=== PATIENT | female | born 1965 | race Caucasian/White ===

== ENCOUNTER 2020-09-25 15:03 | Inpatient (IN) | payer MEDICARE, OTHER ==
[2020-09-28] MEDS ORDERED: Glucagon,Human Recombinant 1 MG Vial IM PRN (14:39)
[2020-09-28] MEDS ORDERED: cloNIDine 0.1 MG Tab PO PRN ×2 (14:39)
[2020-09-28] MEDS ORDERED: DEXTROSE PO PRN (14:39)
[2020-09-28] MEDS ORDERED: [UNRECOGNIZED DRUG - OTHER] PO PRN (14:39)
[2020-09-28] MEDS ORDERED: Acetaminophen 500 MG Tab PO PRN (14:39)
[2020-09-28] MEDS ORDERED: Albuterol HFA 18 Gm Inhaler INH PRN (15:03)
[2020-09-28] MEDS ORDERED: ALPRAZolam 0.5 MG Tab PO PRN (15:04)
[2020-09-28] MEDS ORDERED: Hypromellose 0.3% Ophth Soln 15 ML Bottle EYEBOTH PRN (15:11)
[2020-09-28] MEDS ORDERED: SUMAtriptan 50 MG Tab PO PRN (15:15)
[2020-09-28] MEDS: Pantoprazole 40 MG Tab.CR PO SCH (16:01)
[2020-09-28] MEDS: Sodium Chloride 0.9% 10 ML Syringe IV PRN (16:01)
[2020-09-28] MEDS: Baclofen 10 MG Tab PO SCH ×2 (16:01→19:46)
[2020-09-28] MEDS: Sodium Chloride 0.9% 10 ML Syringe FLUSH SCH (16:01)
[2020-09-28] MEDS: cefTRIAXone 2 GM Vial IV SCH (16:01)
[2020-09-28] MEDS: Heparin Sodium 100 Units/ML 3 ML Syringe IVPUSH SCH (16:02)
[2020-09-28] MEDS: Calcium Carbonate/Vitamin D3 1250 MG-200 Unit Tab PO SCH (17:39)
[2020-09-28] MEDS: Codeine/guaiFENesin 10-100 MG/5 ML Syrup 5 ML Cup PO PRN (17:39)
[2020-09-28] MEDS: Ondansetron 4 MG Tab.DIS PO PRN (18:43)
[2020-09-28] MEDS: ClonazePAM 0.5 MG Tab PO SCH ×2 (19:44→19:45)
[2020-09-28] MEDS: Nortriptyline 10 MG Cap PO SCH (19:44)
[2020-09-28] MEDS: Melatonin 3 MG Tab PO SCH (19:45)
[2020-09-28] MEDS: Gabapentin 300 MG Cap PO SCH (19:45)
[2020-09-28] MEDS: Nortriptyline 25 MG Cap PO SCH (19:46)
[2020-09-28] MEDS: Montelukast 10 MG Tab PO SCH (19:46)
[2020-09-28] MEDS: busPIRone 15 MG Tab PO SCH (19:46)
[2020-09-28] MEDS: ESTROGENS CONJUGATED SCH (20:07)
--- NOTE | 2020-09-28 21:19 | HP ---
CHIEF COMPLAINT: Weakness. HISTORY OF PRESENT ILLNESS: The patient is a 55 -year-old female who had been hospitalized at [facility] from 09/10/2020 until 09/28/2020 with empyema of left lung, status post left VATS with community-acquired pneumonia with Streptococcus intermedius growth. She ended up having complications of respiratory distress, needing intubation afterwards with respiratory failure. She ended up having delirium related to ICU stay, which did get improved. The patient does have noted chronic dysphagia due to problems with gastric bypass that was done years ago. The patient had been anemic during this encounter and had received transfusions at least 2 times that she recalls. Her Hgb prior to discharge was around 7.8. The patient had been on oxygen until just a few days ago. She did receive blood transfusions to also help her get stronger. The patient normally lives at home with her in [place] and is in need of PT/OT as well as speech therapy to help with swallowing. The patient does normally see Dr. Brian Longoria from [facility], as her primary care provider. The patient has been given IV Venofer for her iron deficiency anemia. She did have a pansystolic murmur, but 2D echo showed mild mitral regurgitation and needs outpatient followup. The patient was seen by a pulmonology consult on 09/27/2020 and it was felt that she needed an outpatient followup with CT surgery and chest x-ray in 2 weeks as well as repeat CT of chest in 6 weeks. She will need IV antibiotics until 10/24/2020 and a PICC line had been placed. The patient's last bronchoscopy was on 09/24/2020 needed for airway clearance. To note, the patient had initial onset of 08/18 of left chest mass, which was felt to be possibly cancerous process, and that is why she had been seen by Oncology, but CT scan of her chest done on 09/10 showed a significant progression with consolidation. Dr. Muhammad was her CT surgeon. MEDICATIONS: That she came to us were Tylenol Extra Strength 1000 mg q.4 hours p.r.n. pain, albuterol inhaler 2 puffs q.4 hours p.r.n., Xanax 1 mg daily p.r.n. anxiety, Artificial Tears 1 mL both eyes daily p.r.n., baclofen 10 mg q.i.d. scheduled, Wellbutrin SR 200 mg 1 pill daily, Wellbutrin 100 mg daily at noon, BuSpar 15 mg 1 pill b.i.d., calcium carbonate with vitamin D 1250/200 one pill twice a day, Rocephin 2 g IV q.24 hours to be given until 10/24/2020, clonazepam 1 mg b.i.d., clonazepam 0.5 mg at 0600 and 2000, clonidine 0.2 mg p.r.n. anxiety and clonidine 0.4 mg at bedtime p.r.n. insomnia, vitamin B12, 500 mcg p.o. daily, ferrous sulfate 325 one pill daily, gabapentin 300 mg 3 times a day, glucagon 1 mg IM p.r.n. hypoglycemia, guaifenesin with codeine 5 mL q.4 hours p.r.n. cough, heparin 300 units IV p.r.n. heparin flushes and 300 units q.24 hours, levothyroxine 50 mcg p.o. q.a.m., melatonin 6 mg at bedtime, Singulair 10 mg 1 pill at bedtime, multivitamin 1 pill daily, glucose 1 to 3 tablets p.o. daily p.r.n. low blood sugars, silver nitrate applicator, 1 applicator topically daily p.r.n. bleeding, estrogen, Premarin 1 g q.3 days schedule, nortriptyline 75 mg 1 pill at bedtime, nortriptyline 10 mg p.o. at bedtime, Protonix 40 mg b.i.d., Senna Plus 1 pill twice a day, sodium chloride flushes 10 mL IV to keep vein open q.24 hours, Imitrex 25 mg q.2 hours p.r.n. headache. ALLERGIES: Adhesives, alcohol, gum mastic adhesive, ibuprofen, methyl salicylate, metronidazole, morphine, Naprosyn, penicillin, Storax (adhesive). PAST MEDICAL HISTORY: The patient has allergies, anemia, anxiety, arthritis, asthma, depression, diaphragmatic hernia, gastroesophageal reflux disease, hypoglycemia, irritable bowel syndrome, kidney stone, oropharyngeal dysphagia, osteoporosis, restless legs syndrome, mild mitral regurgitation, eating disorder unspecified, chronic depression, acne, pelvic floor dysfunction, postmenopausal atrophic vaginitis, somatization disorder. PAST SURGICAL HISTORY: The patient had gastric bypass 10/21/[address] Jacob. She has had TMJ reconstruction, 01/2010, [facility]; cosmetic surgery, 05/31/2010; abdominoplasty; medial thigh lift; left knee lift, butt lift. She has had knee arthroscopy in 2011 on the left, diagnostic laparoscopy status post gastric bypass on 07/10/2012. She has had upper endoscopy in 2011 and intestinal resection 10/19/2013 after exploratory lap takedown of gastrocutaneous fistula and lysis of adhesions, 10/18/2014. Upper endoscopy, 04/28/2015. Upper endoscopy, 06/08/2015. Laparoscopic repair of hiatal hernia, laparoscopic lysis of adhesions, removal of foreign body, EGD. 12/28/2015, upper endoscopy. 08/15/2016, left trapeziectomy with TightRope suspension . 01/19/2017, right trapeziectomy. 09/26/2017, colonoscopy. 09/26/2017, EGD. 01/29/2019, IR gastro tube placement. 03/04/2019, manometry anorectal. 04/09/2019, trial stage I insertion of InterStim sacral neurostimulator. 04/16/2019, InterStim stage II. 05/30/2019, IR gastric tube placement. 06/04/2019, cystoscopy, nephroscopy, laser lithotripsy, retrograde pyelogram, stent placement. 09/13/2020, left VATS, thoracotomy, drainage, and pleural effusion, drainage of lung abscess, decortication left lobe, flexible bronchoscopy. She has had an abdominal total hysterectomy, appendectomy, cholecystectomy, , fusion of SI joint, hernia repair, umbilical hernia, spine surgery with 2 spinal surgeries, tonsillectomy, and tubal ligation. FAMILY MEDICAL HISTORY: Shows mother had anxiety, rheumatoid arthritis, cirrhosis of the liver. Father has hypertension, kidney stones, knee replacement, nonmelanomatous skin cancer. Sister is alive. Brother is alive. Maternal grandmother is from depression, suicide, rheumatoid arthritis. Maternal grandfather had leukemia. Paternal grandmother had breast cancer. Paternal grandfather had prostate mets. Daughters had asthma. Son has had asthma, arthritis, depression. Maternal aunt had lupus, Sjogren's, and rheumatoid arthritis. SOCIAL HISTORY: The patient has never smoked. She does not consume alcohol. She is . Her is a teacher asst. 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 She has 2 children. REVIEW OF SYSTEMS: Her weight has gone down 20 pounds since this ordeal. She has not had a fever. She does have left chest wall pain. She does cough. Her bowels have been regular. She does have difficult time eating much food and need for feeding tubes. No swelling of her legs. No bruising. Mood does tend to be somewhat anxious. She is thinking more clearly now, but had been confused recently in the hospital. OBJECTIVE: Vital Signs: Show that her weight is 59.42 kg, height is 1.55 m, temperature is 37.0, pulse 108, blood pressure 118/55, respiratory rate 16, sats 94% on room air. Skin: The patient does have a healing thoracostomy site on her left lateral rib cage area with 2 small stab wounds from chest tubes. Her skin is fair. HEENT: Her pharynx is normal. Neck: Supple. No anterior cervical lymphadenopathy. Heart: Regular rate and rhythm with 1/6 systolic ejection murmur. Lungs: Have diminished breath sounds on the left. Right is more clearer. Abdomen: Bowel sounds present. Soft, nontender. Lower Extremities: No edema. No redness. Psychiatric: Mood-boo, the patient appears to be slightly anxious. Psych: She appears oriented x3. IMPRESSION: 1. Deconditioning with weakness. 2. Empyema status post left video-assisted thoracic surgery drainage. 3. Community-acquired pneumonia, streptococcus intermedius 4. Chronic anxiety disorder. 5. Chronic depression. 6. Anemia, multifactorial. 7. Hypothyroidism. 8. Dysphargia chronic. 9. History of gastric bypass surgery. PLAN: The patient will be admitted to swing bed. She will receive physical therapy, occupational therapy and will also get speech therapy ordered. The patient will have lab work done tomorrow. Per directions from her discharge summary, she will follow up with CV Surgery as directed as well as having most likely a followup chest x-ray towards the end of this week to get a baseline here as well as CT scan as directed as needed in 6 weeks' time and I also want a chest x-ray in 2 weeks' time. She will need PICC line cares.IV antibiotics until 10/24/20 with roceophin. To note, time to do admission was over 30 minutes: The patient is code level 1 status. The patient had been on Lovenox for DVT prophylaxis; however, with concerns for anemia may use compression hosiery on her legs. She tested negative for COVID prior to leaving [facility] in [place]. GM09/28/2020 17:40:29 MODL: 09/28/2020 21:12:42 /[id number] MTDD
[2020-09-29] MEDS: ClonazePAM 0.5 MG Tab PO SCH ×4 (06:14→20:13)
[2020-09-29] MEDS: Pantoprazole 40 MG Tab.CR PO SCH ×2 (06:14→17:20)
[2020-09-29] MEDS: Levothyroxine 50 MCG Tab PO SCH (06:14)
[2020-09-29 07:38] LABS: CHLORIDE,CL 102 mmol/L (98-107); SODIUM,NA 142 mmol/L (136-145)
[2020-09-29 07:57] LABS: ANION GAP 10.4 mmol/L (10-20)
--- NOTE | 2020-09-29 08:17 | PCM.SN.2 ---
- Free Text/Narrative Note: labs reviewed, potassium is low at 2.4, so will add potassium. Her Hgb 7.8 and plt were over 700, which may reflect acute phase reactant. She was having nausea. Albumen noted to be low at 1.7
[2020-09-29] MEDS: Baclofen 10 MG Tab PO SCH ×4 (08:57→20:13)
[2020-09-29] MEDS: Multivitamins with Iron/Calcium/Folic Acid/Minerals Tab PO SCH (08:57)
[2020-09-29] MEDS: Potassium Chloride 10 MEQ Tab.ER PO SCH ×2 (08:57→18:23)
[2020-09-29] MEDS: Cyanocobalamin (Vitamin B12) 250 MCG Tab PO SCH (08:57)
[2020-09-29] MEDS: buPROPion 100 MG Tab.SR PO SCH ×2 (08:57→11:52)
[2020-09-29] MEDS: busPIRone 15 MG Tab PO SCH ×2 (08:57→20:14)
[2020-09-29] MEDS: Gabapentin 300 MG Cap PO SCH ×3 (08:58→20:14)
[2020-09-29] MEDS: Ferrous Sulfate 325 MG Tab PO SCH (08:58)
[2020-09-29] MEDS: Ondansetron 4 MG Tab.DIS PO PRN (08:58)
[2020-09-29] MEDS: Calcium Carbonate/Vitamin D3 1250 MG-200 Unit Tab PO SCH ×2 (08:58→18:22)
[2020-09-29] MEDS: Sodium Chloride 0.9% 10 ML Syringe IV PRN (09:01)
[2020-09-29] MEDS ORDERED: Loperamide 2 MG Cap PO STA (11:53)
[2020-09-29] MEDS ORDERED: Loperamide 2 MG Cap PO PRN (12:02)
[2020-09-29] MEDS: Heparin Sodium 5,000 Units/ML Vial SUBCUT SCH ×2 (12:27→20:14)
--- OUTSIDE RECORDS SUMMARY | 2020-09-29 12:36 | XMSREPORT ---
:1965 Author Organization [facility] Address [address] [place] [address] [address] [place] [address] Care Team Providers Name Role Phone Eldon White MD Unavailable MD Von Primary Care Provider MD Von Attributed Provider Reason for Referral FCC Prior Auth (Routine) Status Reason Specialty Diagnoses / Referred By Referred To Procedures Contact Contact NOT REQUIRED Diagnoses Abscess of lower lobe of left lung without pneumonia (HCC) Melissa Huerta Procedures CT CHEST WITH CONTRAST MD Alan [address] [place] [address] Comprehensive Primary [facility] Plus (Routine) Status Reason Specialty Diagnoses / Referred By Referred To Procedures Contact Contact New Request CARDIOLOGY Diagnoses Abscess of lower lobe of left lung with pneumonia (HCC) Melissa Huerta Fgo Cardthr Sgalfredo Phillips MD [address] [place] [address] [place] [address] [place] [address] Phone: Fax: Scheduling Instructions This is an electronic referral. FCC Prior Auth (Routine) Status Reason Specialty Diagnoses / Referred By Referred To Procedures Contact Contact NOT REQUIRED Diagnoses Abscess of lower lobe of left lung with pneumonia (HCC) Jose De Jesus Rios MD Procedures HOME INFUSION ADULT ANTIBIOTIC [address] [place] [address] Reason for Visit Auth/Cert Status Reason Specialty Diagnoses / Procedures Referred By Woody torres Referred To Contact Encounter Details Date Type Department Care Team Description 09/10/2020 - [facility] Provider, [facility] Pr ocedure Lung abscess (HCC) 09/28/2020 Encounter CENTER 6CD F Son Bach MD [address] [place] [address] [phone] [facility] Vinayak Muller MD [address] [place] [address] [phone] [place] [address] Carl Bonilla MD [address] [place] [address] [phone] Jose Bustillos MD [address] [place] [address] [phone] Alonzo Snyder, [address] [place] [address] [phone] Alan William MD [address] [place] [address] [phone] Jensen Gonzalez MD [address] [place] [address] [phone] Melissa Huerta MD [address] [place] [address] [phone] Maria Loya MD [address] [place] [address] [phone] Allergies Active Allergy Reactions Severity Noted Date Comments Adhesives Itching 08/02/2012 Gnp Naproxen Sodium Other (Specify in 05/27/2012 GI due to bypass Comments) surgery Metronidazole Rash 05/27/2012 Ibuprofen Other (Specify in 05/27/2012 GI due to bypass Comments) surgery Mastisol Rash 06/27/2012 Morphine Other (Specify in 11/13/2014 IV form Ca uses pt to Comments) feel hyper and shake Penicillin Rash 05/27/2012 documented as of this encounter (statuses as of 09/28/2020) Medications Medication Sig Dispensed Refills Start Date End Date Status cyanocobalamin Take 500 mcg by mouth 0 Active (VITAMIN B-12) 500 1 time per day. mcg tablet dextrose 4-0.006 G Take 1-3 tablets by 0 11/26/2012 Active CHEW chewable tablet mouth 1 time a day as needed for low blood sugar. calcium Take 1 tablet by 0 Act maura carbonate-vitamin D mouth 2 times a day (CALTRATE 600 + VIT with meals. D) 600mg-200 unit tablet artificial tears 1.4 Place 1 drop into 0 Active % SOLN both eyes 1 time a day as needed for dry eyes. Lancets (MICROLET) Test blood sugar 2 100 each 05/25/2017 Active MISCIndications: times a day (1-2 Hypoglycemia hours after supper and as needed for hypoglycemic symptoms). blood glucose test Test blood sugar 2 50 each 05/25/2017 Active strip (COURTNEY CONTOUR times a day (1-2 NEXT) hours after supper STRPIndications: and as needed for Hypoglycemia hypoglycemic symptoms). glucagon, rDNA, Inject 1 mg 1 Kit 3 02/08/2018 A ctive (GLUCAGON EMERGENCY) intramuscularly as 1 mg injection needed for other kitIndications: (Specify) (low blood Hypoglycemia sugar) (For low blood sugar) silver Apply topically 1 100 each 1 11/21/2018 A ctive nitrate-potassium time per day as nitrate (GRAFCO needed around feeding SILVER NIT tube site. APPLICATOR) 75-25 % sticksIndications: Breakthrough bleeding buPROPion TAKE 1 TABLET BY 90 tablet 3 11/19/2019 Ac tive (WELLBUTRIN SR) 100 MOUTH EVER Y DAY AT mg SR (12 hr) NOON tabletIndications: Recurrent major depressive disorder, remission status unspecified (HCC) Additional Information Patient taking differently: 100 mg Oral Daily (Noon), TAKE 1 TABLET BY MOUTH EVER Y DAY AT NOON, Reported on 09/10/2020 8:08 PM buPROPion (WELLBUTRIN SR) 200 mg TAKE 1 TABLET BY 90 tablet 3 11/19/2019 Active SR (12 hr) tabletIndications: MOUTH EVER Y MORNING Recurrent major depressive disorder, remission status unspecified (HCC) Additional Information Patient taking differently: 200 mg Oral DAILY, TAKE 1 TABLET BY MOUTH EVER Y MORNING, Reported on 09/10/2020 8:08 PM acetaminophen (TYLENOL) 500 Take 1,000 mg by mouth 0 Active mg tablet every 4 to 6 hours as needed for moderate pain baclofen (LIORESAL) 10 mg Take 1 tablet (10 mg) 120 tablet 12 0 12/10/2019 Active tabletIndications: Chronic by mouth 4 times a day pain syndrome, Chronic low back pain without sciatica, unspecified back pain laterality albuterol HFA Inhale 2 puffs orally 1 Inhaler 3 12/31/2019 Active (PROVENTIL,PROAIR,VENTOLIN) every 4 to 6 hours as 108 (90 Base) MCG/ACT needed for shortness of inhalerIndications: breath Shake well Bronchitis, Uncomplicated before using. asthma Multiple Vitamins-Calcium Take by mouth 0 Active (ONE-A-DAY WOMENS PO) levothyroxine 50 mcg TAKE 1 TABLET BY MOUTH 90 tablet 3 2019 Active tabletIndications: DAILY Hypothyroidism (acquired) Additional Information Patient taking differently: 50 mcg Oral DAILY, Reported on 09/10/2020 8:03 PM pantoprazole (PROTONIX) 40 mg TAKE 1 TABLET BY 60 tablet 12 04/2020 Active enteric coated MOUTH TWICE A DAY tabletIndications: BEFORE MEALS Gastroesophageal reflux disease without esophagitis Additional Information Patient taking differently: 40 mg Oral Two times a day before meals, TAKE 1 TABLET BY MOUTH TWICE A DAY BEFORE MEALS, Reported on 09/10/2020 8:03 PM montelukast (SINGULAIR) 10 Take 1 tablet (10 90 tablet 0 07/14 Active mg tabletIndications: mg) by mouth every Chronic pain syndrome night at bedtime estrogens, conjugated Insert 1 g 42.5 g 4 07/15/2020 Active (PREMARIN) 0.625 mg/gm vaginally every 2 0 vaginal creamIndications: night at bedtime Postmenopausal atrophic for 14 days, THEN vaginitis, Dyspareunia, 1 g Every 3 days. female nortriptyline (PAMELOR) 25 3 capsules at 270 capsule 2 020 Active mg capsuleIndications: bedtime Major depressive disorder, recurrent, moderate (HCC) Additional Information Patient taking differently: 75 mg Oral Bedtime, 3 capsules at bedtime, Reported on 09/10/2020 8:08 PM nortriptyline (PAMELOR) 10 mg TAKE 1 CAPSULE BY 90 capsule 2 0 07/21/2020 Active capsuleIndications: Major MOUTH AT BEDTIME depressive disorder, recurrent, (TAKE WITH 3 25 MG moderate (HCC) TABLETS) Additional Information Patient taking differently: 10 mg Oral Bedtime, TAKE 1 CAPSULE BY MOUTH AT BEDTIME (TAKE WITH 3 25 MG TABLETS), Reported on 09/10/2020 8:03 PM ALPRAzolam (XANAX) 1 mg TAKE 1 TABLET BY 15 tablet 2 0 Active tabletIndications: Anxiety MOUTH EVERY DAY NEEDED FOR PANIC SYMPTOMS Additional Information Patient taking differently: 1 mg Oral One time a day prn, TAKE 1 TABLET BY MOUTH EVERY DAY NEEDED FOR PANIC SYMPTOMS, Reported on 09/10/2020 8:03 PM sumatriptan succinate Take 1 tablet (25 5 tablet 0 08/30/2020 09/04/2021 Active (IMITREX) 25 mg mg) by mouth every tabletIndications: 2 hours as needed Nonintractable headache, for migraine May unspecified chronicity repeat x1 dose pattern, unspecified after 2 hours if headache type needed; MAX 2 doses/24 hours cloNIDine (CATAPRES) 0.1 TAKE 4 TABLETS BY 180 tablet 1 2019 Active mg tabletIndications: MOUTH AT BEDTIME Insomnia, unspecified NEEDED FOR type, Anxiety SLEEP; MAY TAKE ANADDITIONAL 2 TABLETS EACH DAY NEEDED FOR ANXIETY. OR ANXIETY. Additional Information Patient taking differently: 0.4 mg Oral Bedtime prn, TAKE 4 TABLETS BY MOUTH AT BEDTIME NEEDED FOR SLEEP; MAY TAKE AN ADDITIONAL 2 TABLETS EACH DAY NEEDED FOR ANXIETY. OR ANXIETY., Reported on 09/10/2020 8:03 PM clonazePAM (KLONOPIN) 1 TAKE 1/2 TABLET BY 90 tablet 1 020 Active mg tabletIndications: MOUTH AT 6AM, 1 Generalized anxiety TABLET AT 12:00, 1 disorder TABLET AT 6PM,AND 1/2 TABLET AT BEDTIME. sodium chloride 0.9% Administer 10 mL intravenous ly As often as necessary for other (Specify) (Flush infusion line before each antibiotic infusion and after each infusion completed) Flush infusion line before each antibiotic infusion and after each infusion completed. 0 09/21/2020 Active prefilled 10 mL syringe Flush line with heparin 300 units/ 3 mL after the last saline flush 0.9% SOLNIndications: Abscess of lower lobe of left lung with pneumonia (HCC) hEParin 100 units/mL Administer 3 mL 0 09/21/2020 Active injection (300 Units) solutionIndications: intravenously As Abscess of lower lobe often as necessary of left lung with for other pneumonia (HCC) (Specify) (heparin 300 units/3 mL IV FLUSH after completion of each antibiotic infusion (after saline flush)) heparin 300 units/3 mL IV FLUSH after completion of each antibiotic infusion (after saline flush) cefTRIAXone (ROCEPHIN) Administer 2,000 0 09/21/202010/12 Active 2,000 mg in sodium mg intravenously 3/ chloride 0.9% 50 Every 24 hours 20 mLIndications: Abscess of lower lobe of left lung with pneumonia (HCC) busPIRone (BUSPAR) 15 Take 1 tablet (15 180 tablet 4 0 09/13 Active mg tabletIndications: mg) by mouth 2 2/2 0 Anxiety disorder, times a day 21 unspecified type gabapentin (NEURONTIN) Take 1 capsule 90 capsule 2 09/28/202012/13 Active 300 mg (300 mg) by mouth 03/31 capsuleIndications: 3 times a day 21 Anxiety disorder, unspecified type codeine-guaiFENesin Take 5 mL by mouth 240 mL 0 09/28/2020 Active 10mg-100mg/5mL oral Every 4 hours as syrupIndications: needed for cough Abscess of lower lobe of left lung with pneumonia (HCC) melatonin 3 mg Take 2 tablets (6 30 tablet 0 09/28/2020 Active tabletIndications: mg) by mouth every Anxiety disorder, night at bedtime unspecified type ferrous sulfate (65 MG Take 1 tablet (325 30 tablet 0 09/28/20 20 Active FE PER 325 MG TABLET) mg) by mouth 1 325 mg time per day tabletIndications: Iron deficiency anemia, unspecified iron deficiency anemia type senna-docusate sodium Take 1 tablet by 60 tablet 0 09/28/2020 Active (SENOKOT-S;PERICOLACE) mouth 2 times a 8.6-50 MG day tabletIndications: Iron deficiency anemia, unspecified iron deficiency anemia type busPIRone (BUSPAR) 15 TAKE 3 TABLETS BY 180 tablet 5 0 09/12 Discontinued mg tabletIndications: MOUTH TWICE A DAY 05/31 (Stop Taking at Major depressive 20 Dis charge) disorder, recurrent, moderate (HCC), Generalized anxiety disorder gabapentin (NEURONTIN) TAKE 2 CAPSULES BY 180 capsule 3 2019 Discontinued 300 mg MOUTH THREE TIMES 01/01 capsuleIndications: DAILY 20 Neuropathic pain ziprasidone (GEODON) 40 TAKE 1 CAPSULE BY 90 capsule 1 020 09/12 Discontinued mg capsuleIndications: MOUTH EVERY NIGHT 05/31 (Stop Taking at Major depressive AT BEDTIME 20 Di scharge) disorder, recurrent episode, moderate (HCC) levoFLOXacin (LEVAQUIN) Take 1 tablet (500 10 tablet 0 020 09/12 Discontinued 500 mg mg) by mouth 1 05/31 (Stop Taking at tabletIndications: time per day 20 Discharge) Pneumonia of left upper lobe due to infectious organism, Cough, Lung mass HYDROcodone-chlorphenir Take 5 mL by mouth 250 mL 0 020 09/12 Discontinued amine (TUSSIONEX) 10-8 Every 12 hours as 05/31 (Stop Taking at mg/5 mL oral suspension needed for cough 20 Discharge) ERIndications: Cough, Pneumonia of left upper lobe due to infectious organism, Lung mass documented as of this encounter (statuses as of 09/28/2020) Active Problems Problem Noted Date Anxiety disorder 09/13/2020 Asthma 09/13/2020 Hypothyroidism 09/13/2020 Peripheral neuropathy 09/13/2020 Pneumonia 09/13/2020 History of general anesthesia 09/13/2020 Lung abscess 09/11/2020 Pelvic floor dysfunction in female 05/31/2020 Kidney stones 07/02/2019 Uses feeding tube 06/03/2019 Acute kidney injury 06/03/2019 Obesity with body mass index of 30.0-39.9 03/31/2019 Oropharyngeal dysphagia 04/01/2018 Last Assessment & Plan: Cricopharyngeal spasm more likely incidental finding on esophogram, though may be contributing to symptoms or pills sticking. No evidence of ring, web, narrowing on recent EGD, esophogram. Consider cont ribution of LPR to symptoms. Continue twice daily protonix; goal t o taper to lowest effective dose as able Encourage meds with puree, consider c rushing larger pills/mix with puree; check with pharmacist about options for crushing Avoid trigger foods No specific treatments available for laryngopharyngeal spasm- already on antianxiety, muscle relaxant, neuromodulating medications that are often trialed if acid reduction is ineffective. Unclear role for manometry, if as abo ve, not always good treatment for UES spasm as noted on esophogram Bilateral hand numbness 03/01/2018 History of Derrick fundoplication 01/18/2018 Last Assessment & Plan: Recent recurrence of acid regurgitation, rare heartburn. On daily PPI therapy BID Concern for failure of fundoplication Esophagram to further assess Iron deficiency anemia 12/24/2017 Last Assessment & Plan: Secondary to poor dietary absorption in post-gastric bypass state. Managed per PCP Recent IV infusion x2- repeat labs or dered per primary care Normal EGD/ Colonoscopy 09/26/2017 wi thout evidence of bleeding/oozing contributing to ongoing losses Multiple episodes of hypoglycemia 12/04/2017 Eating disorder, unspecified 03/12/2017 Excoriation (skin-picking) disorder 01/10/2017 Primary osteoarthritis of first carpometacarpal joint of right hand 01/08/2017 Primary osteoarthritis of first carpometacarpal joint of left hand 07/03/2016 Major depressive disorder, recurrent episode, moderate 10/20/2014 Gastroesophageal reflux disease without esophagitis Last Assessment & Plan: As noted on recent esophogram, no esophagitis on EGD completed 09/2017. Breakthrough symptoms despite twice daily PPI. Continue protonix twice daily Trial ranitidine once daily at HS. If not additional benefit noted after 8 weeks, stop this medication. Discussed risks of residential PPI/H2RA use including kidney disease, infections, vitamin/mineral deficiencies, and fractures. Discussed ways to minimize risk of long-term therapy including well-balanc ed diet, calcium/vitamin D supplementati on, adequate fluid hydration, minimizing antibiotic use as able, and staying up to date on immunizations. Newer data not supportive of link between PPI medication s and dementia. Unclear link between H2R As and dementia. Disorder of sacrum 09/07/2014 Chronic pain 09/07/2014 Somatization disorder 12/25/2013 Personal history of gastric bypass 02/04/2013 Hypoglycemia 01/24/2013 Abdominal pain, chronic, generalized 12/31/2012 Restless leg syndrome 10/22/2012 Eating disorder 10/01/2012 Diffuse cystic mastopathy 09/01/2011 Irritable bowel syndrome 03/14/2011 Last Assessment & Plan: Recent workup for causes of chronic diarrhea including infectious, fat malabsorption, IBD, and microscopic colitis all negative. Trial of Questran started in September - patient with significant improvement to once daily formed. Continue TID dosing of Questran at th is time. Recommend annual lipid panel- can inc rease triglyceride levels Other malaise and fatigue 03/03/2011 Insomnia 12/04/2010 Postmenopausal atrophic vaginitis 09/07/2010 Lumbago 09/05/2010 Functional diarrhea 08/12/2010 Overview: Partly due to dietary factors, post gastric bypass dumping and oxycodone withdrawal. Other acne 01/28/2009 Symptomatic menopausal or female climacteric states Anxiety state documented as of this encounter (statuses as of 09/28/2020) Resolved Problems Problem Noted Date Resolved Date Left ureteral calculus 06/03/2019 01/07/2020 Left flank pain 06/03/2019 06/28/2020 Pain management contract broken 01/23/2017 02/01/20 17 Pain medication agreement signed 11/18/2016 017 Overview: Pain medication agreement signed 05/19/2016 016 Overview: A pain management agreement is on file for this patient. Before prescribing any opioids for this patient, please contact the rehabilitation team lead staff at [address] [facility] [address] [facility] [address] . 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 08/27/20 12 Weight loss, abnormal 07/10/2012 05/12/2013 Vomiting 07/10/2012 10/15/2014 Pain in joint, lower leg 01/12/2012 05/12/2013 Preoperative examination 09/19/2011 05/12/2013 Backache 03/31/2011 10/15/2014 Other chronic pain 03/14/2011 05/26/2016 Contusion of chest wall 01/18/2011 05/12/2013 Abdominal pain, left lower quadrant 10/10/2010 12/02/2014 Other seborrheic keratosis 09/07/2010 10/15/2014 Cervicalgia 09/05/2010 10/15/2014 Abdominal pain, epigastric 07/14/2010 10/15/2014 Diarrhea 07/12/2010 07/27/2012 Health examination of defined subpopulation 07/01/2010 05/12/2013 Major depressive disorder, recurrent Shortness of breath 05/12/2013 Sacroiliitis, not elsewhere classified 1 12/16/2013 documented as of this encounter (statuses as of 09/28/2020) Immunizations Name Administration Dates Next Due Influenza Trivalent w/preserv 08/16/2011, 08/17/2010, 08/09, 09/16/2008 FLU VACCINE MULTIDOSE 08/13/2015, 08/07/2014 0.5mL(6MO+Fluzone/Flulaval,Afluria) FLU VACCINE SINGLE DOSE 07/14/2020, 08/23/2018, 09/06/2016 0.5mL(6MO+Fluzone/Flulaval/Fluarix,3YR +Afluria) FLU VACCINE SINGLE DOSE 09/13/2017 0.5mL(6MO+Fluzone/Flulaval/Fluarix/3YR +Afluria) H1N1 Vaccine W/preservative 3yr+ 10/13/2009 Influenza Vaccine 08/21/2012, 08/17/2011 Influenza Vaccine,unspecified 08/19/2019, 08/23/2018, 2016, 09/06/2016 Pneumococcal Conj PCV13 12/10/2019 Pneumococcal Polysaccharide PPSV23 01/26/2017 TD,not adsorbed 01/20/1997 TDAP 09/20/2007 Zoster Recombinant (Shingrix) 12/18/2019, 12/10/2019, 2018 documented as of this encounter Social History Tobacco Use Types Packs/Day Years Used Date Never Smoker Smokeless Tobacco: Never Used Alcohol Use Drinks/Week oz/Week Comments No 0.0 Physical Activity Answer Date Recorded On average, how many days per week do you engage in moderate to 3 days 01/21/2020 strenuous exercise (like walking fast, running, jogging, dancing, swimming, biking, or other activities that cause a light or heavy sweat)? On average, how many minutes do you engage in exercise at th is 60 min 01/21/2020 level? Sexually Active Control Partners Comments Yes Male Sex Assigned at Date Recorded Female 10/28/2019 9:40 AM [employer]PER[employer] documented as of this encounter Last Filed Vital Signs Vital Sign Reading Time Taken Comments Blood Pressure 109/34 09/28/2020 11:04 AM [employer] OPERATOR Pulse 105 09/28/2020 11:04 AM [employer] OPERATOR Temperature 36.7 C (98.1 F) 09/28/2020 11:04 AM [employer] OPERATOR Respiratory Rate 16 09/28/2020 11:04 AM [employer]ACHINE OPERATOR Oxygen Saturation 95% 09/28/2020 11:04 AM [employer]ACHINE OPERATOR Inhaled Oxygen Concentration - - Weight 63.4 kg (139 lb 12.8 oz) 09/28/2020 6:14 AM [employer]ACHINE OPERATOR Height 154.9 cm (5' 1") 09/13/2020 1:00 PM [employer]INE OPERATOR Body Mass Index 26.41 09/13/2020 1:00 PM [employer] OPERATOR documented in this encounter Functional Status Functional Status Response Date of Assessment Is the person deaf or does he/she have serious difficulty No 06/03/2019 hearing? Is this person blind or does he/she have difficulty No 06/03/2019 seeing even when wearing glasses? Do you have difficulty with walking, balance, climbing Yes 09/22/2020 stairs, or had a fall in the last 3 months? Does the patient have difficulty dressing or bathing? No 06/03/2019 Because of a physical, mental, or emotional condition; Yes 06/03/2019 does this person have difficulty doing errands alone such as visiting a doctor's office or shopping? Cognitive Status Response Date of Assessment Because of a physical, mental, or emotional condition; No 06/03/2019 does this person have serious difficulty concentrating, remembering, or making decisions? documented as of this encounter Discharge Summaries Not on filedocumented in this encounter Discharge Instructions InstructionsNishi Campo RN - 09/28/2020 Discharge Instructions: Caring for Your Peripherally Inserted Central Catheter (PICC) You are going home with a peripherally inserted central catheter (PICC). This small, soft tube has been placed in a vein in your arm. It is often used when treatment requires medicines or nutrition forweeks or months. At home, you need to take care of your PICC to keep it working.Because a PICC line has a high infection risk, you must take extra care washing your hands and preventing the spread ofgerms. This sheet will help you remember what to do to care for your PICC at home. Understanding your role A nurse or other healthcare provider will teach you and your caregivers how to care for the PICC.Before leaving the hospital, make sure you understand what to do at home, how long you may need the PICC, and when to have a follow-up visit. You will likely be told to flush the PICC with saline or heparin solution. You may also be told to change the catheters injection caps and change the dressing (bandage). Or, a nurse may do this for you during a follow-up visit. Only do these things if youre told to, following the instructionsyou were given. Protecting the PICC If the PICC gets damaged, it wont work right and could raise your chance of infection. Call your healthcare team right away if any damage occurs. To protect the PICC at home: Prevent infection. Use good hand hygiene by following the guidelines on this sheet. Dont touchthe catheter or dressing unless you need to. And always clean your hands before and after you come in contact with any part of the PICC. Your caregivers, family members, and any visitors should use good hand hygiene, too. Keep the PICC dry. The catheter and dressing must stay dry. Dont take baths, go swimming, use a hot tub, or do other things that could get the PICC wet. Take a sponge bath to avoid getting your catheter wet, unless your healthcare provider tells you otherwise. Ask your provider about the best way to keep your catheter dry when bathing or showering. If the dressing does get wet, change it only if you have been shown how. Otherwise, call your healthcare team right away for help. Avoid damage. Dont use any sharp or pointy objects around the catheter. This includes scissors, pins, knives, razors, or anything else that could cut it or put a hole in it (puncture it). Also, dont let anything pull or rub on the catheter, such as clothing. Watch for signs of problems. Pay attention to how much of the catheter sticks out from your skin.If this changes at all, let your healthcare provider know. Also watch for cracks, leaks, or other damage. If the dressing becomes dirty, loose, or wet, change it (if you have been instructed to). Or call your healthcare team right away. Avoid lowering your chest below your waist. This includes bending at the waist to do things like tying your shoes. When your chest is below your waist, especially for a long time, the catheters internal tip could slip out of place in the vein. Tell your healthcare team if you vomit or have severe coughing. This can also make the catheter slip out of place. Protecting your arm The arm with the PICC is at risk for developing blood clots (thrombosis). This is a serious problem.To help prevent it: As much as possible, use the arm with the PICC in it for normal daily activities. Lack of movement can lead to blood clots. So its important to move your arm as you normally would. Your healthcare team may suggest light arm exercises. Avoid activities or exercises that require major use of your arm, such as sports, unless your healthcare provider says its OK. Avoid any activities that cause mild pain in your arm. Talk to your healthcare team if you have concerns about pain or range of motion. Dont lift anything heavier than 10 pounds with the affected arm. Drink plenty of water. Staying hydrated helps keep clots from forming. Prevent infection with good hand hygiene A PICC can let germs into your body. This can lead to serious and sometimes deadly infections. To prevent infection, its very important that you, your caregivers, and others around you use good handhygiene. This means washing your hands well with soap and water, and cleaning them with an alcohol-based hand gel as directed. Never touch the PICC or dressing without first using one of these methods. To wash your hands with soap and water: Wet your hands with warm water. (Avoid hot water, which can cause skin irritation when you wash your hands often.) Apply enough soap to cover the whole surface of your hands, including your fingers. Rub your hands together vigorously for at least 15 seconds. Make sure to rub the front and back of each hand up to the wrist, your fingers and fingernails, between the fingers, and each thumb. Rinse your hands with warm water. Dry your hands completely with a new, unused paper towel. Dont use a cloth towel or other reusable towel. These can harbor germs. Use the paper towel to turn off the faucet, then throw it away. If youre in a bathroom, also use a paper towel to open the door instead of touching the handle. When you dont have access to soap and water: Use an alcohol-based hand gel to clean your hands.The gel should have at least 60% alcohol. Follow the instructions on the package. Your healthcare team can answer any questions you have about when to use hand gel, or when its better to wash with soap and water. When to seek medical care Call your provider right away if you have any of the following: Pain or burning in your shoulder, chest, back, arm, or leg Fever of 100.4F (38.0C) or higher Chills Signs of infection at the catheter site (pain, redness, drainage, burning, or stinging) Coughing, wheezing, or shortness of breath A racing or irregular heartbeat Muscle stiffness or trouble moving Tightness in your arm, above the catheter site Gurgling noises coming from the catheter The catheter falls out, breaks, cracks, leaks, or has other damage Date Last Reviewed: 05/12/201619999608-0683 [employer]. [address] [place] [address]. All rights reserved. This information is not intended as a substitute for professional medical care. Always follow your healthcare professional's instructions. Central Line Infections Good handwashing helps prevent central line infections. You need a central line as part of your treatment. Its also called a central venous access device(CVAD) or central venous catheter (CVC). A small, soft tube called a catheter is put in a vein that leads to your heart. The central line is used instead of a standard IV (intravenous) line. It does not need to be replaced as often as a standard IV. This means less pain and fewer needlesticks during treatment. But central lines come with a risk of infection. This sheet tells you more about central line infections and what hospitals are doing to prevent them. And it explains how an infection is treated, if one occurs. Types of central lines With a central line, a catheter is inserted into your body through a vein that leads to the large vein near the heart (vena cava). Types of central lines and their risk of infection are listed below. Which type is best for you depends on your needs and your overall health. Your healthcare provider cantell you which type of line you need, and why. Peripherally inserted central catheter (PICC).This is placed in a large vein in the upper arm, or near the bend of the elbow. Subclavian line. Thisis placed in a vein that runs behind the collarbone. Internal jugular line.This is placed into a large vein in the neck. Infection risk is higher than with a PICC or subclavian line, but lower than with a femoral line. Femoral line.This may be placed in a large vein in the groin. This site is generally not usedbecause of an increased risk for infection. Tunneled catheter. This is run through the soft tissue under the skin before it enters a vein. A small cuff helps hold the catheter in place. Both the tunnel and the cuff help prevent infection. This type of catheter may be placed in any of the above locations. Port. This small device is placed completely under the skin on the arm or chest. Its connectedto a catheter that is threaded into the vena cava. Types of infections A central line provides a direct path into your bloodstream. This gives germs possible access into your body. All types of central lines are associated with some risk of infection. Often, the germs that cause a central line infection come from your own skin. There are 2 possible types of infection: Local infection. This can occur where the central line enters your body. Symptoms include redness, pain, or swelling at or near the catheter site, pain or tenderness along the path of the catheter, and drainage from the skin around the catheter. Systemic infection (also called bacteremia). This can occur if germs get into the bloodstream. This is very serious and can be fatal. Symptoms include sudden fever, shaking chills, a racing heartbeat, confusion, change in behavior, and a skin rash. Risk factors for infection Anyone who has a central line can get an infection. Your risk is higher if you: Are in the intensive care unit (ICU). Have a weakened immune system or serious illness. Are receiving bone marrow or chemotherapy. Have the line for an extended time. Have a central line in your neck or groin. How central line infections are treated Treatment depends on the type of central line, how severe the infection is, and your overall health.Your healthcare provider will prescribe antibiotics to fight the infection. The line may also need to be removed. In some cases, the line is flushed with high doses of antibiotics. This may kill the germs causing the infection, so the line doesnt have to be removed. What hospitals do to prevent infection Hospitals have a plan to reduce central line infections. This plan includes: Good hand hygiene. Hospital staff clean their hands before and after touching the line. They washtheir hands with soap and water. Or they use an alcohol-based hand signs cleaner containing at least 60% alcohol. Using sterile practices during placement. The healthcare worker who places the line wears germ-free (sterile) clothing including a long-sleeved gown and gloves. Before the line is placed, your skin is cleaned with an antiseptic solution. During placement, you are fully covered with a large sterile sheet (a sterile drape). Only the spot where the line is placed is exposed. After placement, the sitewhere the line enters the body is covered with a sterile bandage (dressing). Choosing a lower-risk vein. Whenever possible, the line is placed in the vein that's right for your treatment and has the lowest infection risk. Some hospitals use lines coated with an antiseptic toreduce the chance of infection. Checking for infection. The line is checked frequently for infection. It is removed as soon as you no longer need it. What you can do to prevent infection Before you get a central line, ask questions. Find out why you need the line and where it will be placed. Learn what steps the hospital is taking to reduce your infection risk. Once the line has been placed, you, your caretakers, and any visitors can help prevent infection by doing the following: Use good hand hygiene. Wash your hands often with soap and water, and use alcohol-based hand gel as directed. To clean your hands effectively, follow the guidelines on this sheet. Visitors should wash hands well when they arrive and when they leave. Make sure healthcare staff clean their hands. They should use soap and water or an alcohol-based hand signs cleaner before and after checking the line. Dont be afraid to remind them. Keep the line dry. Follow your providers guidelines for showering. If the dressing does get wet, tell your healthcare provider right away. Dont touch the line. Even when your hands are clean, try not to touch the catheter or dressing. Learn the sterile dressing technique. This is important if you will be caring for the line at home. Your provider can show you what to do. Risk for blood clot If a blood clot forms it can block blood flow through the vein where the catheter is placed. Signs of a blood clot include pain or swelling in the neck, face, chest, or arm. If you have any of these symptoms, call your healthcare provider right away. You may need an ultrasound exam to locate the bloodclot and receive treatment with a blood thinner. How to wash your hands To protect the central line from germs, its very important to wash your hands often and clean them well. You and anyone who comes in contact with you should follow these steps: Wet your hands with warm water. (Avoid hot water. It can cause skin irritation when you wash yourhands often.) Apply enough soap to cover the entire surface of your hands, including your fingers. Rub your hands together briskly for at least 15 seconds. Make sure to rub the front and back of each hand up to the wrist, your fingers and fingernails, between the fingers, and each thumb. Rinse your hands with warm water. Dry your hands completely with a new, unused paper towel. Dont use a cloth towel or other reusable towel. These can harbor germs. Use the paper towel to turn off the faucet, then throw it away. If youre in a bathroom, also use a paper towel to open the door instead of touching the handle. Using alcohol-based hand gels When you dont have access to soap and water, alcohol-based hand gels are a good choice for cleaning your hands. The gel should have at least 60% alcohol. Note that some germs can't be killed by alcohol. Your healthcare team can answer any questions you have about when to use hand gel, or when its better to wash with soap and water. Follow these steps: Spread about 1 tablespoon of gel in the palm of one hand. (Check the package for specific guidelines.) Rub your hands together briskly. Clean the backs of your hands, the palms, between your fingers, and up your wrists. Rub until the gel is gone and your hands are completely dry. When to seek medical care Call your healthcare provider right away if you have a central line and develop any of the following: Pain or burning in your shoulder, chest, back, arm, or leg Fever of 100.4F (38.0C) or higher Chills Signs of infection at the catheter site (pain, redness, drainage, burning, or stinging) Coughing, wheezing, or shortness of breath A racing or irregular heartbeat Muscle stiffness or trouble moving Gurgling noises coming from the catheter The catheter falls out, breaks, cracks, leaks, or has other damage Date Last Reviewed: 05/12/201619998684-6362 [employer]. [address] [place] [address]. All rights reserved. This information is not intended as a substitute for professional medical care. Always follow your healthcare professional's instructions. Problems with your PICC: Sunday - Sunday 8am - 6:00pm Call - Ask for PICC Nurse on beeper #[id number] Evenings, Weekends, Holidays My [facility] Nurse - [phone] or Rescue Nurse Call Ask for the Rescue Nurse documented in this encounter Medications at Time of Discharge Medication Sig Dispensed Refills Start Date End Date busPIRone (BUSPAR) 15 Take 1 tablet (15 mg) 180 tablet 4 10/03/2021 mg tabletIndications: by mouth 2 times a Anxiety disorder, day unspecified type gabapentin (NEURONTIN) Take 1 capsule (300 90 capsule 2 09/1212/27/2020 300 mg mg) by mouth 3 times capsuleIndications: a day Anxiety disorder, unspecified type codeine-guaiFENesin Take 5 mL by mouth 240 mL 0 09/28/20 20 10mg-100mg/5mL oral Every 4 hours as syrupIndications: needed for cough Abscess of lower lobe of left lung with pneumonia (HCC) melatonin 3 mg Take 2 tablets (6 mg) 30 tablet 0 09/28/2020 tabletIndications: by mouth every night Anxiety disorder, at bedtime unspecified type cloNIDine (CATAPRES) TAKE 4 TABLETS BY 180 tablet 1 09/03/20 20 0.1 mg MOUTH AT BEDTIME tabletIndications: NEEDED FOR SLEEP; MAY Insomnia, unspecified TAKE ANADDITIONAL 2 type, Anxiety TABLETS EACH DAY NEEDED FOR ANXIETY. OR ANXIETY. clonazePAM (KLONOPIN) 1 TAKE 1/2 TABLET BY 90 tablet 1 08/13 mg tabletIndications: MOUTH AT 6AM, 1 Generalized anxiety TABLET AT 12:00, 1 disorder TABLET AT 6PM,AND 1/2 TABLET AT BEDTIME. sumatriptan succinate Take 1 tablet (25 mg) 5 tablet 0 09/04/2021 (IMITREX) 25 mg by mouth every 2 tabletIndications: hours as needed for Nonintractable migraine May repeat headache, unspecified x1 dose after 2 hours chronicity pattern, if needed; MAX 2 unspecified headache doses/24 hours type ALPRAzolam (XANAX) 1 mg TAKE 1 TABLET BY 15 tablet 2 2019 tabletIndications: MOUTH EVERY DAY Anxiety NEEDED FOR PANIC SYMPTOMS nortriptyline (PAMELOR) 3 capsules at bedtime 270 capsule 2 07/21/2020 25 mg capsuleIndications: Major depressive disorder, recurrent, moderate (HCC) nortriptyline (PAMELOR) TAKE 1 CAPSULE BY 90 capsule 2 07/21 10 mg MOUTH AT BEDTIME capsuleIndications: (TAKE WITH 3 25 MG Major depressive TABLETS) disorder, recurrent, moderate (HCC) estrogens, conjugated Insert 1 g vaginally 42.5 g 4 01/202010/27/2020 (PREMARIN) 0.625 mg/gm every night at vaginal bedtime for 14 days, creamIndications: THEN 1 g Every 3 Postmenopausal atrophic days. vaginitis, Dyspareunia, female montelukast (SINGULAIR) Take 1 tablet (10 mg) 90 tablet 0 0 07/14/2020 10 mg by mouth every night tabletIndications: at bedtime Chronic pain syndrome pantoprazole (PROTONIX) TAKE 1 TABLET BY 60 tablet 12 2019 40 mg enteric coated MOUTH TWICE A DAY tabletIndications: BEFORE MEALS Gastroesophageal reflux disease without esophagitis levothyroxine 50 mcg TAKE 1 TABLET BY 90 tablet 3 0 tabletIndications: MOUTH DAILY Hypothyroidism (acquired) Multiple Take by mouth 0 Vitamins-Calcium (ONE-A-DAY WOMENS PO) albuterol HFA Inhale 2 puffs orally 1 Inhaler 3 12/31/2019 (PROVENTIL,PROAIR,REGAN every 4 to 6 hours as ROSA) 108 (90 Base) needed for shortness MCG/ACT of breath Shake well inhalerIndications: before using. Bronchitis, Uncomplicated asthma acetaminophen (TYLENOL) Take 1,000 mg by 0 500 mg tablet mouth every 4 to 6 hours as needed for moderate pain baclofen (LIORESAL) 10 Take 1 tablet (10 mg) 120 tablet 12 mg tabletIndications: by mouth 4 times a Chronic pain syndrome, day Chronic low back pain without sciatica, unspecified back pain laterality buPROPion (WELLBUTRIN TAKE 1 TABLET BY 90 tablet 3 11/19/19 20 SR) 100 mg SR (12 hr) MOUTH EVER Y DAY AT tabletIndications: NOON Recurrent major depressive disorder, remission status unspecified (HCC) buPROPion (WELLBUTRIN TAKE 1 TABLET BY 90 tablet 3 11/19/19 20 SR) 200 mg SR (12 hr) MOUTH EVER Y MORNING tabletIndications: Recurrent major depressive disorder, remission status unspecified (HCC) silver Apply topically 1 100 each 1 11/21/2018 nitrate-potassium time per day as nitrate (GRAFCO SILVER needed around feeding NIT APPLICATOR) 75-25 % tube site. sticksIndications: Breakthrough bleeding glucagon, rDNA, Inject 1 mg 1 Kit 3 02/08/2018 (GLUCAGON EMERGENCY) 1 intramuscularly as mg injection needed for other kitIndications: (Specify) (low blood Hypoglycemia sugar) (For low blood sugar) Lancets (MICROLET) Test blood sugar 2 100 each 5 7 MISCIndications: times a day (1-2 Hypoglycemia hours after supper and as needed for hypoglycemic symptoms). blood glucose test Test blood sugar 2 50 each 11 7 strip (COURTNEY CONTOUR times a day (1-2 NEXT) STRPIndications: hours after supper Hypoglycemia and as needed for hypoglycemic symptoms). artificial tears 1.4 % Place 1 drop into 0 SOLN both eyes 1 time a day as needed for dry eyes. calcium Take 1 tablet by 0 carbonate-vitamin D mouth 2 times a day (CALTRATE 600 + VIT D) with meals. 600mg-200 unit tablet dextrose 4-0.006 G CHEW Take 1-3 tablets by 0 chewable tablet mouth 1 time a day as needed for low blood sugar. cyanocobalamin (VITAMIN Take 500 mcg by mouth 0 B-12) 500 mcg tablet 1 time per day. ferrous sulfate (65 MG Take 1 tablet (325 30 tablet 0 09/28 FE PER 325 MG TABLET) mg) by mouth 1 time 325 mg per day tabletIndications: Iron deficiency anemia, unspecified iron deficiency anemia type senna-docusate sodium Take 1 tablet by 60 tablet 0 09/28/20 20 (SENOKOT-S;PERICOLACE) mouth 2 times a day 8.6-50 MG tabletIndications: Iron deficiency anemia, unspecified iron deficiency anemia type sodium chloride 0.9% Administer 10 mL intravenous ly As often as necessary for other (Specify) (Flush infusion line before each antibiotic infusion and after each infusion completed) Flush infusion line before each antibiotic infusion and after each infusion completed. 0 09/21/2020 prefilled 10 mL syringe Flush line with heparin 300 units/ 3 mL after the last saline flush 0.9% SOLNIndications: Abscess of lower lobe of left lung with pneumonia (HCC) hEParin 100 units/mL Administer 3 mL (300 0 09/21 injection Units) intravenously solutionIndications: As often as necessary Abscess of lower lobe for other (Specify) of left lung with (heparin 300 units/3 pneumonia (HCC) mL IV FLUSH after completion of each antibiotic infusion (after saline flush)) heparin 300 units/3 mL IV FLUSH after completion of each antibiotic infusion (after saline flush) cefTRIAXone (ROCEPHIN) Administer 2,000 mg 0 09/1210/24/2020 2,000 mg in sodium intravenously Every chloride 0.9% 50 24 hours mLIndications: Abscess of lower lobe of left lung with pneumonia (HCC) documented as of this encounter Progress Notes Daquan Lee MD - 09/28/2020 7:22 AM CSTCT Surgery Feeling better RA tolerating well CXR Improved- better L lung Expansion Her L lung abscess Is Improving. No plan for surgical therapy. Would Get CXR In a couple Weeks If She goes Home. Will Sign off. abib, Melissa Phillips MD - 09/27/2020 1:05 PM CST Hospital Progress Note Patient Name: Niles Shearer 09/10/2020 09/27/2020 CSN: [id number] Date of service:09/27/2020 Interval History: Seen by pulmonology and no need for bronchoscopy. Repeat chest x-ray shows slight improvement of aeration at the left upper lobe. Not needing oxygen today. We will get echocardiogram with heart murmur. We follow immunodeficiency studies Assessment and Plan: Community acquired pneumonia complicated with left empyema status post left VATS thoracotomy with drainage: CT surgery following. Repeat x-ray shows dense left-sided consolidation with improving aeration. Currently off chest tubes. With copious thick secretion and mucous plugging she required therapeutic bronchoscopy at ICU.Has mediastinal shift on x-ray at left side with possible underlying collapse and plan for bronchoscopy on Sunday before discharge. Infectious disease on board and will need 6 weeks of IV antibiotics till 10/24. PICC line placed. Pleural fluid culture growing st rep intermedius Repeat CT chest at 09/20 showed interval improvement of consolidation and residual complex left pleural effusion. Leukocytosis improved. Continue gabapentin. We need outpatient follow-up with CT surgery with chest x-ray in 2 weeks as well as repeat CT chest in 6 weeks. Acute hypoxic respiratory failure: Patient required intubation following thoracotomy which was complicated with thick secretion mucous plugging requiring bronchoscopy and eventually extubated and currentlystable on room air. Dysphagia: Speech therapy on board and continue recommended that. Continue tube feeds for supplementation. Debility: Therapy on board and recommends placement. Delirium:Improved.Secondary to prolonged hospitalization, ICU psychosis currently remains stable. We will limit narcotics. Continue melatonin. TSH normal. Can use when necessary Haldol. No neurologic deficit. Recurrent episodes of hypoglycemia: Patient has chronic G-tube since 2018 following her gastric bypass surgery. Continue nighttime G-tube feeding. Hypothyroidism continue levothyroxine Anxiety/depression: Continue Wellbutrin, nortriptyline, Klonopin DVT prophylaxis: Lovenox Iron deficiency anemia: Hemoglobin remained stable. We'll give IV Venofer Chronic thrombus cytosis: Secondary to underlying empyema Muscle spasm: Continue baclofen Pansystolic murmur: We'll get 2-D echocardiogram. Review of Systems: Constitutional: No fever. No chills. HE: No headache. No red eye or discharge. Neck: No neck swelling. ENT: No ear discharge. No rhinorrhea. No trouble swallowing. Respiratory: No cough. No SOB. Cardiovascular: No chest pain, No palpitation. GI: No abdominal pain. No nausea or vomiting. : No dysuria. No testicular pain. Musc: No arthralgia, No back pain. Skin: No skin rash or pallor. Neuro: No headache. No dizziness. Pshyciatry: No confusion. No mood swings. Endo: No polyuria. No cold intolerance. Physical Exam: Current Vital Signs: Temp: 98.1 F (36.7 C) BP: 114/54 Pulse: 99 O2 Device: NC - cool humidity O2 Flow Rate (L/min): 1 l/min Resp: 16 Pain Ratin (out of 10) Weight: 62.8 kg (138 lb 8 oz) SpO2: 98 % Vitals Min/Max Last 24 Hours: Vital Signs Min/Max (last 24 hours) Flowsheet Row Name Min Max Temp 97.6 F (36.4 C) 99.5 F (37.5 C) BP: Systolic 109 115 BP: Diastolic 48 66 Pulse 87 101 Resp 16 28 SpO2 94 % 98 % O2 Flow Rate (L/min) 1 l/min 1 l/min MAP (mm Hg) 68 mm Hg 68 mm Hg Intake and Output Last 24 Hours: 09/26 0700 - 09/27 0659 In: 278 Out: 0 General: A healthy female lying in bed without any distress. HE: Head atraumatic, normocephalic. PERRLA. EOMI. No scleral icterus or conjunctival paleness present. Neck: No lymphadenopathy present ENT: No nasal discharge, sinus tenderness, ear discharge, palatal erythema present. No cyanosis present. Hearing intact. Chest: No chest wall deformity present. Symmetric chest wall movement present. Clear to auscultate bilaterally with vesicular breath sound other than left lung. No rales or rhonchi present. Heart: Non displaced PMI.No thrill or heave present. Normal rate and regular rhythm S1,S2 present and no murmur, gallop or rub present. Abdomen: Soft, non tender, non distended. No organomegaly appreciated and bowel sounds normoactive in all four quadrants.No inguinal hernia present. Neuro: Alert, awake and oriented to time, place and person.Motor function 5/5 in all four extremities. Bilaterally plantar downgoing . Reflexes 1+. No clonus present. All sensory modalities intact. No cerebellar dysfunction present. Gait intact. Extremity: No gross deformity present. No joint swelling present. Bilateral brachialis and dorsalis pedis pulses intact. No evidence of bipedal edema. Skin: No skin rash present. Medications: Current Facility-Administered Medications Medication Dose Route Frequency iron sucrose (VENOFER) 400 mg in sodium chloride 0.9% 250 mL 400 mg IV 1 time acetaminophen (TYLENOL) tablet 650 mg 650 mg Oral Every 4 hours prn oxyCODONE (OXY-IR) tablet 5 mg 5 mg Oral Every 6 hours prn melatonin tablet 6 mg 6 mg Oral at bedtime haloperidol lactate (HALDOL) injection solution 1 mg 1 mg IV Every 6 hours prn sodium chloride 0.9% prefilled 10 mL syringe (Materials Management Item) 10 mL 10 mL IV 2 timesa day and prn And hEParin 100 units/ mL injection for heplock FLUSH 3 mL IV 2 times a day and prn montelukast (SINGULAIR) tablet 10 mg 10 mg Oral at bedtime guaiFENesin (ROBITUSSIN) oral solution (100 mg/5 mL) 10 mL 10 mL Oral Every 4 hours prn nortriptyline (PAMELOR) capsule 75 mg 75 mg Oral at bedtime nortriptyline (PAMELOR) capsule 10 mg 10 mg Oral at bedtime codeine-guaiFENesin oral solution (10 mg-100 mg/ 5 mL) 5 mL 5 mL Oral Every 4 hours prn levothyroxine tablet 50 mcg 50 mcg Oral daily baclofen (LIORESAL) tablet 10 mg 10 mg Oral 4 times a day clonazePAM (klonoPIN) tablet 0.5 mg 0.5 mg Oral 3 times a day busPIRone (BUSPAR) tablet 15 mg 15 mg Oral 2 times a day buPROPion (WELLBUTRIN SR) SR tablet (12 hr) 100 mg 100 mg Oral Daily at noon buPROPion (WELLBUTRIN SR) SR tablet (12 hr) 200 mg 200 mg Oral daily gabapentin (NEURONTIN) capsule 300 mg 300 mg Oral 3 times a day diphenhydrAMINE (BENADRYL) capsule 25 mg 25 mg Oral Every 6 hours prn sodium chloride 7% (hypertonic saline) inhalation solution 4 mL 4 mL Nebulization Every 4 hoursprn sodium chloride 0.9% prefilled 10 mL syringe (Materials Management Item) 10 mL 10 mL IV Daily And sodium chloride 0.9% prefilled 10 mL syringe (Materials Management Item) 10 mL 10 mL IV PRN perparameter And hEParin 100 units/ mL injection for heplock FLUSH 3 mL IV Daily And hEParin 100 units/ mL injection for heplock FLUSH 3 mL IV PRN per parameter sodium chloride 0.9% prefilled 10 mL syringe (Materials Management Item) 10 mL 10 mL IV Daily And sodium chloride 0.9% prefilled 10 mL syringe (Materials Management Item) 10 mL 10 mL IV PRN perparameter And hEParin 100 units/ mL injection for heplock FLUSH 3 mL IV Daily And hEParin 100 units/ mL injection for heplock FLUSH 3 mL IV PRN per parameter sodium chloride 0.9% prefilled 10 mL syringe (Materials Management Item) 10 mL 10 mL IV Daily And sodium chloride 0.9% prefilled 10 mL syringe (Materials Management Item) 10 mL 10 mL IV PRN perparameter And hEParin 100 units/ mL injection for heplock FLUSH 3 mL IV Daily And hEParin 100 units/ mL injection for heplock FLUSH 3 mL IV PRN per parameter dextrose 50% IV solution 25-50 mL 25-50 mL IV PRN per parameter cefTRIAXone (ROCEPHIN) 2000 mg/20 mL IV syringe in sterile water 2,000 mg IV Every 24 hours ondansetron (ZOFRAN) injection solution 4 mg 4 mg IV Every 4 hours prn enoxaparin (LOVENOX) subcutaneous injection solution 40 mg 40 mg Subcutaneous Daily albuterol (PROVENTIL) (2.5 mg/3mL) 0.083% inhalation soln 2.5 mg 2.5 mg Nebulization Every 2 hours prn albuterol-ipratropium (DUO-NEB) 2.5-0.5 mg/3 mL inhalation solution 3 mL 3 mL Nebulization Every 6 hours prn Labs: Labs and imaging reviewed Labs (Last day) 09/27/20 0642 - 09/27/20 0642 CBC 09/27/20 0642 CBC Hemoglobin 11.5-15.8 (g/dL) 7.5 09/27/20 1142 - 09/26/20 1700 GLUCOSE POINT OF CARE 09/27/20 1142 09/27/20 0512 09/27/20 0115 09/26/20 2149 09/26/20 1700 GLUCOSE POINT OF CARE Glucose POC 70-99 (mg/dL) 76 91 [phone] 82 Melissa Huerta MD This note was prepared, at least in part, with the help of a voice recognition software. Attempts were made to mitigate any errors in room service associate. If any remain, they are purely incidental. Tami Dan MD - 09/27/2020 10:[address] Surgery Daily Progress Note Niles Shearer : 1965 Admit Date: 09/10/2020 S: - No acute events overnight. Doing well. - Goes between room air and 1L NC O: Temp: 98.1 F (36.7 C) BP: 114/54 Pulse: 99 O2 Device: NC - cool humidity O2 Flow Rate (L/min): 1 l/min Resp: 16 Pain Ratin (out of 10) Weight: 62.8 kg (138 lb 8 oz) SpO2: 98 % General: No acute distress and resting comfortably Respiratory: Non-labored respirations, on nasal canula. Cardiac: RRR, Chest tube site dressing c/d/i Extremities:Noperipheral edema Labs: Lab Results Component Value Date WBC 10.7 09/25/2020 HEMOGLOBIN 7.5 (L) 09/27/2020 PLTCOUNT 727 (H) 09/25/2020 NA 144 09/24/2020 POTASSIUM 3.3 (L) 09/24/2020 CREATSERUM 0.60 09/24/2020 Imaging: CXR shows continued improvement. Official read still pending Assessment: Niles Shearer is a 55yr female s/pLeft VATS thoracotomy, drainage of pleural effusion, drainage of lung abscess, decortication of left lobe and flexible bronchoscopyon 09/13/2020.Postoperatively she was transferred to the ICU intubated and sedated. With copious thick secretionsand mucus plugging she underwent therapeutic bronchoscopy 09/14, 09/15 and 09/16. Chest tubes were removed 09/17. Clinically improved and extubatedon 09/18/2020.Slow continued improvement. Plan: -Continue care per primary team - Encourage ambulation - Continue IS and Pulmonary toilet - Recommend CXR every 2-3 days to assess effusions - Will continue tofollow, Ok to discharge when off supplemental oxygen. - Would need 1-2 week follow up with cxr prior to visit. - DVT ppx: SCDs/Lovenox Tami Malik MD General Surgery Resident, Pager # [phone] 09/27/20 Melissa Lambert MD - 09/26/2020 2:07 PM CST Hospital Progress Note Patient Name: Niles Shearer 09/10/2020 09/26/2020 CSN: [id number] Date of service:09/26/2020 Interval History: Denies acute complaint. Currently not needing oxygen. Hemoglobin up trending. Plan for bronchoscopy tomorrow with persistent collapse of left lung. Discussed with CT surgery Assessment and Plan: Community acquired pneumonia complicated with left empyema status post left VATS thoracotomy with drainage: CT surgery following. Repeat x-ray shows dense left-sided consolidation with improving aeration. Currently off chest tubes. With copious thick secretion and mucous plugging she required therapeutic bronchoscopy at ICU. Has mediastinal shift on x-ray at left side with possible underlying collapse and plan for bronchoscopy on Sunday before discharge. Infectious disease on board and will need 6 weeks of IV antibiotics till 10/24. PICC line placed. Pleural fluid culture growing strep intermedius Repeat CT chest at 09/20 showed interval improvement of consolidation and residual complex left pleural effusion. Continues to have leukocytosis. Continue gabapentin Acute hypoxic respiratory failure: Patient required intubation following thoracotomy which was complicated with thick secretion mucous plugging requiring bronchoscopy and eventually extubated and currently on 1 L nasal cannula. Dysphagia: Speech therapy on board. Continue tube feeds. Debility: Therapy on board and recommends placement. Delirium: Improved. Secondary to prolonged hospitalization, ICU psychosis currently remains stable.We will limit narcotics. Continue melatonin. TSH normal. Can use when necessary Haldol. Noneurologic deficit. Recurrent episodes of hypoglycemia: Patient has chronic G-tube since 2018 following her gastric bypass surgery. Continue nighttime G-tube feeding. 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 No chills. HE: No headache. No red eye or discharge. Neck: No neck swelling. ENT: No ear discharge. No rhinorrhea. No trouble swallowing. Respiratory: No cough. No SOB. Cardiovascular: No chest pain, No palpitation. GI: No abdominal pain. No nausea or vomiting. : No dysuria. No testicular pain. Musc: No arthralgia, No back pain. Skin: No skin rash or pallor. Neuro: No headache. No dizziness. Pshyciatry: No confusion. No mood swings. Endo: No polyuria. No cold intolerance. Physical Exam: Current Vital Signs: Temp: 98 F (36.7 C) BP: 113/50 Pulse: 100 O2 Device: NC - cool humidity O2 Flow Rate (L/min): 1 l/min Resp: 16 Pain Ratin (out of 10) Weight: 65.1 kg (143 lb 8 oz) SpO2: 94 % Vitals Min/Max Last 24 Hours: Vital Signs Min/Max (last 24 hours) Flowsheet Row Name Min Max Temp 98 F (36.7 C) 98.9 F (37.2 C) BP: Systolic 113 121 BP: Diastolic 46 62 Pulse 89 107 Resp 16 20 SpO2 93 % 97 % O2 Flow Rate (L/min) 1 l/min 1 l/min MAP (mm Hg) 79 mm Hg 79 mm Hg Intake and Output Last 24 Hours: 09/25 0700 - 09/26 0659 In: 292 Out: 0 General: A healthy female lying in bed without any distress. HE: Head atraumatic, normocephalic. PERRLA. EOMI. No scleral icterus or conjunctival paleness present. Neck: No lymphadenopathy present ENT: No nasal discharge, sinus tenderness, ear discharge, palatal erythema present. No cyanosis present. Hearing intact. Chest: No chest wall deformity present. Symmetric chest wall movement present. Clear to auscultate bilaterally with vesicular breath sound other than left lung. No rales or rhonchi present. Heart: Non displaced PMI.No thrill or heave present. Normal rate and regular rhythm S1,S2 present and no murmur, gallop or rub present. Abdomen: Soft, non tender, non distended. No organomegaly appreciated and bowel sounds normoactive in all four quadrants.No inguinal hernia present. Neuro: Alert, awake and oriented to time, place and person.Motor function 5/5 in all four extremities. Bilaterally plantar downgoing . Reflexes 1+. No clonus present. All sensory modalities intact. No cerebellar dysfunction present. Gait intact. Extremity: No gross deformity present. No joint swelling present. Bilateral brachialis and dorsalis pedis pulses intact. No evidence of bipedal edema. Skin: No skin rash present. Medications: Current Facility-Administered Medications Medication Dose Route Frequency acetaminophen (TYLENOL) tablet 650 mg 650 mg Oral Every 4 hours prn oxyCODONE (OXY-IR) tablet 5 mg 5 mg Oral Every 6 hours prn melatonin tablet 6 mg 6 mg Oral at bedtime haloperidol lactate (HALDOL) injection solution 1 mg 1 mg IV Every 6 hours prn sodium chloride 0.9% prefilled 10 mL syringe (Materials Management Item) 10 mL 10 mL IV 2 timesa day and prn And hEParin 100 units/ mL injection for heplock FLUSH 3 mL IV 2 times a day and prn montelukast (SINGULAIR) tablet 10 mg 10 mg Oral at bedtime guaiFENesin (ROBITUSSIN) oral solution (100 mg/5 mL) 10 mL 10 mL Oral Every 4 hours prn nortriptyline (PAMELOR) capsule 75 mg 75 mg Oral at bedtime nortriptyline (PAMELOR) capsule 10 mg 10 mg Oral at bedtime codeine-guaiFENesin oral solution (10 mg-100 mg/ 5 mL) 5 mL 5 mL Oral Every 4 hours prn levothyroxine tablet 50 mcg 50 mcg Oral daily baclofen (LIORESAL) tablet 10 mg 10 mg Oral 4 times a day clonazePAM (klonoPIN) tablet 0.5 mg 0.5 mg Oral 3 times a day busPIRone (BUSPAR) tablet 15 mg 15 mg Oral 2 times a day buPROPion (WELLBUTRIN SR) SR tablet (12 hr) 100 mg 100 mg Oral Daily at noon buPROPion (WELLBUTRIN SR) SR tablet (12 hr) 200 mg 200 mg Oral daily gabapentin (NEURONTIN) capsule 300 mg 300 mg Oral 3 times a day diphenhydrAMINE (BENADRYL) capsule 25 mg 25 mg Oral Every 6 hours prn sodium chloride 7% (hypertonic saline) inhalation solution 4 mL 4 mL Nebulization Every 4 hoursprn sodium chloride 0.9% prefilled 10 mL syringe (Materials Management Item) 10 mL 10 mL IV Daily And sodium chloride 0.9% prefilled 10 mL syringe (Materials Management Item) 10 mL 10 mL IV PRN perparameter And hEParin 100 units/ mL injection for heplock FLUSH 3 mL IV Daily And hEParin 100 units/ mL injection for heplock FLUSH 3 mL IV PRN per parameter sodium chloride 0.9% prefilled 10 mL syringe (Materials Management Item) 10 mL 10 mL IV Daily And sodium chloride 0.9% prefilled 10 mL syringe (Materials Management Item) 10 mL 10 mL IV PRN perparameter And hEParin 100 units/ mL injection for heplock FLUSH 3 mL IV Daily And hEParin 100 units/ mL injection for heplock FLUSH 3 mL IV PRN per parameter sodium chloride 0.9% prefilled 10 mL syringe (Materials Management Item) 10 mL 10 mL IV Daily And sodium chloride 0.9% prefilled 10 mL syringe (Materials Management Item) 10 mL 10 mL IV PRN perparameter And hEParin 100 units/ mL injection for heplock FLUSH 3 mL IV Daily And hEParin 100 units/ mL injection for heplock FLUSH 3 mL IV PRN per parameter dextrose 50% IV solution 25-50 mL 25-50 mL IV PRN per parameter cefTRIAXone (ROCEPHIN) 2000 mg/20 mL IV syringe in sterile water 2,000 mg IV Every 24 hours ondansetron (ZOFRAN) injection solution 4 mg 4 mg IV Every 4 hours prn enoxaparin (LOVENOX) subcutaneous injection solution 40 mg 40 mg Subcutaneous Daily albuterol (PROVENTIL) (2.5 mg/3mL) 0.083% inhalation soln 2.5 mg 2.5 mg Nebulization Every 2 hours prn albuterol-ipratropium (DUO-NEB) 2.5-0.5 mg/3 mL inhalation solution 3 mL 3 mL Nebulization Every 6 hours prn Labs: Labs and imaging reviewed Labs (Last day) 09/26/20 0641 - 09/26/20 0641 CBC 09/26/20 0641 CBC Hemoglobin 11.5-15.8 (g/dL) 7.7 09/26/20 1105 - 09/25/20 1700 GLUCOSE POINT OF CARE 09/26/20 1105 09/26/20 0422 09/26/20 0319 09/25/20 2108 09/25/20 1700 GLUCOSE POINT OF CARE Glucose POC 70-99 (mg/dL) 111 92 93 [phone] 77 Melissa Huerta MD This note was prepared, at least in part, with the help of a voice recognition software. Attempts were made to mitigate any errors in room service associate. If any remain, they are purely incidental. aMelissa maldonado MD - 09/25/2020 3:21 PM CST Hospital Progress Note Patient Name: Niles Shearer 09/10/2018 09/25/2020 CSN: [id number] Date of service:09/25/2020 Interval History: Denies acute complaints. Requiring 1 L oxygen. Discussed with CT surgery with persistent left-sided collapse worth proceeding with bronchoscopy on Sunday before discharged to [facility]. Will need outpatient follow-up with CT surgery in 2 weeks with repeat chest x-ray. WBC down trended. We'll monitor hemoglobin. CRP improving. Assessment and Plan: Community acquired pneumonia complicated with left empyema status post left VATS thoracotomy with drainage: CT surgery following. Repeat x-ray shows dense left- sided consolidation with improving aeration. Currently off chest tubes. With copious thick secretion and mucous plugging she required therapeutic bronchoscopy at ICU. Has mediastinal shift on x-ray at left side with possible underlying collapse and plan for bronchoscopy on Sunday before discharge. Infectious disease on board and will need 6 weeks of IV antibiotics till 10/24. PICC line placed. Pleural fluid culture growing strep intermedius Repeat CT chest at 09/20 showed interval improvement of consolidation and residual complex left pleural effusion. Continues to have leukocytosis. Continue gabapentin Acute hypoxic respiratory failure: Patient required intubation following thoracotomy which was complicated with thick secretion mucous plugging requiring bronchoscopy and eventually extubated and currently on 1 L nasal cannula. Dysphagia: Speech therapy on board. Continue tube feeds. Debility: Therapy on board and recommends placement. Delirium: Improved. Secondary to prolonged hospitalization, ICU psychosis currently remains stable. We will limit narcotics. Continue melatonin. TSH normal. Can use when necessary Haldol. No neurologic deficit. Recurrent episodes of hypoglycemia: Patient has chronic G-tube since 2018 following her gastric bypass surgery. Continue nighttime G-tube feeding. 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 No chills. HE: No headache. No red eye or discharge. Neck: No neck swelling. ENT: No ear discharge. No rhinorrhea. No trouble swallowing. Respiratory: No cough. No SOB. Cardiovascular: No chest pain, No palpitation. GI: No abdominal pain. No nausea or vomiting. : No dysuria. No testicular pain. Musc: No arthralgia, No back pain. Skin: No skin rash or pallor. Neuro: No headache. No dizziness. Pshyciatry: No confusion. No mood swings. Endo: No polyuria. No cold intolerance. Physical Exam: Current Vital Signs: Temp: 98.1 F (36.7 C) BP: 123/59 Pulse: 103 O2 Device: Room Air O2 Flow Rate (L/min): 2 l/min Resp: 16 Pain Ratin (out of 10) Weight: 65.5 kg (144 lb 4.8 oz) SpO2: 95 % Vitals Min/Max Last 24 Hours: Vital Signs Min/Max (last 24 hours) Flowsheet Row Name Min Max Temp 97.8 F (36.6 C) 98.4 F (36.9 C) BP: Systolic 101 123 BP: Diastolic 41 59 Pulse 88 107 Resp 16 16 SpO2 95 % 100 % O2 Flow Rate (L/min) 2 l/min 98 l/min Intake and Output Last 24 Hours: 09/24 0700 - 09/25 0659 In: 265 Out: 0 General: A healthy female reclining in bed without any distress. HE: Head atraumatic, normocephalic. PERRLA. EOMI. No scleral icterus or conjunctival paleness present. Neck: No lymphadenopathy present ENT: No nasal discharge, sinus tenderness, ear discharge, palatal erythema present. No cyanosis present. Hearing intact. Chest: No chest wall deformity present. Symmetric chest wall movement present. Clear to auscultate bilaterally with vesicular breath sound other than left middle and lower lobe. + rales or rhonchi present at left lung. Heart: Non displaced PMI.No thrill or heave present. Normal rate and regular rhythm S1,S2 present and no murmur, gallop or rub present. Abdomen: Soft, non tender, non distended. No organomegaly appreciated and bowel sounds normoactive in all four quadrants.No inguinal hernia present. Neuro: Alert, awake and oriented to time, place and person.Motor function 5/5 in all four extremities. Bilaterally plantar downgoing . Reflexes 1+. No clonus present. All sensory modalities intact. No cerebellar dysfunction present. Gait intact. Extremity: No gross deformity present. No joint swelling present. Bilateral brachialis and dorsalis pedis pulses intact. No evidence of bipedal edema. Skin: No skin rash present. Medications: Current Facility-Administered Medications Medication Dose Route Frequency acetaminophen (TYLENOL) tablet 650 mg 650 mg Oral Every 4 hours prn oxyCODONE (OXY-IR) tablet 5 mg 5 mg Oral Every 6 hours prn melatonin tablet 6 mg 6 mg Oral at bedtime haloperidol lactate (HALDOL) injection solution 1 mg 1 mg IV Every 6 hours prn sodium chloride 0.9% prefilled 10 mL syringe (Materials Management Item) 10 mL 10 mL IV 2 timesa day and prn And hEParin 100 units/ mL injection for heplock FLUSH 3 mL IV 2 times a day and prn montelukast (SINGULAIR) tablet 10 mg 10 mg Oral at bedtime guaiFENesin (ROBITUSSIN) oral solution (100 mg/5 mL) 10 mL 10 mL Oral Every 4 hours prn nortriptyline (PAMELOR) capsule 75 mg 75 mg Oral at bedtime nortriptyline (PAMELOR) capsule 10 mg 10 mg Oral at bedtime codeine-guaiFENesin oral solution (10 mg-100 mg/ 5 mL) 5 mL 5 mL Oral Every 4 hours prn levothyroxine tablet 50 mcg 50 mcg Oral daily baclofen (LIORESAL) tablet 10 mg 10 mg Oral 4 times a day clonazePAM (klonoPIN) tablet 0.5 mg 0.5 mg Oral 3 times a day busPIRone (BUSPAR) tablet 15 mg 15 mg Oral 2 times a day buPROPion (WELLBUTRIN SR) SR tablet (12 hr) 100 mg 100 mg Oral Daily at noon buPROPion (WELLBUTRIN SR) SR tablet (12 hr) 200 mg 200 mg Oral daily gabapentin (NEURONTIN) capsule 300 mg 300 mg Oral 3 times a day diphenhydrAMINE (BENADRYL) capsule 25 mg 25 mg Oral Every 6 hours prn sodium chloride 7% (hypertonic saline) inhalation solution 4 mL 4 mL Nebulization Every 4 hoursprn sodium chloride 0.9% prefilled 10 mL syringe (Materials Management Item) 10 mL 10 mL IV Daily And sodium chloride 0.9% prefilled 10 mL syringe (Materials Management Item) 10 mL 10 mL IV PRN perparameter And hEParin 100 units/ mL injection for heplock FLUSH 3 mL IV Daily And hEParin 100 units/ mL injection for heplock FLUSH 3 mL IV PRN per parameter sodium chloride 0.9% prefilled 10 mL syringe (Materials Management Item) 10 mL 10 mL IV Daily And sodium chloride 0.9% prefilled 10 mL syringe (Materials Management Item) 10 mL 10 mL IV PRN perparameter And hEParin 100 units/ mL injection for heplock FLUSH 3 mL IV Daily And hEParin 100 units/ mL injection for heplock FLUSH 3 mL IV PRN per parameter sodium chloride 0.9% prefilled 10 mL syringe (Materials Management Item) 10 mL 10 mL IV Daily And sodium chloride 0.9% prefilled 10 mL syringe (Materials Management Item) 10 mL 10 mL IV PRN perparameter And hEParin 100 units/ mL injection for heplock FLUSH 3 mL IV Daily And hEParin 100 units/ mL injection for heplock FLUSH 3 mL IV PRN per parameter dextrose 50% IV solution 25-50 mL 25-50 mL IV PRN per parameter cefTRIAXone (ROCEPHIN) 2000 mg/20 mL IV syringe in sterile water 2,000 mg IV Every 24 hours ondansetron (ZOFRAN) injection solution 4 mg 4 mg IV Every 4 hours prn enoxaparin (LOVENOX) subcutaneous injection solution 40 mg 40 mg Subcutaneous Daily albuterol (PROVENTIL) (2.5 mg/3mL) 0.083% inhalation soln 2.5 mg 2.5 mg Nebulization Every 2 hours prn albuterol-ipratropium (DUO-NEB) 2.5-0.5 mg/3 mL inhalation solution 3 mL 3 mL Nebulization Every 6 hours prn Labs: Labs and imaging reviewed Labs (Last day) 09/25/20 08 - 09/25/20 08 CBC 09/25/20 08 CBC WBC 4.0-11.0 (K/uL) 10.7 RBC 3.80-5.30 (M/uL) 2.76 Hemoglobin 11.5-15.8 (g/dL) 7.1 Hematocrit 35.0-45.0 (%) 23.1 MCV 80.0-98.0 (fL) 83.7 MCH 25.5-34.0 (pg) 25.7 MCHC 31.5-36.5 (g/dL) 30.7 RDW-CV 11.5-15.5 (%) 15.3 RDW-SD 35.5-50.0 (fl) 46.5 Platelet Count 140-400 (K/uL) 727 MPV 8.5-12.0 (fL) 10.0 09/25/20 0707 - 09/25/20 0707 CHEMISTRY 09/25/20 07 CHEMISTRY CRP 0.0-8.0 (mg/L) 147.6 09/25/20 0829 - 09/25/20 0829 DIFFERENTIAL 09/25/20 08 DIFFERENTIAL Seg Neut Absolute 1.8-8.0 (K/uL) 7.9 Lymphocytes Absolute 0.8-4.1 (K/uL) 1.3 Monocytes Absolute 0.0-1.0 (K/uL) 1.1 Eosinophils Absolute 0.0-0.7 (K/uL) 0.1 Basophil Absolute 0.0-0.2 (K/uL) 0.1 Immature Granulocyte Absolute 0.00-0.06 (K/uL) 0.23 Neutrophils Percent (%) 74.0 Neutrophils Abs. (Segs and Bands) (/uL) 7,900 Lymphocytes Percent (%) 11.7 Monocytes Percent (%) 10.5 Immature Granulocyte Percent (%) 2.1 Eosinophils Percent (%) 0.8 Basophil Percent (%) 0.9 Nucleated RBC (/100 WBC's) 0 09/25/20 1246 - 09/24/20 2154 GLUCOSE POINT OF CARE 09/25/20 1246 09/25/20 0329 09/24/20 2154 GLUCOSE POINT OF CARE Glucose POC 70-99 (mg/dL) 76 97 79 Melissa Huerta MD This note was prepared, at least in part, with the help of a voice recognition software. Attempts were made to mitigate any errors in room service associate. If any remain, they are purely incidental. elissa Huerta MD - 09/24/2020 3:18 PM CST Hospital Progress Note Patient Name: Niles Shearer 09/10/2018 09/24/2020 CSN: [id number] Date of service:09/24/2020 Interval History: Denies acute complaints. Chest tube was removed. Reviewed chest x-ray with slight improvement of aeration but dense left-sided consultation persisting. Plan for IV antibiotics until 10/24 through PICC line. Will need outpatient follow-up with CT surgery. G-tube was replaced and currently tolerating nighttime tube feeds. Assessment and Plan: Community acquired pneumonia complicated with left empyema status post left VATS thoracotomy with drainage: CT surgery following. Repeat x-ray shows dense left- sided consolidation with improving aeration. Currently off chest tubes. With copious thick secretion and mucous plugging she required therapeutic bronchoscopy at ICU. Infectious disease on board and will need 6 weeks of IV antibiotics till10/24. PICC line placed. Pleural fluid culture growing strep intermedius Repeat CT chest at 09/20 showed interval improvement of consolidation and residual complex left pleural effusion. Continues tohave leukocytosis. Continue gabapentin Acute hypoxic respiratory failure: Patient required intubation following thoracotomy which was complicated with thick secretion mucous plugging requiring bronchoscopy and eventually extubated and currently stable on room air. Dysphagia: Speech therapy on board. Continue tube feeds. Debility: Therapy on board and recommends placement. Delirium: Secondary to prolonged hospitalization, ICU psychosis currently remains stable. We will limit narcotics. Continue melatonin. TSH normal. Can use when necessary Haldol. No neurologic deficit. Recurrent episodes of hypoglycemia: Patient has chronic G-tube since 2018 following her gastric bypass surgery. Continue nighttime G-tube feeding. 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 Of which more than 50% time was spent in coordinating care, counseling, review of chart. Review of Systems: Constitutional: No fever. No chills. HE: No headache. No red eye or discharge. Neck: No neck swelling. ENT: No ear discharge. No rhinorrhea. No trouble swallowing. Respiratory: No cough. No SOB. Cardiovascular: No chest pain, No palpitation. GI: No abdominal pain. No nausea or vomiting. : No dysuria. No testicular pain. Musc: No arthralgia, No back pain. Skin: No skin rash or pallor. Neuro: No headache. No dizziness. Pshyciatry: No confusion. No mood swings. Endo: No polyuria. No cold intolerance. Physical Exam: Current Vital Signs: Temp: 98.2 F (36.8 C) BP: 96/46 Pulse: 102 O2 Device: NC - no humidity O2 Flow Rate (L/min): 2 l/min Resp: 17 Pain Ratin (out of 10) Weight: 66.5 kg (146 lb 9.6 oz) SpO2: 97 % Vitals Min/Max Last 24 Hours: Vital Signs Min/Max (last 24 hours) Flowsheet Row Name Min Max Temp 97.5 F (36.4 C) 99.5 F (37.5 C) BP: Systolic 96 121 BP: Diastolic 46 59 Pulse 100 105 Resp 14 18 SpO2 (!) 85 % 97 % O2 Flow Rate (L/min) 2 l/min 2 l/min MAP (mm Hg) 60 mm Hg 76 mm Hg Intake and Output Last 24 Hours: 09/23 0700 - 09/24 0659 In: 840 Out: - General: A healthy female lying in bed without any distress. HE: Head atraumatic, normocephalic. PERRLA. EOMI. No scleral icterus or conjunctival paleness present. Neck: No lymphadenopathy present ENT: No nasal discharge, sinus tenderness, ear discharge, palatal erythema present. No cyanosis present. Hearing intact. Chest: No chest wall deformity present. Symmetric chest wall movement present. Clear to auscultate bilaterally with vesicular breath sound other than left middle and lower lung. No rales or rhonchi present. Heart: Non displaced PMI.No thrill or heave present. Normal rate and regular rhythm S1,S2 present and no murmur, gallop or rub present. Abdomen: Soft, non tender, non distended. No organomegaly appreciated and bowel sounds normoactive in all four quadrants.No inguinal hernia present. Neuro: Alert, awake and oriented to time, place and person.Motor function 5/5 in all four extremities. Bilaterally plantar downgoing . Reflexes 1+. No clonus present. All sensory modalities intact. No cerebellar dysfunction present. Gait intact. Extremity: No gross deformity present. No joint swelling present. Bilateral brachialis and dorsalis pedis pulses intact. No evidence of bipedal edema. Skin: No skin rash present. Medications: Current Facility-Administered Medications Medication Dose Route Frequency acetaminophen (TYLENOL) tablet 650 mg 650 mg Oral Every 4 hours prn oxyCODONE (OXY-IR) tablet 5 mg 5 mg Oral Every 6 hours prn melatonin tablet 6 mg 6 mg Oral at bedtime haloperidol lactate (HALDOL) injection solution 1 mg 1 mg IV Every 6 hours prn sodium chloride 0.9% prefilled 10 mL syringe (Materials Management Item) 10 mL 10 mL IV 2 timesa day and prn And hEParin 100 units/ mL injection for heplock FLUSH 3 mL IV 2 times a day and prn montelukast (SINGULAIR) tablet 10 mg 10 mg Oral at bedtime guaiFENesin (ROBITUSSIN) oral solution (100 mg/5 mL) 10 mL 10 mL Oral Every 4 hours prn nortriptyline (PAMELOR) capsule 75 mg 75 mg Oral at bedtime nortriptyline (PAMELOR) capsule 10 mg 10 mg Oral at bedtime codeine-guaiFENesin oral solution (10 mg-100 mg/ 5 mL) 5 mL 5 mL Oral Every 4 hours prn levothyroxine tablet 50 mcg 50 mcg Oral daily baclofen (LIORESAL) tablet 10 mg 10 mg Oral 4 times a day clonazePAM (klonoPIN) tablet 0.5 mg 0.5 mg Oral 3 times a day busPIRone (BUSPAR) tablet 15 mg 15 mg Oral 2 times a day buPROPion (WELLBUTRIN SR) SR tablet (12 hr) 100 mg 100 mg Oral Daily at noon buPROPion (WELLBUTRIN SR) SR tablet (12 hr) 200 mg 200 mg Oral daily gabapentin (NEURONTIN) capsule 300 mg 300 mg Oral 3 times a day diphenhydrAMINE (BENADRYL) capsule 25 mg 25 mg Oral Every 6 hours prn sodium chloride 7% (hypertonic saline) inhalation solution 4 mL 4 mL Nebulization Every 4 hoursprn sodium chloride 0.9% prefilled 10 mL syringe (Materials Management Item) 10 mL 10 mL IV Daily And sodium chloride 0.9% prefilled 10 mL syringe (Materials Management Item) 10 mL 10 mL IV PRN perparameter And hEParin 100 units/ mL injection for heplock FLUSH 3 mL IV Daily And hEParin 100 units/ mL injection for heplock FLUSH 3 mL IV PRN per parameter sodium chloride 0.9% prefilled 10 mL syringe (Materials Management Item) 10 mL 10 mL IV Daily And sodium chloride 0.9% prefilled 10 mL syringe (Materials Management Item) 10 mL 10 mL IV PRN perparameter And hEParin 100 units/ mL injection for heplock FLUSH 3 mL IV Daily And hEParin 100 units/ mL injection for heplock FLUSH 3 mL IV PRN per parameter sodium chloride 0.9% prefilled 10 mL syringe (Materials Management Item) 10 mL 10 mL IV Daily And sodium chloride 0.9% prefilled 10 mL syringe (Materials Management Item) 10 mL 10 mL IV PRN perparameter And hEParin 100 units/ mL injection for heplock FLUSH 3 mL IV Daily And hEParin 100 units/ mL injection for heplock FLUSH 3 mL IV PRN per parameter dextrose 50% IV solution 25-50 mL 25-50 mL IV PRN per parameter cefTRIAXone (ROCEPHIN) 2000 mg/20 mL IV syringe in sterile water 2,000 mg IV Every 24 hours ondansetron (ZOFRAN) injection solution 4 mg 4 mg IV Every 4 hours prn enoxaparin (LOVENOX) subcutaneous injection solution 40 mg 40 mg Subcutaneous Daily albuterol (PROVENTIL) (2.5 mg/3mL) 0.083% inhalation soln 2.5 mg 2.5 mg Nebulization Every 2 hours prn albuterol-ipratropium (DUO-NEB) 2.5-0.5 mg/3 mL inhalation solution 3 mL 3 mL Nebulization Every 6 hours prn Labs: Labs and imaging reviewed Labs (Last day) 09/24/20 0552 - 09/24/20 0552 CBC 09/24/2052 CBC WBC 4.0-11.0 (K/uL) 15.7 RBC 3.80-5.30 (M/uL) 3.22 Hemoglobin 11.5-15.8 (g/dL) 8.3 Hematocrit 35.0-45.0 (%) 26.4 MCV 80.0-98.0 (fL) 82.0 MCH 25.5-34.0 (pg) 25.8 MCHC 31.5-36.5 (g/dL) 31.4 RDW-CV 11.5-15.5 (%) 15.1 RDW-SD 35.5-50.0 (fl) 45.2 Platelet Count 140-400 (K/uL) 794 MPV 8.5-12.0 (fL) 10.2 09/24/20551 - 09/24/20 0552 CHEMISTRY 09/24/2052 09/24/20 0552 CHEMISTRY Glucose 70-100 (mg/dL) 107 Sodium 135-145 (meq/L) 144 Potassium 3.5-5.3 (meq/L) 3.3 Chloride 99-110 (meq/L) 101 CO2 20-29 (meq/L) 31 Anion Gap with K 6-20 (meq/L) 15 BUN 6-22 (mg/dL) 3 Creatinine 0.60-1.10 (mg/dL) 0.60 BUN/Creatinine Ratio 10.0-25.0 5.0 Calcium 8.5-10.5 (mg/dL) 8.5 Corrected Calcium 8.5-10.5 (mg/dL) 9.7 Phosphorus 2.5-4.5 (mg/dL) 3.3 Magnesium 1.8-2.4 (mg/dL) 2.1 Albumin 3.5-5.0 (g/dL) 2.5 eGFR >=60 (mL/min/1.73m2) >90 eGFR Non- >=60 (mL/min/1.73m2) >90 09/24/20 0420 - 09/23/20 1712 GLUCOSE POINT OF CARE 09/24/20 0420 09/23/20 2308 09/23/20 1712 GLUCOSE POINT OF CARE Glucose POC 70-99 (mg/dL) 96 90 86 09/24/20 0552 - 09/24/20 0552 OTHER 09/24/20 0552 OTHER Age (Years) 55 Melissa Huerta MD This note was prepared, at least in part, with the help of a voice recognition software. Attempts were made to mitigate any errors in room service associate. If any remain, they are purely incidental. eemillie, Tami Colón MD - 09/24/2020 9:14 AM CST Surgery Daily Progress Note Niles Shearer : 1965 Admit Date: 09/10/2020 S: - No acute events overnight. Doing well. - Has productive cough, on room air this morning - Walking in the halls O: Temp: 99.5 F (37.5 C) BP: 119/53 Pulse: 102 O2 Device: NC - no humidity O2 Flow Rate (L/min): 2 l/min Resp: 18 Pain Ratin (out of 10) Weight: 66.5 kg (146 lb 9.6 oz) SpO2: 93 % General: No acute distress and resting comfortably Respiratory: Non-labored respirations, on room air Cardiac: RRR, Chest tube site dressing c/d/i Extremities:Noperipheral edema Intake/Output Summary (Last 24 hours) at 09/24/2020 0914 Last data filed at 09/24/2020 0730 Gross per 24 hour Intake 1045 ml Output Net 1045 ml Labs: Lab Results Component Value Date WBC 15.7 (H) 09/24/2020 HEMOGLOBIN 8.3 (L) 09/24/2020 PLTCOUNT 794 (H) 09/24/2020 NA 144 09/24/2020 POTASSIUM 3.3 (L) 09/24/2020 CREATSERUM 0.60 09/24/2020 Imaging: CXR -Appears to have improved aeration. Official read still pending Assessment: Niles Shearer is a 55yr female s/pLeft VATS thoracotomy, drainage of pleural effusion, drainage of lung abscess, decortication of left lobe and flexible bronchoscopyon 09/13/2020.Postoperatively she was transferred to the ICU intubated and sedated. With copious thick secretionsand mucus plugging she underwent therapeutic bronchoscopy 09/14, 09/15 and 09/16. Chest tubes were removed 09/17. Clinically improved and extubatedon 09/18/2020. Slow continued improvement. Plan: -Continue care per primary team - Encourage ambulation - Continue IS and Pulmonary toilet - Recommend CXR every 2-3 days to assess effusions - Will continue to follow - DVT ppx: SCDs/Lovenox Tami Malik MD General Surgery Resident, Pager # [phone] 09/24/20 S RIBBON MACHINE OPERATOR Jensen Gonzalez MD - 09/23/2020 2:06 PM CST Hospital Progress Note Niles Shearer is a 55yr old female admitted on 09/10/2020. Assessment / Plan Active Problems: Lung abscess (HCC) Anxiety disorder Asthma Hypothyroidism Peripheral neuropathy Pneumonia History of general anesthesia Resolved Problems: * No resolved hospital problems. * # Community acquired pneumonia complicated with left empyema # S/p Left VATS thoracotomy with drainage on 09/13/2020 # Acute hypoxic respiratory failure secondary to above - CT surgery is following. Patient underwentLeft VATS thoracotomy, drainage of pleural effusion, drainage of lung abscess, decortication of left lobe and flexible bronchoscopyon 09/13/2020.Postoperatively she was transferred to the ICU intubated and sedated. With copious thick secretions and mucus plugging she underwent therapeutic bronchoscopy 09/14, 09/15 and 09/16. Chest tubes were removed 09/17. Clinically improved and extubatedon 09/18/2020. - ID consulted will need 6 weeks of IV antibiotic till 10/24/2020. Order placed by ID. - PICC line placed 09/21 - Repeated CT chest on 09/20/2020: Persistent extraluminal air in the left upper lung concerning forpulmonary abscess, with slight interval improvement in the consolidation visible in the left midlung. Residual complex left pleural effusion consistent with empyema. - RT Following - Speech therapy following: bite-size solids; continue thin liquids - PT/OT recommending halfway - 09/21 : chest x-ray showed small interval improvement, CT surgery recommended to get chest x-ray every 2-3 days to assess effusions. # Acute delirium: resolved - Due to prolonged hospitalization, ICU psychosis, patient has been on and off delirious, on 09/22/2020 she pulled out her feeding tube, will hold off replacement of another one as she may pull it outagain , will monitor closely for hypoglycemia if developed will consult IR for new feeding tube as patient has been on feeding at night to prevent hypoglycemia. - Limit narcotics - Scheduled melatonin. - Regular bowel movement / no urinary issues. - Recent TSH within normal limits. - No neurological deficit. - Haldol prn # Recurrent episodes of hypoglycemia: Patient has a G-tube that was placed at [facility] in 2018 due to recurrent hypoglycemia s/p gastric bypass surgery. She typically manages it without difficulty but per notes on admission " her reportd that she was "messing with it" within the week prior toadmission and then it was plugged. She was scheduled to have it replaced with IR 09/10. She has not noted tenderness or warmth/redness surrounding G-tube site. - 09/20: IR consulted, changed feeding tube at night. - 09/22 : Due to delirium at night patient pulled out her feeding tube. - POCT every 4 hrs. - 09/23 : Blood sugar continued to be low at night, consulted IR for replacement of feeding tube. Chronic problems - Hypothyroidism: Continue replacement, recent TSH in April 2020 wnl. - Anxiety / depression: Continue Wellbutrin, BuSpar, nortriptyline. - Chronic pain/eating disorder - Irritable bowel syndrome DVT prophylaxis: sc Lovenox Disposition: PT/OT recommending SNF on discharge. - Today IR consulted to replace a feeding tube. - Chest x-ray ordered for tomorrow for follow-up. Interval history - Today IR consulted to replace a feeding tube. - Chest x-ray ordered for tomorrow for follow-up. - Picc line placed 09/21 - On RA Review of Systems Constitutional: Positive for activity change and fatigue. Respiratory: Positive for cough and shortness of breath. Cardiovascular: Negative for chest pain and leg swelling. Musculoskeletal: Negative for back pain. Skin: Negative. Neurological: Negative. Physical / Results Current Vital Signs Temp: 98.7 F (37.1 C) BP: 109/31 Weight: 75.2 kg (165 lb 12.6 oz) SpO2: (!) 74 % Resp: 19 Pulse: 104 Current BMI (>50 = increased risk): 28.3 O2 Device: NC - no humidity O2 Flow Rate (L/min): 2 l/min Pain Ratin Physical Exam Constitutional: General: She is not in acute distress. HENT: Nose: No congestion. Eyes: General: No scleral icterus. Cardiovascular: Rate and Rhythm: Normal rate and regular rhythm. Heart sounds: No murmur. Pulmonary: Breath sounds: Rhonchi present. Comments: Left-sided diminished breath sounds with intermittent rhonchi Abdominal: General: Bowel sounds are normal. There is no distension. Musculoskeletal: General: No swelling. Skin: Coloration: Skin is not jaundiced. Neurological: General: No focal deficit present. Mental Status: Mental status is at baseline. S RIBBON MACHINE OPERATOR Tami Malik MD - 09/23/2020 9:12 AM CST Surgery Daily Progress Note Niles Shearer : 1965 Admit Date: 09/10/2020 S: - No acute events overnight. Doing well. - Complains more of back pain - Has some SOB and cough. - Walking in the halls, x4 yesterday O: Temp: 98.3 F (36.8 C) BP: 107/57 Pulse: 98 O2 Device: Room Air O2 Flow Rate (L/min): 2 l/min Resp: 18 Pain Ratin (out of 10) Weight: 67.9 kg (149 lb 9.6 oz) SpO2: 93 % General: No acute distress and resting comfortably Respiratory: Non-labored respirations, on 2L NC Cardiac: RRR, Chest tube site dressing c/d/i Extremities:Noperipheral edema Intake/Output Summary (Last 24 hours) at 09/23/2020 0912 Last data filed at 09/22/2020 2200 Gross per 24 hour Intake 480 ml Output Net 480 ml Labs: Lab Results Component Value Date WBC 10.6 09/21/2020 HEMOGLOBIN 7.8 (L) 09/21/2020 PLTCOUNT 597 (H) 09/21/2020 NA 138 09/20/2020 POTASSIUM 3.5 09/20/2020 CREATSERUM 0.58 (L) 09/20/2020 Imaging: No radiographic studies in last 24 hours Assessment: Niles Shearer is a 55yr female s/pLeft VATS thoracotomy, drainage of pleural effusion, drainage of lung abscess, decortication of left lobe and flexible bronchoscopyon 09/13/2020.Postoperatively she was transferred to the ICU intubated and sedated. With copious thick secretionsand mucus plugging she underwent therapeutic bronchoscopy 09/14, 09/15 and 09/16. Chest tubes were removed 09/17. Clinically improved and extubatedon 09/18/2020. Slow continued improvement. Plan: -Continue care per primary team - Encourage ambulation - Continue IS and Pulmonary toilet - Recommend CXR every 2-3 days to assess effusions - Will continue to follow - DVT ppx: SCDs/Lovenox Tami Malik MD General Surgery Resident, Pager # [phone] 09/23/20 S RIBBON MACHINE OPERATOR Jensen Gonzalez MD - 09/22/2020 11:47 AM CST Hospital Progress Note Niles Shearer is a 55yr old female admitted on 09/10/2020. Assessment / Plan Active Problems: Lung abscess (HCC) Anxiety disorder Asthma Hypothyroidism Peripheral neuropathy Pneumonia History of general anesthesia Resolved Problems: * No resolved hospital problems. * # Community acquired pneumonia complicated with left empyema # S/p Left VATS thoracotomy with drainage on 09/13/2020 # Acute hypoxic respiratory failure secondary to above - CT surgery is following. Patient underwentLeft VATS thoracotomy, drainage of pleural effusion, drainage of lung abscess, decortication of left lobe and flexible bronchoscopyon 09/13/2020.Postoperatively she was transferred to the ICU intubated and sedated. With copious thick secretions and mucus plugging she underwent therapeutic bronchoscopy 09/14, 09/15 and 09/16. Chest tubes were removed 09/17. Clinically improved and extubatedon 09/18/2020. - ID consulted will need 6 weeks of IV antibiotic till 10/24/2020. Order placed by ID. - PICC line placed 09/21 - Repeated CT chest on 09/20/2020: Persistent extraluminal air in the left upper lung concerning forpulmonary abscess, with slight interval improvement in the consolidation visible in the left midlung. Residual complex left pleural effusion consistent with empyema. - RT Following - Speech therapy following: bite-size solids; continue thin liquids - PT/OT recommending halfway - 09/21 : chest x-ray showed small interval improvement, CT surgery recommended to get chest x-ray every 2-3 days to assess effusions. # Acute delirium: Waxing and waning - Due to prolonged hospitalization, ICU psychosis, patient has been on and off delirious, on 09/22/2020 she pulled out her feeding tube, will hold off replacement of another one as she may pull it outagain , will monitor closely for hypoglycemia if developed will consult IR for new feeding tube as patient has been on feeding at night to prevent hypoglycemia. - Limit narcotics - Scheduled melatonin. - Regular bowel movement / no urinary issues. - Recent TSH within normal limits. - No neurological deficit. - Haldol prn # Recurrent episodes of hypoglycemia: Patient has a G-tube that was placed at [facility] in 2017 due to recurrent hypoglycemia s/p gastric bypass surgery. She typically manages it without difficulty but per notes on admission " her reportd that she was "messing with it" within the week prior toadmission and then it was plugged. She was scheduled to have it replaced with IR 09/10. She has not noted tenderness or warmth/redness surrounding G-tube site. - 09/20: IR consulted, changed feeding tube at night. - 09/22 : Due to delirium at night patient pulled out her feeding tube. - POCT every 4 hrs. Chronic problems - Hypothyroidism: Continue replacement, recent TSH in April 2020 wnl. - Anxiety / depression: Continue Wellbutrin, BuSpar, nortriptyline. - Chronic pain/eating disorder - Irritable bowel syndrome DVT prophylaxis: sc Lovenox Disposition: PT/OT recommending SNF on discharge, on 09/22/2020 patient was delirious and she pulledout her feeding tube, continue monitor closely for hypoglycemia, also with slow improvement in her chest x-ray which CT surgery recommended follow-up every 2-3 days, likely she will be in the hospital for next couple of days. Interval history - 09/22 : Due to delirium at night patient pulled out her feeding tube. - Picc line placed 09/21 - IR changed feeding tube 09/20/2020. - On RA - 09/22 C diff negative Review of Systems Constitutional: Positive for activity change and fatigue. Respiratory: Positive for cough and shortness of breath. Cardiovascular: Negative for chest pain and leg swelling. Musculoskeletal: Negative for back pain. Skin: Negative. Neurological: Negative. Physical / Results Current Vital Signs Temp: 98.7 F (37.1 C) BP: 109/31 Weight: 75.2 kg (165 lb 12.6 oz) SpO2: (!) 74 % Resp: 19 Pulse: 104 Current BMI (>50 = increased risk): 28.3 O2 Device: NC - no humidity O2 Flow Rate (L/min): 2 l/min Pain Ratin Physical Exam Constitutional: General: She is not in acute distress. HENT: Nose: No congestion. Eyes: General: No scleral icterus. Cardiovascular: Rate and Rhythm: Normal rate and regular rhythm. Heart sounds: No murmur. Pulmonary: Breath sounds: Rhonchi present. Comments: Left-sided diminished breath sounds with intermittent rhonchi Abdominal: General: Bowel sounds are normal. There is no distension. Musculoskeletal: General: No swelling. Skin: Coloration: Skin is not jaundiced. Neurological: General: No focal deficit present. Mental Status: Mental status is at baseline. S RIBBON MACHINE OPERATOR Tami Malik MD - 09/22/2020 7:39 AM CST Surgery Daily Progress Note Niles Shearer : 1965 Admit Date: 09/10/2020 S: - No acute events overnight. Doing well. - Resting comfortably this morning - On RA O: Temp: 97.7 F (36.5 C) BP: 115/56 Pulse: 105 O2 Device: NC - no humidity O2 Flow Rate (L/min): 2 l/min Resp: 17 Pain Ratin (out of 10) Weight: 69.5 kg (153 lb 3.2 oz) SpO2: 100 % General: No acute distress and resting comfortably Respiratory: Non-labored respirations, on RA Cardiac: RRR Extremities: No peripheral edema Intake/Output Summary (Last 24 hours) at 09/22/2020 0739 Last data filed at 09/22/2020 0600 Gross per 24 hour Intake 906 ml Output Net 906 ml Labs: Lab Results Component Value Date WBC 10.6 09/21/2020 HEMOGLOBIN 7.8 (L) 09/21/2020 PLTCOUNT 597 (H) 09/21/2020 NA 138 09/20/2020 POTASSIUM 3.5 09/20/2020 CREATSERUM 0.58 (L) 09/20/2020 Imaging: No new radiographic studies in last 24 hours Assessment: Niles Shearer is a 55yr female s/p Left VATS thoracotomy, drainage of pleural effusion, drainage of lung abscess, decortication of left lobe and flexible bronchoscopy on 09/13/2020. Postoperatively she was transferred to the ICU intubated and sedated. With copious thick secretions and mucus plugging she underwent therapeutic bronchoscopy 09/14, 09/15 and 09/16. Chest tubes were removed 09/17. Clinically improved and extubated on 09/18/2020. Small interval improvement on CXR yesterday. Plan: - Continue care per primary team - Encourage ambulation - Continue IS and Pulmonary toilet - Recommend CXR every 2-3 days to assess effusions - Will continue to monitor - DVT ppx: SCDs/ Lovenox Tami Malik MD General Surgery Resident, Pager # [phone] 09/22/20 S RIBBON MACHINE OPERATOR Jensen Gonzalez MD - 09/21/2020 3:29 PM CST Hospital Progress Note Niles Shearer is a 55yr old female admitted on 09/10/2020. Assessment / Plan Active Problems: Lung abscess (HCC) Anxiety disorder Asthma Hypothyroidism Peripheral neuropathy Pneumonia History of general anesthesia Resolved Problems: * No resolved hospital problems. * # Community acquired pneumonia complicated with left empyema # S/p thoracotomy with drainage on 09/13/2020 # Acute hypoxic respiratory failure secondary to above - CT surgery is following. - IDs following: Probably will need 4-6 weeks of IV antibiotic. - PICC line placed 09/21 - Repeated CT chest on 09/20/2020: Persistent extraluminal air in the left upper lung concerning forpulmonary abscess, with slight interval improvement in the consolidation visible in the left midlung. Residual complex left pleural effusion consistent with empyema. - RT Following - Speech therapy following: bite-size solids; continue thin liquids - PT/OT recommending halfway Chronic problems - Hypothyroidism: Continue replacement, recent TSH in April 2020 wnl. - Anxiety / depression: Continue Wellbutrin, BuSpar, nortriptyline. - Chronic pain/eating disorder - Irritable bowel syndrome - Recurrent episodes of hypoglycemia: Patient has a G-tube that was placed at [facility] in 2018 due to recurrent hypoglycemia s/p gastric bypass surgery. She typically manages it without difficulty but per notes on admission " her reportd that she was "messing with it" within the week prior toadmission and then it was plugged. She was scheduled to have it replaced with IR 09/10. She has not noted tenderness or warmth/redness surrounding G-tube site. - 09/20; IR consulted, changed, continue feeding tube at night. DVT prophylaxis: sc Lovenox Interval history - picc line placed 09/21 - IR changed feeding tube 09/20/2020. Continue feeding tube at night. - Continued on 2 L nasal cannula, - Had some diarrhea, c diff ordered , came back negative Review of Systems Constitutional: Positive for activity change and fatigue. Respiratory: Positive for cough and shortness of breath. Cardiovascular: Negative for chest pain and leg swelling. Musculoskeletal: Negative for back pain. Skin: Negative. Neurological: Negative. Physical / Results Current Vital Signs Temp: 98.7 F (37.1 C) BP: 109/31 Weight: 75.2 kg (165 lb 12.6 oz) SpO2: (!) 74 % Resp: 19 Pulse: 104 Current BMI (>50 = increased risk): 28.3 O2 Device: NC - no humidity O2 Flow Rate (L/min): 2 l/min Pain Ratin Physical Exam Constitutional: General: She is not in acute distress. HENT: Nose: No congestion. Eyes: General: No scleral icterus. Cardiovascular: Rate and Rhythm: Normal rate and regular rhythm. Heart sounds: No murmur. Pulmonary: Breath sounds: Rhonchi present. Comments: Left-sided diminished breath sounds with intermittent rhonchi Abdominal: General: Bowel sounds are normal. There is no distension. Musculoskeletal: General: No swelling. Skin: Coloration: Skin is not jaundiced. Neurological: General: No focal deficit present. Mental Status: Mental status is at baseline. S RIBBON MACHINE OPERATOR Jose De Jesus Rios MD - 09/21/2020 11:48 AM CST INFECTIOUS DISEASES PROGRESS NOTE DATE OF SERVICE: 09/21/2020 SUBJECTIVE: Patient is a 55-year-old female with community-acquired pneumonia complicated by left empyema. She underwent thoracotomy on 09/13. Recuperating slowly. Tolerating Ceftriaxone. Had CT chest yesterday which revealed significant persistent pneumonia. OBJECTIVE: Vitals: Current Vital Signs Temp: 97.7 F (36.5 C) BP: 101/52 Pulse: 99 O2 Device: Room Air O2 Flow Rate (L/min): 2 l/min Resp: 16 Pain Ratin (out of 10) Weight: 75.2 kg (165 lb 12.6 oz) SpO2: 92 % General: No distress but looks tired. Skin: No rash. Chest: Surgical incision on left chest wall CDI. Slight increase in respiratory rate. Accessory muscles active. Decreased breath sounds on right. Cardiovascular: S1-S2 normal. No murmurs rubs or gallops Abdomen: Soft and nontender Musculoskeletal: No large joint swelling, redness, tenderness Neurological: Alert and oriented x 3. No focal deficits. LAB DATA: Pleural fluid cultures from 09/13/2020 grew Strep intermedius. Blood cultures have been negative Lab Results Component Value Date WBC 10.6 09/21/2020 HEMOGLOBIN 7.8 (L) 09/21/2020 PLTCOUNT 597 (H) 09/21/2020 CREATSERUM 0.58 (L) 09/20/2020 ALT 9 09/11/2020 AST 13 09/11/2020 BILITOTAL 0.3 09/11/2020 VANCOTROUGH 16.6 09/15/2020 DIAGNOSIS: 1. Acute hypoxic respiratory failure secondary to community-acquired pneumonia with left empyema status post thoracotomy with drainage on 09/13/2020 ASSESSMENT AND PLAN: Improving slowly and steadily. Ok to insert PICC line. Continue Ceftriaxone for 6 weeks through 10/24/2020. I have completed Outpatient IV Antimicrobial Therapy (OPAT) orders. Will arrange for a follow-up appointment in the clinic. Signing off from inpatient follow up. Please call with questions. Daquan Sheriff MD - 09/21/2020 7:39 AM CSTCT Surgery Clinically feeling well CXR improved- better aeration CT has some pleural fluid but much of the opacity is consolidation Rec: Continued nonoperative therapy, cough IS etc. I dont think she needs operative drainage now. Will cont to follow- if she does need drainage at some point we can do so. Tami Dan MD - 09/21/2020 6:42 AM CST Surgery Daily Progress Note Niles Shearer : 1965 Admit Date: 09/10/2020 S: - No acute events overnight. Doing well. - Resting comfortably this morning - On 2L supplemental oxygen O: Temp: 97.5 F (36.4 C) BP: 100/52 Pulse: 96 O2 Device: NC - cool humidity O2 Flow Rate (L/min): 2 l/min Resp: 18 Pain Ratin (out of 10) Weight: 75.2 kg (165 lb 12.6 oz) SpO2: 97 % General: No acute distress and resting comfortably Respiratory: Non-labored respirations, on 2L supplemental oxygen Cardiac: RRR Extremities: No peripheral edema Intake/Output Summary (Last 24 hours) at 09/21/2020 0642 Last data filed at 09/20/2020 1726 Gross per 24 hour Intake 1350 ml Output Net 1350 ml Labs: Lab Results Component Value Date WBC 10.6 09/21/2020 HEMOGLOBIN 7.8 (L) 09/21/2020 PLTCOUNT 597 (H) 09/21/2020 NA 138 09/20/2020 POTASSIUM 3.5 09/20/2020 CREATSERUM 0.58 (L) 09/20/2020 Imaging: CT Chest IMPRESSION: 1. Persistent extraluminal air in the left upper lung concerning for pulmonary abscess, with slight interval improvement in the consolidation visible in the left midlung. Residual complex left pleural effusion consistent with empyema. 2. Minimal simple fluid in the right minor fissure, small pericardial effusion, similar to previous. CXR IMPRESSION: Slightly improved aeration in the left lung with persistent hydropneumothorax and extensive consolidation throughout the left lung Assessment: Niles Shearer is a 55yr female s/p Left VATS thoracotomy, drainage of pleural effusion, drainage of lung abscess, decortication of left lobe and flexible bronchoscopy on 09/13/2020. Postoperatively she was transferred to the ICU intubated and sedated. With copious thick secretions andmucus plugging she underwent therapeutic bronchoscopy 09/14, 09/15 and 09/16. Chest tubes were /6. Clinically improved and extubated on 09/18/2020. Small interval improvement on CXR this morning. Plan: - Continue care per primary team - Encourage ambulation - Continue IS and Pulmonary toilet - Will continue to monitor - DVT ppx: SCDs/ Lovenox Tami Malik MD General Surgery Resident, Pager # [phone] 09/21/20 S RIBBON MACHINE OPERATOR Jensen Gonzalez MD - 09/20/2020 3:35 PM CST Hospital Progress Note Niles Shearer is a 55yr old female admitted on 09/10/2020. Assessment / Plan Active Problems: Lung abscess (HCC) Anxiety disorder Asthma Hypothyroidism Peripheral neuropathy Pneumonia History of general anesthesia Resolved Problems: * No resolved hospital problems. * # Community acquired pneumonia complicated with left empyema # S/p thoracotomy with drainage on 09/13/2020 # Acute hypoxic respiratory failure secondary to above - CT surgery is following. - IDs following: Probably will need 4-6 weeks of IV antibiotic. - Repeated CT chest on 09/20/2020: Persistent extraluminal air in the left upper lung concerning forpulmonary abscess, with slight interval improvement in the consolidation visible in the left midlung. Residual complex left pleural effusion consistent with empyema. - RT Following - Speech therapy following: bite-size solids; continue thin liquids - PT/OT recommending halfway Chronic problems - Hypothyroidism: Continue replacement, recent TSH in April 2020 wnl. - Anxiety / depression: Continue Wellbutrin, BuSpar, nortriptyline. - Chronic pain/eating disorder - Irritable bowel syndrome - Patient has a G-tube that was placed at [facility] in 2018 due to recurrent hypoglycemia s/p gastric bypass surgery. She typically manages it without difficulty but per notes on admission " her reportd that she was "messing with it" within the week prior to admission and then it was plugged. She was scheduled to have it replaced with IR 09/10. She has not noted tenderness or warmth/redness surrounding G-tube site. DVT prophylaxis: sc Lovenox Interval history - Overnight transferred out of ICU after extubation over the weekend. CT surgery repeating CT scan today, continue IV antibiotic. - Continued on 2 L nasal cannula, Review of Systems Constitutional: Positive for activity change and fatigue. Respiratory: Positive for cough and shortness of breath. Cardiovascular: Negative for chest pain and leg swelling. Musculoskeletal: Negative for back pain. Skin: Negative. Neurological: Negative. Physical / Results Current Vital Signs Temp: 98.7 F (37.1 C) BP: 109/31 Weight: 75.2 kg (165 lb 12.6 oz) SpO2: (!) 74 % Resp: 19 Pulse: 104 Current BMI (>50 = increased risk): 28.3 O2 Device: NC - no humidity O2 Flow Rate (L/min): 2 l/min Pain Ratin Physical Exam Constitutional: General: She is not in acute distress. HENT: Nose: No congestion. Eyes: General: No scleral icterus. Cardiovascular: Rate and Rhythm: Normal rate and regular rhythm. Heart sounds: No murmur. Pulmonary: Breath sounds: Rhonchi present. Comments: Left-sided diminished breath sounds with intermittent rhonchi Abdominal: General: Bowel sounds are normal. There is no distension. Musculoskeletal: General: No swelling. Skin: Coloration: Skin is not jaundiced. Neurological: General: No focal deficit present. Mental Status: Mental status is at baseline. S RIBBON MACHINE OPERATOR Jose De Jesus Rios MD - 09/20/2020 12:28 PM CST INFECTIOUS DISEASES PROGRESS NOTE DATE OF SERVICE: 09/20/2020 SUBJECTIVE: Patient is a 55-year-old female with community-acquired pneumonia complicated by left empyema. She underwent thoracotomy on 09/13. Extubated over the weekend. Tolerating Ceftriaxone. OBJECTIVE: Vitals: Current Vital Signs Temp: 98.9 F (37.2 C) BP: 102/47 Pulse: 113 O2 Device: NC - no humidity O2 Flow Rate (L/min): 2 l/min Resp: 26 Pain Ratin (out of 10) Weight: 75.2 kg (165 lb 12.6 oz) SpO2: 95 % General: No distress but looks tired. Skin: No rash. Chest: Surgical incision on left chest wall CDI. Slight increase in respiratory rate. Accessory muscles active. Decreased breath sounds on right. Cardiovascular: S1-S2 normal. No murmurs rubs or gallops Abdomen: Soft and nontender Musculoskeletal: No large joint swelling, redness, tenderness Neurological: Alert and oriented x 3. No focal deficits. LAB DATA: Pleural fluid cultures from 09/13/2020 grew Strep intermedius. Blood cultures have been negative Lab Results Component Value Date WBC 14.5 (H) 09/20/2020 HEMOGLOBIN 7.9 (L) 09/20/2020 PLTCOUNT 576 (H) 09/20/2020 CREATSERUM 0.58 (L) 09/20/2020 ALT 9 09/11/2020 AST 13 09/11/2020 BILITOTAL 0.3 09/11/2020 VANCOTROUGH 16.6 09/15/2020 DIAGNOSIS: 1. Acute hypoxic respiratory failure secondary to community-acquired pneumonia with left empyema status post thoracotomy with drainage on 09/13/2020 ASSESSMENT AND PLAN: Doing better. Discussed with CT surgery. Will await their formal re-evaluation. Stable with slow ongoing improvement for now. Continue Ceftriaxone for 4-6 weeks. Will continue to follow. Daquan Sheriff MD - 09/20/2020 11:16 AM CSTCT Surgery Events over weekend noted. Extubated. CTs out 2d ago Appreciate ICU, IM care. Productive cough now CXR- increased consolidation L lung. ?how much is fluid vs consolidation unclear. Check CT chest. If pleural effusion is sig may need drainage. Rose Cadet, Kevin Colón MD - 09/19/2020 6:00 AM CST SURGICAL CRITICAL CARE PROGRESS NOTE HD: #10 ICU Day: #7 POD: #6 Subjective Last 24 Hours: No acute events overnight Extubated yesterday Too drowsy and weak to pass speech swallow evaluation Keofeed placed and tube feeds resumed Able to work with OT for upper extremity exercises Much more alert this morning than yesterday IS to [address] St cath x2 Objective Vitals: Vital Signs Min/Max (last 24 hours) Flowsheet Row Name Min Max Temp 97.6 F (36.4 C) 100.8 F (38.2 C) BP: Systolic 85 133 BP: Diastolic 34 111 Arterial Line (ART) BP: Systolic 53 132 Arterial Line (ART) BP: Diastolic 44 84 Pulse 85 126 Resp 10 37 SpO2 (!) 81 % 100 % FiO2 (Set , %) 50 % 50 % O2 Flow Rate (L/min) 6 l/min 6 l/min MAP (mm Hg) 53 mm Hg 117 mm Hg Physical Exam: General: Comfortable, NAD CV: RRR, HDS on no vasopressor support Resp: decreased breath sounds on the left, oxygenating well on 6 L nasal cannula Chest: dressing c/d/i Abd: soft, nondistended, G-tube intact (nonfunctional) Ext: no significant edema Neuro: A&Ox2 Lab Results Component Value Date WBC 13.9 (H) 09/19/2020 HEMOGLOBIN 7.1 (L) 09/19/2020 HEMATOCRIT 23.3 (L) 09/19/2020 PLTCOUNT 435 (H) 09/19/2020 Lab Results Component Value Date NA 144 09/19/2020 POTASSIUM 3.8 09/19/2020 CL 105 09/19/2020 CO2 30 (H) 09/19/2020 BUN 11 09/19/2020 CREATSERUM 0.48 (L) 09/19/2020 BCRATIO 22.9 09/19/2020 GLUCOSE 130 (H) 09/19/2020 Lab Results Component Value Date CA 8.2 (L) 09/19/2020 PHOSPHORUS 2.8 09/19/2020 MAGNESIUM 2.0 09/19/2020 Lab Results Component Value Date LACACDPLS 0.4 (L) 09/19/2020 Assessment and Plan Brief History: 55yo F with one-month history of pneumonia complicated by an expanding lung abscess and pleural effusion. She failed medical therapy and underwent 09/13 left thoracoscopy and thoracotomy with LLL decortication and drainage of MASON and fissure abscesses. Postoperatively she was transferred to the ICU intubated and sedated. With copious thick secretions and mucus plugging she underwent therapeutic bronchoscopy 09/14, 09/15 and 09/16. Chest tubes were removed 09/17. Clinically improved and extubated 09/18. Neuro: continue home Bupropion and Buspirone, PO/IV PRN pain regimen Pulm: Continue hypertonic saline nebulizer with chest physiotherapy, RT cares, frequent IS, continuedaily CXR CV: HDS GI/Nutrition: Continue TF at goal, awaiting swallow evaluation with Speech, if passes will remove NGT, hold bowel regimen now Fluids/Electrolytes/Renal: st cath as needed, monitor UOP MSK: PT/OT Heme: daily labs ID: Ceftriaxone Endo: Levothyroxine Consults: - Cardiothoracic Surgery - signed off - Infectious Disease - managing ABX, follow up further recommendations PPx: - DVT ppx: Lovenox - GI ppx: Omeprazole Disposition: Transfer to [facility], IM to resume primary cares, discussed with rehabilitation team lead hospitalist Obdulio Montgomery MD General Surgery Resident Pager #[phone] S RIBBON MACHINE OPERATOR Associated attestation - Alan William MD - 09/21/2020 7:57 AM CSTT Service ICU Attending Attestation: Patient is critically ill by my examination on the date of service (DOS) listed above and requires continued ICU monitoring and cares. The patient is being seen in the surgical Intensive Care Unit. I have discussed patient cares and treatment plan regarding her post thoracotomy and decorticationnow extubated and other critical care issues with the T service team as reflected in the residents note by Dr. Montgomery, All pertinent labs, imaging studies, physical exam and medications have been review ed by myself with the T service team. Evaluation and management time exclusive of procedures was 35 minutes critical care time in the management and care of this patient including: examination with theT service team, discussion of the patient's condition with other physicians and members of the careteam, reviewing all data related to the patient, and time utilizing the EMR for documentation of this patient's care. All data, assessments and plans were discussed with T Service teamValentina Cadet, Kevin Colón MD - 09/18/2020 6:00 AM CST SURGICAL CRITICAL CARE PROGRESS NOTE HD: #9 ICU Day: #6 POD: #5 Subjective Last 24 Hours: No acute events overnight 3 SBT's done yesterday, apneic for the first 2 although the third went well for 30 minutes x2 BM noted Chest tube removed yesterday Pains controlled Remains on low-dose vasopressor support SBT this morning for 45 minutes going well with low RSBI Objective Vitals: Vital Signs Min/Max (last 24 hours) Flowsheet Row Name Min Max Temp 98.3 F (36.8 C) 99.6 F (37.6 C) BP: Systolic 82 133 BP: Diastolic 37 83 Arterial Line (ART) BP: Systolic 44 122 Arterial Line (ART) BP: Diastolic 40 73 Pulse 76 138 Resp 11 44 SpO2 94 % 100 % FiO2 (Set , %) 40 % 50 % MAP (mm Hg) 54 mm Hg 93 mm Hg Physical Exam: General: Intubated and sedated CV: RRR, on Levophed 0.04 mcg/kg/min Resp: Currently on SBT and doing well Chest: dressing c/d/i Abd: soft, nondistended, G-tube intact (nonfunctional) Ext: no significant edema Neuro: GCS 11T Lab Results Component Value Date WBC 17.4 (H) 09/18/2020 HEMOGLOBIN 8.0 (L) 09/18/2020 HEMATOCRIT 24.9 (L) 09/18/2020 PLTCOUNT 535 (H) 09/18/2020 Lab Results Component Value Date NA 141 09/18/2020 POTASSIUM 3.2 (L) 09/18/2020 CL 103 09/18/2020 CO2 27 09/18/2020 BUN 10 09/18/2020 CREATSERUM 0.54 (L) 09/18/2020 BCRATIO 18.5 09/18/2020 GLUCOSE 113 (H) 09/18/2020 Lab Results Component Value Date CA 7.9 (L) 09/18/2020 PHOSPHORUS 2.3 (L) 09/18/2020 MAGNESIUM 1.8 09/18/2020 Lab Results Component Value Date LACACDPLS 0.8 09/18/2020 CXR - slightly improved aeration Assessment and Plan Brief History: 55yo F with one-month history of pneumonia complicated by an expanding lung abscess and pleural effusion. She failed medical therapy and underwent 09/13 left thoracoscopy and thoracotomy with LLL decortication and drainage of MASON and fissure abscesses. Postoperatively she was transferred to the ICU intubated and sedated. With copious thick secretions and mucus plugging she underwent therapeutic bronchoscopy 09/14, 09/15 and 09/16. Chest tubes were removed 09/17. Clinically improved and extubated this morning. Neuro: continue home Bupropion and Buspirone, add PO/IV PRN regimen Pulm: Continue hypertonic saline nebulizer with chest physiotherapy, RT cares, frequent IS CV: MAP goal 60, wean pressors as able GI/Nutrition: bedside swallow eval, CLD Fluids/Electrolytes/Renal: remove borjas once extubated, replace electrolytes PRN MSK: PT/OT Heme: daily labs ID: Ceftriaxone, follow-up BAL Endo: Levothyroxine Consults: - Cardiothoracic Surgery - signed off - Infectious Disease - de-escalated antibiotics to ceftriaxone, follow up further recommendations PPx: - DVT ppx: Lovenox - GI ppx: Omeprazole Disposition: Continue ICU Cares Obdulio Montgomery MD General Surgery Resident Pager #[phone] S RIBBON MACHINE OPERATOR Associated attestation - Alan William MD - 09/18/2020 10:25 PM CSTT Service ICU Attending Attestation: Patient is critically ill by my examination on the date of service (DOS) listed above and requires continued ICU monitoring and cares. The patient is being seen in the surgical Intensive Care Unit. I have discussed patient cares and treatment plan regarding her post thoracotomy and decorticationrespiratory failure requiring mechanical ventilation ,reasy to extubate todayand other critical careissues with the T service team as reflected in the residents note by Dr. Montgomery, All pertinent labs,imaging studies, physical exam and medications have been reviewed by myself with the T service team.Evaluation and management time exclusive of procedures was 35 minutes critical care time in the management and care of this patient including: examination with the T service team, discussion of the patient's condition with other physicians and members of the care team, reviewing all data related to the patient, and time utilizing the EMR for documentation of this patient's care. All data, assessments and plans were discussed with T Service teamJose De Jesus Rios MD - 09/17/2020 11:55 AM CST INFECTIOUS DISEASES PROGRESS NOTE DATE OF SERVICE: September 17, 2020 SUBJECTIVE: Patient is a 55-year-old female with community-acquired pneumonia complicated by left empyema. She underwent thoracotomy on 09/13. She is still on the vent. Tolerating Ceftriaxone. Has had multiple bronchs to clear out her secretions. Had repeat CT yesterday which continues to show significant infiltrate and peripneumonic effusions. OBJECTIVE: Vitals: Current Vital Signs Temp: 98.1 F (36.7 C) BP: 82/40 Pulse: 98 O2 Device: Ventilator O2 Flow Rate (L/min): 3 l/min Resp: 20 Pain Ratin (out of 10) Weight: 75.2 kg (165 lb 12.6 oz) SpO2: 95 % General: Sedated Skin: No rash. Central line in left subclavian. Exit site looks clean Chest: Bilaterally clear to auscultation. Chest tube in left chest wall. It is draining blood-tinged fluid. Overall drainage is minimal. No air leak is seen. Cardiovascular: S1-S2 normal. No murmurs rubs or gallops Abdomen: Soft and nontender Musculoskeletal: No large joint swelling, redness, tenderness Neurological: Sedated and intubated LAB DATA: Pleural fluid cultures from 09/13/2020 grew Strep intermedius. Blood cultures have been negative Lab Results Component Value Date WBC 20.5 (H) 09/17/2020 HEMOGLOBIN 7.8 (L) 09/17/2020 PLTCOUNT 491 (H) 09/17/2020 CREATSERUM 0.51 (L) 09/17/2020 ALT 9 09/11/2020 AST 13 09/11/2020 BILITOTAL 0.3 09/11/2020 VANCOTROUGH 16.6 09/15/2020 DIAGNOSIS: 1. Acute hypoxic respiratory failure secondary to community-acquired pneumonia with left empyema status post thoracotomy with drainage on 09/13/2020 ASSESSMENT AND PLAN: Doing about the same. No significant improvement. CT does not look reassuring. May need another surgery. Continue Ceftriaxone for now. Tami Dan MD - 09/17/2020 5:36 AM CST Surgery Daily Progress Note Niles Shearer : 1965 Admit Date: 09/10/2020 S: - No acute events overnight. - Remains intubated and sedated in ICU - Minimal pressor support with Norepinephrine at 0.03mcg/kg/min - Repeat bronch yesterday, decreased secretions noted - CT completed with marginal improvement appreciated - Tube feeds started through OG tube O: Temp: 98.1 F (36.7 C) BP: 101/49 Pulse: 81 O2 Device: Ventilator O2 Flow Rate (L/min): 3 l/min Resp: 16 Pain Ratin (out of 10) Weight: 75.2 kg (165 lb 12.6 oz) SpO2: 99 % General:Intubated and sedated. Able to follow commands.Non-violent restraints Respiratory:APVcmv; RR16/400/40%/Peep8. Chest tube with serosang output. No airlead Cardiac:RRR Abdomen: Soft, non distended,non-tender. G -tube present Extremities:No peripheral edema Intake/Output Summary (Last 24 hours) at 09/17/2020 0536 Last data filed at 09/17/2020 0452 Gross per 24 hour Intake 2704 ml Output 1520 ml Net [address]: 30 UOP:1700 Labs: Lab Results Component Value Date WBC 20.5 (H) 09/17/2020 HEMOGLOBIN 7.8 (L) 09/17/2020 PLTCOUNT 491 (H) 09/17/2020 NA 140 09/17/2020 POTASSIUM 3.9 09/17/2020 CREATSERUM 0.51 (L) 09/17/2020 Imaging: CT 09/16 @1559 IMPRESSION: 1. Minimal improved aeration of the left lung. The majority of the left lung does remain atelectatic. 2. 2 left chest tubes in place with small residual left pleural effusion. Potential pulmonary abscess previously noted continues to decrease in size. 3. Consolidation in the aerated left upper lobe suspicious for pneumonia. 4. Stable small pericardial effusion. AM CXR FINDINGS/IMPRESSION: Left chest tubes are stable in position. Stable consolidation and fluid along the left hemithorax with intermittent aeration/air bronchogram. Stable leftward shift of the mediastinum on the basis of volume loss. No new infiltrate on the right. ET tube is well-positioned. Enteric tube tip is within the stomach. Left subclavian central line with tip at the mid SVC. Surgical clips in the upper abdomen. Assessment: Niles Shearer is a 55yr female post-op day #4s/p Left VATS thoracotomy, drainage of pleural effusion, drainage of lung abscess, decortication of left lobe and flexible bronchoscopy. Left intubated and sedated post-operatively to assist with lung expansion.On POD #1, underwent therapeutic bronchoscopy which demonstrated significant secretion on the left. Had repeat bronchoscopy on POD #2, with increased secretions noted. POD #3, underwent bronchoscopy with decreased secretions. Started tube feeds yesterday through OG. Plan: - Work on alveolar recruitment. SBTand extubate if able - Continue chest tube to suction - TF started through OG. - ISS for DM - SICU and ID consulted. Their assistance is appreciated. - Antibiotics:Ceftriaxone - DVT ppx: SCDs/Lovenox - GI ppx: Protonix Tami Malik MD General Surgery Resident, Pager # [phone] 09/17/20 S RIBBON MACHINE OPERATOR Associated attestation - Santo Higuera MD - 09/17/2020 10:01 AM CSTCVTS STAFF PROGRESS NOTE Pt seen at bedside. Agree with progress note and plan as written by Dr. Malik Minimal chest tube drainage with clotted tubes. CT shows no significant residual fluid but ongoing dense consolidation of left lung with shrinking abscess. Will remove chest tubes today. Incision healing well. Will sign off.Valentina Cadet, Kevin Colón MD - 09/17/2020 4:58 AM CST SURGICAL CRITICAL CARE PROGRESS NOTE HD: #8 ICU Day: #5 POD: #4 Subjective Last 24 Hours: No acute events overnight Bronch yesterday with fewer and thinner secretions No SBT done yesterday Continues on low-dose vasopressors Denies any pain Tolerating tube feeds at 40 cc/hr, goal 60 cc/hr Objective Vitals: Vital Signs Min/Max (last 24 hours) Flowsheet Row Name Min Max Temp 98.1 F (36.7 C) 98.9 F (37.2 C) BP: Systolic 91 130 BP: Diastolic 38 87 Arterial Line (ART) BP: Systolic 87 87 Arterial Line (ART) BP: Diastolic 49 49 Pulse 66 118 Resp 11 17 SpO2 94 % 100 % FiO2 (Set , %) 45 % 50 % MAP (mm Hg) 56 mm Hg 92 mm Hg Physical Exam: General: Intubated and sedated CV: RRR, HDS on Levophed 0.04 mcg/kg/min Resp: Mechanically ventilated (Vt 400, RR 16, PEEP 8, FiO2 40%) Chest: left CT x2 intact - 20 cc serosanguinous with no air leak, dressing c/d/i Abd: soft, nondistended, G-tube intact (nonfunctional) Ext: no significant edema Neuro: sedated, GCS 11T Lab Results Component Value Date WBC 20.5 (H) 09/17/2020 HEMOGLOBIN 7.8 (L) 09/17/2020 HEMATOCRIT 24.7 (L) 09/17/2020 PLTCOUNT 491 (H) 09/17/2020 Lab Results Component Value Date NA 140 09/17/2020 POTASSIUM 3.9 09/17/2020 CL 106 09/17/2020 CO2 23 09/17/2020 BUN 9 09/17/2020 CREATSERUM 0.51 (L) 09/17/2020 BCRATIO 17.6 09/17/2020 GLUCOSE 98 09/17/2020 Lab Results Component Value Date CA 7.8 (L) 09/17/2020 PHOSPHORUS 2.6 09/17/2020 MAGNESIUM 1.7 (L) 09/17/2020 Lab Results Component Value Date LACACDPLS 0.6 09/17/2020 CXR - stable CT - mildly improved aeration, decreased size of abscess Assessment and Plan Brief History: 55yo F with one-month history of pneumonia complicated by an expanding lung abscess and pleural effusion. She failed medical therapy and underwent 09/13 left thoracoscopy and thoracotomy with LLL decortication and drainage of MASON and fissure abscesses. Postoperatively she was transferred to the ICU intubated and sedated. With copious thick secretions and mucus plugging she underwent therapeutic bronchoscopy 09/14, 09/15 and 09/16. Neuro: Precedex and Fentanyl for RASS goal 0 to -1, plan for sedation vacation today, continue home Bupropion and Buspirone Pulm: SBT daily, daily CXR and ABG, keep chest tubes to suction, possibly repeat bronchoscopy today,continue hypertonic saline nebulizer with chest physiotherapy CV: MAP goal 60, wean pressors as able GI/Nutrition: continue tube feeds Fluids/Electrolytes/Renal: SLIV, keep borjas, replace electrolytes PRN MSK: no acute concerns Heme: daily labs ID: Ceftriaxone, follow-up BAL Endo: Levothyroxine Consults: - Cardiothoracic Surgery - appreciate assistance - Infectious Disease - de-escalated antibiotics to ceftriaxone, follow up further recommendations PPx: - DVT ppx: Lovenox - GI ppx: Omeprazole Disposition: Continue ICU Cares Obdulio Montgomery MD General Surgery Resident Pager #[phone] S RIBBON MACHINE OPERATOR Associated attestation - Alan William MD - 09/18/2020 10:24 PM CSTT Service ICU Attending Attestation: Patient is critically ill by my examination on the date of service (DOS) listed above and requires continued ICU monitoring and cares. The patient is being seen in the surgical Intensive Care Unit. I have discussed patient cares and treatment plan regarding her post thoracotomy and decorticationrespiratory failure requiring mechanical ventilation , not requiring bronchoscopy today aerating better and other critical care issues with the T service team as reflected in the residents note by , All pertinent labs, imaging studies, physical exam and medications have been reviewed by myself with the T service team. Evaluation and management time exclusive of procedures was 35 minutes critical care time in the management and care of this patient including: examination with the T serviceteam, discussion of the patient's condition with other physicians and members of the care team, reviewing all data related to the patient, and time utilizing the EMR for documentation of this patient'scare. All data, assessments and plans were discussed with T Service Jose De Jesus Hurtado MD - 09/16/2020 8:53 AM GLASS RIBBON MACHINE OPERATOR INFECTIOUS DISEASES PROGRESS NOTE DATE OF SERVICE: September 16, 2020 SUBJECTIVE: Patient is a 55-year-old female with community-acquired pneumonia complicated by left empyema. She underwent thoracotomy on 09/13. She is still on the vent. No major acute events. She is requiring PEEP of 8 and FiO2 of 50%. She is on minimal dose norepinephrine. Pleural fluid cultures are now growing alphahemolytic streptococci. OBJECTIVE: Vitals: Current Vital Signs Temp: 98.3 F (36.8 C) BP: 106/55 Pulse: 89 O2 Device: Ventilator O2 Flow Rate (L/min): 3 l/min Resp: 16 Pain Ratin (out of 10) Weight: 70.1 kg (154 lb 8.7 oz) SpO2: 98 % General: Sedated Skin: No rash. Central line in left subclavian. Exit site looks clean Chest: Bilaterally clear to auscultation. Chest tube in left chest wall. It is draining blood-tinged fluid. Overall drainage is minimal. No air leak is seen. Cardiovascular: S1-S2 normal. No murmurs rubs or gallops Abdomen: Soft and nontender Musculoskeletal: No large joint swelling, redness, tenderness Neurological: Sedated and intubated LAB DATA: Pleural fluid cultures from 09/13/2020 grew Strep intermedius. Blood cultures have been negative Lab Results Component Value Date WBC 20.2 (H) 09/16/2020 HEMOGLOBIN 7.9 (L) 09/16/2020 PLTCOUNT 442 (H) 09/16/2020 CREATSERUM 0.54 (L) 09/16/2020 ALT 9 09/11/2020 AST 13 09/11/2020 BILITOTAL 0.3 09/11/2020 VANCOTROUGH 16.6 09/15/2020 DIAGNOSIS: 1. Acute hypoxic respiratory failure secondary to community-acquired pneumonia with left empyema status post thoracotomy with drainage on 09/13/2020 ASSESSMENT AND PLAN: Patient is improving slowly. Still on vent and has a chest tube. Switch antibiotics to ceftriaxone. Tentative plan is to continue with ceftriaxone for a total of 4 weeks postop. I will continue to follow intermittently. Please call with questions. Rose Cadet, Kevin Colón MD - 09/16/2020 5:51 AM CST SURGICAL CRITICAL CARE PROGRESS NOTE HD: #7 ICU Day: #4 POD: #3 Subjective Last 24 Hours: No acute events overnight Bronch yesterday with continued thick secretions No SBT done yesterday Continues on low-dose vasopressors Comfortable in bed Objective Vitals: Vital Signs Min/Max (last 24 hours) Flowsheet Row Name Min Max Temp 98 F (36.7 C) 99 F (37.2 C) BP: Systolic 81 131 BP: Diastolic 40 94 Pulse 74 122 Resp 12 34 SpO2 94 % 100 % FiO2 (Set , %) 50 % 50 % MAP (mm Hg) 55 mm Hg 102 mm Hg Physical Exam: General: Intubated and sedated CV: RRR, HDS on Levophed 0.03 mcg/kg/min Resp: Mechanically ventilated (Vt 400, RR 16, PEEP 8, FiO2 50%) Chest: left CT x2 intact - 70 cc serosanguinous with no air leak, dressing c/d/i Abd: soft, nondistended, G-tube intact Ext: no significant edema Neuro: sedated, GCS 11T Lab Results Component Value Date WBC 20.2 (H) 09/16/2020 HEMOGLOBIN 7.9 (L) 09/16/2020 HEMATOCRIT 24.9 (L) 09/16/2020 PLTCOUNT 442 (H) 09/16/2020 Lab Results Component Value Date NA 140 09/16/2020 POTASSIUM 3.2 (L) 09/16/2020 CL 105 09/16/2020 CO2 25 09/16/2020 BUN 8 09/16/2020 CREATSERUM 0.54 (L) 09/16/2020 BCRATIO 14.8 09/16/2020 GLUCOSE 95 09/16/2020 GLUCOSE 93 09/16/2020 Lab Results Component Value Date CA 7.3 (L) 09/16/2020 PHOSPHORUS 3.1 09/16/2020 MAGNESIUM 1.9 09/16/2020 Lab Results Component Value Date LACACDPLS 0.7 09/16/2020 CXR - stable from yesterday Assessment and Plan Brief History: 55yo F with one-month history of pneumonia complicated by an expanding lung abscess and pleural effusion. She failed medical therapy and underwent 09/13 left thoracoscopy and thoracotomy with LLL decortication and drainage of MASON and fissure abscesses. Postoperatively she was transferred to the ICU intubated and sedated. With copious thick secretions and mucus plugging she underwent therapeutic bronchoscopy 09/14 and 09/15. Neuro: Propofol and Fentanyl for RASS goal 0 to -1, plan for sedation vacation today, continue home Bupropion and Buspirone, may transition to Precedex Pulm: SBT daily, daily CXR and ABG, keep chest tubes to suction, repeat bronchoscopy today, continuehypertonic saline nebulizer with chest physiotherapy CV: MAP goal 60, wean pressors as able GI/Nutrition: NPO, may start tube feeds later today Fluids/Electrolytes/Renal: LR at 75 cc/hr, keep borjas, replace electrolytes PRN MSK: no acute concerns Heme: daily labs ID: Ceftriaxone, follow-up BAL Endo: Levothyroxine Consults: - Cardiothoracic Surgery - appreciate assistance - Infectious Disease - de-escalated antibiotics to ceftriaxone PPx: - DVT ppx: Lovenox - GI ppx: Omeprazole Disposition: Continue ICU Cares Obdulio Montgomery MD General Surgery Resident Pager #[phone] S RIBBON MACHINE OPERATOR Associated attestation - Alan William MD - 09/18/2020 10:20 PM CSTT Service ICU Attending Attestation: Patient is critically ill by my examination on the date of service (DOS) listed above and requires continued ICU monitoring and cares. The patient is being seen in the surgical Intensive Care Unit. I have discussed patient cares and treatment plan regarding her post thoracotomy and decorticationrespiratory failure requiring mechanical ventilation , requiring bronchoscopy with removal of mucus plugging and other critical care issues with the T service team as reflected in the residents note by Dr. Montgomery, All pertinent labs, imaging studies, physical exam and medications have been reviewed bymyself with the T service team. Evaluation and management time exclusive of procedures was 35 minutes critical care time in the management and care of this patient including: examination with the T service team, discussion of the patient's condition with other physicians and members of the care team,reviewing all data related to the patient, and time utilizing the EMR for documentation of this patient's care. All data, assessments and plans were discussed with Tami Mccormick MD - 09/16/2020 5:26 AM GLASS RIBBON MACHINE OPERATOR Surgery Daily Progress Note Niles Shearer : 1965 Admit Date: 09/10/2020 S: -Remains intubated and sedated in ICU - Requiring minimalpressors requirements with Levophed at 0.03mcg/kg/min - Bronch completed yesterday, showing increased secretion in left chest - Chest tube to suction O: Temp: 98.9 F (37.2 C) BP: 106/55 Pulse: 102 O2 Device: Ventilator O2 Flow Rate (L/min): 3 l/min Resp: 16 Pain Ratin (out of 10) Weight: 70.1 kg (154 lb 8.7 oz) SpO2: 95 % General:Intubated and sedated. Able to follow commands.Non-violent restraints Respiratory:APVcmv; RR16/400/50%/Peep8. Chest tube with serosang output. No airlead Cardiac:RRR Abdomen: Soft, non distended,non-tender. G -tube present Extremities:No peripheral edema Intake/Output Summary (Last 24 hours) at 09/16/2020526 Last data filed at 09/15/20201956 Gross per 24 hour Intake 3744.55 ml Output 2460 ml Net 1284.55 ml Urine: 1050 CT: 70 Labs: Lab Results Component Value Date WBC 20.2 (H) 09/16/2020 HEMOGLOBIN 7.9 (L) 09/16/2020 PLTCOUNT 442 (H) 09/16/2020 NA 140 09/16/2020 POTASSIUM 3.2 (L) 09/16/2020 CREATSERUM 0.54 (L) 09/16/2020 Albumin 1.9 Imaging: CT Chest IMPRESSION: 1. Atelectatic collapse of the majority of the left lung with opacification of the distal aspect of the left mainstem bronchus concerning for mucous plugging. 2. Majority of the previously seen left lung abscess has been drained however there remains a small 2 cm fluid attenuation pocket within the atelectatic left lung concerning for residual abscess. 3. Small residual left pleural effusion without definite loculation. 4. Small pericardial effusion. 5. The small aerated portion of the left lung demonstrates consolidation concerning for pneumonia. 6. There are 2 left-sided chest tubes. CXR - Appears slightly improved yesterday. Offical read still pending Assessment: Niles Shearer is a 55yr female post-op day #3s/p Left VATS thoracotomy, drainage of pleural effusion, drainage of lung abscess, decortication of left lobe and flexible bronchoscopy. Left intubated and sedated post-operatively to assist with lung expansion.On POD #1, underwent therapeutic bronchoscopy which demonstrated significant secretion on the left. Had repeat bronchoscopy on POD #2, with increased secretions noted. Plan: - SBT and extubate if able - Continue chest tube to suction - May need to consider starting something for nutrition. Albumin low. - Consider starting bowel regimen. - ISS for DM - SICU and ID consulted. Their assistance is appreciated. - Antibiotics:Ceftriaxone - DVT ppx: SCDs/Lovenox - GI ppx: Protonix Tami Malik MD General Surgery Resident, Pager # [phone] 09/16/20 aquan Lee MD - 09/15/2020 7:40 AM CSTConcerned about increased opacification L chest. Unclear whether this is pleural fluid/blood or consolidation from plugging and abscess. Would recommend Chest CT today noncontrast to help differentiate. ennyfer Restrepo, PHARM D - 09/15/2020 7:39 AM CST Ms. Shearer continues on Vancomycin per pharmacy protocol for CAP complicated by empyema s/p VATS. The patient is on day 5 of receiving Vancomycin and current dose is: 1250 mg q12h. Assessment/Plan: The trough level is within the desired goal of 15-20 mg/L. Vancomycin will be continued at current dose/interval. Pharmacy will continue to monitor per the pharmacokinetic service policy. Torres GascaD, BCPS, BCCCP Labs: Vancomycin Trough Date/Time Value Ref Range Status 09/15/2020 06:04 AM 16.6 10.0 - 20.0 ug/mL Final S RIBBON MACHINE OPERATOR Valentina Cadet, Kevin Colón MD - 09/15/2020 5:37 AM CST SURGICAL CRITICAL CARE PROGRESS NOTE HD: #6 ICU Day: #3 POD: #2 Subjective Last 24 Hours: No acute events overnight Bronch yesterday Did well with SBT for 30 minutes prior to bronch Was too drowsy for repeat SBT post-procedure but has awoken more overnight Following commands Objective Vitals: Vital Signs Min/Max (last 24 hours) Flowsheet Row Name Min Max Temp 97.3 F (36.3 C) 100.1 F (37.8 C) BP: Systolic 97 132 BP: Diastolic 41 66 Arterial Line (ART) BP: Systolic 79 124 Arterial Line (ART) BP: Diastolic 45 65 Pulse 84 120 Resp 12 23 SpO2 92 % 99 % FiO2 (Set , %) 45 % 50 % MAP (mm Hg) 60 mm Hg 82 mm Hg Physical Exam: General: Intubated and sedated CV: RRR, HDS on Levophed 0.07 mcg/kg/min Resp: Mechanically ventilated (Vt 500, RR 12, PEEP 5, FiO2 50%) Chest: left CT x2 intact - 90 cc serosanguinous with no air leak, dressing c/d/i Abd: soft, nondistended, G-tube intact Ext: no significant edema Neuro: sedated, GCS 11T Lab Results Component Value Date WBC 20.2 (H) 09/15/2020 HEMOGLOBIN 7.7 (L) 09/15/2020 HEMATOCRIT 24.1 (L) 09/15/2020 PLTCOUNT 508 (H) 09/15/2020 Lab Results Component Value Date NA 142 09/15/2020 POTASSIUM 3.0 (L) 09/15/2020 CL 106 09/15/2020 CO2 26 09/15/2020 BUN 7 09/15/2020 CREATSERUM 0.60 09/15/2020 BCRATIO 11.7 09/15/2020 GLUCOSE 100 09/15/2020 Lab Results Component Value Date CA 7.3 (L) 09/15/2020 PHOSPHORUS 1.7 (L) 09/15/2020 MAGNESIUM 1.8 09/15/2020 Lab Results Component Value Date LACACDPLS 0.6 09/15/2020 CXR - increased opacification throughout the left lung more pronounced in the lower lobe CT Chest: Atelectasis with mucous plugging Assessment and Plan Brief History: 55yo F with one-month history of pneumonia complicated by an expanding lung abscess and pleural effusion. She failed medical therapy and underwent 09/13 left thoracoscopy and thoracotomy with LLL decortication and drainage of MASON and fissure abscesses. Postoperatively she was transferred to the ICU intubated and sedated. She underwent therapeutic bronchoscopy 09/14. Neuro: Propofol and Fentanyl for RASS goal -1, plan for sedation vacation today, continue home Bupropion and Buspirone Pulm: SBT today, daily CXR and ABG, keep chest tubes to suction, repeat bronchoscopy, discontinue Robinul, add hypertonic saline nebulizer with chest physiotherapy, increase PEEP, decrease tidal volume, repeat ABG after repeated bronchoscopy CV: MAP goal 65, wean pressors as able GI/Nutrition: NPO, may resume diet if able to extubate today Fluids/Electrolytes/Renal: decrease LR to 75 cc/hr, keep borjas, replace electrolytes PRN, ordered urine chloride MSK: no acute concerns Heme: daily labs ID: Cefepime, Flagyl, Vanc, awaiting cultures Endo: Levothyroxine Consults: - Cardiothoracic Surgery - appreciate assistance - Infectious Disease - awaiting cultures for de-escalation of antibiotics PPx: - DVT ppx: Lovenox - GI ppx: Omeprazole Disposition: Continue ICU Cares Obdulio Montgomery MD General Surgery Resident Pager #[phone] S RIBBON MACHINE OPERATOR Associated attestation - Alan William MD - 09/18/2020 10:19 PM CSTT Service ICU Attending Attestation: Patient is critically ill by my examination on the date of service (DOS) listed above and requires continued ICU monitoring and cares. The patient is being seen in the surgical Intensive Care Unit. I have discussed patient cares and treatment plan regarding her post thoracotomy and decorticationrespiratory failure requiring mechanical ventilation , requiring bronchoscopy with removal of mucus plugging and other critical care issues with the T service team as reflected in the residents note by Dr. Montgomery, All pertinent labs, imaging studies, physical exam and medications have been reviewed bymyself with the T service team. Evaluation and management time exclusive of procedures was 35 minutes critical care time in the management and care of this patient including: examination with the T service team, discussion of the patient's condition with other physicians and members of the care team,reviewing all data related to the patient, and time utilizing the EMR for documentation of this patient's care. All data, assessments and plans were discussed with T Service Tami New MD - 09/15/2020 5:28 AM GLASS RIBBON MACHINE OPERATOR Surgery Daily Progress Note Niles Shearer : 1965 Admit Date: 09/10/2020 S: Remains intubated and sedated in ICU - Required minimal pressors requirements overnight with Levophed at 0.07mcg/kg/min - SBT yesterday x1 for 30 minutes - Following commands - Chest tube to suction O: Temp: 99.2 F (37.3 C) BP: 122/53 Pulse: 84 O2 Device: Ventilator O2 Flow Rate (L/min): 3 l/min Resp: 12 Pain Ratin (out of 10) Weight: 67.9 kg (149 lb 11.1 oz) SpO2: 95 % General: Intubated and sedated. Able to follow commands. Non-violent restraints Respiratory: APVcmv; RR12/500/50%/Peep8. Chest tube with serosang output. No airlead Cardiac: RRR Abdomen: Soft, non distended, non-tender. G -tube present Extremities: No peripheral edema Intake/Output Summary (Last 24 hours) at 09/15/2020 0529 Last data filed at 09/15/2020 0000 Gross per 24 hour Intake 4147 ml Output 2030 ml Net 2117 ml Urine: [address]:About 100ml Labs: Lab Results Component Value Date WBC 20.2 (H) 09/15/2020 HEMOGLOBIN 7.7 (L) 09/15/2020 PLTCOUNT 508 (H) 09/15/2020 NA 142 09/15/2020 POTASSIUM 3.0 (L) 09/15/2020 CREATSERUM 0.60 09/15/2020 Imaging: Slightly worse aeration on CXR this AM. Official read still pending. Assessment: Niles Shearer is a 55yr female post-op day # 2 s/p Left VATS thoracotomy, drainage of pleural effusion, drainage of lung abscess, decortication of left lobe and flexible bronchoscopy. Left intubated and sedated post-operatively to assist with lung expansion. On POD #1, underwent th erapeutic bronchoscopy which demonstrated significant secretion on the left. These were suctioned. Plan: - SBT and extubate if able - Continue chest tube to suction - SICU and ID consulted. Their assistance is appreciated. - Antibiotics: Vanco, Cefepime, Flagyl - DVT ppx: SCDs/ Lovenox - GI ppx: Protonix Tami Malik MD General Surgery Resident, Pager # [phone] 09/15/20 ose De Jesus Rios MD - 09/14/2020 12:46 PM CST INFECTIOUS DISEASES PROGRESS NOTE DATE OF SERVICE: September 14, 2020 SUBJECTIVE: Patient is a 55-year-old female with community-acquired pneumonia complicated by left empyema. She underwent thoracotomy yesterday. She is currently in the ICU on the [facility]. She is afebrile and hemodynamically stable. Still has chest tube in place. She underwent bronchoscopy this morning with removal of blood clots. OBJECTIVE: Vitals: Current Vital Signs Temp: 98.8 F (37.1 C) BP: 110/53 Pulse: 117 O2 Device: Ventilator O2 Flow Rate (L/min): 3 l/min Resp: 18 Pain Ratin (out of 10) Weight: 67.9 kg (149 lb 11.1 oz) SpO2: 93 % General: Sedated Skin: No rash. Central line in left subclavian. Exit site looks clean Chest: Bilaterally clear to auscultation. Chest tube in left chest wall. It is draining blood-tinged fluid. Overall drainage is minimal. No air leak is seen. Cardiovascular: S1-S2 normal. No murmurs rubs or gallops Abdomen: Soft and nontender Musculoskeletal: No large joint swelling, redness, tenderness Neurological: Sedated and intubated LAB DATA: Pleural fluid cultures from 09/13/2020 are pending at this time. Blood cultures have been negative Lab Results Component Value Date WBC 20.2 (H) 09/14/2020 HEMOGLOBIN 8.7 (L) 09/14/2020 PLTCOUNT 557 (H) 09/14/2020 CREATSERUM 0.64 09/14/2020 ALT 9 09/11/2020 AST 13 09/11/2020 BILITOTAL 0.3 09/11/2020 VANCOTROUGH 12.2 09/13/2020 DIAGNOSIS: 1. Acute hypoxic respiratory failure secondary to community-acquired pneumonia with left empyema status post thoracotomy with drainage on 09/13/2020 ASSESSMENT AND PLAN: Patient is stable postop. Still remains on the vent. Still has a chest tube. However, she remainshemodynamically stable. We will continue with current broad-spectrum antimicrobial therapy in the form of vancomycin, cefepime and flagyl. We will de-escalate in the next couple of days based on culture results. Thank you for this consultation. Our service will continue to follow with you. S RIBBON MACHINE OPERATOR Tami Malik MD - 09/14/2020 5:45 AM CST Surgery Daily Progress Note Niles Shearer : 1965 Admit Date: 09/10/2020 S: - Remains intubated and sedated in ICU - Required minimal pressors requirements overnight with Levophed at 0.03mcg/kg/min - Able to follow commands this morning - Chest tube to suction - Borjas O: Temp: 98.8 F (37.1 C) BP: 110/53 Pulse: 87 O2 Device: Ventilator O2 Flow Rate (L/min): 3 l/min Resp: 16 Pain Ratin (out of 10) Weight: 67.9 kg (149 lb 11.1 oz) SpO2: 94 % General: Intubated and sedated. Able to shake head for yes/no. Able to follow commands. Respiratory: APVcmv; RR12/500/50%/Peep8. Chest tube with serosang output. No airlead Cardiac: Tachy at times. Abdomen: Soft, non distended, non-tender. G -tube present Extremities: No peripheral edema I Intake/Output Summary (Last 24 hours) at 09/14/2020 0828 Last data filed at 09/14/2020 0600 Gross per 24 hour Intake 4813 ml Output 1860 ml Net 2953 ml Urine: 2200 CT: 260 Labs: Lab Results Component Value Date WBC 20.2 (H) 09/14/2020 HEMOGLOBIN 8.7 (L) 09/14/2020 PLTCOUNT 557 (H) 09/14/2020 NA 141 09/14/2020 POTASSIUM 3.3 (L) 09/14/2020 CREATSERUM 0.64 09/14/2020 Imaging: CXR FINDINGS/IMPRESSION: Tubes and lines are unchanged and well-positioned. Left- sided consolidation andpleural fluid is worsened at the base apex. No pleural air appreciated as was seen on yesterday's examination. No new right-sided consolidation. Stable leftward shift of mediastinum on the basis of volume loss. Assessment: Niles Shearer is a 55yr female post-op day # 2 s/p Left VATS thoracotomy, drainageof pleural effusion, drainage of lung abscess, decortication of left lobe and flexible bronchoscopy.Left intubated and sedated post-operatively to assist with lung expansion. Plan: - Recommending Bronchoscopy with SICU. If SICU team unable to, CT Surg can do it before intubation - SBT - Continue chest tube to suction - SICU and ID consulted. Their assistance is appreciated. - Antibiotics: Vanco, Cefepime, Flagyl - DVT ppx: SCDs/ Lovenox - GI ppx: Protonix Tami Malik MD General Surgery Resident, Pager # [phone] 09/14/20 Kevin Rose Jr., MD - 09/14/2020 5:37 AM CST SURGICAL CRITICAL CARE PROGRESS NOTE HD: #5 ICU Day: #2 POD: #1 Subjective Last 24 Hours: No acute events overnight Was restarted on vasopressor support this morning Will follow commands intermittently Low chest tube output Objective Vitals: Vital Signs Min/Max (last 24 hours) Flowsheet Row Name Min Max Temp 97.9 F (36.6 C) 98.8 F (37.1 C) BP: Systolic 78 112 BP: Diastolic 46 76 Arterial Line (ART) BP: Systolic 84 127 Arterial Line (ART) BP: Diastolic 46 70 Pulse 70 104 Resp 12 21 SpO2 92 % 100 % FiO2 (Set , %) 50 % 100 % MAP (mm Hg) 57 mm Hg 72 mm Hg Physical Exam: General: Intubated and sedated CV: RRR, HDS on Levophed 0.03 mcg/kg/min Resp: Mechanically ventilated (Vt 500, RR 12, PEEP 5, FiO2 50%) Chest: left CT x2 intact - 250 cc serosanguinous with no air leak, dressing c/d/i Abd: soft, nondistended, G-tube intact Ext: no significant edema Neuro: sedated Lab Results Component Value Date WBC 20.2 (H) 09/14/2020 HEMOGLOBIN 8.7 (L) 09/14/2020 HEMATOCRIT 26.7 (L) 09/14/2020 PLTCOUNT 557 (H) 09/14/2020 Lab Results Component Value Date NA 141 09/14/2020 POTASSIUM 3.3 (L) 09/14/2020 CL 106 09/14/2020 CO2 26 09/14/2020 BUN 6 09/14/2020 CREATSERUM 0.64 09/14/2020 BCRATIO 9.4 (L) 09/14/2020 GLUCOSE 175 (H) 09/14/2020 Lab Results Component Value Date CA 7.8 (L) 09/14/2020 PHOSPHORUS 2.9 09/14/2020 MAGNESIUM 1.7 (L) 09/14/2020 Lab Results Component Value Date LACACDPLS 0.8 09/14/2020 CXR - somewhat increased opacification of the left lung with no significant fluid collection noted Assessment and Plan Brief History: 55yo F with one-month history of pneumonia complicated by an expanding lung abscess and pleural effusion. She failed medical therapy and underwent 09/13 left thoracoscopy and thoracotomy with LLL decortication and drainage of MASON and fissure abscesses. Postoperatively she was transferred to the ICU intubated and sedated. Neuro: Propofol and Fentanyl for RASS goal -1, plan for sedation vacation today, continue home Bupropion and Buspirone Pulm: SBT today, daily CXR and ABG, keep chest tubes to suction, plan for therapeutic bronch today prior to SBT CV: MAP goal 65, wean pressors as able GI/Nutrition: NPO, may resume diet if able to extubate today Fluids/Electrolytes/Renal: LR 125 cc/hr, keep borjas, replace K and Mg MSK: no acute concerns Heme: daily labs ID: Cefepime, Flagyl, Vanc Endo: Levothyroxine Consults: - Cardiothoracic Surgery - appreciate assistance - Infectious Disease - managing ABX PPx: - DVT ppx: Lovenox - GI ppx: Protonix (Home Med) Disposition: Continue ICU Cares Obdulio Montgomery MD General Surgery Resident Pager #[phone] S RIBBON MACHINE OPERATOR Associated attestation - Alan William MD - 09/18/2020 10:19 PM CSTT Service ICU Attending Attestation: Patient is critically ill by my examination on the date of service (DOS) listed above and requires continued ICU monitoring and cares. The patient is being seen in the surgical Intensive Care Unit. I have discussed patient cares and treatment plan regarding her post thoracotomy and decorticationrespiratory failure requiring mechanical ventilation , requiring bronchoscopy with removal of mucus plugging and other critical care issues with the T service team as reflected in the residents note by Dr. Montgomery, All pertinent labs, imaging studies, physical exam and medications have been reviewed bymyself with the T service team. Evaluation and management time exclusive of procedures was 35 minutes critical care time in the management and care of this patient including: examination with the T service team, discussion of the patient's condition with other physicians and members of the care team,reviewing all data related to the patient, and time utilizing the EMR for documentation of this patient's care. All data, assessments and plans were discussed with T Service teamJennyfer Restrepo PHARM D - 09/13/2020 1:06 PM CST Ms. Shearer continues on Vancomycin per pharmacy protocol for lung abscess and pleural effusion s/pVATS. The patient is on day 3 of receiving Vancomycin and current dose is: 1000 mg q12h. Assessment/Plan: The trough level is lower than the desired goal of 15-20 mg/L. Vancomycin will be changed to 1250 mg q12h. Pharmacy will continue to monitor per the pharmacokinetic service policy. Jennyfer Restrepo, TorresD, BCPS, BCCCP Labs: Vancomycin Trough Date/Time Value Ref Range Status 09/13/2020 05:50 AM 12.2 10.0 - 20.0 ug/mL Final S RIBBON MACHINE OPERATOR Daquan Lee MD - 09/13/2020 7:39 AM CSTCT Surgery Pt seen and films and records reviewed Discussed with Dr. Александр rojas. 1 month of SOB, cough, L sided CP, worsening in intensity. Treated with antibiotics intermittently for weeks. Seen in lung clinic last week and admitted with fever, enlarging lung mass, cough and leukocytosis. Currently feels poorly, fatigued. Pain with cough. Tm 100.5 VSS BS course Left, clear R. RRR No edema Labs per chart. CT: Large L sided fluid filled mass appears intralobar and may communicate with pleural space. A/P: 1. Pneumonia with lung abscess, pleural effusion, systemic signs of sepsis. Enlarging and failing to progress with Abx medical therapy. Agree with indication for L Thoracoscopy, may need thoracotomy,drainage of pleural effusion. I have discussed risks benefits and alternatives with patient who understands and wishes to proceed. Site marked. Carl Schumacher MD - 09/12/2020 1:00 AM [facility] PATIENT NAME: NILES SHEARER DATE OF SERVICE: 09/12/2020 ILIANA: [id number] Mrs. Niles Shearer is a 55-year-old female admitted on 09/10/2020 with increasing chest pain, shortness of breath and fevers and diagnosed to have a left lung abscess. IMPRESSION AND PLAN: 1. Left lung abscess with surrounding pneumonia. The patient failed outpatient antibiotic therapy including the Levaquin, doxycycline. Infectious disease is consulted and given that the patient isprogressively getting worse and developed an abscess now, CT surgery is consulted and has plans for VATS procedure tomorrow. Patient will be transferred to [facility] for VATS procedure tomorrow by CT surgery. In the meantime, we will continue with IV vancomycin. Infectious disease changed the antibiotics to IV cefepime and Flagyl. The MRSA PCR and the fungal panel was sent as well. 2. Sepsis secondary to complicated pneumonia. The sepsis is resolved. No further fevers are noted. The blood cultures are negative. 3. Hypothyroidism. On Synthroid. 4. History of depression. Looking stable. Continue with the Wellbutrin, nortriptyline. 5. Idiopathic intermittent nocturnal hypoglycemia. The patient has been getting tube feedings atnighttime but the G-tube and is currently malfunctioning. Will need interventional radiology consult for exchange of the G-tube once the patient has completed with VATS procedure. 6. DVT prophylaxis with heparin. SUBJECTIVE: Patient is feeling okay. Complaining of some pain on the right side of the rib since the fall. Otherwise, still having some chest pain on the left side and fevers have resolved. No other acute events happened overnight. REVIEW OF SYSTEMS: GENERAL: Generalized weakness. No fevers or chills. RESPIRATORY: As above. CARDIOVASCULAR: As above. GASTROINTESTINAL: No nausea or vomiting. EXTREMITIES: No weakness or numbness. VITAL SIGNS: Reviewed. MEDICATIONS: Reviewed and adjusted. LABS AND IMAGING STUDIES: Reviewed. PHYSICAL EXAMINATION: GENERAL EXAMINATION: The middle-aged female is seen lying comfortable in the bed, not in any obvious distress. CVS: S1, S2 heard. No murmurs or gallops. LUNGS: Air entry is present on both sides. No wheezing or creps. ABDOMEN: Soft, flat, nontender. No organomegaly. WILDLIFE REFUGE SPECIALIST: Awake, alert. Oriented to time, place, person. EXTREMITIES: No pedal edema. Pulses are palpable. DERMATOLOGICAL: Warm and moist skin noted. The total time spent on taking care of the patient is more than 35 minutes with more than 50% spent on coordination of the care including further discussing plan of care with infectious disease, transferring the patient to [facility]. Carl Bonilla MD Receipt: [id number] Trans ID: [id number] GLASS RIBBON MACHINE OPERATOR CST Brenda Kilgore, PHARM D - 09/11/2020 5:44 PM CDT Vancomycin Initial Consult Note Ms. Shearer was admitted on 09/10/2020 and today has been initiated on Vancomycin per pharmacy protocol for lung abscess. Labs: No results found for: NASIM WBC Date/Time Value Ref Range Status 09/11/2020 02:49 PM 13.4 (H) 4.0 - 11.0 K/uL Final 09/01/2020 10:00 AM 11.6 (H) 4.0 - 11.0 K/uL Final 03/25/2015 03:07 PM 7.8 4.0 - 11.0 K/uL Final 10/07/2013 03:29 PM 6.3 4.0 - 11.0 K/uL Final Lab Results Component Value Date CREATSERUM 0.64 09/11/2020 Max Temperature: Temp (24hrs), Av.5 F (36.9 C), Min:97.3 F (36.3 C), Max:100.9 F (38.3C) Estimated CrCl: Estimated Creatinine Clearance: 76.7 mL/min (based on SCr of 0.64 mg/dL). ml/min Intake/Output: Intake/Output Summary (Last 24 hours) at 09/11/2020 1745 Last data filed at 09/11/2020 1656 Gross per 24 hour Intake 1247 ml Output Net 1247 ml Other Active Antimicrobial Agents: levaquin IV Plan: We have initiated intravenous Vancomycin therapy at a dose of 1000 mg (18 mg/kg AdjBW) every 12 hours. The goal trough range will be 15-20 mcg/ml. Pharmacy will monitor and if indicated, adjust dose and/or frequency per the Pharmacy and Therapeutics Committee approved pharmacokinetic service policy. Thank you very much for the consult. We will continue to follow along with you. Brenda Malave, PHARM D Vinayak Mirza MD - 09/11/2020 1:45 PM CDT [facility] Chief Complaint: Patient admitted to the hospital on 09/10/2020 with complaints of fever. Patient was being evaluated in the oncology clinic for a left lung nodule noted on CT chest. She was noted to have a fever of 100.4. Patient also reported cough and hence she was admitted to the special care unit for COVID 19 rule out. COVID 19 came back negative. Patient was transferred to the regular floor. CT chest withcontrast was obtained which was concerning for left lung mass versus abscess. Assessment/Plan: 1. Febrile illness: Possibly secondary to lung abscess versus underlying lung mass. Currently afebrile. On room air. Her blood pressure on the lower side. We will put her on IV fluids. Continue antibiotics. Will discuss with oncology about possible IR guided biopsy of the mass/abscess. Will involve infectious disease as well. 2. Acute encephalopathy: Patient noted to be confused yesterday. Seems to be much more awake and alert today. Talking on the phone. Home gabapentin and Klonopin is decreased. 3. Anxiety and depression: Continue home medications 4. Hypothyroidism: On levothyroxin Disposition: Awaiting labs from today DVT prophylaxis: Heparin Addendum: Discussed with oncology and interventional radiology. Intervention radiology felt that given the concern for lung abscess, transthoracic biopsy may be risky seeding infection into the pleural space. Recommended pulmonary medicine consult for bronchoscopy. Possibly on Sunday. We will makeher nothing by mouth at midnight tomorrow Patient chart, x-rays, EKG, labs, medications reviewed. Subjective: No acute events reported overnight. Still having sided chest wall pain ROS: Patient denies any dyspnea, abdominal pain, nausea, vomiting, headache or dizziness. Objective: Vital signs in last 24 hours: Vitals: 09/11/20 0625 09/11/20 1000 09/11/20 1302 09/11/20 1311 BP: 103/58 104/60 95/45 Pulse: 101 81 80 Resp: 20 18 18 Temp: 100.9 F (38.3 C) 97.5 F (36.4 C) 97.3 F (36.3 C) SpO2: 94% 95% 93% Weight: Height: 1.549 m (5' 1") Weight change: Vitals Min/Max Last 24 Hours Vital Signs Min/Max (last 24 hours) Flowsheet Row Name Min Max Temp 97.3 F (36.3 C) 100.9 F (38.3 C) BP: Systolic 95 133 BP: Diastolic 45 70 Pulse 80 101 Resp 18 22 SpO2 93 % 95 % O2 Flow Rate (L/min) 2 l/min 2 l/min MAP (mm Hg) 50 mm Hg 72 mm Hg Intake and Output Last 24 Hours No intake/output data recorded. Physical Exam: General Appearance: alert, well appearing, and in no distress Mental Status: oriented to person, place, and time Chest: b/l good air entry, clear to auscultation, no wheezes, rales or rhonchi, symmetric air entry him a left-sided chest wall tenderness Heart: normal rate, regular rhythm, normal S1, S2, no murmur Abdomen: soft, nontender, nondistended, bowel sounds heard Neurological: normal speech, no gross sensory or motor deficits noted Extremities: No pedal edema, no tenderness MD Vinayak Jennings MD S RIBBON MACHINE OPERATOR documented in this encounter H&P Notes Son Bach MD - 09/10/2020 7:29 PM CDT History and Physical Niles Mariano Shearer is a 55yr old female admitted on 09/10/2020. PCP: Lucho Longoria MD HPI / Chief Complaint Patient is 55-year-old lady who was transferred from oncology clinic where she was visiting to evaluate left lung nodule on CT angiogram earlier in the month she was found to have a fever of 100.4. And confusion reported by her . At home she takes Robitussin with codeine per her and she is with history of anxiety GERD depression asthma arthritis IBS osteoporosis oropharyngeal dysphagia. Hypothyroidism. Patient reports dry cough. She was tested for Covid twice earlier in the month and was negative. With concerns of the lesion being an infection she was transferred to [facility] for further management. Patient has been feeling tired and fatigued with cough and fever for 1 month now. She was tried on multiple courses of antibiotics including doxycycline and Levaquin. 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 On CTA 08/18/2020. Will probably benefit from a repeat CT with IV contrast lung mass protocol. At this time with elevated WBC and fever cannot rule out postobstructive pneumonia. We will start on IV course of Rocephin and azithromycin. Will probably benefit from pulmonology consult on Sunday to evaluate for need for bronchoscopy and biopsies. Encephalopathy, subacute. Considering possible pneumonia this is likely multifactorial secondary tofebrile illness/pneumonia and polypharmacy. Will decrease home dose of Neurontin and Klonopin for tonight. Hold Robitussin with codeine. Reevaluate in the morning. Neurochecks. Head CT. We will recheck again for COVID-19 virus infection. Anxiety state and depression. Continue home medications DVT prophylaxis Heparin subcu History Patient Active Problem List Diagnosis Symptomatic menopausal or female climacteric states Other acne Anxiety state Functional diarrhea Postmenopausal atrophic vaginitis Insomnia Lumbago Other malaise and fatigue Irritable bowel syndrome Diffuse cystic mastopathy Eating disorder Restless leg syndrome Abdominal pain, chronic, generalized Hypoglycemia Personal history of gastric bypass Somatization disorder Major depressive disorder, recurrent episode, moderate (HCC) Gastroesophageal reflux disease without esophagitis Disorder of sacrum Chronic pain Primary osteoarthritis of first carpometacarpal joint of left hand Primary osteoarthritis of first carpometacarpal joint of right hand Excoriation (skin-picking) disorder Eating disorder, unspecified Multiple episodes of hypoglycemia Iron deficiency anemia History of Derrick fundoplication Bilateral hand numbness Oropharyngeal dysphagia Obesity with body mass index of 30.0-39.9 Uses feeding tube Acute kidney injury (HCC) Kidney stones Pelvic floor dysfunction in female Prior to Admission Medications Prescriptions Last Dose Informant Patient Reported? Taking? ALPRAzolam (XANAX) 1 mg tablet Past Month at Unknown time No Yes Sig: TAKE 1 TABLET BY MOUTH EVERY DAY NEEDED FOR PANIC SYMPTOMS HYDROcodone-chlorpheniramine (TUSSIONEX) 10-8 mg/5 mL oral suspension ER 09/09/2020 at Unknown timeNo Yes Sig: Take 5 mL by mouth Every 12 hours as needed for cough Lancets (MICROLET) MISC Unknown at Unknown time Self No Yes Sig: Test blood sugar 2 times a day (1-2 hours after supper and as needed for hypoglycemic symptoms). Multiple Vitamins-Calcium (ONE-A-DAY WOMENS PO) 09/10/2020 at Unknown time Yes Yes Sig: Take by mouth acetaminophen (TYLENOL) 500 mg tablet 09/10/2020 at Unknown time Yes Yes Sig: Take 1,000 mg by mouth every 4 to 6 hours as needed for moderate pain albuterol HFA (PROVENTIL,PROAIR,VENTOLIN) 108 (90 Base) MCG/ACT inhaler Greater than 1 Month at Unknown time No Yes Sig: Inhale 2 puffs orally every 4 to 6 hours as needed for shortness of breath Shake well before using. artificial tears 1.4 % SOLN Past Week at Unknown time Self Yes Yes Sig: Place 1 drop into both eyes 1 time a day as needed for dry eyes. baclofen (LIORESAL) 10 mg tablet 09/10/2020 at Unknown time No Yes Sig: Take 1 tablet (10 mg) by mouth 4 times a day blood glucose test strip (COURTNEY CONTOUR NEXT) STRP 09/10/2020 at Unknown time Self No Yes Sig: Test blood sugar 2 times a day (1-2 hours after supper and as needed for hypoglycemic symptoms). buPROPion (WELLBUTRIN SR) 100 mg SR (12 hr) tablet 09/10/2020 at Unknown time No Yes Sig: TAKE 1 TABLET BY MOUTH EVER Y DAY AT NOON buPROPion (WELLBUTRIN SR) 200 mg SR (12 hr) tablet 09/10/2020 at Unknown time No Yes Sig: TAKE 1 TABLET BY MOUTH EVER Y MORNING busPIRone (BUSPAR) 15 mg tablet 09/10/2020 at Unknown time No Yes Sig: TAKE 3 TABLETS BY MOUTH TWICE A DAY calcium carbonate-vitamin D (CALTRATE 600 + VIT D) 600mg-200 unit tablet 09/10/2020 at Unknown time Self Yes Yes Sig: Take 1 tablet by mouth 2 times a day with meals. cloNIDine (CATAPRES) 0.1 mg tablet 09/10/2020 at Unknown time No Yes Sig: TAKE 4 TABLETS BY MOUTH AT BEDTIME NEEDED FOR SLEEP; MAY TAKE ANADDITIONAL 2 TABLETS EACH DAY NEEDED FOR ANXIETY. OR ANXIETY. clonazePAM (KLONOPIN) 1 mg tablet 09/10/2020 at Unknown time No Yes Sig: TAKE 1/2 TABLET BY MOUTH AT 6AM, 1 TABLET AT 12:00, 1 TABLET AT 6PM,AND 1/2 TABLET AT BEDTIME. cyanocobalamin (VITAMIN B-12) 500 mcg tablet 09/10/2020 at Unknown time Self Yes Yes Sig: Take 500 mcg by mouth 1 time per day. dextrose 4-0.006 G CHEW chewable tablet Unknown at Unknown time Self Yes Yes Sig: Take 1-3 tablets by mouth 1 time a day as needed for low blood sugar. estrogens, conjugated (PREMARIN) 0.625 mg/gm vaginal cream Unknown at Unknown time No Yes Sig: Insert 1 g vaginally every night at bedtime for 14 days, THEN 1 g Every 3 days. gabapentin (NEURONTIN) 300 mg capsule 09/10/2020 at Unknown time No Yes Sig: TAKE 2 CAPSULES BY MOUTH THREE TIMES DAILY glucagon, rDNA, (GLUCAGON EMERGENCY) 1 mg injection kit Unknown at Unknown time No Yes Sig: Inject 1 mg intramuscularly as needed for other (Specify) (low blood sugar) (For low blood sugar) levoFLOXacin (LEVAQUIN) 500 mg tablet 09/09/2020 at Unknown time No Yes Sig: Take 1 tablet (500 mg) by mouth 1 time per day levothyroxine 50 mcg tablet 09/10/2020 at Unknown time No Yes Sig: TAKE 1 TABLET BY MOUTH DAILY montelukast (SINGULAIR) 10 mg tablet 09/09/2020 at Unknown time No Yes Sig: Take 1 tablet (10 mg) by mouth every night at bedtime nortriptyline (PAMELOR) 10 mg capsule 09/10/2020 at Unknown time No Yes Sig: TAKE 1 CAPSULE BY MOUTH AT BEDTIME (TAKE WITH 3 25 MG TABLETS) nortriptyline (PAMELOR) 25 mg capsule 09/10/2020 at Unknown time No Yes Si capsules at bedtime pantoprazole (PROTONIX) 40 mg enteric coated tablet 09/10/2020 at Unknown time No Yes Sig: TAKE 1 TABLET BY MOUTH TWICE A DAY BEFORE MEALS silver nitrate-potassium nitrate (Third BrigadeFCO SILVER NIT APPLICATOR) 75-25 % sticks 09/10/2020 at Unknowntime No Yes Sig: Apply topically 1 time per day as needed around feeding tube site. sumatriptan succinate (IMITREX) 25 mg tablet Unknown at Unknown time No Yes Sig: Take 1 tablet (25 mg) by mouth every 2 hours as needed for migraine May repeat x1 dose after 2 hours if needed; MAX 2 doses/24 hours ziprasidone (GEODON) 40 mg capsule 09/09/2020 at Unknown time No Yes Sig: TAKE 1 CAPSULE BY MOUTH EVERY NIGHT AT BEDTIME Facility-Administered Medications Last Administration Doses Remaining acetaminophen (TYLENOL) tablet 650 mg None recorded 1 Allergies Allergen Reactions Penicillin Rash Adhesives Itching Aleve [Gnp Naproxen Sodium] Other (Specify in Comments) GI due to bypass surgery Flagyl [Metronidazole] Rash Ibuprofen Other (Specify in Comments) GI due to bypass surgery Mastisol Rash Morphine Other (Specify in Comments) IV form Causes pt to feel hyper and shake Past Medical History: Diagnosis Date Allergy Anemia Anxiety Arthritis Asthma Bowel obstruction (HCC) Depression Diaphragmatic hernia GERD (gastroesophageal reflux disease) Hypoglycemia Hypoglycemia "gets a lot of 40-45 blood sugars" IBS (irritable bowel syndrome) Kidney stone 2006, 2007 Oropharyngeal dysphagia Osteoporosis RLS (restless legs syndrome) Past Surgical History: Procedure Laterality Date ABD HYSTERECTOMY APPENDECTOMY ARTHOPLASTY MINOR Left 08/15/2016 Procedure: LEFT TRAPIEZECTOMY W/ MINI TIGHTROPE SUSPENSIONPLASTY;; Surgeon: Ronnell Troncoso MD ARTHOPLASTY MINOR Right 01/19/2017 Procedure: RIGHT TRAPEZIECTOMY W/ MINI TIGHT ROPE SUSPENSIONPLASTY;; Surgeon: Ronnell Troncoso MD 2 CHOLECYSTECTOMY COLONOSCOPY N/A 09/26/2017 Procedure: COLONOSCOPY;; Surgeon: Deven Green MD COSMETIC SURGERY 05/31/2010 Abdominal plasty, medial thigh lift, knee lift, and Butt Lift ([facility]) CYSTO + ADDT PROC Bilateral 06/04/2019 Procedure: CYSTOSCOPY, NEPHROSCOPY, LASER LITHOTRIPSY, RETROGRADE PYLOGRAM AND STENT PLACEMENT;; Surgeon: Omari Lam MD FUSION SI JOINT Last September GASTRIC BYPASS 10/21/2001 Dr. Carballo HERNIA REPAIR Umbilical Hernia HYSTERECTOMY total INTESTINAL RESECTION N/A 10/19/2013 Procedure: EXPLORATORY LAPAROTOMY, TAKEDOWN OF GASTROCUTANEOUS FISTULA AND LYSIS OF ADHESIONS;; Surgeon: Radha Burgess MD IR GASTRO TUBE PLACEMENT 01/29/2019 IR GASTRO TUBE PLACEMENT 01/29/2019 Solitario White MD INTERV RAD B[facility]Y [facility] IR GASTRO TUBE PLACEMENT 05/30/2019 IR GASTRO TUBE PLACEMENT 05/30/2019 Solitario White MD INTERV RAD [facility] KNEE ARTHROSCOPY 04/11/2012 Dr. Feliz (left) LAP DERRICK FUNDOPLICATION N/A 06/08/2015 Procedure: LAPAROSCOPIC REPAIR OF HIATAL HERNIA LAPAROSCOPIC LYSIS OF ADHESIONS, REMOVAL OF FORIEGNBODY, EGD;; Surgeon: Greg Pool W, DO LAPAROSCOPY DIAGNOTIC S/P GASTRIC BYPASS 07/10/2012 LAPAROSCOPY DIAGNOSTIC POST GASTRIC BYPASS , LAPARSCOPIC LYSIS OF ADHESIONS Diag. Laparoscopy...post of gastric bypass; Surgeon: Eleazar Arnett MD MANOMETRY ANORECTAL 03/04/2019 Procedure: MANOMETRY ANORECTAL;; Surgeon: Kyler Arreola MD NEUROSTIMULATOR PHASE 2 N/A 04/09/2019 Procedure: TRIAL STAGE 1 INSERTION OF INTERSTIM SACRAL NEUROSTIMULATOR;; Surgeon: Sergio Pereira MD NEUROSTIMULATOR PHASE 2 N/A 04/16/2019 Procedure: INTERSTIM STAGE II;; Surgeon: Sergio Pereira MD OOPHERECTOMY SPINE SURGERY 2 fusions lower back TMJ RECONSTRUCTION January 2010 Alejandre (bilateral) TONSILLECTOMY In her 30s TUBAL LIGATION UPPER ENDOSCOPY 07/10/2012 UPPER ENDOSCOPY [UPPENDO]; Surgeon: Janette Pablo MD UPPER ENDOSCOPY N/A 08/18/2014 Procedure: upper endoscopy ;; Surgeon: Glen Xiao MD UPPER ENDOSCOPY 04/28/2015 Procedure: UPPER ENDOSCOPY;; Surgeon: Jantete Pablo MD UPPER ENDOSCOPY N/A 12/28/2015 Procedure: UPPER ENDOSCOPY;; Surgeon: Aleksandr De Paz MD UPPER ENDOSCOPY N/A 09/26/2017 Procedure: UPPER ENDOSCOPY;; Surgeon: Deven Green MD Family History Problem Relation Age of Onset Hypertension Father Kidney Stones Father three Arthritis Father knee replacement Skin Cancer (non melanomatous) Father Anxiety Disorder Mother Rheumatoid Arthritis Mother Other Mother sirrosis of the liver Cirrhosis Mother Not otherwise listed - Cancer Maternal Grandfather Leukemia Breast Cancer Paternal Grandmother 62 Not otherwise listed - Cancer Paternal Grandfather Prostate, mets Asthma Daughter Asthma Son Arthritis Son back Depression Son Depression Maternal Grandmother Suicide Maternal Grandmother Rheumatoid Arthritis Maternal Grandmother Lupus Maternal Aunt Sjogren's Syndrome Maternal Aunt Rheumatoid Arthritis Maternal Aunt Social History Socioeconomic History Marital status: Spouse name: Not on file Number of children: 2 Years of education: 14 Highest education level: Not on file Occupational History Occupation: [employer] Employer: [employer] Tobacco Use Smoking status: Never Smoker Smokeless tobacco: Never Used Substance and Sexual Activity Alcohol use: No Alcohol/week: 0.0 standard drinks Drug use: No Sexual activity: Yes Partners: Male Lifestyle Physical activity Days per week: 3 days Minutes per session: 60 min Stress: Not on file Social History Narrative Patient is a 47 year old female. Patient reports she graduated from high school and went to 2 years of college, 1 year at [employer], and 1 year for a medical billing assistant. 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 She is to Peter and has 2 kids, Elisa, 22 year old daughter, who is living in the [place] area and going to school, and a 21 year old son who has drug and ETOH issues, has detention depression and who recently just moved back into the patient's home temporarily as his job has brought him close to home. 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 Patient does have support from female clergy whommehreen has known for a long time. Review of Systems Review of Systems Constitutional: Positive for chills, fatigue and fever. HENT: Negative for ear discharge and ear pain. Eyes: Negative for pain and discharge. Respiratory: Negative for cough and shortness of breath. Cardiovascular: Negative for chest pain and palpitations. Gastrointestinal: Negative for abdominal pain and nausea. Endocrine: Negative for cold intolerance and heat intolerance. Genitourinary: Negative for hematuria. Musculoskeletal: Negative for arthralgias and joint swelling. Skin: Negative for rash. Neurological: Negative for dizziness. Confusion Hematological: Negative for adenopathy. Psychiatric/Behavioral: Negative for agitation and hallucinations. Admission Vital Signs Temp: 98.6 F (37 C) BP: 133/70 Pulse: 96 Resp: 22 (out of 10) Weight: 67.2 kg (148 lb 2.4 oz) O2 Device: Room Air SpO2: 94 % Height: 154.9 cm (5' 1") Physical Exam Constitutional: No distress. HENT: Mouth/Throat: Oropharynx is clear and moist. Eyes: Conjunctivae are normal. No scleral icterus. Neck: No JVD present. No thyromegaly present. Cardiovascular: tachycardia Pulmonary/Chest: No respiratory distress. Abdominal: Soft. There is no abdominal tenderness. There is no rebound and no guarding. Musculoskeletal: Normal range of motion. Lymphadenopathy: She has no cervical adenopathy. Neurological: She is alert. No cranial nerve deficit. Skin: Skin is warm and dry. No rash noted. No erythema. Psychiatric: She has a normal mood and affect. Her behavior is normal. documented in this encounter Procedure Notes Christina Rivas APRN-CNP - 09/21/2020 3:27 PM CSTProcedure(s): PICC > 5 YRS OLDPeripherally Inserted Central Catheter Insertion Indication for PICC: long term care social worker antibiotics Brand of Catheter: [employer] Software Lot Number: [id number] Size: 4 Iranian single Lumen PowerPICC Solo2, Power Injectable Site of Insertion: Right arm Vein accessed: brachial Initial catheter length prior to trimmin cm Initial internal lumen volume prior to trimming catheter: Single: 0.73 mL Catheter length at insertion: 39 cm Length of catheter outside patient: 1.5 cm Tip Location: SVC/Right Atrial Junction Verified by: magnetic tracking/ECG tip confirmation system Amount of 1% Lidocaine administered intradermally: 2.5 ml Condition of cannulated arm: Good, no abnormalities or bruising. Per sterile technique, arm prepped with chloraprep. Vein accessed using ultrasound guidance, 21 gauge needle and modified seldinger technique. Catheter threaded with ease. Stylet from catheter and sheath removed intact. Good blood return noted. Flushed with 10 ml 0.9% Sodium Chloride to each lumen without difficulty. Catheter secured in place with securement device and CHG transparent dressing. Injection caps applied. Number of attempts: 1 Estimated Blood Loss: <5 ml Procedural Tolerance: well Pressure dressing with 2x2 and coban applied after the dressing was applied. PICC placement supervised by Nishi Reyes vascular company miner blasting. Christina Rivas DNP, REAL ESTATE ECONOMIST, CPNP-PC Pediatric Hospitalist Nurse Practitioner Pediatric PICC team Kevin Rose Jr., MD - 09/16/2020 11:54 AM CSTSURGICAL CRITICAL CARE PROCEDURE NOTE ATTENDING PHYSICIAN: Alan William MD RESIDENT PHYSICIAN: Obdulio Montgomery MD DATE: 09/16/2020 PROCEDURE: Therapeutic bronchoscopy ANESTHESIA: 50 mcg fentanyl bolus and gtt, 4 mg Versed, Propofol 20 mcg INDICATION: thick mucous PROCEDURE DESCRIPTION: The patient was already intubated and sedated. The bronchoscope was insertedthrough the endotracheal tube. We first visualized the left side which saw some mucous secretions although it was much less thick with far less amount. These were suctioned. We then visualized the right side which was relatively clear. The patient tolerated the procedure well with no immediate complications. Postprocedure chest x-ray ordered. FINDINGS: left sided secretions that are less thick and much less in amount than prior BLOOD LOSS: none COMPLICATIONS: none Obdulio Montgomery MD General Surgery Resident Pager #[phone] S RIBBON MACHINE OPERATOR Associated attestation - Alan William MD - 09/16/2020 2:08 PM CSTTRACS Surgery Attending Attestation: I saw and examined the patient with the resident & team.I was physically present throughout the resident procedure of the pt and concur with the note describing the procedure.Kevin Montgomery Jr., MD - 09/15/2020 12:07 PM GLASS RIBBON MACHINE OPERATOR SURGICAL CRITICAL CARE PROCEDURE NOTE ATTENDING PHYSICIAN: Alan William MD RESIDENT PHYSICIAN: Obdulio Montgomery MD DATE: 09/15/2020 PROCEDURE: Therapeutic bronchoscopy ANESTHESIA: 50 mcg fentanyl bolus and gtt, 2 mg Versed, Propofol gtt INDICATION: CT showing mucous plugging PROCEDURE DESCRIPTION: The patient was already intubated and sedated. The bronchoscope was insertedthrough the endotracheal tube. We first visualized the left side which saw significant mucous secretions throughout. These secretions were even more thick and more prominent than yesterday. These were suctioned. BAL was sent for culture. We then visualized the right side which was relatively clear. The patient tolerated the procedure well with no immediate complications. Postprocedure chest x-ray ordered. FINDINGS: significant secretions on the left more thick prominent than yesterday, right side clear BLOOD LOSS: none COMPLICATIONS: none Obdulio Montgomery MD General Surgery Resident Pager #[phone] S RIBBON MACHINE OPERATOR Associated attestation - Alan William MD - 09/15/2020 12:44 PM CSTTRACS Surgery Attending Attestation: I saw and examined the patient with the resident & team.I was physically present throughout the resident procedure of the pt and concur with the note describing the procedure.Kevin Montgomery Jr., MD - 09/14/2020 10:03 AM GLASS RIBBON MACHINE OPERATOR SURGICAL CRITICAL CARE PROCEDURE NOTE ATTENDING PHYSICIAN: Alan William MD RESIDENT PHYSICIAN: Obdulio Montgomery MD DATE: 09/14/2020 PROCEDURE: Therapeutic bronchoscopy ANESTHESIA: 100 mcg fentanyl bolus and gtt, 2 mg Versed, Propofol gtt INDICATION: Significant opacification on CXR concerning for secretions PROCEDURE DESCRIPTION: The patient was already intubated and sedated. The bronchoscope was insertedthrough the endotracheal tube. We first visualized the left side which saw significant mucous secretions throughout. These were suctioned. We then visualized the right side which was relatively clear. The patient tolerated the procedure well with no immediate complications. Postprocedure chest x-ray shows improved aeration of the left side. FINDINGS: significant secretions on the left, right side clear BLOOD LOSS: none COMPLICATIONS: none Obdulio Montgomery MD General Surgery Resident Pager #[phone] S RIBBON MACHINE OPERATOR Associated attestation - Alan William MD - 09/15/2020 12:45 PM CSTTRACS Surgery Attending Attestation: I saw and examined the patient with the resident & team.I was physically present throughout the resident procedure of the pt and concur with the note describing the procedure.Wei Bradford APRN-CRNA - 09/12/2020 7:00 PM GLASS RIBBON MACHINE OPERATOR Procedure Documentation ILIANA: [id number] PATIENT NAME: Niles Shearer Title of Procedure: Difficult IV Start Date/Time Performed: 09/12/2020 7:00 PM GLASS RIBBON MACHINE OPERATOR Performed by: RUY Weiss Anesthesia was contacted for placement of difficult IV start on Niles Shearer. A 22 ga IV was inserted after 2 attempts in right forearm using aseptic technique. IV charted in [facility] record. Complications: none documented in this encounter Consult Notes Eric Baez MD - 09/27/2020 11:50 AM CSTAssociated Order(s): CONSULT PULMONARY MEDICINE PULMONARY CONSULT Patient name:Niles Shearer [facility]: [id number] Today's Date:09/27/2020 Time: 11:50 AM GLASS RIBBON MACHINE OPERATOR ASSESSMENT/PLAN: 1. Left lung pneumonia complicated by lung abscess in both upper and lower lobes status post drainage, complicated by empyema status post VATS with decortication: The patient initially had a left upper lobe consolidation on August 18, 2020 and received multiple course of antibiotics. Despite this the patient failed to improve and had a repeat CT scan on September 10 that showed large progressive worsening of the consolidation with pleural fluid. Hence underwent left thoracotomy with decortication of the left upper lobe followed by drainage of the abscess inboth the left upper lobe and lower lobe. The patient also underwent BAL with bronchoscopy. All cultures from the bronchoscopy were negative. The pleural fluid subsequently grew Streptococcus intermedius. Patient had repeat bronchoscopy on 09/24/2014 and for airway clearance. She was subsequently extubated on 09/18/2020. The repeat x-rays that have been done since over the last few days have been showing progressive improvement in the lung aeration suggesting improving. The patient also feels clinically better and has been afebrile. 2. Pansystolic heart murmur 3. Patient reported history of recurrent pneumonia 4. Streptococcus intermedius-the pleural fluid eventually grew this bacteria- this bacteria is known to cause infective endocarditis with lung abscess. Given the significant heart murmur I would definitely obtain echocardiogram Diagnostic: 1. We will send blood work for immune deficiency 2. Consider obtaining echocardiogram of the heart given the significant pansystolic heart murmur. The Streptococcus intermedius is known to cause endocarditis with a lung abscess. 3. No indication for bronchoscopy at this time given the clinical improvement. But she would need arepeat CT scan in 6 weeks or so with IV contrast and have her follow-up in the pulmonary clinic. 4. Consider home oxygen evaluation prior to discharge. Therapeutic: 1. Continue antibiotics as per the infectious disease. 2. We will sign off HPI: This pleasant 55-year-old female with past medical history significant for anxiety GERD patient reported history of asthma who was hospitalized on September 10 as a direct admission from lung nodule clinic for large lung mass seen in the left lung and she was found to be febrile and confused in the clinic and hence she was hospitalized she had elevated white count on admission with fevers. The patient was seen by infectious disease and based on the history it seems like patient has requiredmultiple course of antibiotics over the last 1 month with failure to improve. She in fact was seen in the emergency room on August [address] scan of the chest that showed left upper lobe lung mass and was given antibiotics since then the patient had repeat CT scan in September 10 that showed significant progression and enlargement of the previously seen consolidation with pleural effusion. Hence she was seen by cardiothoracic surgery and underwent VATS by Dr. Lee. Hence she underwent left thoracoscopy with possible thoracotomy and drainage of pleural effusion. Hence she underwent the procedureon 09/13/2020. During the procedure she was found to have a left lung adhered to the chest wall laterally. There was pleural purulent fluid in the pleural cavity and was drained and sent for cultures. There was a purulent cavity in the left upper lobe this was drained with suction. This was followed by mobilization of the lingula. There is also an area of firmness and induration in the left lowerlobe and this also contained significant amount of purulent secretions that were drained. This was followed by decortication of the left upper lobe and lingula. This was followed by bronchoscopy and left lower lobe lavage was done and sent for cultures. Hence she went left VATS thoracotomy drainageof pleural effusion drainage of lung abscess decortication of the left upper lobe only lingula and flexible bronchoscopy with lavage on 09/13/2020. Since then patient had multiple bronchoscopies in theICU for suctioning of the thick secretions. He had 3 bronchoscopies and [id number] and she was subsequently extubated on 09/18/2020 and ID has plan to do 6 weeks of IV antibiotics. The patient hadx-rays that show persistent left opacification hence pulmonary service has been consulted for possible repeat bronchoscopy. Patient clinically reports that she is doing very well is on room air. She is not coughing as much is not benefit febrile. But she does report that she has history of recurrent pneumonias requiring antibiotics at least once or twice a year. Her mother has rheumatoid arthritis but otherwise no other history of lung disease. The cultures from pleural fluid grew Streptococcusthe BAL cultures did not grow any bacteria except for yeast. PMHx: Past Medical History: Diagnosis Date Allergy Anemia Anxiety Arthritis Asthma Bowel obstruction (HCC) Depression Diaphragmatic hernia GERD (gastroesophageal reflux disease) Hypoglycemia Hypoglycemia "gets a lot of 40-45 blood sugars" IBS (irritable bowel syndrome) Kidney stone 2006, 2007 Oropharyngeal dysphagia Osteoporosis RLS (restless legs syndrome) PSHx: Past Surgical History: Procedure Laterality Date ABD HYSTERECTOMY APPENDECTOMY ARTHOPLASTY MINOR Left 08/15/2016 Procedure: LEFT TRAPIEZECTOMY W/ MINI TIGHTROPE SUSPENSIONPLASTY;; Surgeon: Ronnell Troncoso MD ARTHOPLASTY MINOR Right 01/19/2017 Procedure: RIGHT TRAPEZIECTOMY W/ MINI TIGHT ROPE SUSPENSIONPLASTY;; Surgeon: Ronnell Troncoso MD 2 CHOLECYSTECTOMY COLONOSCOPY N/A 09/26/2017 Procedure: COLONOSCOPY;; Surgeon: Deven Green MD COSMETIC SURGERY 05/31/2010 Abdominal plasty, medial thigh lift, knee lift, and Butt Lift ([facility]) CYSTO + ADDT PROC Bilateral 06/04/2019 Procedure: CYSTOSCOPY, NEPHROSCOPY, LASER LITHOTRIPSY, RETROGRADE PYLOGRAM AND STENT PLACEMENT;; Surgeon: Omari Lam MD FUSION SI JOINT Last September GASTRIC BYPASS 10/21/2001 Dr. Carballo HERNIA REPAIR Umbilical Hernia HYSTERECTOMY total INTESTINAL RESECTION N/A 10/19/2013 Procedure: EXPLORATORY LAPAROTOMY, TAKEDOWN OF GASTROCUTANEOUS FISTULA AND LYSIS OF ADHESIONS;; Surgeon: Radha Burgess MD IR GASTRO TUBE PLACEMENT 01/29/2019 IR GASTRO TUBE PLACEMENT 01/29/2019 Solitario White MD INTERV RAD [facility] IR GASTRO TUBE PLACEMENT 05/30/2019 IR GASTRO TUBE PLACEMENT 05/30/2019 Solitario White MD INTERV RAD [facility] KNEE ARTHROSCOPY 04/11/2012 Dr. Feliz (left) LAP DERRICK FUNDOPLICATION N/A 06/08/2015 Procedure: LAPAROSCOPIC REPAIR OF HIATAL HERNIA LAPAROSCOPIC LYSIS OF ADHESIONS, REMOVAL OF FORIEGNBODY, EGD;; Surgeon: Greg Pool WDO LAPAROSCOPY DIAGNOTIC S/P GASTRIC BYPASS 07/10/2012 LAPAROSCOPY DIAGNOSTIC POST GASTRIC BYPASS , LAPARSCOPIC LYSIS OF ADHESIONS Diag. Laparoscopy...post of gastric bypass; Surgeon: Eleazar Arnett MD MANOMETRY ANORECTAL 03/04/2019 Procedure: MANOMETRY ANORECTAL;; Surgeon: Kyler Arreola MD NEUROSTIMULATOR PHASE 2 N/A 04/09/2019 Procedure: TRIAL STAGE 1 INSERTION OF INTERSTIM SACRAL NEUROSTIMULATOR;; Surgeon: Sergio Pereira MD NEUROSTIMULATOR PHASE 2 N/A 04/16/2019 Procedure: INTERSTIM STAGE II;; Surgeon: Sergio Pereira MD OOPHERECTOMY SPINE SURGERY 2 fusions lower back THORACOSCOPY Left 09/13/2020 Procedure: LEFT VATS THORACOTOMY DRAINAGE OF PLEURAL EFFUSION, DRAINAGE OF LUNG ABSCESS, DECORTICATION LEFT LOBE, FLEXIBLE BRONCOSCOPY;; Surgeon: Daquan Lee MD TMJ RECONSTRUCTION January 2010 Alejandre (bilateral) TONSILLECTOMY In her 30s TUBAL LIGATION UPPER ENDOSCOPY 07/10/2012 UPPER ENDOSCOPY [UPPENDO]; Surgeon: Janette Pablo MD UPPER ENDOSCOPY N/A 08/18/2014 Procedure: upper endoscopy ;; Surgeon: Glen Xiao MD UPPER ENDOSCOPY 04/28/2015 Procedure: UPPER ENDOSCOPY;; Surgeon: Janette Pablo MD UPPER ENDOSCOPY N/A 12/28/2015 Procedure: UPPER ENDOSCOPY;; Surgeon: Aleksandr De Paz MD UPPER ENDOSCOPY N/A 09/26/2017 Procedure: UPPER ENDOSCOPY;; Surgeon: Deven Green MD ALLERGIES: Allergies Allergen Reactions Penicillin Rash Adhesives Itching Aleve [Gnp Naproxen Sodium] Other (Specify in Comments) GI due to bypass surgery Flagyl [Metronidazole] Rash Ibuprofen Other (Specify in Comments) GI due to bypass surgery Mastisol Rash Morphine Other (Specify in Comments) IV form Causes pt to feel hyper and shake MEDICATIONS: Facility-Administered Medications Prior to Admission Medication Dose Route Frequency Provider Last Rate Last Admin acetaminophen (TYLENOL) tablet 650 mg 650 mg Oral 1 time Sally Mcdonough, JESSICA Medications Prior to Admission Medication Sig Dispense Refill Last Dose levoFLOXacin (LEVAQUIN) 500 mg tablet Take 1 tablet (500 mg) by mouth 1 time per day 10 tablet at Unknown time HYDROcodone-chlorpheniramine (TUSSIONEX) 10-8 mg/5 mL oral suspension ER Take 5 mL by mouth Every 12 hours as needed for cough 250 mL 0 09/09/2020 at Unknown time cloNIDine (CATAPRES) 0.1 mg tablet TAKE 4 TABLETS BY MOUTH AT BEDTIME NEEDED FOR SLEEP; MAY TAKE ANADDITIONAL 2 TABLETS EACH DAY NEEDED FOR ANXIETY. OR ANXIETY. (Patient taking differently: Take 0.4 mg by mouth at bedtime as needed TAKE 4 TABLETS BY MOUTH AT BEDTIME NEEDED FOR SLEEP; MAY T ANNA AN ADDITIONAL 2 TABLETS EACH DAY NEEDED FOR ANXIETY. OR ANXIETY.) 180 tablet 1 09/10/2020 at Unknown time clonazePAM (KLONOPIN) 1 mg tablet TAKE 1/2 TABLET BY MOUTH AT 6AM, 1 TABLET AT 12:00, 1 TABLET AT 6PM,AND 1/2 TABLET AT BEDTIME. 90 tablet 1 09/10/2020 at Unknown time sumatriptan succinate (IMITREX) 25 mg tablet Take 1 tablet (25 mg) by mouth every 2 hours as needed for migraine May repeat x1 dose after 2 hours if needed; MAX 2 doses/24 hours 5 tablet 0 Unknown at Unknown time ALPRAzolam (XANAX) 1 mg tablet TAKE 1 TABLET BY MOUTH EVERY DAY NEEDED FOR PANIC SYMPTOMS (Patient taking differently: Take 1 mg by mouth 1 time a day as needed TAKE 1 TABLET BY MOUTH EVERY DAY NEEDED FOR PANIC SYMPTOMS) 15 tablet 2 Past Month at Unknown time nortriptyline (PAMELOR) 25 mg capsule 3 capsules at bedtime (Patient taking differently: Take 75mg by mouth every night at bedtime 3 capsules at bedtime) 270 capsule 2 09/10/2020 at Unknown time nortriptyline (PAMELOR) 10 mg capsule TAKE 1 CAPSULE BY MOUTH AT BEDTIME (TAKE WITH 3 25 MG TABLETS) (Patient taking differently: Take 10 mg by mouth every night at bedtime TAKE 1 CAPSULE BY MOUTH AT BEDTIME (TAKE WITH 3 25 MG TABLETS)) 90 capsule 2 09/10/2020 at Unknown time estrogens, conjugated (PREMARIN) 0.625 mg/gm vaginal cream Insert 1 g vaginally every night at bedtime for 14 days, THEN 1 g Every 3 days. 42.5 g 4 Unknown at Unknown time montelukast (SINGULAIR) 10 mg tablet Take 1 tablet (10 mg) by mouth every night at bedtime 90 tablet 0 09/09/2020 at Unknown time ziprasidone (GEODON) 40 mg capsule TAKE 1 CAPSULE BY MOUTH EVERY NIGHT AT BEDTIME (Patient taking differently: Take 40 mg by mouth every night at bedtime TAKE 1 CAPSULE BY MOUTH EVERY NIGHT AT BEDTIME) 90 capsule 1 09/09/2020 at Unknown time busPIRone (BUSPAR) 15 mg tablet TAKE 3 TABLETS BY MOUTH TWICE A DAY (Patient taking differently:Take 45 mg by mouth 2 times a day TAKE 3 TABLETS BY MOUTH TWICE A DAY) 180 tablet 5 09/10/2020 at Unknown time pantoprazole (PROTONIX) 40 mg enteric coated tablet TAKE 1 TABLET BY MOUTH TWICE A DAY BEFORE MEALS (Patient taking differently: Take 40 mg by mouth 2 times a day before meals TAKE 1 TABLET BY MOUTH TWICE A DAY BEFORE MEALS) 60 tablet 12 09/10/2020 at Unknown time levothyroxine 50 mcg tablet TAKE 1 TABLET BY MOUTH DAILY (Patient taking differently: Take 50 mcg by mouth 1 time per day ) 90 tablet 3 09/10/2020 at Unknown time Multiple Vitamins-Calcium (ONE-A-DAY WOMENS PO) Take by mouth 09/10/2020 at Unknown time albuterol HFA (PROVENTIL,PROAIR,VENTOLIN) 108 (90 Base) MCG/ACT inhaler Inhale 2 puffs orally every 4 to 6 hours as needed for shortness of breath Shake well before using. 1 Inhaler 3 Unknown at Unknown time acetaminophen (TYLENOL) 500 mg tablet Take 1,000 mg by mouth every 4 to 6 hours as needed for moderate pain 09/10/2020 at Unknown time baclofen (LIORESAL) 10 mg tablet Take 1 tablet (10 mg) by mouth 4 times a day 120 tablet 12 09/10/2020 at Unknown time buPROPion (WELLBUTRIN SR) 100 mg SR (12 hr) tablet TAKE 1 TABLET BY MOUTH EVER Y DAY AT NOON (Patient taking differently: Take 100 mg by mouth 1 time per day at noon TAKE 1 TABLET BY MOUTH EVER Y DAY AT NOON) 90 tablet 3 09/10/2020 at Unknown time buPROPion (WELLBUTRIN SR) 200 mg SR (12 hr) tablet TAKE 1 TABLET BY MOUTH EVER Y MORNING (Patient taking differently: Take 200 mg by mouth 1 time per day TAKE 1 TABLET BY MOUTH EVER Y MORNING) 90 tablet 3 09/10/2020 at Unknown time silver nitrate-potassium nitrate (Third BrigadeO SILVER NIT APPLICATOR) 75-25 % sticks Apply topically 1time per day as needed around feeding tube site. 100 each 1 09/10/2020 at Unknown time glucagon, rDNA, (GLUCAGON EMERGENCY) 1 mg injection kit Inject 1 mg intramuscularly as needed for other (Specify) (low blood sugar) (For low blood sugar) 1 Kit 3 Unknown at Unknown time Lancets (MICROLET) [facility] Test blood sugar 2 times a day (1-2 hours after supper and as needed forhypoglycemic symptoms). 100 each 5 Unknown at Unknown time blood glucose test strip (COURTNEY CONTOUR NEXT) STRP Test blood sugar 2 times a day (1-2 hours after supper and as needed for hypoglycemic symptoms). 50 each 11 09/10/2020 at Unknown time artificial tears 1.4 % SOLN Place 1 drop into both eyes 1 time a day as needed for dry eyes. Past Week at Unknown time calcium carbonate-vitamin D (CALTRATE 600 + VIT D) 600mg-200 unit tablet Take 1 tablet by mouth 2 times a day with meals. 09/10/2020 at Unknown time dextrose 4-0.006 G CHEW chewable tablet Take 1-3 tablets by mouth 1 time a day as needed for lowblood sugar. 0 Unknown at Unknown time cyanocobalamin (VITAMIN B-12) 500 mcg tablet Take 500 mcg by mouth 1 time per day. 09/10/2020 at Unknown time SOCIAL Hx: Social History Socioeconomic History Marital status: Spouse name: Not on file Number of children: 2 Years of education: 14 Highest education level: Not on file Occupational History Occupation: [employer] Employer: [employer] Social Needs Financial resource strain: Not on file Food insecurity Worry: Not on file Inability: Not on file Transportation needs Medical: Not on file Non-medical: Not on file Tobacco Use Smoking status: Never Smoker Smokeless tobacco: Never Used Substance and Sexual Activity Alcohol use: No Alcohol/week: 0.0 standard drinks Drug use: No Sexual activity: Yes Partners: Male Lifestyle Physical activity Days per week: 3 days Minutes per session: 60 min Stress: Not on file Relationships Social connections Talks on phone: Not on file Gets together: Not on file Attends anabaptist service: Not on file Active member of club or organization: Not on file Attends meetings of clubs or organizations: Not on file Relationship status: Not on file Intimate partner violence Fear of current or ex partner: Not on file Emotionally abused: Not on file Physically abused: Not on file Forced sexual activity: Not on file Other Topics Concern Not on file Social History Narrative Patient is a 47 year old female. Patient reports she graduated from high school and went to 2 years of college, 1 year at [employer], and 1 year for a medical billing assistant. 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 She is to Peter and has 2 kids, Elisa, 22 year old daughter, who is living in the [place] area and going to school, and a 21 year old son who has drug and ETOH issues, has detention depression and who recently just moved back into the patient's home temporarily as his job has brought him close to home. 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 Patient does have support from female clergy whommehreen has known for a long time. FAMILY Hx: Family History Problem Relation Age of Onset Hypertension Father Kidney Stones Father three Arthritis Father knee replacement Skin Cancer (non melanomatous) Father Anxiety Disorder Mother Rheumatoid Arthritis Mother Other Mother sirrosis of the liver Cirrhosis Mother Not otherwise listed - Cancer Maternal Grandfather Leukemia Breast Cancer Paternal Grandmother 62 Not otherwise listed - Cancer Paternal Grandfather Prostate, mets Asthma Daughter Asthma Son Arthritis Son back Depression Son Depression Maternal Grandmother Suicide Maternal Grandmother Rheumatoid Arthritis Maternal Grandmother Lupus Maternal Aunt Sjogren's Syndrome Maternal Aunt Rheumatoid Arthritis Maternal Aunt ROS: Review of Systems: Constitutional: No unexpected change in weight, fatigue, unexplained fevers, sweats or chills. Eye: No recent significant change in vision, eye pain, redness, or discharge Ear: No ear pain, tinnitus, vertigo, or recent change in hearing Mouth/Throat: No sore throat, recent change in voice or hoarseness Neck: No lumps or masses, swollen glands, recent swelling in thyroid area, or significant pain in neck Pulmonary: No chronic cough, sputum, hemoptysis, dyspnea on exertion, wheezing, or shortness of breath Cardiovascular: No exercise intolerance, chest pain, diaphoresis, edema, or palpitations Gastrointestinal: No abdominal pain, change in bowel habits, significant change in appetite, nausea,vomiting, diarrhea, or constipation Musculoskeletal/Extremities: No pain, redness or swelling of the joints Heme/Allergy/Immune: No abnormal bleeding, bruising, or night sweats Skin: No abnormal skin lesions or rash VITALS: Vitals: 09/26/20 2200 09/26/20 2256 09/27/20 0237 09/27/20 0634 BP: 109/50 109/50 114/54 Pulse: 87 89 99 Resp: 18 16 16 Temp: 97.6 F (36.4 C) 97.6 F (36.4 C) 98.1 F (36.7 C) TempSrc: Oral SpO2: 95% 95% 98% Weight: 62.8 kg (138 lb 8 oz) Height: PHYSICAL EXAM: Physical Examination: GENERAL ASSESSMENT: active, alert, no acute distress, well hydrated, well nourished SKIN: no lesions, jaundice, petechiae, pallor, cyanosis, ecchymosis HEAD: Atraumatic, normocephalic NOSE: nasal mucosa, septum, turbinates normal bilaterally MOUTH: mucous membranes moist and normal tonsils LUNGS: Respiratory effort normal, clear to auscultation, normal breath sounds bilaterally HEART: Regular rate and rhythm, normal S1/S2, no murmurs, normal pulses and capillary refill ABDOMEN: Normal bowel sounds, soft, nondistended, no mass, no organomegaly. NEURO: gross motor exam normal by observation CURRENT INHOSPITAL MEDICATIONS: Current Facility-Administered Medications Medication Dose Route Frequency Provider Last Rate Last Admin iron sucrose (VENOFER) 400 mg in sodium chloride 0.9% 250 mL 400 mg IV 1 time Melissa Huerta MD acetaminophen (TYLENOL) tablet 650 mg 650 mg Oral Every 4 hours prn Jensen Gonzalez MD 650 mg at 09/27/20 0240 oxyCODONE (OXY-IR) tablet 5 mg 5 mg Oral Every 6 hours prn Jensen Gonzalez MD 5 mg at 09/23/20 1052 melatonin tablet 6 mg 6 mg Oral at bedtime Jensen Gonzalez MD 6 mg at 09/26/20 2030 haloperidol lactate (HALDOL) injection solution 1 mg 1 mg IV Every 6 hours prn Jensen Gonzalez MD sodium chloride 0.9% prefilled 10 mL syringe (Materials Management Item) 10 mL 10 mL IV 2 timesa day and prn Christina Rivas APRN-PERFECT BINDER FEEDER OFFBEARER 10 mL at 09/27/20 0611 And hEParin 100 units/ mL injection for heplock FLUSH 3 mL IV 2 times a day and prn Banker, Christina R, REAL ESTATE ECONOMIST-PERFECT BINDER FEEDER OFFBEARER 300 Units at 09/27/20 1029 montelukast (SINGULAIR) tablet 10 mg 10 mg Oral at bedtime Jensen Gonzalez MD 10 mg at 09/26/202028 guaiFENesin (ROBITUSSIN) oral solution (100 mg/5 mL) 10 mL 10 mL Oral Every 4 hours prn Jensen Gonzalez MD nortriptyline (PAMELOR) capsule 75 mg 75 mg Oral at bedtime Jensen Gonzalez MD 75 mg at 09/26/202029 nortriptyline (PAMELOR) capsule 10 mg 10 mg Oral at bedtime Jensen Gonzalez MD 10 mg at 09/26/202029 codeine-guaiFENesin oral solution (10 mg-100 mg/ 5 mL) 5 mL 5 mL Oral Every 4 hours prn Jensen Gonzalez MD levothyroxine tablet 50 mcg 50 mcg Oral daily Jensen Gonzalez MD 50 mcg at 09/27/20 0612 baclofen (LIORESAL) tablet 10 mg 10 mg Oral 4 times a day Jensen Gonzalez MD 10 mg at 09/27/20 1012 clonazePAM (klonoPIN) tablet 0.5 mg 0.5 mg Oral 3 times a day Jensen Gonzalez MD 0.5 mg at 09/27/20 1012 busPIRone (BUSPAR) tablet 15 mg 15 mg Oral 2 times a day Jensen Gonzalez MD 15 mg at 09/27/20 1012 buPROPion (WELLBUTRIN SR) SR tablet (12 hr) 100 mg 100 mg Oral Daily at noon Jensen Gonzalez MD 100 mg at 09/26/20 1230 buPROPion (WELLBUTRIN SR) SR tablet (12 hr) 200 mg 200 mg Oral daily Jensen Gonzalez MD 200 mg at 09/27/20 1011 gabapentin (NEURONTIN) capsule 300 mg 300 mg Oral 3 times a day Jensen Gonzalez MD 300 mg at 09/27/20 1012 diphenhydrAMINE (BENADRYL) capsule 25 mg 25 mg Oral Every 6 hours prn Jensen Gonzalez MD sodium chloride 7% (hypertonic saline) inhalation solution 4 mL 4 mL Nebulization Every 4 hoursprn Jensen Gonzalez MD sodium chloride 0.9% prefilled 10 mL syringe (Materials Management Item) 10 mL 10 mL IV Daily Jensen Gonzalez MD 10 mL at 09/22/20 0850 And sodium chloride 0.9% prefilled 10 mL syringe (Materials Management Item) 10 mL 10 mL IV PRN Jensen Alcantar MD 10 mL at 09/23/20 1042 And hEParin 100 units/ mL injection for heplock FLUSH 3 mL IV Daily Jensen Gonzalez MD 300 Units at 09/23/20 0850 And hEParin 100 units/ mL injection for heplock FLUSH 3 mL IV PRN per parameter Jensen Gonzalez MD 300 Units at 09/23/20 1041 sodium chloride 0.9% prefilled 10 mL syringe (Materials Management Item) 10 mL 10 mL IV Daily Jensen Gonzalez MD 10 mL at 09/21/20 0927 And sodium chloride 0.9% prefilled 10 mL syringe (Materials Management Item) 10 mL 10 mL IV PRN Jensen Alcantar MD And hEParin 100 units/ mL injection for heplock FLUSH 3 mL IV Daily Jensen Gonzalez MD 300 Units at 09/21/20 0927 And hEParin 100 units/ mL injection for heplock FLUSH 3 mL IV PRN per parameter Jensen Gonzalez MD sodium chloride 0.9% prefilled 10 mL syringe (Materials Management Item) 10 mL 10 mL IV Daily Jensen Gonzalez MD 10 mL at 09/27/20 1020 And sodium chloride 0.9% prefilled 10 mL syringe (Materials Management Item) 10 mL 10 mL IV PRN Jensen Alcantar MD 10 mL at 09/23/20 1043 And hEParin 100 units/ mL injection for heplock FLUSH 3 mL IV Daily Jensen Gonzalez MD 300 Units at 09/27/20 1020 And hEParin 100 units/ mL injection for heplock FLUSH 3 mL IV PRN per parameter Jensen Gonzalez MD 300 Units at 09/26/20 0602 dextrose 50% IV solution 25-50 mL 25-50 mL IV PRN per parameter Alan William MD 25 mL at 09/20/20 2049 cefTRIAXone (ROCEPHIN) 2000 mg/20 mL IV syringe in sterile water 2,000 mg IV Every 24 hours Jose De Jesus Rios MD 2,000 mg at 09/26/20 1709 ondansetron (ZOFRAN) injection solution 4 mg 4 mg IV Every 4 hours prn Jules Mcclellan MD 4mg at 09/27/20 1029 enoxaparin (LOVENOX) subcutaneous injection solution 40 mg 40 mg Subcutaneous Daily Jules Mcclellan MD 40 mg at 09/27/20 1012 albuterol (PROVENTIL) (2.5 mg/3mL) 0.083% inhalation soln 2.5 mg 2.5 mg Nebulization Every 2 hours prn Jules Mcclellan MD albuterol-ipratropium (DUO-NEB) 2.5-0.5 mg/3 mL inhalation solution 3 mL 3 mL Nebulization Every 6 hours prn Danielle Alonso APRN-PERFECT BINDER FEEDER OFFBEARER 3 mL at 09/17/20 0806 LABS: Labs (Last day) 09/27/20 0642 - 09/27/20 0642 CBC 09/27/20 0642 CBC Hemoglobin 11.5-15.8 (g/dL) 7.5 09/27/20 1142 - 09/26/20 1700 GLUCOSE POINT OF CARE 09/27/20 1142 09/27/20 0512 09/27/20 0115 09/26/20 2149 09/26/20 1700 GLUCOSE POINT OF CARE Glucose POC 70-99 (mg/dL) 76 91 92 92 82 DIAGNOSTIC IMAGING: Reviewed No images are attached to the encounter. Dr.Venkatkiran Nestor MD Pulmonary and Critical Care Medicine [facility] Kevin Rose Jr., MD - 09/13/2020 12:02 PM CST SURGICAL CRITICAL CARE CONSULT NOTE HD: #4 ICU Day: #1 POD: #0 HPI: The patient is a 55-year-old female admitted to the ICU status post left thoracoscopy and thoracotomy with drainage and decortication. She has a one- month history of pneumonia which has been complicated by an expanding lung abscess and pleural effusion. She was treated intermittently with antibiotics for the past few weeks but progressively worsened with signs of sepsis. She was initially being managed at the [facility] prior to transfer to [facility] last evening. ROS: Unobtainable due to into patient to mechanical ventilation PMHx: PMHx: IBS, hypoglycemia, GERD, depression, anxiety PSHx: Tubal ligation, spinal fusion, laparoscopic Derrick fundoplication, hysterectomy, gastric bypass, , appendectomy, cholecystectomy, exploratory laparotomy with takedown of gastrocutaneous fistula Allergies: See chart Social Hx: Per chart no tobacco, alcohol or illicit drug use Family Hx: Noncontributory Objective Vitals: Vital Signs Min/Max (last 24 hours) Flowsheet Row Name Min Max Temp 97.7 F (36.5 C) 100.3 F (37.9 C) BP: Systolic 94 129 BP: Diastolic 53 76 Pulse 77 104 Resp 16 16 SpO2 92 % 95 % MAP (mm Hg) 80 mm Hg 80 mm Hg Physical Exam: General: Intubated and sedated CV: RRR, HDS on no vasopressor support Resp: Mechanically ventilated (Vt 550, RR 12, PEEP 5, FiO2 100%) Chest: left CT x2 intact, dressing c/d/i Abd: soft, nondistended Ext: no significant edema Neuro: sedated Assessment and Plan Brief History: 55yo F with one-month history of pneumonia complicated by an expanding lung abscess and pleural effusion. She failed medical therapy and underwent 09/13 left thoracoscopy and thoracotomy with drainage and decortication. Postoperatively she was transferred to the ICU intubated and sedated. During thecase she was requiring phenylephrine vasopressor support although this time it is since been taken off. Neuro: Propofol and Fentanyl for RASS goal -1, Continue home Bupropion and Buspirone Pulm: SBT if able but no plans to extubate tonight, daily CXR and ABG, keep chest tube to suction CV: MAP goal 65 GI/Nutrition: NPO Fluids/Electrolytes/Renal: LR 125 cc/hr, keep borjas MSK: no acute concerns Heme: daily labs ID: Cefepime, Flagyl, Vanc Endo: Levothyroxine Consults: - Cardiothoracic Surgery - appreciate assistance PPx: - DVT ppx: Lovenox - GI ppx: Protonix (Home Med) Disposition: Continue ICU Cares Obdulio Montgomery MD General Surgery Resident Pager #[phone] S RIBBON MACHINE OPERATOR Associated attestation - Alan William MD - 09/18/2020 10:18 PM CSTT Service ICU Attending Attestation: Patient is critically ill by my examination on the date of service (DOS) listed above and requires continued ICU monitoring and cares. The patient is being seen in the surgical Intensive Care Unit. I have discussed patient cares and treatment plan regarding her post thoracotomy and decorticationrespiratory failure requiring mechanical ventilation and other critical care issues with the T service team as reflected in the residents note by Dr. Montgomery, All pertinent labs, imaging studies, physical exam and medications have been reviewed by myself with the T service team. Evaluation and management time exclusive of procedures was 35 minutes critical care time in the management and care of this patient including: examination with the T service team, discussion of the patient's condition with other physicians and members of the care team, reviewing all data related to the patient, and time utilizing the EMR for documentation of this patient's care. All data, assessments and plans were discussed with T Service team Eleazar Anderson MD - 09/12/2020 1:14 PM CST [facility] INFECTIOUS DISEASE CONSULTATION 09/12/2020 Impression 55 y/o female with worsening LLL pneumonia, failed o/p antibiotics, now with lucency/necrotic component Plan 1. Complicated LLL pneumonia: patient has failed multiple courses of antibiotics as an outpatient. It has nearly doubled in size versus 08/18/2020. There is now central lucency/necrosis and loculations. Agree with abx, but abx alone will not get rid of this. Continue vancomycin, d/c Levaquin. Start cefepime and flagyl. Patient not penicillin allergic. Allergy was rash as a teenager. Has tolerated cephalosporins in the past. Need the flagyl for anaerobic coverage. This is just a rash as well for her allergy. Discussed with CV surgery, Dr. Lee. abx alone will not cure this. Will need surgical drainage via VATS, and CV surgery agrees. Have made patient NPO at midnight. discussed withhospitalist, will need transfer to [facility]. 2. Thank you. Infectious disease following. HPI Niles Shearer is 55yr female seen today for infectious disease consultation. Referred by Dr. Bonilla for lung abscess This is a 55-year-old female who infectious disease is asked to see for concerns of a lung abscess.She had low-grade temperatures on admission, 100.3 and 100.4, and she got as high as to 100.9 since she was admitted. She has been on vancomycin since the and levofloxacin since the . The patient has had problems for approximately 1 month's time. She endorses increasing shortness of breathand increasing dyspnea on exertion, as well as a cough. She states, at times, the cough will be productive of brackish and foul-tasting phlegm. She has been extremely fatigued and tired and has had adiminished appetite. She reports approximately a 10-pound weight loss. Because of the significant c oughing, she does have a lot of left-sided chest wall pain and splinting. She has required Tussionex for this, and she states this is the only thing that helps with the cough. She has had multiple emergency room visits in the [facility] area for this. She has received 3 courses of doxycycline and a few days ago was changed to Levaquin after she saw her primary care provider. The patient was being seen in the lung nodule clinic on Sunday, as there was a CT scan that was done on 08/18 which showed an area of consolidation in the left lung. From the lung nodule clinic, the patient was directly admitted to the hospital. The patient denies any night sweats over the last several weeks but does endorse temperatures at home as well. They have been as high as 102. She has also had the weight loss as mentioned above. There have been no obvious sick contacts that she can recall. She has not had any recent dental work. Interventional radiology was consulted, and they did not feel it wasappropriate to drain this via a catheter, as there were concerns of seeding the pleural space. It was recommended to pursue a bronchoscopy and biopsy with pulmonary; however, when I looked at her CT scan that was obtained last evening, there was a significant increase in size of this lesion, and it has now essentially doubled. There was a thick rind and wall around it, and there appears to be central hypodensity and necrosis. Likely, this has progressed to a complicated pneumonia/empyema with central necrosis. The patient will need a CV surgery evaluation. I did discuss with them over the phone, and they reviewed the films, and they agreed; thus, we will need to arrange for transfer to [facility]. Also of note, the patient had some increasing confusion during all of this as well with this significant infection brewing in her left lung. She has never been a smoker; however, she did have secondhand smoke exposure as a child growing up. PERTINENT PAST MEDICAL HISTORY: 1. Irritable bowel syndrome. 2. Restless leg syndrome. 3. Osteoporosis. 4. Nephrolithiasis. 5. GERD. 6. Anxiety and depression. 7. Asthma. PAST SURGICAL HISTORY: 1. Placement of a G-tube secondary to recurrent hypoglycemia after gastric bypass. 2. Gastric bypass. 3. Neurostimulator placement. 4. TMJ reconstruction. 5. Hysterectomy. 6. Appendectomy. 7. Cholecystectomy. 8. section. Receipt: [id number] Trans ID: [id number] GLASS RIBBON MACHINE OPERATOR GLASS RIBBON MACHINE OPERATOR Antibiotics Antibiotics: Antibiotics (From admission, onward) Start Stop Route Frequency Ordered 09/12/20 1500 metroNIDAZOLE (FLAGYL) tablet 500 mg -- PO Three times a day 09/12/20 1314 09/12/20 1315 cefepime (MAXIPIME) 2000 mg/20 mL in sterile water IV syringe -- IV Every twelve hours 09/12/20 1314 09/11/20 1800 vancomycin in dextrose 200 mL IV piggyback (premix) 1,000 mg (Vancomycin IV: Initial Pharmacy Panel) -- IV Every twelve hours 09/11/20 1744 09/10/20 2300 levoFLOXacin (LEVAQUIN) IV premix in D-5% 750 mg Status: Discontinued 09/12 1314 IV Every twenty four hours 09/10/20 2132 All other medications are reviewed in [facility]. PMH/FH/SH Past Medical History: Diagnosis Date Allergy Anemia Anxiety Arthritis Asthma Bowel obstruction (HCC) Depression Diaphragmatic hernia GERD (gastroesophageal reflux disease) Hypoglycemia Hypoglycemia "gets a lot of 40-45 blood sugars" IBS (irritable bowel syndrome) Kidney stone 2006, 2007 Oropharyngeal dysphagia Osteoporosis RLS (restless legs syndrome) Family History Problem Relation Age of Onset Hypertension Father Kidney Stones Father three Arthritis Father knee replacement Skin Cancer (non melanomatous) Father Anxiety Disorder Mother Rheumatoid Arthritis Mother Other Mother sirrosis of the liver Cirrhosis Mother Not otherwise listed - Cancer Maternal Grandfather Leukemia Breast Cancer Paternal Grandmother 62 Not otherwise listed - Cancer Paternal Grandfather Prostate, mets Asthma Daughter Asthma Son Arthritis Son back Depression Son Depression Maternal Grandmother Suicide Maternal Grandmother Rheumatoid Arthritis Maternal Grandmother Lupus Maternal Aunt Sjogren's Syndrome Maternal Aunt Rheumatoid Arthritis Maternal Aunt Social History Socioeconomic History Marital status: Spouse name: Not on file Number of children: 2 Years of education: 14 Highest education level: Not on file Occupational History 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 Employer: [employer] Social Needs Financial resource strain: Not on file Food insecurity Worry: Not on file Inability: Not on file Transportation needs Medical: Not on file Non-medical: Not on file Tobacco Use Smoking status: Never Smoker Smokeless tobacco: Never Used Substance and Sexual Activity Alcohol use: No Alcohol/week: 0.0 standard drinks Drug use: No Sexual activity: Yes Partners: Male Lifestyle Physical activity Days per week: 3 days Minutes per session: 60 min Stress: Not on file Relationships Social connections Talks on phone: Not on file Gets together: Not on file Attends anabaptist service: Not on file Active member of club or organization: Not on file Attends meetings of clubs or organizations: Not on file Relationship status: Not on file Intimate partner violence Fear of current or ex partner: Not on file Emotionally abused: Not on file Physically abused: Not on file Forced sexual activity: Not on file Other Topics Concern Not on file Social History Narrative Patient is a 47 year old female. Patient reports she graduated from high school and went to 2 years of college, 1 year at [employer], and 1 year for a medical billing assistant. 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 She is to Peter and has 2 kids, Elisa, 22 year old daughter, who is living in the [place] area and going to school, and a 21 year old son who has drug and ETOH issues, has termite treater helper depression and who recently just moved back into the patient's home temporarily as his job has brought him close to home. 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 Patient does have support from female clergy whomshe has known for a long time. ROS Review of Systems Constitutional: +tired, fatigues Decreased appetite, 10# weight loss Respiratory: Positive for cough and shortness of breath. Gastrointestinal: Negative for diarrhea, nausea and vomiting. The rest of the review of systems is negative except as mentioned above. Physical Exam Current Vital Signs Temp: 99.4 F (37.4 C) BP: 96/60 Pulse: 88 O2 Device: NC - no humidity O2 Flow Rate (L/min): 3 l/min Resp: 16 Pain Ratin (out of 10) Weight: 67.2 kg (148 lb 2.4 oz) SpO2: 97 % Maximum Temperatures (last 24 hours) Temperature Maximum Max Temp 99.4 F (37.4 C) Physical Exam Constitutional: No distress. HENT: Head: Normocephalic and atraumatic. Cardiovascular: Normal rate and regular rhythm. No murmur heard. Pulmonary/Chest: No respiratory distress. She has no wheezes. Diminished at bases bilaterally Abdominal: Soft. Bowel sounds are normal. She exhibits no distension. There is no abdominal tenderness. g tube c/d/i Musculoskeletal: General: No edema. Neurological: She is alert. Skin: Skin is warm and dry. No erythema. Labs and Imaging reviewed Lab Results Component Value Date WBC 13.4 (H) 09/11/2020 NUCRBC 0 09/11/2020 RBC 3.41 (L) 09/11/2020 HEMOGLOBIN 9.6 (L) 09/11/2020 HEMATOCRIT 29.7 (L) 09/11/2020 MCV 87.1 09/11/2020 MCH 28.2 09/11/2020 MCHC 32.3 09/11/2020 RDW 13.5 11/21/2013 PLTCOUNT 508 (H) 09/11/2020 NEUTROPCT 78.1 09/11/2020 BANDPCT 2 02/06/2013 LYMPHSPCT 10.6 09/11/2020 MONOSPCT 9.5 09/11/2020 EOSPCT 0.2 09/11/2020 BASOPHILPCT 0.2 09/11/2020 Lab Results Component Value Date ALBUMIN 2.6 (L) 09/11/2020 BILITOTAL 0.3 09/11/2020 CA 8.2 (L) 09/11/2020 CL 101 09/11/2020 CREATSERUM 0.62 09/12/2020 GLUCOSE 83 09/11/2020 ALKPHOS 113 09/11/2020 POTASSIUM 3.2 (L) 09/11/2020 NA 141 09/11/2020 AST 13 09/11/2020 BUN 5 (L) 09/11/2020 PROTEINTOTAL 5.8 (L) 09/11/2020 CO2 31 (H) 09/11/2020 ALT 9 09/11/2020 Lab Results Component Value Date ESR 120 (H) 09/11/2020 Lab Results Component Value Date CRP 232.2 (H) 09/11/2020 Medical Decision Making Reviewed: previous chart, nursing note and vitals Reviewed previous: labs and x-ray Interpretation: labs and x-ray S RIBBON MACHINE OPERATOR documented in this encounter Miscellaneous Notes Clinical Team - Jamaal Moise RN - 09/28/2020 11:18 AM CSTPt is A/Ox4, VSS on RA. Pt denies chest pain, SOB. PICC nurse changed dressing. Hand off given over phone to halfway RN. Iron infusion not completed, MD aware. peech Therapy - Maria Teresa Wilhelm, BRYN - 09/28/2020 10:33 AM CST Speech Therapy Acute Care Progress Note Assessment/ Impression Patient appears tolerant of current diet per self report, nsg notes and largely per EMR review of swallowing biomarkers. Continue regular/thin textures; no further dysphagia intervention warranted. Informal/non-standardized cognitive assessment was completed with patient demonstrating at least mild impairment affecting short term memory, attention when distraction is present, reasoning, and speedof processing, though is showing signs of improvement as compared to last therapy session. Patient would benefit from ongoing cognitive intervention to facilitate return to independence. Plan/ Recommendations Diet textures: continue regular solids; continue thin liquids Fully alert and upright for all PO. Meds with thin liquid Straws OK Stop intake and notify THREAD ROLLER with positive signs of aspiration (I.e. throat clearing, coughing, choking , or wet vocal quality) Speech therapy to follow 3-5x/week for cognitive treatment (no further dysphagia intervention indicated). Recommend continued speech therapy post acute discharge to swing bed facility. These recommendations are based upon todays assessment and may reduce, but cannot entirely eliminate this patients risk of aspiration. Subjective Patient admitted with community acquired pneumonia complicated with left empyema, s/p left VATS thoracotomy with drainage, acute hypoxic respiratory failure s/p extubation and acute delirium. Patient is alert, pleasant and cooperative with therapy efforts. No pain reported. Objective Dysphagia Treatment Patient appears tolerant of current diet per self report, nsg notes and largely per EMR review of swallowing biomarkers. Continue regular/thin textures; no further dysphagia intervention warranted. Cognition ORIENTATION Orientation (Cognistat Scale) (WFL=10-12; Mild=7-9; Moderate=5-6; Severe= 0-4) 10/23 MEMORY Episodic recall (WFL = 9/10) 100% Item Recall (3 items) Immediate: 3/3 Delayed: 2/3 after both 3 and 10 min delays ATTENTION Attention Sustained attention: WDL in a distracting environment for simple tasks; though distraction negatively impacted performance on more complex attention tasks (improved performance when alternating #s/letters after TV turned off) Months in reverse: 10/23 with extra time Alternating attention Letters and numbers: 08/21 with extra time and cue x2 to remind pt of where she left off. VERBAL PROBLEM SOLVING Routine/ Simple WFL Moderately Complex/ Alternative Solutions 2/2 Functional Math 4/4 VERBAL EXPRESSION No word finding difficulty/language dysfunction in conversation exchange nor doing therapy tasks today VERBAL REASONING Antonyms/ Synonyms Antonyms: 3/3 Synonyms: 1/3 AUDITORY COMPREHENSION Commands Complex: 3/3 Patient voices awareness of confusion present last week and reports improvement, but acknowledges current status is discrepant from her baseline and is motivated to pursue ongoing intervention and voices awareness of her impending transfer to [facility] swing bed this afternoon. Goals Patient/family goal: to get better Longterm Goals: Patient will tolerate the least restrictive diet with no signs/symptoms of aspiration. Met Patient will demonstrate cognitive skills consistent with level of demands to facilitate the most independent functioning within the least restrictive environment. Short Term Goals: Patient will demonstrate recall and use of compensatory swallowing strategies for safe oral intake. Met Patient will participate in trials of upgraded textures with THREAD ROLLER only to determine safety with diet upgrade. Met Patient will participate in instrumental swallow assessment (FEES exam or VFSS) if clinically indicated or as recommended by THREAD ROLLER. Not indicated Patient will complete functional money and time management tasks with 90% accuracy independently. Patient will demonstrate appropriate executive function skills across multiple tasks/activities with90% accuracy independently. Patient will complete (sustained, selective, divided, alternating) attention tasks with 90% accuracyindependently. Patient will recall novel information following (11/16/14) minute delay without cues to utilize external aids. Patient will complete functional problem solving tasks with 90% accuracy independently. Charges Cognitive Treatment: 30 minutes Alpha Pager: [phone] [place]: [facility]: [phone] ase [facility] - Marian Guthrie RN - 09/28/2020 9:28 AM CSTCASE MANAGEMENT / SOCIAL SERVICE FINAL TRANSITION PLAN TRANSITION DATE: 09/28/2020 TRANSITION TIME: 1300 INTENDED PAYER SOURCE FOR AGENCY: Medicare TRANSITION DESTINATION: [place] [address] DOES ACCEPTING FACILITY REQUIRE COVID TESTING BEFORE DISCHARGE: N/A TRANSITION TRANSPORTATION: [facility] (P: [phone]) TRANSPORTATION PAYMENT: Billed to Case Management Due to: expedite discharge TRANSITION CHOICES OFFERED: [facility] Sw[facility] DOES THE PATIENT HAVE A PRIMARY CARE PHYSICIAN? Yes Lucho Longoria MD PATIENT / SUBSTITUTE DECISION MAKER GOAL UPON TRANSITION: First Choice: Swing Bed PATIENT CHOICE EDUCATION: Choice form completed in Case Management note and copy given to patient/family MEDICARE 3 IP MIDNIGHT CRITERIA MET: N/A RESOURCE(S) PROVIDED: Placement and Transportation DOES PATIENT HAVE CLOTHING TO WEAR AT DISCHARGE? No CM will provide ANTICIPATED MODE OF TRANSPORT TO AND FROM FOLLOW UP APPOINTMENTS: As arranged by accepting facility VERIFIED CORRECT PHARMACY IS ENTERED FOR DISCHARGE: Patient agreeable with Med to Bed METHOD OF PRESCRIBING MEDICATIONS: Reconcile medications as Patient Transfer ("65 button") TRANSITION ROUNDING COMPLETED WITH THE FOLLOWING: Patient / family Computer Support Analyst Attending MD Bedside RN Discussed in person COMMENTS / PATIENT AND FAMILY RESPONSE TO PLAN: CM reviewed the medical record and received pertinent updates from attending provider. Patient is eager for discharge today. Plan to transfer to swing bed for therapies and IV antibiotics. Updated therapy notes and clinicals sent through [facility]. No new needs for CM at this time. Will continue to follow and anticipate discharge at SPECIAL TRANSITION DAY INSTRUCTIONS TO NURSE / MD: Nurse to Nurse Fax Number for orders: [phone] [employer] SYSTEM INSTRUMENT MECHANIC: Please fax paperwork to above fax number And covid results from today. Nursing: please call report at above number before or just as patient leaves. MD: please do [facility] transfer order set, ensure orders for PT, OT, ST(if needed) are included. When doing medication orders, there cannot be any range orders, and indication is needed for all meds. CURRENT READMISSION RISK SCORE / HANDOFF: Predictive Risk Score Risk of Unplanned Readmission: 29.4 Handoff given: Brittany Gutierrez sheetrock applicator ([id number]) SIGNED: Marian Guthrie RN Case Managment [phone] Route # [id number] linical Team - Neisha Morel RN - 09/28/2020 6:56 AM CSTPatient is alert and oriented x4, vital signs stable on room air. Denied nausea and shortness of nolvia th. C/o pain in lower back and ribs- relief with PRN Tylenol and Oxycodone, given once each overnight. Pt up to the bathroom with the assist of 1, GB and walker x2 and ambulated in the vo x1 this shift. Tolerated activity well. Call light within reach. On bed alarm for safety. Will continue to monitor. are Planning - Neisha Morel RN - 09/28/2020 5:36 AM GLASS RIBBON MACHINE OPERATOR Problem: IMPAIRED PHYSICAL MOBILITY Goal: MOBILITY Description: DEFINITION: Ability to move purposefully in own environment independently with or without assistive device. 1=Severely compromised / Total assistance: Performs less than 25% of activity; 2=Substantially compromised / Maximal assistance: Performs 25-49% of activity; 3=Moderately compromised / Moderate assistance: Performs 50-74% of activity; 4=Mildly compromised / Modified independence: Needs assistive device, supervision, minimal contact,or safety is a concern; 5=Not compromised / Complete independence. Outcome: NOC Rating 3 Flowsheets (Taken 09/28/2020 9418) Patient specific goal for the day: Patient will ambulate as tolerated. Patient specific goal for the stay: Return to baseline, have no shortness of breath with activity. Patient Progress: PAtient is alert and oriented. Walked in the hallway x1 and in the room x2- tolerated well. did not report any shortness of breath with activity. linical Team - Antonette Wilkinson RN - 09/27/2020 6:54 PM CSTVSS on RA. Ambulated 3x in hallway, tolerated well. Iron sucrose given, tolerated well. Delirium is much improved, patient occasionally forgetful but is alert and oriented. Bed alarm and chair alarm remain in place for safety. Patient changed to regular diet today, some nausea but resolved with zofran. are Planning - Antonette Wilkinson RN - 09/27/2020 5:17 PM GLASS RIBBON MACHINE OPERATOR Problem: IMPAIRED PHYSICAL MOBILITY Goal: MOBILITY Description: DEFINITION: Ability to move purposefully in own environment independently with or without assistive device. 1=Severely compromised / Total assistance: Performs less than 25% of activity; 2=Substantially compromised / Maximal assistance: Performs 25-49% of activity; 3=Moderately compromised / Moderate assistance: Performs 50-74% of activity; 4=Mildly compromised / Modified independence: Needs assistive device, supervision, minimal contact,or safety is a concern; 5=Not compromised / Complete independence. Outcome: NOC Rating 4 Flowsheets (Taken 09/27/2020 6557) Plan of care reviewed with: Patient Patient specific goal for the day: Ambulate in halls x 3, sit to chair for all meals Patient specific goal for the stay: Tolerate ambulation in vo x3 and remain free from SOB. Achieve goal for stay: By discharge Patient Progress: Patient ambulated x3 in halls today and sat in chair for all meals. S RIBBON MACHINE OPERATOR Occupational Therapy - Aria Thomas, STUDENT - 09/27/2020 3:42 PM GLASS RIBBON MACHINE OPERATOR Occupational Therapy Acute Care Progress Note Impression/Recommendations Recommend patient discharge to low intensity setting upon medical stability. Patient presents with general deconditioning and decreased functional cognition but overall cognition showing improvements this date. Patient declined ADLs but completed functional transfers CGA w/FWW. Acute OT services tocontinue with POC and address independence with ADLs, functional transfers, strength/activity tolerance, and safety/cognition required for safe occupational performance. Will update discharge recommendations as able/ appropriate. Objective Cognition: Alert and Ox4 Comments: patient friendly, conversational, and agreeable to OT session. When OT asked patient where she would go after discharge, patient said she feels most comfortable going to a swing bed, OT agreed. ADLs: Patient declined ADLs this date as she already completed them earlier in the day. U/E: Patient completed wrist and shoulder AROM seated in bed with HOB elevated using weight of arm, 15 reps per exercise BUE. Pt completed wrist flexion/extension, wrist pronation/supination, elbow flexion, shoulder flexion, and shoulder internal/external rotation to promote increased strength and end urance for ADLs/functional transfers. Comments: Patient counted repetitions aloud and did not have any issues accurately keeping track ofprogress, no noted errors in counting, which is an improvement from previous session. Transfers: Bed: SBA supine to seated EOB with HOB elevated, CGA w/FWW [id number] Chair: CGA w/FWW [id number] Comments: per chart review, patient's hemoglobin was low and patient had an IV with iron during theOT session. Due to this, limited OOB activities/transfers. Patient ambulated ~3 feet CGA w/FWW fromEOB to chair with no LOB/SOB noted. Gait belt and gripper socks donned for all OOB activity. Patient was left sitting comfortably in chair at end of session, chair alarm in place. Call light, phone and bedside table placed within reach at end of session. Education provided on using call light and waiting for staff assistance prior to getting up. Patient verbalized understanding and is in agreement. Pain: 0/10 Location: Denied pain Education Education/Training provided: Role of OT, plan of care, UE exercises, functional transfers, discharge recommendations Learners: Patient Readiness: Acceptance Method of Training: Verbal education, demonstration Response: Verbalized/demonstrated understanding, will benefit from continued reinfocement Adaptive Equipment Recommendations Per chart review, reccomending shower chair & grab bars Plan to obtain adaptive equipment: To further assess. Goals Patient/Family Stated Goal for Session: none stated, agreeable to session. Short/group home Goals: Patient will: #1)[id number] tasks with MOD Awhile standing at the sink with AE PRN (met - continue goal for SBA) #2)complete UE dressing withMIN A and AE prn #3)complete LE dressing (ie pants, socks, and/or brief) withMOD A and AE PRN #4)will complete bed, toilet, chair, and tub/shower transfer with MOD A and AD PRN. (met - continue goal for SBA). #5)be oriented X3 [id number] sessions to increase awareness of surroundings (ongoing) #6)answer safety/judgement questions with80% accuracy to determine level of supervision required upon discharge #7)[id number] of continuous UE activity to increase physical conditioning for ADL and IADLtasks (ongoing) #8)be provided AE and education PRN prior to d/c. #9) pt will continue to participate in cognitive assessment to determine IND and safety.(ongoing) Patient continues to progress towards goals. Charges Treatment/Minutes: Today's Evaluation/Treatment Therapeutic activity: 18 minutes Total Treatment Time: 18 minutes Treatment Session 4/5 Weekly Assessment/Plan (Day 5): Continue with current POC. Therapist Alpha Pager Number: [phone] S RIBBON MACHINE OPERATOR Associated attestation - Nidia Boateng OTR/L - 09/27/2020 3:57 PM CSTI, JOO Colmenares/Chyna, have reviewed the above note and findings and agree with plan of care. JOO Colmenares/Chyna Alpha Pager [phone] [facility] - Marian Guthrie RN - 09/27/2020 2:16 PM CSTCASE MANAGEMENT / SOCIAL SERVICE TRANSITION PLAN - PROGRESS NOTE PLAN: Awaiting Medical Doctor Recommendations for Transition Will Continue to Follow for Support and Progression Towards Final Transition Plan BARRIERS TO TRANSITION: Medical barriers:. IV antibiotics to 12/13 - ID following [facility] DOES ACCEPTING FACILITY REQUIRE COVID TESTING BEFORE DISCHARGE: Other: TBD pending placement vs. Home COMMENTS / PATIENT AND FAMILY RESPONSE TO PLAN: CM reviewed the medical record and received pertinent updates from attending provider. CM to patients room to touch base. Patient is still on board with Possible discharge tomorrow to Swing Bed at [facility]. No new needs for CM at this time. CM will continue to follow and support daily with discharge planning. IS PATIENT'S ADMISSION ASSOCIATED WITH TIA, ISCHEMIC, OR HEMORRHAGIC STROKE?: No PATIENT / SUBSTITUTE DECISION MAKER GOAL UPON TRANSITION: First Choice: Swing Bed ANTICIPATED NEEDS UPON TRANSITION: Swing Bed RESOURCE(S) PROVIDED: Placement and Transportation ANTICIPATED MODE OF TRANSPORT UPON TRANSITION: [facility] (P: [phone]) ANTICIPATED MODE OF TRANSPORT TO AND FROM FOLLOW UP APPOINTMENTS: Family Car VERIFIED CORRECT PHARMACY IS ENTERED FOR DISCHARGE: No TRANSITION ROUNDING COMPLETED WITH THE FOLLOWING: Patient / family Computer Support Analyst Attending MD Bedside RN Discussed in person Discussed via telephone SIGNED: Marian Guthrie RN Case Managment [phone] Route # [id number] are Planning - Rodolfo Easley RD - 09/27/2020 1:41 PM GLASS RIBBON MACHINE OPERATOR Problem: IMBALANCED NUTRITION: LESS THAN BODY REQUIREMENTS Goal: NUTRITIONAL STATUS: NUTRIENT INTAKE Description: DEFINITION: Nutrient intake to meet metabolic needs. 1=Not adequate, 2=Slightly adequate, 3=Moderately adequate, 4=Substantially adequate, 5=Totally adequate. Outcome: NOC Rating 3 Flowsheets (Taken 09/27/2020 1786) Plan of care reviewed with: Patient Patient specific goal for the day: eat at least 50% of each meal and snack. Patient specific goal for the stay: meet >75% of kcal and protein needs Achieve goal for stay: By discharge Patient Progress: Continues to have reduced appetite. Tube feeds running overnight per home regimen.Updated supplements/snacks to BID. S RIBBON MACHINE OPERATOR Nutrition Team - Rodolfo Easley RD - 09/27/2020 11:46 AM CSTNutrition Therapy Follow Up - Nutrition Support Hospital Day: 16 days Active Problems: Pneumonia with lung abscess and pleural effusions/p Left VATS thoracotomy, drainage of pleural effusion, drainage of lung abscess, decortication of left lobe and flexible bronchoscopyon 11 PMH:Anxiety, depression, hypothyroidism, gastric bypass, hypoglycemic unawareness Recommendations: Encourage intake of small, frequent meals t/o the day Record % intake of each meal and snack TF per home regimen for hypoglycemia management ? Repleteat 25 mL/hr [id number] overnight(home TF formula not available at this facility). ? Could consider increasing rate and duration of tube feedings if po intake doesn't improve. NUTRITION ASSESSMENT Anthropometrics: Height: 154.9 cm (5' 1") Admission Wt: Weight: 67.2 kg (148 lb 2.4 oz) as of 09/10/2020 per bed scale Most Recent Wt: Weight: 62.8 kg (138 lb 8 oz) (09/27/20 0634) per electronic stand up scale Wt change: -4.4 kg, ~10 lbs, down ~8 lbs since previous assessment on 09/24. BMI: Body mass index is 26.17 kg/m. IBW: 48kg %IBW:1 40% (based onadmitweight) Usual Body Weight:150 pounds but does fluctuate Unintentional Weight Loss:No significant wt change notedPTA Estimated Needs: 1350-1450kcal/day([place] Jeor x1.1-1.2Using: Admission Weight) 65-80gm protein(1-1.2gm/kg Using:Admission Weight) Fluids per MD Estimated average intake over the last 3 days from po intake: 820 kcal and 39 gm protein, which meets: 61% of estimated kcal needs and 60% of estimated protein needs. Likely an overestimate, unknown % intake. Tube feeds providing an additional 250 kcal and 16 gm protein Intake Records: Intake Prior to Admit:Less than 75% of estimated energy requirements for greater than or equal to 1 month Patient reports that her appetite has been decreased over the past 3 weeks. No c/o of nausea/vomiting. Patient does have a G tube. Receives TF at only to help avoid hypoglycemia. G tube is currently clogged, was planning to have replaced on 09/10. Consumed small, frequent meals and snacks at home to help avoid hypoglycemia. Provide small, frequent meals and snacks per patient preference. Recommended to replace G tube and resume feedings when medically able. 09/27 - Pt on Compleat formula at home. Current Intake: Continued to have reduced appetite over the weekend. CurrentEnteral Feeding:Repleteat 25ml/hour for 8hours Expect to provide: ~250kcal (19% of estimated needs),16gm protein / day (25% of estimated needs),28gm carbohydrate, and 210mL free water Type of Feeding Tube / Location of Tip / Date Placed: g-tube placed on 09/23 Reason Enteral Nutrition Started:hypoglycemia management w/ hx of gastric bypass Physical Assessment: Edema: (per assessment rn at 0945 today) ? Generalized Edema None GI Assessment: ? Abdominal exam: WDL, per assessment rn at 0945 today. ? Promotility Medications: None at this time ? GRV: 0 mL over the last days. Do not check in patients who are also on an oral diet as it may clogtube. ? Stool Frequency: 2-3x/day over the last 3 days Wounds/Pressure Points: (per assessment rn at 0945 today) ? Coccyx Blanchable Redness Functional Status: PT/OT/THREAD ROLLER following Nutrition Focused Physical Exam: Completed by RD on 09/27 Below the Eye (fat): Slightly Bulged Fat Pads (Within Defined Limits) Episcopalian (muscle): Slight depression (mild-moderate)(Very mild) Buccal (fat): Full, round/filled out cheeks (Within defined limits) Clavicle (muscle): Bone not prominent (Within defined limits) Shoulder (muscle)/Deltoid muscle: Rounded curves at arm/shoulder/neck (Within defined limits) Triceps/Biceps (fat): Ample fat tissue obvious between folds of skin (Within defined limits) Hand/Interosseous (muscle): Flat to bulging muscle (Within defined limits) Calf (muscle): Well-developed bulb of muscle (Within defined limits) Nutritionally-Relevant Medications, Vitamins and Minerals: Antibiotics, Iron, Levothyroxine, Zofran Nutritionally-Relevant Biochemical Data: (09/27/2020) Glucose 91 at 0512 92 at 0115 92 at 2149 yesterday 82 at 1700 yesterday 111 at 1105 yesterday Allergies/Food Intolerance: [place] is allergic to penicillin; adhesives; aleve [gnp naproxen sodium];flagyl [metronidazole]; ibuprofen; mastisol; and morphine. Culturally Amish Needs: no INTERVENTIONS Encouraged adequate calories and optimal protein in small, frequent meals and snacks Will send snacks and supplements. Updated per request to BID. Completed [facility] EMR reviewed MONITORING/EVALUATION Monitor ability to consume and tolerate adequate intake to approximate estimated needs with accomodation of preferences and tolerances until intake is sustained within desirable limits Monitor I&O, weight trends, nutrition-related labs and medications, clinical status, and planof care r/t need for nutrition intervention and provide as warranted Monitor tube feeding intake, tolerance and nutritional status with regular f/u assessments. Adjust tube feeding as needed Nutrition Therapy will reassess every 1-[address], LRD Alpha Pager #[phone] hysical Therapy - Leticia Toro DPT - 09/27/2020 9:29 AM GLASS RIBBON MACHINE OPERATOR PHYSICAL THERAPY Acute Inpatient Treatment Note RECOMMENDATIONS Assessment: Patient tolerating increased activity but continues to fatigue easily. Patient is progressing towards goals. Daily activity recommendations: Up to chair for all meals, Walk in hallways 3- 4x/day with staff Anticipated D/C Service needs: Patient requires post acute PT upon discharge. At this time, patient tolerates low intensity therapy, however, has potential to progress to home with increased family support and HHPT pending continued progress and participation with physical therapy and completion of daily activity prescription. Will update discharge recommendation as appropriate. SUBJECTIVE Patient alert and agreeable to PT. Pain: At rest: Patient reports no pain., With activity: Patient reports no pain. OBJECTIVE Precautions: Fall risk Observation: in bed, in no acute distress Gait belt donned for all out of bed activity Vitals: Prior to activity: HR: 103, O2 Sats: 96% on RA Lab Results Component Value Date HEMOGLOBIN 7.5 (L) 09/27/2020 Functional Mobility: Bed mobility: independent Supine to Sit: independent Sit to Supine: not assessed Sit to/from Stand: standby assistance without assistive device Stand Pivot: standby assistance without assistive device Comments: Head of bed flat without bed rail. Gait: Ambulated ~200 feet in vo with FWW and stand-by assistance of 1. Ambulted ~40 feet in room without assistive device and contact guard assistance of 1. Stair Negotiation: Not assessed Balance Training: Sitting Balance: Good Standing Balance: Fair Functional Tests: 5x Rzo-td-Ediom Patient is able to perform 5 sit to stands in 17.34 seconds. >15 seconds is predictive of falls.Improved from previous session. Gait Speed: Patient was able to walk at a gait speed of 0.5 m/s. This indicates limited community ambultor. Speed Necessary for Community Function Household Ambulator 0.4m/s or less Limited Community Ambulator 0.4 m/s 0.8 m/s Community Ambulator .8 m/s 1.2 m/s Cross Stre[place] & Normal walking speed 1.2 m/s 1.6 m/s *Minimal Detectable Change - improvements of 0.1 m/s predicts improved health status/outcomes; same with 0.1 m/s indication of regression. Other: Patient performed IS x10, maximal of 875mL achieved. At end of session patient up in chair, mau alarm activated, call light within reach, encouraged patient to use call light for assistance Response to Activity: Modified Deo RPE: 3 Vitals: HR 116 bpm, O2 sats 91% on RA Patient Education: Patient was educated on goals of PT session, daily activity recommendations, and gait progression today through explanation. They accepted teaching and verbalized understanding and will need reinforcement. Interdisciplinary Communication: Discussed daily activity recommendations with patient's RN and update on current mobility status. Goals: Patient will be aware of equipment recommendations as indicated in note to allow for safe mobility. Ongoing Pt will transfer sit to/from supine independently. Ongoing Pt will transfer from sit to/from stand w/ supervision and equipment as needed to progress to safe household mobility. Ongoing Pt will be able to ambulate 300 ft w/ no AD independently to progress to safe functional mobility inthe home. Ongoing Patient will demonstrate adequate awareness of fall prevention tactics to reduce risk of falling. Ongoing PLAN Continue plan of care. Today's Treatment Gait Trainin minutes TOTAL TIMED CODES: 17 minutes TREATMENT TOTAL TIME: 17 minutes Mariana velazquez PT, DPT Alpha Pager: [phone] linical Team - Kisha Sarkar RN - 09/27/2020 4:48 AM CSTAlert and oriented x4, forgetful at times VSS , on 1L NC , sats >90 % Pt complained of headache , some relief with PRN tylenol NPO Bed alarm in place for safety Will continue to monitor are Planning - Kisha Sarkar RN - 09/27/2020 2:02 AM GLASS RIBBON MACHINE OPERATOR Problem: IMPAIRED GAS EXCHANGE Goal: RESPIRATORY STATUS Description: DEFINITION: Movement of air in and out of the lungs and exchange of carbon dioxide and oxygen at the alveolar level. 1=Severe deviation from normal range, 2=Substantial deviation from normal range, 3=Moderate deviation from normal range, 4=Mild deviation from normal range, 5=No deviationfrom normal range. Outcome: NOC Rating 4 Flowsheets (Taken 09/27/2020 0158) Plan of care reviewed with: Patient Patient specific goal for the day: get bronchoscopy done Patient specific goal for the stay: Pt will return to baseline. Achieve goal for stay: By discharge Patient Progress: VSS on 1L NC , sats >90 %, encouraging cough and deep breathe. Npo after midnight. Will continue to montior. S RIBBON MACHINE OPERATOR Care Planning - Pratibha Lawton RN - 09/26/2020 3:52 PM GLASS RIBBON MACHINE OPERATOR Problem: IMPAIRED GAS EXCHANGE Goal: RESPIRATORY STATUS Description: DEFINITION: Movement of air in and out of the lungs and exchange of carbon dioxide and oxygen at the alveolar level. 1=Severe deviation from normal range, 2=Substantial deviation from normal range, 3=Moderate deviation from normal range, 4=Mild deviation from normal range, 5=No deviationfrom normal range. Flowsheets (Taken 09/26/2020 0851) Initial Score: 4 Target Score: 5 Plan of care reviewed with: Patient Patient specific goal for the day: Titrate O2 needs Patient specific goal for the stay: Pt will return to baseline. Achieve goal for stay: By discharge Patient Progress: Patient desats to low 80's at RA, maintains above 90 with 1L/NC, encourage deep breathe and cough, ambulation, and use IS linical Team - Kisha Sarkar RN - 09/26/2020 2:12 AM CSTAlert and oriented x4, forgetful at times VSS , on 1L NC , sats >90 % Tube feeding running at 25 ml/hr, tolerating well Pt complained of abdominal pain , some relief with PRN tylenol Pt using call light appropriately , bed alarm in place for safety S RIBBON MACHINE OPERATOR Care Planning - Kisha Sarkar RN - 09/26/2020 12:23 AM GLASS RIBBON MACHINE OPERATOR Problem: IMBALANCED NUTRITION: LESS THAN BODY REQUIREMENTS Goal: NUTRITIONAL STATUS: NUTRIENT INTAKE Description: DEFINITION: Nutrient intake to meet metabolic needs. 1=Not adequate, 2=Slightly adequate, 3=Moderately adequate, 4=Substantially adequate, 5=Totally adequate. 09/26/2020 0018 by Kisha Sarkar RN Outcome: NOC Rating 4 Flowsheets (Taken 09/26/202017) Initial Score: 4 Target Score: 3 Plan of care reviewed with: Patient Patient specific goal for the day: Pt will tolerate feeding tube Patient specific goal for the stay: return to baseline Achieve goal for stay: By discharge Patient Progress: VSS on RA , Pt tolerating feed , denies nausea. Will continue to montior. S RIBBON MACHINE OPERATOR Care Planning - Pratibha Lawton RN - 09/25/2020 4:29 PM GLASS RIBBON MACHINE OPERATOR Problem: IMPAIRED PHYSICAL MOBILITY Goal: MOBILITY Description: DEFINITION: Ability to move purposefully in own environment independently with or without assistive device. 1=Severely compromised / Total assistance: Performs less than 25% of activity; 2=Substantially compromised / Maximal assistance: Performs 25-49% of activity; 3=Moderately compromised / Moderate assistance: Performs 50-74% of activity; 4=Mildly compromised / Modified independence: Needs assistive device, supervision, minimal contact,or safety is a concern; 5=Not compromised / Complete independence. Flowsheets (Taken 09/25/2020 0680) Initial Score: 4 Target Score: 5 Plan of care reviewed with: Patient Patient specific goal for the day: Ambulate in halls x 3, sit OOB to chair for all meals Patient specific goal for the stay: Regain muscle stamina, have control of balance and resume to baseline mobility Achieve goal for stay: By discharge Patient Progress: A&Ox4, VSS with Oxygen 1L/NC. Needs encouragement with activity. Ambulated x 2in halls and sat to the chair x 3 for meals. are Planning - Carmen Knowles RN - 09/25/2020 5:43 AM GLASS RIBBON MACHINE OPERATOR Problem: IMBALANCED NUTRITION: LESS THAN BODY REQUIREMENTS Goal: NUTRITIONAL STATUS: NUTRIENT INTAKE Description: DEFINITION: Nutrient intake to meet metabolic needs. 1=Not adequate, 2=Slightly adequate, 3=Moderately adequate, 4=Substantially adequate, 5=Totally adequate. Outcome: NOC Rating 4 Flowsheets (Taken 09/25/2020 4763) Initial Score: 3 Target Score: 3 Plan of care reviewed with: Patient Patient specific goal for the day: Pt will tolerate feding tube nutrition and food Patient specific goal for the stay: no nausea for the shift Patient Progress: Pt tolerated boost peach and clear liquids. Denied nausea, Will continue to assess linical Team - Pratibha Lawton RN - 09/24/2020 6:42 PM CSTPatient is alert and oriented x 4, on oxygen at 2L/NC. VSS . No acute event noted over the shift. Denies any pain. Continues to have IV abx. G tube in place, tube feeding overnight. Up with assist of one walker and gait belt. peech Therapy - Maria Teresa Wilhelm, BRYN - 09/24/2020 3:36 PM CST Speech Therapy Acute Care Cognitive Evaluation and Progress Note Assessment/ Impression Patient appears tolerant of current diet per self report, nsg notes and largely per EMR review of swallowing biomarkers. She demonstrated oral preparation consistent with her baseline (h/o jaw surgery, so typically takes her time and has trismus). She tolerated mixed bite-size and dry/crispy solids as well as thin liquids via straw with no overt s/s of aspiration observed during clinical trials today. Informal/non-standardized cognitive assessment was completed completed with patient demonstrating atlease mild to moderate impairment affecting short term memory, attention, problem solving/reasoning,and speed of processing, though is showing signs of improvement during conversation upon f/u (not directly targeted today). Patient would benefit from cognitive intervention to facilitate return to independence. Plan/ Recommendations Diet textures: Advance to regular solids; continue thin liquids Fully alert and upright for all PO. Meds with thin liquid Straws OK Stop intake and notify THREAD ROLLER with positive signs of aspiration (I.e. throat clearing, coughing, choking , or wet vocal quality) Speech therapy to follow 3-5x/week for diet tolerance, diet adjustments, video swallow study if indicated and cognitive/communication treatment. Recommend continued speech therapy post acute discharge, likely at low intensity setting. These recommendations are based upon todays assessment and may reduce, but cannot entirely eliminate this patients risk of aspiration. Subjective Patient admitted with community acquired pneumonia complicated with left empyema, s/p left VATS thoracotomy with drainage, acute hypoxic respiratory failure s/p extubation and acute delirium. Patient is alert, pleasant and cooperative with therapy efforts. She was conversant, oriented to time, place and situation reporting how surreeal her admission has been in "losing time" While intubation. She is showing good awareness/insight of her limitations from admission and need for ongoing reha b/recovery at [facility] in [place] upon acute d/c. No pain reported. Objective Dysphagia Treatment Patient is currently on dysphagia #6/soft solids and thin/regular liquids. No concerns per review ofnursing notes. Lung sounds clear/diminished, patient remains on 2L and is afebrile; supportive of diet tolerance. Reviewed current status, goals and speech POC; patient verbalized understanding and wishes to advance solid textures, though added she has trismus, modifies solids and eats at a slow rate at baseline with advanced solids 2/2 h/o bilateral jaw surgery. Patient as seated fully upright for self fed trials of thin liquids by straw, soft/mixed and regularsolids. Mastication slowed but functional/consistent with her baseline. No oral residue. No reflexive coughing observed. Patient piecemeal swallowed thin liquid from large diameter straw, though laryngeal movement was succinct/complete. Intermittent coughing observed in the absence of po- does not appear directly associated with oral intake. Goals Patient/family goal: to get better Portfolio Manager Goals: Patient will tolerate the least restrictive diet with no signs/symptoms of aspiration. Patient will demonstrate cognitive skills consistent with level of demands to facilitate the most independent functioning within the least restrictive environment. Short Term Goals: Patient will demonstrate recall and use of compensatory swallowing strategies for safe oral intake. Patient will participate in trials of upgraded textures with THREAD ROLLER only to determine safety with diet upgrade. Patient will participate in instrumental swallow assessment (FEES exam or VFSS) if clinically indicated or as recommended by THREAD ROLLER. Patient will complete functional money and time management tasks with 90% accuracy independently. Patient will demonstrate appropriate executive function skills across multiple tasks/activities with90% accuracy independently. Patient will complete (sustained, selective, divided, alternating) attention tasks with 90% accuracyindependently. Patient will recall novel information following (11/16/14) minute delay without cues to utilize external aids. Patient will complete functional problem solving tasks with 90% accuracy independently. Charges Dysphagia Treatment: 23 minutes Alpha Pager: [phone]: [facility]: [phone] are Planning - Elizabeth Rios RN - 09/24/2020 2:03 PM GLASS RIBBON MACHINE OPERATOR Problem: IMPAIRED GAS EXCHANGE Goal: RESPIRATORY STATUS Description: DEFINITION: Movement of air in and out of the lungs and exchange of carbon dioxide and oxygen at the alveolar level. 1=Severe deviation from normal range, 2=Substantial deviation from normal range, 3=Moderate deviation from normal range, 4=Mild deviation from normal range, 5=No deviationfrom normal range. Flowsheets (Taken 09/24/2020 9238) Initial Score: 4 Target Score: 5 Plan of care reviewed with: Patient Patient specific goal for the day: Titrate O2 needs Patient specific goal for the stay: Pt will return to baseline. Achieve goal for stay: By discharge Patient Progress: Patient desats to low 80's at RA, maintains above 90 with 2L/NC, encourage deep breathe and cough, ambulation, and use IS arian Reid RN - 09/24/2020 11:52 AM CSTCASE MANAGEMENT REFERRAL EDUCATION Patient in need of the following services: Transitional Care / Retirement Facility / Swing Bed Discussion of this need and/or printed listing of available agencies has been provided to patient/substitute decision maker. Opportunities have been given for questions to be asked and answered. Patient/Substitute decision maker agency preferences for services (list in order of preference): 1. [facility] Swing Bed 2. [facility] Swing Bed 3. [facility] Referrals Made: Profiled via [employer] to all SNFs within [address] of patients home town Medicare Comparison Information: Medicare guidelines require referring agencies to provide information regarding agency quality ratings. [facility] may assist with questions about facilities but cannot make recommendations. Patients and their families/decision makers are able to compare ratings of facilities at the following website: ttps://www.medicare.gov/txfev-ygwf-tdiqlfpbq/hgfg-ebtzmwe-ikylyol-[facility]-providers or you may call 1-800-MEDICARE Acceptance/Placement: [facility] shares necessary clinical information with potential agencies to allow them to screen patients for safe admission to their facilities. This information is shared via secure communication. Acceptance by a post-acute facility is dependent on many factors including space, care needs, staffing, and insurance coverage. Financial disclosure: Verification of ownership of any agency/facility is available in the above Medicare website. [facility] is affiliated with [facility]-owned home care, hospice, andskilled nursing facilities, including agencies with [facility] in the name and [facility]. Additional agencies may not have [employer] in their name. Medicare guidelines require [facility] to provide a written list of options for your desired care. Youwill be provided a copy if desired. A copy of this document will be given to patient/substitute decision maker as confirmation of conversation regarding referrals and placement options. Marian Guthrie RN Case Managment [phone] Route # [id number] ase Marian Nixon RN - 09/24/2020 11:41 AM CSTCASE MANAGEMENT / SOCIAL SERVICE TRANSITION PLAN - PROGRESS NOTE PLAN: Awaiting Medical Doctor Recommendations for Transition Will Continue to Follow for Support and Progression Towards Final Transition Plan BARRIERS TO TRANSITION: Medical barriers:. IV antibiotics to 10/24 - ID following X-rays Therapies CT surgery following Pain Management Labs DOES ACCEPTING FACILITY REQUIRE COVID TESTING BEFORE DISCHARGE: Other: TBD pending placement vs. Home COMMENTS / PATIENT AND FAMILY RESPONSE TO PLAN: CM reviewed the medical record and received pertinent updates from attending provider. Possible discharge over the weekend to Swing Bed at [facility] if Dr. Wharton will admit otherwise patient will remain inpatient until Sunday with admission under Dr. Lili Greer to the same facility. Patient and spouse aware of discharge plan. If weekend discharge occurs: Fax for orders is [phone] Nurse to Nurse is [phone] *Patient will need covid collected and resulted before discharge. Accepting provider was Dr. Huerta's phone number for MD to . Choice form has been completed. CM will continue to follow and support daily with discharge planning. IS PATIENT'S ADMISSION ASSOCIATED WITH TIA, ISCHEMIC, OR HEMORRHAGIC STROKE?: No PATIENT / SUBSTITUTE DECISION MAKER GOAL UPON TRANSITION: First Choice: Home Health: Bath Aid, Home Safety Evaluation, Nurse, Occupational Therapy and Physical Therapy Home: Family/Friend Support Second Choice: Retirement Facility Swing Bed Transitional Care ANTICIPATED NEEDS UPON TRANSITION: Retirement Facility Swing Bed RESOURCE(S) PROVIDED: Placement and Transportation ANTICIPATED MODE OF TRANSPORT UPON TRANSITION: Family Car ANTICIPATED MODE OF TRANSPORT TO AND FROM FOLLOW UP APPOINTMENTS: Family Car VERIFIED CORRECT PHARMACY IS ENTERED FOR DISCHARGE: No TRANSITION ROUNDING COMPLETED WITH THE FOLLOWING: Patient / family Computer Support Analyst Attending MD Bedside RN Discussed in person Discussed via telephone SIGNED: Marian Guthrie RN Case Managment [phone] Route # [phone] are Planning - Rodolfo Easley RD - 09/24/2020 11:27 AM GLASS RIBBON MACHINE OPERATOR Problem: IMBALANCED NUTRITION: LESS THAN BODY REQUIREMENTS Goal: NUTRITIONAL STATUS: NUTRIENT INTAKE Description: DEFINITION: Nutrient intake to meet metabolic needs. 1=Not adequate, 2=Slightly adequate, 3=Moderately adequate, 4=Substantially adequate, 5=Totally adequate. Outcome: NOC Rating 2 Flowsheets (Taken 09/24/2020 1125) Initial Score: 2 Target Score: 4 Plan of care reviewed with: Patient Patient specific goal for the day: eat at least 50% of each meal and snack Patient specific goal for the stay: Patient to meet >75% of estimated needs. Achieve goal for stay: By discharge Patient Progress: Pt reports continued poor appetite. Her G-tube was replaced yesterday. Will continue high protein pm snack. S RIBBON MACHINE OPERATOR Nutrition Team - Rodolfo Easley RD - 09/24/2020 11:09 AM CSTNutrition Therapy Follow Up - Nutrition Support Hospital Day: 13 days Active Problems: Pneumonia with lung abscess and pleural effusions/p Left VATS thoracotomy, drainage of pleural effusion, drainage of lung abscess, decortication of left lobe and flexible bronchoscopyon 09/13 PMH:Anxiety, depression, hypothyroidism, gastric bypass, hypoglycemic unawareness Recommendations: Encourage intake of small, frequent meals t/o the day TF per home regimen for hypoglycemia management ? Repleteat 25 mL/hr x87amkcy overnight(home TF formula not available at this facility). ? Could consider increasing rate and duration of tube feedings if po intake doesn't improve. NUTRITION ASSESSMENT Anthropometrics: Height: 154.9 cm (5' 1") Admission Wt: Weight: 67.2 kg (148 lb 2.4 oz) as of 09/10/2020 per bed scale Most Recent Wt: Weight: 66.5 kg (146 lb 9.6 oz) (09/24/20 0600) per electronic stand up scale BMI: Body mass index is 27.7 kg/m. IBW: 48kg %IBW:1 40% (based onadmitweight) Usual Body Weight:150 pounds but does fluctuate Unintentional Weight Loss:No significant wt change notedPTA Estimated Needs: 1350-1450kcal/day([place] Jeor x1.1-1.2Using: Admission Weight) 65-80gm protein(1-1.2gm/kg Using:Admission Weight) Fluids per MD Estimated average intake over the last 2 days from po intake: 580 kcal and 30 gm protein, which meets: 43% of estimated kcal needs and 46% of estimated protein needs. Intake Records: Intake Prior to Admit:Less than 75% of estimated energy requirements for greater than or equal to 1 month Patient reports that her appetite has been decreased over the past 3 weeks. No c/o of nausea/vomiting. Patient does have a G tube. Receives TF at only to help avoid hypoglycemia. G tube is currently clogged, was planning to have replaced on 09/10. Consumed small, frequent meals and snacks at home to help avoid hypoglycemia. Provide small, frequent meals and snacks per patient preference. Recommended to replace G tube and resume feedings when medically able. Current Intake: G-tube was replaced, and tube feeds were restarted overnight. Her appetite is still poor. She reports a hospital smell bothering her. Met <75% of est needs first 6 days, met needs from TF the next 4 days (per review of RN notes as volume not documented daily in I/Os), and has met <50% of needs the past 4 days. Current Enteral Feeding: Replete at 25 ml/hour for 8 hours Expect to provide: ~250 kcal (19% of estimated needs), 16 gm protein / day (25% of estimated needs), 28 gm carbohydrate, and 210 mL free water Type of Feeding Tube / Location of Tip / Date Placed: g-tube placed on 09/23 Reason Enteral Nutrition Started: hypoglycemia management w/ hx of gastric bypass Physical Assessment: Edema: (per assessment rn at 2129 yesterday) ? Generalized Edema None GI Assessment: ? Abdominal exam: WDL, per assessment rn at 2129 yesterday. ? Promotility Medications: None at this time ? GRV: not assessed ? Stool Frequency: 0-4x/day over the last 2 days Wounds/Pressure Points: (per assessment rn at 2129 yesterday) ? Coccyx Blanchable Redness ? Elbow Blanchable Redness ? Heel Blanchable Redness Functional Status: PT Following OT Following THREAD ROLLER Following Nutrition Focused Physical Exam: Completed by RD on 09/20 Below the Eye (fat): Slightly Bulged Fat Pads (Within Defined Limits) Episcopalian (muscle): Slight depression (mild-moderate)(Very mild) Buccal (fat): Full, round/filled out cheeks (Within defined limits) Clavicle (muscle): Bone not prominent (Within defined limits) Shoulder (muscle)/Deltoid muscle: Rounded curves at arm/shoulder/neck (Within defined limits) Ribs/Iliac Crest (fat): Ribs do not show, slight to no protrusion of iliac crest (Within Defined Limits) Triceps/Biceps (fat): Ample fat tissue obvious between folds of skin (Within defined limits) Hand/Interosseous (muscle): Flat to bulging muscle (Within defined limits) Thigh (muscle): Well-rounded, no bone prominence (Within defined limits) Calf (muscle): Well-developed bulb of muscle (Within defined limits) Nutritionally-Relevant Medications, Vitamins and Minerals: Antibiotics, Levothyroxine Nutritionally-Relevant Biochemical Data: (09/24/2020) Glucose 107 H Potassium 3.3 L BUN 3 L Albumin 2.5 L Allergies/Food Intolerance: [place] is allergic to penicillin; adhesives; aleve [gnp naproxen sodium];flagyl [metronidazole]; ibuprofen; mastisol; and morphine. Culturally Amish Needs: no INTERVENTIONS Encouraged adequate calories and optimal protein in small, frequent meals and snacks Will continue Guamanian yogurt for pm snack Provided tube feeding recommendations EMR reviewed MONITORING/EVALUATION Monitor ability to consume and tolerate adequate intake to approximate estimated needs with accomodation of preferences and tolerances until intake is sustained within desirable limits Monitor I&O, weight trends, nutrition-related labs and medications, clinical status, and planof care r/t need for nutrition intervention and provide as warranted Monitor tube feeding intake, tolerance and nutritional status with regular f/u assessments. Adjust tube feeding as needed Nutrition Therapy will reassess every 1-[address], LRD Alpha Pager #[phone] hysical Therapy - Debra Aguilar PT - 09/24/2020 10:13 AM CST ACUTE PHYSICAL THERAPY TREATMENT NOTE RECOMMENDATIONS Assessment: Pt tolerated therapy session fairly well. Presents with deficits in strength, mobility, and decreased activity tolerance. Pt would benefit from low intensity setting. Act Rx: Up to chair for all meals. Ambulate in vo with FWW, assist of 1, 3x/day SUBJECTIVE Agreeable to PT session Pain: Reports no pain throughout. OBJECTIVE Observation: Pt in bed upon arrival and left up in room chair at end of session. Call light, tray table, and mau alarm on. Functional Mobility training: Bed mobility: Na Supine to Sit: stand-by assistance Sit to Supine: Na Sit to/from Stand: SBA Ambulation: 100 ft x2 w/ 1 seated rest break. Slow gait, decreased step length, and fairly steady. Pt fatiguedw/ activity. Activity: Had pt do 10 reps of incentive spirometry. 10 sit/stands w/ stand-by assistance 5x [id number] Patient is able to perform 5 sit to stands in 31 seconds. Interpretation: > 15 seconds = Fall risk Other: Assisted pt in restroom - pt requiring mod w/ kemal-cares. ASSESSMENT SUMMARY/RECOMMENDATIONS Please see Above PROGRESS TOWARDS GOALS: Patient will be aware of equipment recommendations as indicated in note to allow for safe mobility. Ongoing Pt will transfer sit to/from supine with stand-by assistance - MET; New goal Pt will transfer sit to/from supine independently. Ongoing Pt will transfer from sit to/from stand w/ supervision and equipment as needed to progress to safe household mobility. Ongoing Patient will be able to ambulate 75 feet using FWW with minimal assistance to progress to safe functional mobility in the home. MET; Updated goal: Pt will be able to ambulate 300 ft w/ no AD independently to progress to safe functional mobility in the home. Ongoing Patient will demonstrate adequate awareness of fall prevention tactics to reduce risk of falling. Ongoing PLAN Cont POC. Total Time Spent: PT = 28 minutes TherAct = 28 min Gait = 0 min TherEx = 0 min Neuromuscular re-ed = 0 min Physical Therapist: Darline Davenport PT, MPT Alpha Pager: [phone] S RIBBON MACHINE OPERATOR Clinical Team - Abelardo Lundberg RN - 09/24/2020 4:35 AM CSTTF via G-tube restarted this shift with no complications. Pt more oriented and less confusion noted.On 2 L of O2 overnight after noted desat while asleep. Other VSS. Ambulating in room with steady gait. Pt denies pain.Will ctm are Planning - Abelardo Lundberg RN - 09/24/2020 2:15 AM GLASS RIBBON MACHINE OPERATOR Problem: IMPAIRED GAS EXCHANGE Goal: RESPIRATORY STATUS Description: DEFINITION: Movement of air in and out of the lungs and exchange of carbon dioxide and oxygen at the alveolar level. 1=Severe deviation from normal range, 2=Substantial deviation from normal range, 3=Moderate deviation from normal range, 4=Mild deviation from normal range, 5=No deviationfrom normal range. Outcome: NOC Rating 3 Flowsheets (Taken 09/24/2020209) Initial Score: 3 Target Score: 5 Plan of care reviewed with: Patient Patient specific goal for the day: Titrate O2 needs Patient specific goal for the stay: Pt will return to baseline. Patient Progress: Pt on RA -2 L of O2. Encouraging use of IS, deep cough breathing and mobility. Will monitor Problem: IMBALANCED NUTRITION: LESS THAN BODY REQUIREMENTS Goal: NUTRITIONAL STATUS: NUTRIENT INTAKE Description: DEFINITION: Nutrient intake to meet metabolic needs. 1=Not adequate, 2=Slightly adequate, 3=Moderately adequate, 4=Substantially adequate, 5=Totally adequate. Flowsheets (Taken 09/24/2020209) Initial Score: 3 Target Score: 5 Plan of care reviewed with: Patient Patient specific goal for the day: Pt will tolerate TF Patient specific goal for the stay: Patient to meet >75% of estimated needs. Patient Progress: Pt was able to consume 75% of her dinner. TF restarted at 20cc/hr tonight with thegoal rate of 25 cc/hr. Pt tolerating TF with no complications. Will ctm. linical Team - Sandoval Cisneros RN - 09/23/2020 7:00 PM CSTA&Ox4. Forgetful at times. See flowsheet for vital signs. Patient on RA to 2L O2 via NC. Pt had g-tube replaced this afternoon. Bed alarm in place for safety. are Planning - Sandoval Cisneros RN - 09/23/2020 5:24 PM GLASS RIBBON MACHINE OPERATOR Problem: IMPAIRED GAS EXCHANGE Goal: RESPIRATORY STATUS Description: DEFINITION: Movement of air in and out of the lungs and exchange of carbon dioxide and oxygen at the alveolar level. 1=Severe deviation from normal range, 2=Substantial deviation from normal range, 3=Moderate deviation from normal range, 4=Mild deviation from normal range, 5=No deviationfrom normal range. 09/23/20201724 by Sandoval Cisneros RN Outcome: NOC Rating 3 Flowsheets (Taken 09/23/20201724) Plan of care reviewed with: Patient Patient specific goal for the day: Pt will continue to improve in O2 status. Patient specific goal for the stay: Pt will return to baseline. Achieve goal for stay: By discharge Patient Progress: Patient on RA until this afternoon. Patient then requiring to be on 2L of O2 via NC to maintain SpO2 greater than 90%. Patient denying any SOB or chest pain hysical Therapy - Carmen Aguirre PT - 09/23/2020 4:33 PM CSTUnavailable when PT attempted at 15:12. Will try tomorrow. Carmen Aguirre PT ostOp Progress Note - Malcolm Martínez MD - 09/23/2020 2:58 PM CSTImmediate Post-Operative / Post Procedure Progress Note Interventional Radiologist: Malcolm Martínez MD Pre-Operative Diagnosis: Displaced G tube Post-Operative Diagnosis: Same as pre-operative diagnosis. Anesthesia Type: local Interventional Procedure: fluoro guided G tube replacement with tract dilation Procedural Findings: G tube in stomach Specimen: n/a Estimated Blood Loss: minimal Tubes/Drains/Needle: AMT G button Complications: none Postoperative Condition: stable Malcolm Martínez MD ccupational Therapy - Aria Thomas STUDENT - 09/23/2020 11:51 AM CST Occupational Therapy Acute Care Progress Note Impression/Recommendations Recommend patient discharge to low intensity setting upon medical stability. Patient presents with general deconditioning and decreased functional cognition. Patient completing observed ADLs with setup assist seated, no transfers were attempted this date. Acute OT services to continue with POC and address independence with ADLs, functional transfers, strength/activity tolerance, and safety/cognition required for safe occupational performance. Will update discharge recommendations as able/ appropriate. Objective Cognition: Alert and Ox4 Comments: patient friendly, conversational, and agreeable to OT session. When asked about discharge plans, patient stated she would like to go a halfway to "get stronger" and OT agreed. During therapeutic exercise, patient appeared confused, OT asked patient to count repetitions aloud and patient periodically lost track/skipped numbers. Need to further assess functional cognition. Patient alsodemonstrated delayed processing time throughout session. ADLs: Feeding: Observed setup assist drinking w/straw Grooming: Setup face washing seated in bed with HOB elevated. Patient completed g/h earlier in theday. Toileting: Denied need at this time. U/E: Patient completed wrist and shoulder AROM seated in bed with HOB elevated using 2lb weight, 15 reps per exercise BUE. Pt completed wrist flexion/extension, wrist pronation/supination, elbow flexion, shoulder flexion, and shoulder internal/external rotation to promote increased strength and endura nce for ADLs/functional transfers. Comments: Patient reported R UE pain, so 2lb weight only used during wrist exercises, the rest of the exercises used weight of arm. During therapeutic exercise, patient appeared confused, OT asked patient to count repetitions aloud and patient periodically lost track/skipped numbers. Need to further assess functional cognition. Transfers: no transfers attempted this date, patient declined. Patient was left laying supine in bed with HOB elevated, bed alarm in place. Call light, phone and bedside table placed within reach at end of session. Education provided on using call light and waiting for staff assistance prior to getting up. Patient verbalized understanding and is in agreement. Pain: 5/10 Location: R arm Education Education/Training provided: Role of OT, plan of care, UE exercises, ADLs, discharge recommendations Learners: Patient Readiness: Acceptance Method of Training: Verbal education, demonstration Response: Verbalized/demonstrated understanding, will benefit from continued reinfocement Adaptive Equipment Recommendations Per chart review, reccomending shower chair & grab bars Plan to obtain adaptive equipment: To further assess. Goals Patient/Family Stated Goal for Session: none stated, agreeable to session. Short/group home Goals: Patient will: #1)[id number] tasks with MOD Awhile standing at the sink with AE PRN (met - continue goal for SBA) #2)complete UE dressing withMIN A and AE prn #3)complete LE dressing (ie pants, socks, and/or brief) withMOD A and AE PRN #4)will complete bed, toilet, chair, and tub/shower transfer with MOD A and AD PRN. (met - continue goal for SBA). #5)be oriented X3 [id number] sessions to increase awareness of surroundings (ongoing) #6)answer safety/judgement questions with80% accuracy to determine level of supervision required upon discharge #7)[id number] of continuous UE activity to increase physical conditioning for ADL and IADLtasks (ongoing) #8)be provided AE and education PRN prior to d/c. #9) pt will continue to participate in cognitive assessment to determine IND and safety.(ongoing) Patient continues to progress towards goals. Charges Treatment/Minutes: Today's Evaluation/Treatment Self care/home management: 10 minutes Therapeutic exercise: 13 minutes Total Treatment Time: 23 minutes Treatment Session / Weekly Assessment/Plan (Day 5): Continue with current POC. Therapist Alpha Pager Number [phone] S RIBBON MACHINE OPERATOR Associated attestation - Karl Guillory OTR/L - 09/23/2020 1:28 PM CSTToday's acute OT services were supervised and directed by SUSIE Marin. I have reviewed the above note and findings and agree with the plan of care. SUSIE Marin Pager #[phone] [facility] - Marian Guthrie RN - 09/23/2020 11:18 AM CSTCASE MANAGEMENT / SOCIAL SERVICE TRANSITION PLAN - PROGRESS NOTE PLAN: Awaiting Medical Doctor Recommendations for Transition Will Continue to Follow for Support and Progression Towards Final Transition Plan BARRIERS TO TRANSITION: Medical barriers:. IV antibiotics to 12/13 - ID following X-rays Therapies CT surgery following Pain Management Labs DOES ACCEPTING FACILITY REQUIRE COVID TESTING BEFORE DISCHARGE: Other: TBD pending placement vs. Home COMMENTS / PATIENT AND FAMILY RESPONSE TO PLAN: CM reviewed the medical record and received pertinent updates from attending provider. CM phoned thepatient room to review placement options vs. Home health with antibiotics from [facility]. Patient would really like to be able to go home with therapies. CM will continue to monitor therapy notes for recommendations. [facility] = $15 per day for supplies and $47 per week for medication(rocephin 2000mg q 24) = $152 per week. CM also phoned the patients spouse again today to share the same. Spouse would really prefer patientto return home as well. CM will continue to follow and support daily with discharge planning. IS PATIENT'S ADMISSION ASSOCIATED WITH TIA, ISCHEMIC, OR HEMORRHAGIC STROKE?: No PATIENT / SUBSTITUTE DECISION MAKER GOAL UPON TRANSITION: First Choice: Home Health: [facility], Home Safety Evaluation, Nurse, Occupational Therapy and Physical Therapy Home: Family/Friend Support Second Choice: Retirement Facility Swing Bed Transitional Care ANTICIPATED NEEDS UPON TRANSITION: Home Health: [facility], Home Safety Evaluation, Nurse, Occupational Therapy and Physical Therapy RESOURCE(S) PROVIDED: Placement ANTICIPATED MODE OF TRANSPORT UPON TRANSITION: Family Car ANTICIPATED MODE OF TRANSPORT TO AND FROM FOLLOW UP APPOINTMENTS: Family Car VERIFIED CORRECT PHARMACY IS ENTERED FOR DISCHARGE: No TRANSITION ROUNDING COMPLETED WITH THE FOLLOWING: Patient / family Computer Support Analyst Attending MD Bedside RN Discussed in person Discussed via telephone SIGNED: Marian Guthrie RN Case Managment [phone] Route # [id number] linical Team - Emily Burgos RN - 09/23/2020 12:17 AM CSTI have read and validate the accuracy of the student nurse April Diaz's documentation for Niles Shearer for 09/23/2020. are Planning - April Diaz STUDENT - 09/22/2020 10:39 PM GLASS RIBBON MACHINE OPERATOR Problem: IMPAIRED GAS EXCHANGE Goal: RESPIRATORY STATUS Description: DEFINITION: Movement of air in and out of the lungs and exchange of carbon dioxide and oxygen at the alveolar level. 1=Severe deviation from normal range, 2=Substantial deviation from normal range, 3=Moderate deviation from normal range, 4=Mild deviation from normal range, 5=No deviationfrom normal range. Outcome: NOC Rating 3 Flowsheets (Taken 09/22/2020 3171) Initial Score: 3 Target Score: 5 Plan of care reviewed with: Patient Patient specific goal for the day: Pt will continue to improve in O2 status. Patient specific goal for the stay: Pt will return to baseline. Achieve goal for stay: By discharge Patient Progress: Pt is on 2 L of O2 via NC. spO2 > than 92%. Monitoring will continue. S RIBBON MACHINE OPERATOR Clinical Team - April Diaz STUDENT - 09/22/2020 10:09 PM CSTPt is vitally stable. Pt is A&O x4 however is still confused. Pt is on 2 L of O2. Pt's BS at 2033 was 56. Paged on-call hospitalist. Pt was given juice. BS was rechecked 15 mins later and went up to 119. Continued to check BS every 2 hours and received sips of orange juice throughout the night. Pthad 3 BM's and was incontinent twice. Up with 1 with walker. Pt is also on the bed alarm. Call lightis within reach. Monitoring will continue. upplemental Progress Note - Daneille Alonso APRN-CNP - 09/22/2020 9:33 PM CSTTo recheck BS and see if it's not going down due to it very low at 57 even if it went up to 119 after a juice. @2145: Blood sugar 96 now, will have the patient eat a snack. ase Mgmt - Marian Guthrie RN - 09/22/2020 3:33 PM CSTCASE MANAGEMENT / SOCIAL SERVICE TRANSITION PLAN - PROGRESS NOTE PLAN: Awaiting Medical Doctor Recommendations for Transition Will Continue to Follow for Support and Progression Towards Final Transition Plan BARRIERS TO TRANSITION: Medical barriers:. IV antibiotics to 12/13 - ID following X-rays Therapies CT surgery following Pain Management Labs DOES ACCEPTING FACILITY REQUIRE COVID TESTING BEFORE DISCHARGE: Other: TBD pending placement vs. Home COMMENTS / PATIENT AND FAMILY RESPONSE TO PLAN: Cm reviewed the medical record and received pertinent updates from attending provider. SAEED phoned thepatient to talk about potential placement for therapies at discharge. Patient thinks it may be a good idea but is not sure that they can afford the fees associated with their insurance. CM encouraged the patient to work with Therapies as hard as she can and maybe would be a better option for her atdischarge. CM informed the patient that home infusion would not be covered under her insurance policy. This scenario writer will get a quote from [facility] for home infusion. Closest infusion center would be 30 minutes from the patients home and with her spouse working daily infusion center trips would cau se a hardship. Patient verbalized understanding. Cm also phoned the patients spouse and he agrees with the comments patient made regarding financial and transportation stressors. ND screen and LOC completed today. CM will continue to follow and support daily with discharge planning. IS PATIENT'S ADMISSION ASSOCIATED WITH TIA, ISCHEMIC, OR HEMORRHAGIC STROKE?: No PATIENT / SUBSTITUTE DECISION MAKER GOAL UPON TRANSITION: First Choice: Home: Family/Friend Support Second Choice: Home Health: [facility], Home Safety Evaluation, Nurse, Occupational Therapy and Physical Therapy Retirement Facility ANTICIPATED NEEDS UPON TRANSITION: Home Health: [facility], Home Safety Evaluation, Nurse, Occupational Therapy and Physical Therapy Retirement Facility RESOURCE(S) PROVIDED: nothing needed at this time ANTICIPATED MODE OF TRANSPORT UPON TRANSITION: Family Car ANTICIPATED MODE OF TRANSPORT TO AND FROM FOLLOW UP APPOINTMENTS: Family Car VERIFIED CORRECT PHARMACY IS ENTERED FOR DISCHARGE: No TRANSITION ROUNDING COMPLETED WITH THE FOLLOWING: Patient / family Computer Support Analyst Attending Bedside RN Discussed in person Discussed via telephone SIGNED: Marian Guthrie RN Case Managment [phone] Route # [id number] peech Therapy - Bassam Pruitt SLP - 09/22/2020 2:55 PM CST Speech Therapy Acute Care Cognitive Evaluation and Progress Note Assessment/ Impression Patient appears tolerant of current diet with no overt s/s of aspiration observed or reported per chart review. A video swallow study is an option for further assessment of pharyngeal phase and aspiration risk if concerns with respiratory status. Informal/non-standardized cognitive assessment completed. Patient demonstrates at lease mild to moderate impairment affecting short term memory, attention, problem solving/reasoning, and speed of processing. Patient would benefit from cognitive intervention to facilitate return to independence. Plan/ Recommendations Diet textures: Continue dysphagia #6/soft solids and thin/regular liquids Fully alert and upright for all PO. Meds 1 at a time with thin liquid Straws OK Assist with set up and prn with intake Stop intake and notify THREAD ROLLER with positive signs of aspiration (I.e. throat clearing, coughing, choking , or wet vocal quality) Speech therapy to follow 3-5x/week for diet tolerance, diet adjustments, video swallow study if indicated and cognitive/communication treatment. Recommend continued speech therapy post acute discharge, likely at low intensity setting. . These recommendations are based upon todays assessment and may reduce, but cannot entirely eliminate this patients risk of aspiration. Subjective Patient admitted with community acquired pneumonia complicated with left empyema, s/p left VATS thoracotomy with drainage, acute hypoxic respiratory failure s/p extubation and acute delirium. Patient is alert, pleasant and sitting up in chair. She appears drowsy but is able to maintain alertness independently. No pain reported. Patient acknowledges confusion today, noting recent difficulty. Objective Dysphagia Treatment Patient is currently on dysphagia #6/soft solids and thin/regular liquids. No concerns per review ofnursing notes. Lung sounds clear/diminished, patient remains on 2L and is afebrile; supportive of diet tolerance. Reviewed current status, goals and speech POC; patient verbalized understanding. Patient trialed thin liquids, soft/mixed and regular solids. Mastication slow but functional. No oral residue. No reflexive coughing observed. Single swallows per bolus. Intermittent coughing observed in the absence of po; does not appear directly associated with oral intake. Cognitive Assessment ORIENTATION Orientation (Cognistat Scale) (WFL=10-12; Mild=7-9; Moderate=5-6; Severe= 0-4) 09/23 MEMORY Episodic recall (WFL = 9/10) 05/21 Item Recall (3 items) Immediate: 3/3 Delayed: 1/3 ATTENTION Attention Sustained attention Months in reverse: 03/23 Alternating attention Counting backwards by 7:unable VERBAL PROBLEM SOLVING Routine/ Simple 2/3 Functional Math 0/3 VERBAL EXPRESSION Naming to Description 4/5 AUDITORY COMPREHENSION Commands 2-step: 3/3 Complex: 2/3 Goals Patient/family goal: to get better Longterm Goals: Patient will tolerate the least restrictive diet with no signs/symptoms of aspiration. Patient will demonstrate cognitive skills consistent with level of demands to facilitate the most independent functioning within the least restrictive environment. Short Term Goals: Patient will demonstrate recall and use of compensatory swallowing strategies for safe oral intake. Patient will participate in trials of upgraded textures with THREAD ROLLER only to determine safety with diet upgrade. Patient will participate in instrumental swallow assessment (FEES exam or VFSS) if clinically indicated or as recommended by THREAD ROLLER. Patient will complete functional money and time management tasks with 90% accuracy independently. Patient will demonstrate appropriate executive function skills across multiple tasks/activities with90% accuracy independently. Patient will complete (sustained, selective, divided, alternating) attention tasks with 90% accuracyindependently. Patient will recall novel information following (11/16/14) minute delay without cues to utilize external aids. Patient will complete functional problem solving tasks with 90% accuracy independently. Charges Total Time: 25 minutes Dysphagia Treatment- 10 minutes Cognitive Evaluation- 15 minutes Alpha Pager: [phone] [place]: [facility]: [phone] S RIBBON MACHINE OPERATOR Occupational Therapy - Mayi Maldonado OTR/Chyna - 09/22/2020 2:50 PM GLASS RIBBON MACHINE OPERATOR Occupational Therapy Acute Care Progress Note Impression/Recommendations Recommend low intensity therapy setting at this time. However hopeful that patient will continue to progress with therapy during acute stay and be able to return home with assistance from spouse and HHvs OP OT. Pt presents with deficits in functional cognition, functional transfers, UE strength, acitivity tolerance, ADL completion, and functional balance. OT will continue to follow to address deficits and address pt's overall function as well as independence. OT will update recommendations and goals as able. Objective Cognition: Patient is oriented to name, , month, year, and place. Pt unable to correctly identify current date - re-orientation provided. Pt demonstrates delayed responses and confusion per chart. Will continue to assess. Oxygen Level: Pt on 2L supplemental O2. ADLs: Feeding: Independent Grooming: Pt able to complete brushing teeth, rinsing mouth, and combing hair while standing at sink with FWW positioned in front of her with SBA-CGA. Patient required a seated rest break on commode chair prior to beginning grooming tasks, due to fatigue. Toileting: Denied need at this time. Transfers: Bed: Pt completed sit >< stand with FWW and CGA. Completed x10 to work on endurance (efforful at times to complete - slow). SBA to complete sit to supine. Chair: CGA with FWW to complete sit to stand. Toilet: Not assessed this date. Comments: pt ambulated in room this date with CGA and use of FWW - pt demonstrated frequently running into items on her right side, however self- corrects. Slow to move and fatigues easily. No LOB. Patient was in chair when OT arrived this date. Ambulated to/from chair, around room, standing at sink, and into bed, requiring CGA with FWW. At the end of the session, patient was left seated safely in bed with bed alarm activated. Call light, phone, and side table were all placed within patient reach. Informed to call a nurse if needing to get up or any additional assistance. Pt verbalized understanding. Pain: 12/22 Location: Back Education Education/Training provided: Role of OT, plan of care, transfer training, safety strategies, goals, discharge recommendations. Learners: Patient Readiness: Acceptance Method of Training: Verbal education, demonstration Response: Verbalized/demonstrated understanding, will benefit from continued reinfocement Adaptive Equipment Recommendations shower chair and grab bars Plan to obtain adaptive equipment: To further assess. Goals Patient/Family Stated Goal for Session: none stated, agreeable to session. Short/group home Goals: Patient will: #1)[id number] tasks with MOD Awhile standing at the sink with AE PRN (met - continue goal for SBA) #2)complete UE dressing withMIN A and AE prn #3)complete LE dressing (ie pants, socks, and/or brief) withMOD A and AE PRN #4)will complete bed, toilet, chair, and tub/shower transfer with MOD A and AD PRN. (met - continue goal for SBA). #5)be oriented X3 [id number] sessions to increase awareness of surroundings (ongoing) #6)answer safety/judgement questions with80% accuracy to determine level of supervision required upon discharge #7)[id number] of continuous UE activity to increase physical conditioning for ADL and IADLtasks (ongoing) #8)be provided AE and education PRN prior to d/c. #9) pt will continue to participate in cognitive assessment to determine IND and safety. Patient continues to progress towards goals. Charges Treatment/Minutes: Today's Evaluation/Treatment Self care/home management: 10 minutes Therapeutic activity: 13 minutes Total Treatment Time: 23 minutes Treatment Session / Weekly Assessment/Plan (): Continue POC. Therapist Alpha Pager Number [phone] are Planning - Rodolfo Easley RD - 09/22/2020 2:39 PM GLASS RIBBON MACHINE OPERATOR Problem: IMBALANCED NUTRITION: LESS THAN BODY REQUIREMENTS Goal: NUTRITIONAL STATUS: NUTRIENT INTAKE Description: DEFINITION: Nutrient intake to meet metabolic needs. 1=Not adequate, 2=Slightly adequate, 3=Moderately adequate, 4=Substantially adequate, 5=Totally adequate. Outcome: NOC Rating 1 Flowsheets (Taken 09/22/2020 2198) Plan of care reviewed with: Patient Patient specific goal for the stay: Patient to meet >75% of estimated needs. Achieve goal for stay: By discharge Patient Progress: Not much appetite today. Pt pulled feeding tube this morning. S RIBBON MACHINE OPERATOR Physical Therapy - Darline Davenport MPT - 09/22/2020 2:21 PM CST RECOMMENDATIONS Assessment: Improved alertness and participation today. Some confusion, but patient aware of it. Demonstrates weakness and decreased tolerance to activity warranting cont PT. Will need post-acute PT as well. If continues to progress, may be able to return home with HH and progression to OP PT. Anticipate patient will need assist at home, so discharge disposition will be dependant on that. Act Rx: Up to chair for all meals. Ambulate in vo with FWW, assist of 1, 3x/day SUBJECTIVE Agreeable to PT session Cognition: grossly alert and oriented x 4 at time of PT. Had been confused earlier in day, pt awarethat she was. Reports some pain in thorax with rolling side to side. OBJECTIVE Observation: in chair alert, no acute distress upon arrival. Functional Mobility training: Bed mobility: Able to scoot laterally with effort, unable to fully roll side to side due to reported pain Supine to Sit: TAWNYA x 1 Sit to Supine: SBA x 1 with effort Sit to/from Stand: SBA Ambulation: 65' x 1 FWW, CGA; 40'x1, CGA. Therex: Educated on use of incentive spirometry. Multiple cues for slow inhale, tendency to use on exhale.Note written as reminder. Performed x 5 O2 after activity on RA = 85% Provided 2L supplemental O2, informed nursing who was agreeable. O2 sats increased to 94% with O2 ASSESSMENT SUMMARY/RECOMMENDATIONS Please see Above PROGRESS TOWARDS GOALS: Patient will be aware of equipment recommendations as indicated in note to allow for safe mobility. NOT YET MET Patient will transfer sit to/from supine with minimal assistance. -MET New goal - bed mobility and transfers with SBA Patient will transfer from sit to/from stand with minimal assistance and equipment as needed to progress to safe household mobility. MET New goal - sit to stand with supervision Patient will be able to ambulate 75 feet using FWW with minimal assistance to progress to safe functional mobility in the home. PROGRESSING Patient will demonstrate adequate awareness of fall prevention tactics to reduce risk of falling. NOT YET MET PLAN Cont POC. Total Time Spent: PT = 25 minutes TherAct = 15 min Gait = 0 min TherEx = 10 min Neuromuscular re-ed = 0 min Physical Therapist: Darline Davenport PT, MPT Alpha Pager: [phone] utrition Team - Rodolfo Easley RD - 09/22/2020 2:16 PM CSTNutrition Therapy Follow Up - Nutrition Support Hospital Day: 11 days Active Problems: Pneumonia with lung abscess and pleural effusions/p Left VATS thoracotomy, drainage of pleural effusion, drainage of lung abscess, decortication of left lobe and flexible bronchoscopyon 09/13 PMH: Anxiety, depression, hypothyroidism, gastric bypass, hypoglycemic unawareness Recommendations: Encourage intake of small, frequent meals t/o the day Resume TF per home regimen when able. ? Repleteat 25 mL/hr x 10 hours overnight(home TF formula not available at this facility). Monitor closely for s/s of hypoglycemia. Pt's overnight tube feedings are to prevent hypoglycemia. Tube feeding was pulled this morning. NUTRITION ASSESSMENT Anthropometrics: Height: 154.9 cm (5' 1") Admission Wt: Weight: 67.2 kg (148 lb 2.4 oz) as of 09/10/2020 per bed scale Most Recent Wt: Weight: 69.5 kg (153 lb 3.2 oz) (09/22/20 0526) per electronic stand up scale BMI: Body mass index is 28.95 kg/m. IBW: 48 kg %IBW: 140% (based on admit weight) Usual Body Weight: 150 pounds but does fluctuate Unintentional Weight Loss:No significant wt change notedPTA Estimated Needs: 1350-1450kcal/day([place] Jeor x1.1-1.2Using: Admission Weight) 65-80gm protein(1-1.2gm/kg Using:Admission Weight) Fluids per MD Estimated average intake over the last 2 days: 100 kcal and 5 gm protein, which meets: 7% of estimated kcal needs and 8% of estimated protein needs. Intake Records: Intake Prior to Admit: Less than 75% of estimated energy requirements for greater than or equal to 1month Patient reports that her appetite has been decreased over the past 3 weeks. No c/o of nausea/vomiting. Patient does have a G tube. Receives TF at HS only to help avoid hypoglycemia. G tube is currently clogged, was planning to have replaced on 09/10. Consumed small, frequent meals and snacks at home to help avoid hypoglycemia. Provide small, frequent meals and snacks per patient preference. Recommended to replace G tube and resume feedings when medically able. Current Intake: Overnight tube feeding started last night. She pulled her tube with about an hour left of scheduled feed this morning. Appetite is poor. Current Diet: Level 6 Soft & Bite Sized (NDD3); Thin Liquids Current Enteral Feeding: Replete at 25 ml/hour for 8 hours Expect to provide: ~250 kcal (19% of estimated needs), 16 gm protein / day (25% of estimated needs), 28 gm carbohydrate, and 210 mL free water Type of Feeding Tube / Location of Tip / Date Placed: HAZEL-SAGASTUME tube pulled by pt on 09/22. Needs to be replaced Reason Enteral Nutrition Started: Inability to take sufficient po, hypoglycemia management w/ hx of gastric bypass Physical Assessment: Edema: (per assessment rn at 2353 yesterday) ? Generalized Edema Trace GI Assessment: ? Abdominal exam: WDL, per assessment rn at 2353 yesterday. ? Promotility Medications: None at this time ? GRV: n/a ? Stool Frequency: 0-2x/day over the last 2 days Wounds/Pressure Points: (per assessment rn at 2353 yesterday) ? Coccyx Blanchable Redness ? Elbow Blanchable Redness ? Heel Blanchable Redness Functional Status: PT Following OT Following THREAD ROLLER Following Nutrition Focused Physical Exam: Completed by RD on 09/20 Below the Eye (fat): Slightly Bulged Fat Pads (Within Defined Limits) Episcopalian (muscle): Slight depression (mild-moderate)(Very mild) Buccal (fat): Full, round/filled out cheeks (Within defined limits) Clavicle (muscle): Bone not prominent (Within defined limits) Shoulder (muscle)/Deltoid muscle: Rounded curves at arm/shoulder/neck (Within defined limits) Ribs/Iliac Crest (fat): Ribs do not show, slight to no protrusion of iliac crest (Within Defined Limits) Triceps/Biceps (fat): Ample fat tissue obvious between folds of skin (Within defined limits) Hand/Interosseous (muscle): Flat to bulging muscle (Within defined limits) Thigh (muscle): Well-rounded, no bone prominence (Within defined limits) Calf (muscle): Well-developed bulb of muscle (Within defined limits) Nutritionally-Relevant Medications, Vitamins and Minerals: Antibiotics, Levothyroxine, Zofran, Nutritionally-Relevant Biochemical Data: (09/22/2020) Glucose 107 at 1109 101 at 0538 78 at 1248 yesterday Allergies/Food Intolerance: Niles is allergic to penicillin; adhesives; aleve [gnp naproxen sodium];flagyl [metronidazole]; ibuprofen; mastisol; and morphine. Culturally Amish Needs: no INTERVENTIONS Encouraged adequate calories and optimal protein in small, frequent meals and snacks Updated snacks and supplements. Evaluated current tube feeding regimen for tolerance and adequacy EMR reviewed MONITORING/EVALUATION Monitor ability to consume and tolerate adequate intake to approximate estimated needs with accomodation of preferences and tolerances until intake is sustained within desirable limits Monitor I&O, weight trends, nutrition-related labs and medications, clinical status, and planof care r/t need for nutrition intervention and provide as warranted Monitor tube feeding intake, tolerance and nutritional status with regular f/u assessments. Adjust tube feeding as needed Nutrition Therapy will reassess every 1-[address], LRD Alpha Pager #[phone] upplemental Progress Note - Danielle Alonso APRN-CNP - 09/22/2020 7:09 AM CSTPer report, G-tube was pulled out by the patient, no trauma, had TF which was supposed to end @0700. Plan: 1. Will let the day team reassess the patient because she may pull out another one if inserted at this time. linical Team - Abelardo Lundberg RN - 09/22/2020 6:23 AM CSTPt just pulled her HAZEL - SAGASTUME G- tube out by accident. TF had about an hour left to run. MD notified. Site has no trauma. Site covered with gauze and tape. linical Team - Abelardo Lundberg RN - 09/22/2020 4:16 AM CSTPt A/O x 2-3. Intermittent confusion/delirum noted. Interventions provided. SOB noted with exertion.On 2 L of O2 nc. Other VSS Pt's TFstarted this shift via G-Tube. Rate @ 25 cc/hr which is goal. No complications noted. Pt denies pain. Ambulated in room with x1 assist. Unsteady at times. Bed alarm on. Will ctm are Planning - Abelardo Lundberg RN - 09/22/2020 2:32 AM GLASS RIBBON MACHINE OPERATOR Problem: IMPAIRED GAS EXCHANGE Goal: RESPIRATORY STATUS Description: DEFINITION: Movement of air in and out of the lungs and exchange of carbon dioxide and oxygen at the alveolar level. 1=Severe deviation from normal range, 2=Substantial deviation from normal range, 3=Moderate deviation from normal range, 4=Mild deviation from normal range, 5=No deviationfrom normal range. Outcome: NOC Rating 3 Flowsheets (Taken 09/22/2020227) Initial Score: 3 Target Score: 5 Plan of care reviewed with: Patient Patient specific goal for the day: Pt O2 demands will continuen to improve Patient specific goal for the stay: Patient will return to respiratory baseline and not require supplemental O2. Patient Progress: Pt was on RA but noted to desat intermittently at rest. Now on 2 L via nc with spO2 > 92%. Will ctm and titrate as able. Problem: IMBALANCED NUTRITION: LESS THAN BODY REQUIREMENTS Goal: NUTRITIONAL STATUS: NUTRIENT INTAKE Description: DEFINITION: Nutrient intake to meet metabolic needs. 1=Not adequate, 2=Slightly adequate, 3=Moderately adequate, 4=Substantially adequate, 5=Totally adequate. Outcome: NOC Rating 3 Flowsheets (Taken 09/22/2020227) Initial Score: 3 Target Score: 5 Plan of care reviewed with: Patient Patient specific goal for the day: Pt will tolerate TF Patient specific goal for the stay: Patient to meet >75% of estimated needs. Patient Progress: Pt tolerating current diet well. Encouraging oral intake. On continous TF over night via G-Tube. No complication noted. Will ctm linical Team - Manoj Velarde RN - 09/21/2020 8:34 PM CSTShift Summary: [id number] Took over pt at 1545 and received report from KERI Ly. Pt was med surg status and had bed placement, just waiting on the room to be cleaned. This scenario writer did not do an assessment due to having multiple other pts. I did walk by and check in on pt to see if there was anything I could do for patient. Pt was eventually transferred to room 663. All belongings were sent with pt, which included clothes, phone, tablet and g-tube supplies. All questions answered to the best of my ability. linical Team - Jamaal Moise RN - 09/21/2020 6:13 PM CSTPt transferred from ICU. Oriented to room and call light. Dual eyes on skin and CHG bath completed with Amandeep Coley RN. Blanchable redness to right heel, scratches LLE, scattered scabbing BUE. VSS on [id number] signed by Jamaal Moise RN at 09/21/2020 6:17 PM CSTSpeech Therapy - Maria Teresa Wilhelm, BRYN - 09/21/2020 4:47 PM CSTF/u diet tolerance for #6 bite-size solid with thin liquid diet. No issues per nsg notation. Per EMR review, lung sounds are clear-diminished, she is afebrile and is now in room air with WBCs within normal limits. Measures reviewed appear stable to improved and supportive of tolerance. Continue diet as written: Diet textures: #6 bite-size solids; thin liquids Fully alert and upright for all PO. Meds 1 at a time with thin liquid Straws OK Assist with set up and prn with intake Stop intake and notify THREAD ROLLER with positive signs of aspiration (I.e. throat clearing, coughing, choking , or wet vocal quality) THREAD ROLLER will follow for dysphagia management. utrition Team - Vijaya Apple RD - 09/21/2020 2:03 PM CSTNutrition Therapy Follow Up - Nutrition Support Referral: Manage Tube Feeding per Protocol Recommendations: Encourage intake of small, frequent meals t/o the day Resume TF per home regimen ? Replete at 25 mL/hr x 10 hours overnight (home TF formula not available at this facility). Monitor for s/s of hypoglycemia NUTRITION ASSESSMENT Pt's HAZEL-SAGASTUME was changed at bedside yesterday. Visited with pt who reports she would run her TF 9-12hours overnight. Will resume home TF regimen to prevent hypoglycemia overnight. Discussed plan with MD and pt. Vijaya Apple RD (Nikki), LRD [facility] Pager: [phone] Phone: [phone] S RIBBON MACHINE OPERATOR Physical Therapy - Zak Estrada SPT - 09/21/2020 1:55 PM CSTPhysical Therapy Acute Inpatient Treatment Note Assessment/Recommendation: Pt responded well to PT today. Pt is slow to respond to questions and shows some deficits in balance and mobility during mobilization. She would benefit from a low intensitysetting upon discharge. Patient is progressing towards goals. Daily activity recommendations: Ambulate in hallway 2x/day with FWW. Subjective: Pt is less drowsy and able to answer more questions today. She says it is due to visionrelated deficits. Objective: Bed Mobility: Performed with Mod A of 1-2 Transfers: Sit to/from stand with CGA x1 Gait: Ambulated 150' with Min A x1 and FWW. Pt tends to drift to her right side and needs to be cued often. Stairs: - Therapeutic Exercises: - Balance Training: - Other: Pt was left supine in bed with call light on and within reach. Contact precautions. Education: Pt was educated on PT role and POC through explanation. Pt accepted teaching and demonstrated understanding. Plan: Continue plan of care. Today's Treatment: Gait Trainin minutes Therapeutic Exercise: 0 minutes Therapeutic Activity: 15 minutes TOTAL TIMED CODES: 15 minutes TREATMENT TOTAL TIME: 15 minutes Zak Estrada SPT S RIBBON MACHINE OPERATOR Associated attestation - Aileen Em PT - 09/21/2020 2:23 PM GLASS RIBBON MACHINE OPERATOR This practitioner was present and in the room for the entire session, guiding the student in servicedelivery. Documentation was edited and reviewed by this practitioner prior to signature application. Aileen Em PT, DPT Pager [phone] Therapy - Francisca Lopez OTR/Chyna - 09/21/2020 1:48 PM GLASS RIBBON MACHINE OPERATOR Attempted to see pt however she was busy with another discipline. OT will continue to follow acutely as pt able/appropriate. VANESA Gamino OTR/Chyna Pager [phone] ase Mgmt - Mercedes Brantley RN - 09/21/2020 1:42 PM CSTCASE MANAGEMENT / SOCIAL SERVICE TRANSITION PLAN - PROGRESS NOTE PLAN: Will Continue to Follow for Support and Progression Towards Final Transition Plan BARRIERS TO TRANSITION: Awaiting Collateral Information Awaiting Therapy Recommendations Diagnostic Tests Pending Discharge Needs to be Determined DOES ACCEPTING FACILITY REQUIRE COVID TESTING BEFORE DISCHARGE: Other: TBD COMMENTS: Patient working with therapy as tolerated, currently recommend low intensity. IV antibiotics will be required until 10/24. Attempted to meet with patient today to discuss discharge plans, shewas having a procedure done. Call made to patient's , voicemail left with return for callback. Anticipate need for placement at least briefly, will need to check if home IV antibiotic administration is a possibility under her insurance. No further questions at this time. IS PATIENT'S ADMISSION ASSOCIATED WITH TIA, ISCHEMIC, OR HEMORRHAGIC STROKE?: No PATIENT / SUBSTITUTE DECISION MAKER GOAL UPON TRANSITION: First Choice: Other: TBD ANTICIPATED NEEDS UPON TRANSITION: Home Health: Nurse, Occupational Therapy and Physical Therapy Home: Family/Friend Support [facility] Outpatient IV Antibiotics Transitional Care RESOURCE(S) PROVIDED: nothing needed at this time ANTICIPATED MODE OF TRANSPORT UPON TRANSITION: Family Car ANTICIPATED MODE OF TRANSPORT TO AND FROM FOLLOW UP APPOINTMENTS: Family Car VERIFIED CORRECT PHARMACY IS ENTERED FOR DISCHARGE: No TRANSITION ROUNDING COMPLETED WITH THE FOLLOWING: Patient / family Attending MD Residents Bedside RN SIGNED: Mercedes Brantley RN Case Manager [facility] [phone] Pager [phone] linical Team - Gomez Feng RN - 09/21/2020 5:09 AM CSTShift Summary Summary No acute changes during shift Pt given IV dextrose Neurological: Pt oriented to self, , and time PERRLA Equal strength on extremities Respiratory: NC at 2 L Cardiac: NSR-Sinus Tachy GI/: Pt voided adequately and had BM Skin: No new skin issues present during shift are Planning - Aly Lundberg RN - 09/20/2020 6:53 PM GLASS RIBBON MACHINE OPERATOR Problem: ACUTE PAIN Goal: CLIENT SATISFACTION: PAIN MANAGEMENT Description: DEFINITION: Extent of positive perception of nursing care to relieve pain. 1=Not at all satisfied, 2=Somewhat satisfied, 3=Moderately satisfied, 4=Very satisfied, 5=Completely satisfied. Outcome: NOC Rating 3 Flowsheets (Taken 09/20/2020 8451) Initial Score: 3 Target Score: 4 Plan of care reviewed with: Patient Patient specific goal for the day: Pt will inform nursing staff if having increase in pain Patient specific goal for the stay: Pain will be managed with PO medication Achieve goal for stay: By discharge Patient Progress: Patient is having lower back pain of 5/10, managed with scheduled medications, rating pain 3/10. Will conitnue to assess and monitor. See flowsheets for more information. IS 3, TS 4. ostOp Progress Note - Malcolm Martínez MD - 09/20/2020 5:24 PM CSTMIC-SAGASTUME gastrostomy button changed at bedside without complication. ase Mgmt - Jaymie Byrens RN - 09/20/2020 4:43 PM CSTCASE MANAGEMENT PROGRESS NOTE Unable to see patient today. Will follow up tomorrow. PLAN: will see patient 09/21 SIGNED: Adam Byrnes RN, BSN, [facility] Computer Support Analyst Cell/pager [phone] are Planning - Vijaya Apple RD - 09/20/2020 3:51 PM GLASS RIBBON MACHINE OPERATOR Problem: IMBALANCED NUTRITION: LESS THAN BODY REQUIREMENTS Goal: NUTRITIONAL STATUS: NUTRIENT INTAKE Description: DEFINITION: Nutrient intake to meet metabolic needs. 1=Not adequate, 2=Slightly adequate, 3=Moderately adequate, 4=Substantially adequate, 5=Totally adequate. Outcome: NOC Rating 2 Flowsheets (Taken 09/20/2020 1551) Plan of care reviewed with: Patient Patient specific goal for the day: Patient to consume small, frequent meals and snacks throughout the day. No hypoglycemia. Patient specific goal for the stay: Patient to meet >75% of estimated needs. Achieve goal for stay: By discharge Patient Progress: Extubated over the weekend (09/18), failed swallow eval initially so an NGT was placed. Diet was advanced to level 5 minced and moist with thin liquids further advanced to level 6 soft and bite sized with thin liquids today. 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 S RIBBON MACHINE OPERATOR Respiratory Therapy - Omari Raygoza RRT - 09/20/2020 2:08 PM CSTPatient resting in bed on 2L NC. SAT 94%. BS clear and diminished. Vest therapy discussed with MD and agreed to move therapy to PRN. Patient does not tolerate the vest well and often refuses. RT continues to follow. utrition Team - Vijaya Apple, RD - 09/20/2020 1:36 PM CST Nutrition Therapy Follow Up Hospital Day: 9 days Active Problems: Pneumonia with lung abscess and pleural effusions/p Left VATS thoracotomy, drainage of pleural effusion, drainage of lung abscess, decortication of left lobe and flexible bronchoscopyon 09/13 PMH: Anxiety, depression, hypothyroidism, gastric bypass, hypoglycemic unawareness Recommendations: Encourage intake of small, frequent meals t/o the day Replace G tube and resume TF overnight Replete at 25 mL/hr x 8 hours overnight (home TF formula not available at this facility). Monitor for s/s of hypoglycemia NUTRITION ASSESSMENT Extubated over the weekend (09/18), failed swallow eval initially so an NGT was placed. Diet was advanced to level 5 minced and moist with thin liquids; further advanced to level 6 soft and bite sized with thin liquids today. NGT was removed with diet advancement; however, pt has yet to order from foodservice. Ordered pt daily high kcal/pro snack to promote improved intake. Pt reports that ONS such as boost give her diarrhea. Pt had planned to have G tube replaced SALARY MANAGER. Pt's G tube is in place for to help avoid hypoglycemia as she has hypoglycemic awareness. Noted that pt had hypoglycemic episode overnight re quiring administration of dextrose. Discussed G tube replacement with MD who will contact IR. Anthropometrics: Height: 154.9 cm (5' 1") Admission Wt: Weight: 67.2 kg (148 lb 2.4 oz) as of 09/10/2020 per bed scale Most Recent Wt: Weight: 75.2 kg (165 lb 12.6 oz) (09/16/20 2200) per bed scale - up 6 L of fluid BMI: Body mass index is 31.32 kg/m. IBW: 48 kg %IBW: 140% (based on admit weight) Usual Body Weight: 150 pounds but does fluctuate Unintentional Weight Loss: No significant wt change noted SALARY MANAGER Estimated Needs: adjusted with extubation [id number] kcal/day ([place] Jeor x 1.1-1.2 Using: Admission Weight) 65-80 gm protein (1-1.2 gm/kg Using:Admission Weight) Fluids per MD Estimated average intake over the last 4 days: 1200 kcal and 75 gm protein, which meets: 90 % of estimated kcal needs and 100 % of estimated protein needs. (per EMR review and I/O) Intake Records: Intake Prior to Admit: Less than 75% of estimated energy requirements for greater than or equal to 1month Patient reports that her appetite has been decreased over the past 3 weeks. No c/o of nausea/vomiting. Patient does have a G tube. Receives TF at HS only to help avoid hypoglycemia. G tube is currently clogged, was planning to have replaced on 09/10. Consumed small, frequent meals and snacks at home to help avoid hypoglycemia. Provide small, frequent meals and snacks per patient preference. Recommended to replace G tube and resume feedings when medically able. Current Intake: Met <75% of est needs first 6 days, met needs from TF last 4 days (per review of RN notes as volume not documented daily in I/Os) Current Diet: Nutrition (From admission, onward) Start Ordered 09/20/20 0950 Diet - Level 6 Soft & Bite Sized (NDD3) ; Thin Liquids Now Comments: Fully alert and upright for all PO. Meds 1 at a time with thin liquid Straws OK Assist with set up and prn with intake Stop intake and notify THREAD ROLLER with positive signs of aspiration (I.e. throat clearing, coughing, choking , or wet vocal quality) Question Answer Comment Dysphagia Level 6 Soft & Bite Sized (NDD3) Liquid Consistency Thin Liquids 09/20/20 0950 Physical Assessment: Edema: (per assessment rn at 1205 today) ? Generalized Edema Trace ? LUE Edema Trace ? RUE Edema Trace ? LLE Edema Trace ? RLE Edema Trace GI Assessment: ? Abdominal exam: Non-tender and Soft with Active, Audible bowel sounds, per assessment rn at 1205 today. ? Stool Frequency: 0-4x/day over the last 4 days Wounds/Pressure Points: (per assessment rn at 1205 today) ? Elbow Left, Right, Blanchable Redness ? Heel Left, Right, Blanchable Redness Functional Status: PT Following OT Following THREAD ROLLER Following Nutrition Focused Physical Exam: Completed by RD on 09/20 Below the Eye (fat): Slightly Bulged Fat Pads (Within Defined Limits) Episcopalian (muscle): Slight depression (mild-moderate)(Very mild) Buccal (fat): Full, round/filled out cheeks (Within defined limits) Clavicle (muscle): Bone not prominent (Within defined limits) Shoulder (muscle)/Deltoid muscle: Rounded curves at arm/shoulder/neck (Within defined limits) Ribs/Iliac Crest (fat): Ribs do not show, slight to no protrusion of iliac crest (Within Defined Limits) Triceps/Biceps (fat): Ample fat tissue obvious between folds of skin (Within defined limits) Hand/Interosseous (muscle): Flat to bulging muscle (Within defined limits) Thigh (muscle): Well-rounded, no bone prominence (Within defined limits) Calf (muscle): Well-developed bulb of muscle (Within defined limits) Nutritionally-Relevant Medications, Vitamins and Minerals: Antibiotics, Levothyroxine (no instructions to hold TF for administration on JAN) Sliding Scale Insulin, PPI, Norepinephrine (0.02 mcg/kg/min) Nutritionally-Relevant Biochemical Data: (09/20/2020) Glucose 145 H Creatinine 0.58 L Phosphorus 2.3 L Allergies/Food Intolerance: Niles is allergic to penicillin; adhesives; aleve [gnp naproxen sodium];flagyl [metronidazole]; ibuprofen; mastisol; and morphine. Culturally Amish Needs: no INTERVENTIONS Encouraged adequate calories and optimal protein in small, frequent meals and snacks Will send snacks and supplements daily Discussed G tube replacement with Conducted NFPE EMR reviewed D/C TF d/t lack of enteral access MONITORING/EVALUATION Monitor ability to consume and tolerate adequate intake to approximate estimated needs with accomodation of preferences and tolerances until intake is sustained within desirable limits Monitor for initiation of nutrition support Monitor I&O, weight trends, nutrition-related labs and medications, clinical status, and planof care r/t need for nutrition intervention and provide as warranted Nutrition Therapy will reassess every 1-[address] (Nikki), LRD [facility] Pager: [phone] Phone: [phone] S RIBBON MACHINE OPERATOR Physical Therapy - Aileen Em PT - 09/20/2020 10:04 AM CSTPhysical Therapy Acute Inpatient Treatment Note Assessment/Recommendation: Patient drowsy throughout session which limited mobility; she may benefit from a low intensity setting upon discharge. Daily Activity Prescription: up with 1-2 and FWW Subjective: Drowsy in bed and throughout session. Objective: Bed Mobility: Min A x 1 Transfers: Sit to/from stand with SBA Gait: 30' with FWW, min A, patient often running into things in the room. Stairs: - Therapeutic Exercises: - Balance Training: Fair with FWW. Other: In chair at end of session, call light within reach. Education: Patient was educated on PT role, POC today through explanation. They accepted teaching and demonstrated understanding and will need reinforcement. Plan: Continue plan of care. Today's Treatment Gait Trainin minutes Therapeutic Exercise: 0 minutes Therapeutic Activity: 15 minutes TOTAL TIMED CODES: 15 minutes TREATMENT TOTAL TIME: 15 minutes Aileen Em PT, DPT Pager: [phone] Therapy - Maria Teresa Wilhelm, BRYN - 09/20/2020 9:50 AM GLASS RIBBON MACHINE OPERATOR Speech Therapy Acute Care Progress Note Assessment/ Impression Patient appears tolerant of her #5 minced/thin texture diet per review of swallowing biomakers/nsg report. She did well with fluid, whole med with thin liquid wash and bite-size solids trials today and is beginning to feed herself more readily. Patient appropriate for solid advancement to #6 bite-size textures when fully upright; assist prn with intake. Continue thin liquids. THREAD ROLLER will follow for dysphagia management. Pt/nsg in agreement. Plan/ Recommendations Diet textures: Advance to #6 bite-size solids; continue thin liquids Fully alert and upright for all PO. Meds 1 at a time with thin liquid Straws OK Assist with set up and prn with intake Stop intake and notify THREAD ROLLER with positive signs of aspiration (I.e. throat clearing, coughing, choking , or wet vocal quality) Speech-Language Pathology will follow the patient 3-5 times a week for dysphagia treatment. Speech-Language Pathology will follow up for: diet tolerance and assessment of upgraded textures Recommend likely speech therapy only while inpatient. These recommendations are based upon todays assessment and may reduce, but cannot entirely eliminate this patients risk of aspiration. Subjective Patient admitted 09/10 for management of a left lower lobe pneumonia not responsive to antibiotics; chest CT showed lung abscess vs. Lesion. THREAD ROLLER consulted for dysphagia management. Patient seated in a chair receiving morning meds during THREAD ROLLER arrival. She was mildly drowsy, though alert/appropriate for p.o. trials. She reported 5/10 chronic back pain, slightly worse than her norm,though declined pain meds, preferring repositioning at this time. Objective F/u diet tolerance for #5 minced/moist solid with thin liquid diet. No issues per nsg notation or direct report. Per EMR review, lung sounds are clear- diminished, she is afebrile and remains 2 lpm NCO2 support. Measures reviewed appear stable/support of tolerance. Reviewed current status, goals and plan of care with pt who verbalized understanding and agreement to participate in p.o. trials of bite size solids (mixed/non-mixed), thin liquids in isolation and when used to aid pill pass (whole pills taken 1 at a time per pt preference). She was upright in chair at her bedside; reviewed positioning recommendations for all intake-fully upright. Patient able to self feed pills, solids and liquids with occasional assistance d/t UE weakness. Mastication was rotary/complete, though oral prep still mildly slowed. She fully cleared the oral cavity between each biteof diced pears in sauce. Timely trigger with functional hyolaryngeal excursion observed on palpation. Clear vocals with all trials of PO; coughing appreciated in the absence of p.o.intake and x1, though not directly associated with oral intake, during p.o.trials today. Goals/Education Patient/family goal: to have more juice Goals: Longterm Goals: Patient will tolerate the least restrictive diet with no signs/symptoms of aspiration. Short Term Goals: Patient will demonstrate recall and use of compensatory swallowing strategies for safe oral intake. Patient will participate in trials of upgraded textures with THREAD ROLLER only to determine safety with diet upgrade. Patient will participate in oropharyngeal strengthening program to improve safety with swallowing. Patient will participate in instrumental swallow assessment (FEES exam or VFSS) if clinically indicated or as recommended by THREAD ROLLER. Education: Education regarding the results and recommendations of todays evaluation provided to: patient andnurse Understanding and agreement expressed by: patient and nurse Education Interventions: Nurse was updated regarding the results and recommendations of today's evaluation. Charges Total Time: 20 minutes Dysphagia Treatment Alpha Pager: [phone] [place]: [facility]: [phone] linical Team - Manuela Clarke, KERI - 09/20/2020 1:58 AM GLASS RIBBON MACHINE OPERATOR Shift Summary Neuro: Patient awake but drowsy. A/O x 3. Follows commands in all extremities. Equal strength. PERRLA Resp: On 2L NC. Denies SOB. Cardiac: HR 03=664's. GI/: Level 5 diet. Bladder scan and straight cath due to Urinary retention (see flow sheet). Bg 62. D50 given. No Bm for the shift. Lines/Drains: Patient removed arterial ine. Left CVC in place. Pain: Patient denies pain. Will Continue to monitor. linical Team - Eboni Daigle RN - 09/19/2020 6:12 PM CSTShift Summary Summary Assessment Neurological: Alert and oriented X3. Pt intermittently drowsy. Follows commands in all extremities. Equal strength. PERRLA. A febrile. Respiratory: 2L NC. Cardiac: NSR to Sinus tach. GI/: Pt having urinary retention Nutrition/Diet: Level 5; Thin liquids. Last BM: 09/19 Peripheral Vascular: Pulses palpable in all extremities Musculoskeletal: 2 Assist to chair. Up in chair 2X Pain: Pt states no pain at this time. Incisions/Drains/Dressings: Left previous chest incision IV's/Lines: CVC and art-line hysical Therapy - Max Pearce, PT - 09/19/2020 1:41 PM CST Physical Therapy Acute Inpatient Initial Evaluation Assessment/Recommendations: the patient was admitted with diagnosis of lung abscess, pneumonia. The patient displayed B LE weakness. PT assisted patient to perform B LE AAROM's x 15 reps supine. Patient transferred supine to sit with moderate assistance of one, PT watched the lines. The patient transferred sit to stand with moderate assistance of one. She stood in place 4 minutes with minimal assistance of one. Patient ambulated a few feet with moderate assistance of one to transfer bed to chair. This patient displays functional deficits with bed mobility, transfers and ambulation and is not physically safe to return home at current level of function. I recommend this patient receive continued physical therapy services at an inpatient Rehab (or a SNF if not considered a Rehab candidate per PMRphysician), to regain independence in these deficit areas, once medically stable per MD. Patient will participate with daily ther ex, ther act, transfers and gait, Sunday through Sunday, to increase in dependence with functional mobility. Requesting provider: Dr. William Diagnosis: Lung abscess, pneumonia. Indication for referral: Decreased mobilityt Prescription: Eval and Treat Admit Date: 09/10/2020 Physical therapy initiated: 09/19/2020 Pertinent Medical / Surgical History: Past Medical History: Diagnosis Date Allergy Anemia Anxiety Arthritis Asthma Bowel obstruction (HCC) Depression Diaphragmatic hernia GERD (gastroesophageal reflux disease) Hypoglycemia Hypoglycemia "gets a lot of 40-45 blood sugars" IBS (irritable bowel syndrome) Kidney stone 2006, 2007 Oropharyngeal dysphagia Osteoporosis RLS (restless legs syndrome) Past Surgical History: Procedure Laterality Date ABD HYSTERECTOMY APPENDECTOMY ARTHOPLASTY MINOR Left 08/15/2016 Procedure: LEFT TRAPIEZECTOMY W/ MINI TIGHTROPE SUSPENSIONPLASTY;; Surgeon: Ronnell Troncoso MD ARTHOPLASTY MINOR Right 01/19/2017 Procedure: RIGHT TRAPEZIECTOMY W/ MINI TIGHT ROPE SUSPENSIONPLASTY;; Surgeon: Ronnell Troncoso MD 2 CHOLECYSTECTOMY COLONOSCOPY N/A 09/26/2017 Procedure: COLONOSCOPY;; Surgeon: Deven Green MD COSMETIC SURGERY 05/31/2010 Abdominal plasty, medial thigh lift, knee lift, and Butt Lift ([facility]) CYSTO + ADDT PROC Bilateral 06/04/2019 Procedure: CYSTOSCOPY, NEPHROSCOPY, LASER LITHOTRIPSY, RETROGRADE PYLOGRAM AND STENT PLACEMENT;; Surgeon: Omari Lam MD FUSION SI JOINT Last September GASTRIC BYPASS 10/21/2001 Dr. Carballo HERNIA REPAIR Umbilical Hernia HYSTERECTOMY total INTESTINAL RESECTION N/A 10/19/2013 Procedure: EXPLORATORY LAPAROTOMY, TAKEDOWN OF GASTROCUTANEOUS FISTULA AND LYSIS OF ADHESIONS;; Surgeon: Radha Burgess MD IR GASTRO TUBE PLACEMENT 01/29/2019 IR GASTRO TUBE PLACEMENT 01/29/2019 Solitario White MD INTERV RAD [facility] IR GASTRO TUBE PLACEMENT 05/30/2019 IR GASTRO TUBE PLACEMENT 05/30/2019 Solitario White MD INTERV [facility] KNEE ARTHROSCOPY 04/11/2012 Dr. Feliz (left) LAP DERRICK FUNDOPLICATION N/A 06/08/2015 Procedure: LAPAROSCOPIC REPAIR OF HIATAL HERNIA LAPAROSCOPIC LYSIS OF ADHESIONS, REMOVAL OF FORIEGNBODY, EGD;; Surgeon: Greg Pool DO LAPAROSCOPY DIAGNOTIC S/P GASTRIC BYPASS 07/10/2012 LAPAROSCOPY DIAGNOSTIC POST GASTRIC BYPASS , LAPARSCOPIC LYSIS OF ADHESIONS Diag. Laparoscopy...post of gastric bypass; Surgeon: Eleazar Arnett MD MANOMETRY ANORECTAL 03/04/2019 Procedure: MANOMETRY ANORECTAL;; Surgeon: Kyler Arreola MD NEUROSTIMULATOR PHASE 2 N/A 04/09/2019 Procedure: TRIAL STAGE 1 INSERTION OF INTERSTIM SACRAL NEUROSTIMULATOR;; Surgeon: Sergio Pereira MD NEUROSTIMULATOR PHASE 2 N/A 04/16/2019 Procedure: INTERSTIM STAGE II;; Surgeon: Sergio Pereira MD OOPHERECTOMY SPINE SURGERY 2 fusions lower back THORACOSCOPY Left 09/13/2020 Procedure: LEFT VATS THORACOTOMY DRAINAGE OF PLEURAL EFFUSION, DRAINAGE OF LUNG ABSCESS, DECORTICATION LEFT LOBE, FLEXIBLE BRONCOSCOPY;; Surgeon: Daquan Lee MD TMJ RECONSTRUCTION January 2010 Alejandre (bilateral) TONSILLECTOMY In her 30s TUBAL LIGATION UPPER ENDOSCOPY 07/10/2012 UPPER ENDOSCOPY [UPPENDO]; Surgeon: Janette Pablo MD UPPER ENDOSCOPY N/A 08/18/2014 Procedure: upper endoscopy ;; Surgeon: Glen Xiao MD UPPER ENDOSCOPY 04/28/2015 Procedure: UPPER ENDOSCOPY;; Surgeon: Janette Pablo MD UPPER ENDOSCOPY N/A 12/28/2015 Procedure: UPPER ENDOSCOPY;; Surgeon: Aleksandr De Paz MD UPPER ENDOSCOPY N/A 09/26/2017 Procedure: UPPER ENDOSCOPY;; Surgeon: Deven Green MD Precautions: Fall risk Subjective: Social History: Patient lives: With spouse Home environment: Home in [place], [place] Steps: 7 with rail Employment: Not working Prior Level of Function: Activities of Daily Living: independent prior Mobility: independent prior Driving: Yes Patient Concerns: weakness Patient/Family Goals: Unsure Objective: Patient seen at bedside. Patient presents with IV and arterial lines, NG tube, telemetry, pulse oximeter and BP cuff Cognition: Alert and oriented to person, place, time. Pain: 5/10 Range of Motion: Bilateral lower extremities WFL Refer to Occupational Therapy report for upper extremity range of motion. Strength: Bilateral lower extremities grossly 3-/5 Refer to Occupational Therapy report for upper extremity strength testing. Sensation: Grossly intact bilaterally. Tone: Normal. Bed Mobility: Supine to Sit: moderate assistance of one Transfers: Sit to/from Stand: moderate assistance of one Balance: Static Sitting Balance: good Dynamic Sitting Balance: fair Static Standing without Assistive Device: poor Dynamic Standing without Assistive Device: poor Gait: Patient stood in place 4 minutes with minimal assistance of one. Patient ambulated a few feet with moderate assistance of one to transfer bed to chair. Education: Patient was educated on role of PT and plan of care today through explanation. The patient accepted teaching and verbalized understanding. Today's Treatment Start of treatment time: 12:57 Evaluation: Completed Gait trainin minutes Therapeutic exercise: 15 minutes Therapeutic activity: 10 minutes TOTAL TIME-CODED MINUTES: 25 minutes TOTAL TREATMENT TIME: 45 minutes Goals to be achieved by discharge. Patient will be aware of equipment recommendations as indicated in note to allow for safe mobility. Patient will transfer sit to/from supine with minimal assistance. Patient will transfer from sit to/from stand with minimal assistance and equipment as needed to progress to safe household mobility. Patient will be able to ambulate 75 feet using FWW with minimal assistance to progress to safe functional mobility in the home. Patient will demonstrate adequate awareness of fall prevention tactics to reduce risk of falling. Plan: 5x/wk Physical Therapy Services: bed mobility training equipment gait training therapeutic activity therapeutic exercise transfer training Max Pearce PT Alpha Pager: [phone] are Planning - Jordana Chambers, STUDENT - 09/19/2020 11:44 AM GLASS RIBBON MACHINE OPERATOR Problem: IMPAIRED GAS EXCHANGE Goal: RESPIRATORY STATUS Description: DEFINITION: Movement of air in and out of the lungs and exchange of carbon dioxide and oxygen at the alveolar level. 1=Severe deviation from normal range, 2=Substantial deviation from normal range, 3=Moderate deviation from normal range, 4=Mild deviation from normal range, 5=No deviationfrom normal range. Outcome: NOC Rating 3 Flowsheets (Taken 09/19/2020 1143) Initial Score: 3 Target Score: 5 Plan of care reviewed with: Patient Patient specific goal for the day: Patient will tolerate extubation. Patient specific goal for the stay: Patient will return to respiratory baseline and not require supplemental O2. Achieve goal for stay: By discharge Patient Progress: Pt encouraged to use IS and tolerate vest and 7% neb treatments. S RIBBON MACHINE OPERATOR Respiratory Therapy - Jordana Chambers, STUDENT - 09/19/2020 11:39 AM CSTPatient seen sitting in the chair on 2L NC SpO2 97%. BS Clear and Diminished. Patient achieved 500mL on IS this morning. Tolerated the Vest treatment [id number]. Per physician patient started on 7% normal saline QID with Vest treatments. RT will continue to follow. peech Therapy - Nevin Mason, THREAD ROLLER - 09/19/2020 10:34 AM CST Speech Therapy Acute Care Clinical Dysphagia/ Swallow Evaluation Assessment/ Impression Oral phase of swallow: Mild impairment. The pt has some increased mastication time and overall weakness. Pharyngeal phase of swallow: Within functional limits characterized by single swallows per bolus, clear vocals with all PO trials. Food was removed from the utensil and liquids were taken from edge of cup and straw, some increased time noted. No anterior loss observed with any of the trials. Timely trigger and good hyolaryngeal excursion observed. Clear vocals with all trials of PO with no throat clears or coughing. Will recommend initiation of modified PO. Pt, RN and MD are aware. Plan/ Recommendations Diet textures: 5 Minced & Moist (Dysphagia Mech Alt NDD2) and 0 Thin Liquids Feeding: self feed and assist as needed Positioning: sitting upright 90 degrees Swallow strategies: 1 tsp per bite/sip, okay to drink from straw and 3 cough rule- if patient paycol0e with any one item, discontinue that item for current meal tray and notify THREAD ROLLER Medications: per patient preference Problems signs to watch for: throat clearing, coughing, choking and pneumonia Speech-Language Pathology will follow the patient 3-5 times a week for dysphagia treatment. Speech-Language Pathology will follow up for: diet tolerance and assessment of upgraded textures Recommend likely speech therapy only while inpatient. These recommendations are based upon todays assessment and may reduce, but cannot entirely eliminate this patients risk of aspiration. Patient History Admit Date: 09/10/2020 Admitting Diagnosis: lung abscess Problem List: Patient Active Problem List Diagnosis Symptomatic menopausal or female climacteric states Other acne Anxiety state Functional diarrhea Postmenopausal atrophic vaginitis Insomnia Lumbago Other malaise and fatigue Irritable bowel syndrome Diffuse cystic mastopathy Eating disorder Restless leg syndrome Abdominal pain, chronic, generalized Hypoglycemia Personal history of gastric bypass Somatization disorder Major depressive disorder, recurrent episode, moderate (HCC) Gastroesophageal reflux disease without esophagitis Disorder of sacrum Chronic pain Primary osteoarthritis of first carpometacarpal joint of left hand Primary osteoarthritis of first carpometacarpal joint of right hand Excoriation (skin-picking) disorder Eating disorder, unspecified Multiple episodes of hypoglycemia Iron deficiency anemia History of Derrick fundoplication Bilateral hand numbness Oropharyngeal dysphagia Obesity with body mass index of 30.0-39.9 Uses feeding tube Acute kidney injury (HCC) Kidney stones Pelvic floor dysfunction in female Lung abscess (HCC) Anxiety disorder Asthma Hypothyroidism Peripheral neuropathy Pneumonia History of general anesthesia Social History: Social History Socioeconomic History Marital status: Spouse name: Not on file Number of children: 2 Years of education: 14 Highest education level: Not on file Occupational History Occupation: [employer] Employer: [employer] Social Needs Financial resource strain: Not on file Food insecurity Worry: Not on file Inability: Not on file Transportation needs Medical: Not on file Non-medical: Not on file Tobacco Use Smoking status: Never Smoker Smokeless tobacco: Never Used Substance and Sexual Activity Alcohol use: No Alcohol/week: 0.0 standard drinks Drug use: No Sexual activity: Yes Partners: Male Lifestyle Physical activity Days per week: 3 days Minutes per session: 60 min Stress: Not on file Relationships Social connections Talks on phone: Not on file Gets together: Not on file Attends anabaptist service: Not on file Active member of club or organization: Not on file Attends meetings of clubs or organizations: Not on file Relationship status: Not on file Intimate partner violence Fear of current or ex partner: Not on file Emotionally abused: Not on file Physically abused: Not on file Forced sexual activity: Not on file Other Topics Concern Not on file Social History Narrative Patient is a 47 year old female. Patient reports she graduated from high school and went to 2 years of college, 1 year at [employer], and 1 year for a medical billing assistant. 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 She is to Peter and has 2 kids, Elisa, 22 year old daughter, who is living in the [place] area and going to school, and a 21 year old son who has drug and ETOH issues, has termite treater helper depression and who recently just moved back into the patient's home temporarily as his job has brought him close to home. 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 Patient does have support from female clergy whommehreen has known for a long time. Patient lives: [address] [facility] [place] [address] THREAD ROLLER Diagnosis: oral dysphagia Indication/reason for referral: assess for dysphagia Dysphagia history: None per pt and EMR Subjective The patient was seen in room. She was agreeable to the swallowing assessment and pleasant and cooperative throughout the evaluation. The patient indicated that she has no swallowing difficulty at baseline. Patient reported no pain when asked. Objective CURRENT NUTRITION: NPO RESPIRATORY: NC 2 lpm CONTEXTUAL FACTORS (POSITIONING, ENVIRONMENT, ETC): Upright in chair at bedside ORAL MOTOR EXAMINATION: Dentition: natural Lips: strength, range and mobility were felt to be functional Tongue: strength, range and mobility were felt to be functional Facies: symmetrical, possible very slight left droop. TEXTURES TRIALED: The pt was presented with ice chips, thin liquid, NTL, pureed and a chewable. POwas offered via spoon, edge of cup and through a straw. ORAL PHASE: Lip seal: within functional limits Mastication: within functional limits, increased with higher textures Bolus formation: within functional limits Bolus transit: within functional limits Oral clearance: within normal lmits PHARYNGEAL PHASE: Pharyngeal swallow: timely Laryngeal elevation/excursion: within functional limits Pharyngeal clearance: single swallow Vocal quality: clear Aspiration: none suspected Laryngeal sensation: no concerns noted Goals/Education Patient/family goal: to have more juice Goals: Longterm Goals: Patient will tolerate the least restrictive diet with no signs/symptoms of aspiration. Short Term Goals: Patient will demonstrate recall and use of compensatory swallowing strategies for safe oral intake. Patient will participate in trials of upgraded textures with THREAD ROLLER only to determine safety with diet upgrade. Patient will participate in oropharyngeal strengthening program to improve safety with swallowing. Patient will participate in instrumental swallow assessment (FEES exam or VFSS) if clinically indicated or as recommended by THREAD ROLLER. Education: Education regarding the results and recommendations of todays evaluation provided to: patient andnurse Understanding and agreement expressed by: patient and nurse Education Interventions: Nurse was updated regarding the results and recommendations of today's evaluation. Charges Total Time: 35 minutes Dysphagia Evaluation Alpha Pager weekend pager [phone] [place]: [facility]: [phone] linical Team - Sally Burgos RN - 09/19/2020 1:35 AM CST Neuro:follows commands x4. Able to nod appropriately. PERRLA. 3mm. . AOx4 With intermittent confusion positive for delirium Cardiac: NSR-ST 80-110s. MAP goal >65. No PRNs needed on shift. Respiratory:LS clear. NC @ 4L GI:BM x3 on shift both loose. NG. TF @ 60. Spoke wit resident this am about multiple loose watery bowel movements in the last few days. Held senna. Pt at risk for C.diff. bowel meds discontinued thisam. : bladder scanned @ 0300 for 673mL. Straight cath for 600mL. bladder scanned again at 0630 for 312mL. Skin/Mobility:L incision from chest tube removal. +1 edema to bilat upper and lower extremities. Redness noted on coccyx and heels. Bruising to left calf. Lines: L ART. L CVC. Drips:TKO S RIBBON MACHINE OPERATOR Clinical Team - Eboni Daigle RN - 09/18/2020 6:42 PM CSTShift Summary Summary Pt extubated to 6L NC Assessment Neurological: Drowsy. Oriented to self and year. Follows commands in all extremites. A febrile. PERRLA. Respiratory: 6L NC. Productive cough with minimal secretions. Cardiac: NSR to Sinus tach. Levo titrated off. GI/: Borjas removed. NG placed. TF restarted. Large BM Nutrition/Diet: NPO +TF; pt failed bed-side swallow Last BM: 09/18 Peripheral Vascular: Pulses palpable in all extremities. Swelling noted to upper and lower extremities. Musculoskeletal: Generalized weakness. Pain: Pt reports pain 0/10 Incisions/Drains/Dressings: Previous L chest incision IV's/Lines: CVC, art-line and NG are Planning - Eboni Daigle RN - 09/18/2020 4:29 PM GLASS RIBBON MACHINE OPERATOR Problem: IMPAIRED GAS EXCHANGE Goal: RESPIRATORY STATUS Description: DEFINITION: Movement of air in and out of the lungs and exchange of carbon dioxide and oxygen at the alveolar level. 1=Severe deviation from normal range, 2=Substantial deviation from normal range, 3=Moderate deviation from normal range, 4=Mild deviation from normal range, 5=No deviationfrom normal range. Outcome: NOC Rating 3 Flowsheets (Taken 09/18/2020 9221) Initial Score: 3 Target Score: 5 Plan of care reviewed with: Patient Patient specific goal for the day: Patient will tolerate extubation. Patient specific goal for the stay: Patient will return to respiratory baseline and not require supplemental O2. Achieve goal for stay: By discharge Patient Progress: Pt extubated to 6L. Tolerating well. Will encourage pt to use IS and cough/deep breathe peech Therapy - Nevin Mason, THREAD ROLLER - 09/18/2020 2:04 PM CSTReceived and acknowledge speech order. Completed chart review. Pt is currently NPO with an NG and is not appropriate for an assessment at this time. She was extubated at 0925 this morning. Per RN pt's voice is very weak with a weak cough. Will plan to assess pt tomorrow if appropriate at that time. Weekend pager: [phone] S RIBBON MACHINE OPERATOR Occupational Therapy - Zack Bender, OTR/L - 09/18/2020 1:25 PM GLASS RIBBON MACHINE OPERATOR Occupational Therapy Acute Care Evaluation Impression/Recommendations Recommend low vs high for further skilled therapy, although pt may progress to high during acute stay. Pt presents with deficits in functional cognition, functional transfers, UE strength, acitivity tolerance, ADL completion, and functional balance. OT will continue to follow to address deficits and address pt's overall function as well as independence. OT will update recommendations and goals as able. Admitting Diagnosis: ICD-10-CM 1. Empyema ([facility]) J86.9 CULTURE BACTERIAL, ANAEROBE CULTURE FUNGAL, OTHER CULTURE BACTERIAL, OTHER WITH GRAM STAIN CULTURE BACTERIAL, ANAEROBE CULTURE FUNGAL, OTHER CULTURE BACTERIAL, OTHER WITH GRAM STAIN TISSUE EXAM History of Present Illness: Refer to H&P for details Past Medical History: Past Medical History: Diagnosis Date Allergy Anemia Anxiety Arthritis Asthma Bowel obstruction ([facility]) Depression Diaphragmatic hernia GERD (gastroesophageal reflux disease) Hypoglycemia Hypoglycemia "gets a lot of 40-45 blood sugars" IBS (irritable bowel syndrome) Kidney stone 2006, 2007 Oropharyngeal dysphagia Osteoporosis RLS (restless legs syndrome) Activity Level: Activity as tolerated Precautions: PU, fall Infection Control: standard Patient History Social/Home Environment: Patient lives: lives with their spouse House: house Home Environment: Bed/Bath on main: yes Bath Setup: pt unable to report Employment: not employed Prior Level of Function Comments: Pt reports that she was IND prior, will continue to assess PLOF as pt was demonstrating varying arousal levels during time of evaluation. Adaptive Equipment Available: No adaptive equipment needed and continue to assess Present for Eval: Pt Objective Activities of Daily Living: Feeding: Clear liquid per RN, continue to assess Grooming: maximum assistance to wash face from bed level Upper Extremity Dressing: TBA Lower Extremity Dressing: TBA Bathing: TBA Toileting: Borjas in place Transfers: Bed: TBA Chair: TBA Toilet: TBA Tub/Shower: TBA Comments: Pt not appropriate to complete transfers this date due to decreased arousal. Pt was leftlying comfortably in bed at end of session, with bed positioned in lowest setting. Call light placedwithin reach at end of session. Education provided on using call light and waiting for staff assistance before getting up. Bed alarm was set. Pain: Pt denies pain this date. No wincing noticed during PROM/AAROM; Will continue to assess as able Upper Extremity Function: Range of Motion: Right:within functional limits Left: limited, in RUE shoulder Strength: Right: limited Left: limited Endurance: limited Oxygen Level: Rest 97-100% on 6 L via NC Coordination: impaired Sensation: intact Edema: yes and in BUE Dominant Hand: right Orientation: Cognition: drowsy Attention: Decreased attention span Following Directions: impaired Safety Awareness: impaired Visual/Perception: Glasses at baseline, continue to assess for any acute changes Education Education/Training provided: Role of OT, plan of care, ADL completion, activity tolerance Learners: Patient Readiness: Acceptance Method of Training: Verbal education, demonstration Response: Verbalized/demonstrated understanding, will benefit from continued reinforcement Adaptive Equipment Recommendations Adaptive Equipment Recommended: OT will continue to assess Plan to obtain adaptive equipment: To further assess. Assessment/Plan Assessment: Patient demonstrates decreased UE strength, decreased physical conditioning, decreased fine motor coordination, decreased independence with ADL/IADL tasks, decreased independence with functional mobility, decreased safety judgement/insight into deficits and decreased functional cognition Patient showing a decrease in ADL/transfer performance and will benefit from continued OT. Plan: Patient to be seen 3-5 times a week to work toward above goals Treatment plan will consist of Sunday thru Sunday sessions Goals Patient/Family Stated Goal for Session: pt stated she wanted a "diet dr. Christopher and to call her , Peter" Short/Longterm Goals: Patient will: #1)complete 2 grooming tasks with MOD A while standing at the sink with AE PRN #2)complete UE dressing with MIN A and AE prn #3)complete LE dressing (ie pants, socks, and/or brief) with MOD A and AE PRN #4)will complete bed, toilet, chair, and tub/shower transfer with MOD A and AD PRN. #5)be oriented X3 for 3 consecutive sessions to increase awareness of surroundings #6)answer safety/judgement questions with 80% accuracy to determine level of supervision required upon discharge #7)complete 10-15 minutes of continuous UE activity to increase physical conditioning for ADL and IADL tasks #8)be provided AE and education PRN prior to d/c. #9) pt will continue to participate in cognitive assessment to determine IND and safety. Treatment Provided OT evaluation completed. Pt extubated this date and tolerating NC well with light ADL and PROM/AAROM. RN consented to completing AAROM/PROM with pt. Provided education on purpose/ benefit of UE ROM exercises and retrograde massage to promote joint integrity, reduce risk of contracture formation, promot e optimal blood flow/circulation, facilitate edema management, and to increase strength in order to maximize functional independence with ADL's/transfers. Retrograde massage completed to pt's BUE for approximately 15 minutes. AAROM completed to BUE for finger flexion/extension. PROM completed to BUE for shoulder flexion/extension, wrist flexion/extension, and elbow flexion/extension for a total of 10reps per action. Provided positioning of bilateral upper extremities on two pillows at end of session to facilitate optimal upper extremity position, joint protection, comfort and edema control. OT will continue to follow acutely to address deficits listed above. Charges Treatment/Minutes: Today's Evaluation/Treatment Evaluation Therapeutic exercise: 30 minutes Total for time-based codes: 30 minutes Total treatment time: 45 minutes Evaluation Complexity PMH/Comorbidities that affect Occupational Performance: PMH shown above. Occupational Profile/Medical and Therapy History: LOW - Brief history relating to presenting problem Patient Assessment: MODERATE - 3-5 performance deficits relating to physical, cognitive, psychosocial limitations/restrictions Clinical Decision Making: MODERATE - Moderate analytical complexity, detailed assessments, minimal to moderate modification of assessments, may have comorbidities Evaluation Complexity: Moderate Therapist Alpha Pager Number: [phone] S RIBBON MACHINE OPERATOR Care Planning - Eboni Daigle RN - 09/18/2020 11:40 AM GLASS RIBBON MACHINE OPERATOR Problem: RISK FOR INJURY Goal: SAFE HEALTH CARE ENVIRONMENT Description: DEFINITION: Physical and system arrangements to minimize factors that might cause physical harm or injury in the health care facility. 1 = Not adequate, 2 = Slightly adequate, 3 = Moderately adequate, 4 = Substantially adequate, 5 = Totally adequate. Outcome: Outcome acceptable for discharge are Planning - Marco Rodriguez RRT - 09/18/2020 9:46 AM GLASS RIBBON MACHINE OPERATOR Problem: IMPAIRED GAS EXCHANGE Goal: RESPIRATORY STATUS Description: DEFINITION: Movement of air in and out of the lungs and exchange of carbon dioxide and oxygen at the alveolar level. 1=Severe deviation from normal range, 2=Substantial deviation from normal range, 3=Moderate deviation from normal range, 4=Mild deviation from normal range, 5=No deviationfrom normal range. Outcome: NOC Rating 3 Flowsheets (Taken 09/18/2020 0945) Plan of care reviewed with: Patient Patient specific goal for the day: Maintain secreations and SpO2> 90% Patient specific goal for the stay: Return to respiratory baseline Achieve goal for stay: By discharge Patient Progress: 0925 extubated to 6 L NC. Tolerating it well thus far. RT to monitor. Note: Refer to RT notes. RT to follow. S RIBBON MACHINE OPERATOR Respiratory Therapy - Mraco Rodriguez RRT - 09/18/2020 9:43 AM CSTExtubate Patient tolerated VLP for 40 minutes. Extubation order received. Patient extubated at 0925 by Respiratory Therapy without incident and placed on Oxygen at 6 L/minute Breath sounds Clear and Diminished. No stridor heard at this time. Patient able to vocalize. Pulse: 120 Resp: 19 SpO2: 99 % Patient instructed to use IS every hour while awake. Patient is still sleepy and did not perform the IS with the RT. Will try again when more awake. Willcontinue QID vest with 3% TID hypertonic saline for airway clearance. Respiratory Therapy to follow. S RIBBON MACHINE OPERATOR Clinical Team - Sally Burgos RN - 09/18/2020 5:13 AM CSTShift Summary: Pt had a good night. No concerns at this time. Replaced mg, phos, and K+. Plans for an SBT this am and possible extubation. Bladder scanned pt at 0400 for 323mL. Resident checked in on pt around 0500 and was updated that the patient had not void. I let him know that if she does not go on her own by 0600 I will bladder scan again and straight cath. Resident told me if the pt had more that 400mL in bladder to place a borjas instead of straight cathing the pt. 599 bladder scan showed 6 73mL. Borjas placed. Bilateral mitt restraints. Neuro: follows commands x4. Able to nod appropriately. PERRLA. 3mm. Cardiac: NSR-ST 80-110s. MAP goal >65 Respiratory: LS clear. Moderate secretions throughout shift. PEEP 8 FiO2 50% and RR 12 (per telephone orders from resident). Plan for SBT. GI: BM x2 on shift both loose. OG. TF @ 60. : pt did not void during shift. borjas placed on shift Skin/Mobility: L incision from chest tube removal. +1 edema to bilat upper and lower extremities. Redness noted on coccyx and heels. Bruising to left calf. Lines: L ART. L CVC. Drips: fent paused for SBT. Levo @ 0.07. ase Mgmt - Irma Foreman RN - 09/17/2020 7:09 PM CSTCASE MANAGEMENT / SOCIAL SERVICE TRANSITION PLAN - PROGRESS NOTE PLAN: Awaiting Medical Doctor Recommendations for Transition Will Continue to Follow for Support and Progression Towards Final Transition Plan BARRIERS TO TRANSITION: Discharge Needs to be Determined Medical barriers:intubated/sedated Febrile episodes Plan for SBT Drips: Norepinephrine, Fentanyl DOES ACCEPTING FACILITY REQUIRE COVID TESTING BEFORE DISCHARGE: Other: to be determined COMMENTS / PATIENT AND FAMILY RESPONSE TO PLAN: Patient was admitted for fever, left lung nodule, acute encephalopathy. Patient is intubated/sedated, on vasopressor. Patient had SBTs today, unable to extubate. No family seen at bedside. Will continue to follow to assist with discharge needs. IS PATIENT'S ADMISSION ASSOCIATED WITH TIA, ISCHEMIC, OR HEMORRHAGIC STROKE?: No PATIENT / SUBSTITUTE DECISION MAKER GOAL UPON TRANSITION: First Choice: Other: to be determined ANTICIPATED NEEDS UPON TRANSITION: Acute Rehab [facility] Other: to be determined RESOURCE(S) PROVIDED: nothing needed at this time ANTICIPATED MODE OF TRANSPORT UPON TRANSITION: Other: to be detemined ANTICIPATED MODE OF TRANSPORT TO AND FROM FOLLOW UP APPOINTMENTS: Family Car Other: to be determined VERIFIED CORRECT PHARMACY IS ENTERED FOR DISCHARGE: No TRANSITION ROUNDING COMPLETED WITH THE FOLLOWING: N/A SIGNED: JOHN PAUL Perdomo, RN, [facility] Case Management ICU 5CD [facility] Phone #[phone] Pager: [phone] S RIBBON MACHINE OPERATOR Clinical Team - Eboni Daigle RN - 09/17/2020 7:06 PM CSTShift Summary Summary Chest tube removed. 3 SBT performed. Pt failed first 2 by going apenic. Pt tolerated 30 minutes of SBT per resident left intubated. Assessment Neurological: Drowsy. Follows commands in all extremities. PERRLA. T max 99.6. Respiratory: Tolerating current vent settings. 3 SBT performed today. Minimal secretions. Cardiac: NSR to Sinus tach. Levo titrated for MAP >60. GI/: Borjas removed. 2 Small BMs. Nutrition/Diet: NPO + TF Last BM: 09/17 Peripheral Vascular: Pulses palpable in all extremities. Swelling noted to both upper and lower extremities. Incisions/Drains/Dressings: Chest tube removed. L incision. IV's/Lines: CVC, Art-line, G-tube and ETT/OG are Planning - Alejandra Peoples, STUDENT - 09/17/2020 6:16 PM GLASS RIBBON MACHINE OPERATOR Problem: IMPAIRED GAS EXCHANGE Goal: RESPIRATORY STATUS Description: DEFINITION: Movement of air in and out of the lungs and exchange of carbon dioxide and oxygen at the alveolar level. 1=Severe deviation from normal range, 2=Substantial deviation from normal range, 3=Moderate deviation from normal range, 4=Mild deviation from normal range, 5=No deviationfrom normal range. Outcome: NOC Rating 3 Flowsheets (Taken 09/17/20201813) Target Score: 5 Plan of care reviewed with: Patient Patient specific goal for the day: Maintain pulse oximetry >90% on PEEP of 8 Patient specific goal for the stay: Return to respiratory baseline Patient Progress: Vent settings remain unchanged. Blood gas looks stable. Minimal secretions. Tolerated vest treatment well. SBT's for 35 minutes today and tolerated well. are Planning - Eboni Daigle RN - 09/17/2020 3:54 PM GLASS RIBBON MACHINE OPERATOR Problem: RISK FOR INJURY Goal: SAFE HEALTH CARE ENVIRONMENT Description: DEFINITION: Physical and system arrangements to minimize factors that might cause physical harm or injury in the health care facility. 1 = Not adequate, 2 = Slightly adequate, 3 = Moderately adequate, 4 = Substantially adequate, 5 = Totally adequate. Outcome: NOC Rating 4 Flowsheets (Taken 09/17/2020 1552) Initial Score: 2 Target Score: 4 Plan of care reviewed with: Patient Patient specific goal for the day: Patient will remain free from any injury and all lines/tubes willremain in place Patient specific goal for the stay: Pt will no longer require restraints and will remain free from injury Achieve goal for stay: By discharge Patient Progress: Restraints removed q2hrs, CMS and passive ROM completed. Pt still reaching for invasive airway. Will continue to monitor the need for restraints. espiratory Therapy - Alejandra Peoples, STUDENT - 09/17/2020 10:15 AM CST Ventilator Patient continues on [place] ventilator on settings: Mode APVcmv, RR 16, Vt 400, PEEP 8, ZjM180%. SpO2: 95 % Breath Sounds: Clear and Diminished Secretions: Moderate, [place] tinged, and Thick ABG Results: Lab Results Component Value Date PHART 7.44 09/17/2020 [id number] 39 09/17/2020 PO2ART 108 (H) 09/17/2020 BASEEXART 2 09/17/2020 Patient continues to receive 3% hypertonic TID and vest treatments QID as tolerated. Spontaneous Breathing Trial Three trials attempted. The first two each lasted less than 3 minutes and were stopped due to apnea.Pt returned to previous vent settings. The third trial, the patient performed Spontaneous Breathing Trial on PEEP of 8, FiO2 40 for 35 minutes. Average Vt) = 359. RSBI (Rapid Shallow Breathing Index f/Vt)= 48. HOB greater than 30 degrees. Patient tolerated well. Patient was returned to ventilator settings as currently ordered. Vital signs stable. Physician notified of SBT results. RT to follow. linical Team - Christi Lopez RN - 09/17/2020 6:55 AM CSTShift Summary: Neuro: RASS -1. Follows commands. PERRL. Bilateral mitt restraints remain in place. Cardiac: NSR-ST. Levo titrated to maintain MAP > 60. Pulses palpable. Afebrile. Resp: Intubated. PEEP 8, FiO2 40%. Lungs clear/diminished. SpO2 > 92%. L sided chest tube remainsin place. GI/: Borjas in place with adequate UO. No BM this shift. TF paused from 0000- 0500 when verbal ordergiven to restart. Skin/Mobility: No new skin issues. Turned and repositioned q2hr. are Planning - Christi Lopez RN - 09/17/2020 5:20 AM GLASS RIBBON MACHINE OPERATOR Problem: RISK FOR INJURY Goal: SAFE HEALTH CARE ENVIRONMENT Description: DEFINITION: Physical and system arrangements to minimize factors that might cause physical harm or injury in the health care facility. 1 = Not adequate, 2 = Slightly adequate, 3 = Moderately adequate, 4 = Substantially adequate, 5 = Totally adequate. Outcome: NOC Rating 3 Flowsheets (Taken 09/17/2020 05) Initial Score: 2 Target Score: 4 Plan of care reviewed with: Patient Patient specific goal for the day: Patient will remain free from injury and all lines and tubes willremain in place Patient specific goal for the stay: All lines and tubes removed, restraints removed Achieve goal for stay: By discharge Patient Progress: Restraints removed q2hr and CMS check done. linical Team - Usha Park RN - 09/16/2020 8:[address] chest Assessment Neurological: Fentanyl and precedex gtt. Opens eyes to voice. Follows commands. PERRLA. Respiratory: PEEP 8 FiO2 45%. Clear/diminished lung sounds. Saturations >95%. Cardiac: NSR. Levo gtt for MAP 65-70. Afebrile. GI/: Borjas. 800 mL UO this shift. No BM. TF started at 20 mL/hr goal of 60 mL/hr. Tolerating. NPOat midnight tonight. G-tube present, not being used for TF but instead OG is used. Incisions/Drains/Dressings: Chest tube. Mepilex to coccyx. IV's/Lines: PIV x1. CVC. Art line. are Planning - Ritu Puga, STUDENT - 09/16/2020 6:53 PM GLASS RIBBON MACHINE OPERATOR Problem: IMPAIRED GAS EXCHANGE Goal: MECHANICAL VENTILATION RESPONSE Description: DEFINITION: Alveolar exchange and tissue perfusion are effectively supported by mechanical ventilation. 1=Severe deviation from normal range, 2=Substantial deviation from normal range, 3=Moderate deviation from normal range, 4=Mild deviation from normal range, 5=No deviation from normal range. Outcome: NOC Rating 3 Flowsheets (Taken 09/16/2020 1850) Initial Score: 1 Target Score: 5 Plan of care reviewed with: Patient Patient specific goal for the day: Maintain stable vent settings. Patient specific goal for the stay: Extubate and return to baseline. Achieve goal for stay: By discharge Patient Progress: Patient bronched and taken to CT scan. Note: Refer to RT note for further information. espiratory Therapy - Ritu Puga, STUDENT - 09/16/2020 6:04 PM GLASS RIBBON MACHINE OPERATOR Ventilator Patient continues on [place] ventilator on settings: Mode APVcmvv, RR 16, Vt 400, PEEP 8, FiO2 45%. SpO2: 97 % Breath Sounds: Clear and Diminished Secretions: Scant Small, [place] tinged, and Thick ABG Results: Lab Results Component Value Date PHART 7.47 (H) 09/16/2020 [id number] 39 09/16/2020 PO2ART 86 09/16/2020 BASEEXART 5 (H) 09/16/2020 Patient continues to receive hypertonic saline TID. Bronchoscopy was performed by Dr. Vasquez at 1100. RT to continue to follow. S RIBBON MACHINE OPERATOR Associated attestation - Danny Ortiz RRT - 09/16/2020 8:57 PM CSTCT scan done later today. I have seen and discussed the patient with the Respiratory Therapy Insurance Broker. Today's assessment and plan, as outlined in the progress note, was developed in collaboration following review of the history,physical exam, medications, labs and imaging studies, if available. I have examined the patient and agree with the assessment and plan. Case Mgmt - Mercedes Brantley RN - 09/16/2020 9:42 AM CSTCASE MANAGEMENT / SOCIAL SERVICE TRANSITION PLAN - PROGRESS NOTE PLAN: Will Continue to Follow for Support and Progression Towards Final Transition Plan BARRIERS TO TRANSITION: Awaiting Collateral Information Awaiting Therapy Recommendations Diagnostic Tests Pending Discharge Needs to be Determined COMMENTS: Patient remains intubated and sedated, PEEP 8, FiO2 50%. Two chest tubes in place as well.A bronchoscopy may be done today, cultures from previous ones sent. Medications include IV fentanyl,levophed, and propofol. No further questions at this time. PEOPLE INVOLVED WITH TRANSITION PLANNING: Family PATIENT / SUBSTITUTE DECISION MAKER GOAL UPON TRANSITION: First Choice: Other: to be determined ANTICIPATED NEEDS UPON TRANSITION: Acute Rehab [facility] Transitional Care REFERRAL(S) MADE: No RESOURCE(S) PROVIDED: nothing needed at this time IS PATIENT'S ADMISSION ASSOCIATED WITH TIA, ISCHEMIC OR HEMORRHAGIC STROKE?: No ANTICIPATED MODE OF TRANSPORT UPON TRANSITION: [facility] Wheelchair (P:[phone]) ANTICIPATED MODE OF TRANSPORT TO AND FROM FOLLOW UP APPOINTMENTS: Family Car VERIFIED CORRECT PHARMACY IS ENTERED FOR DISCHARGE: No SIGNED: Mercedes Brantley RN Case Manager [facility] [phone] Pager [phone] utrition Team - Mayi Dubois RD, LRD - 09/16/2020 9:10 AM CSTNutrition Therapy Follow Up - Nutrition Support Referral: Manage Tube Feeding per Protocol Hospital Day: 5 days Active Problems: Pneumonia with lung abscess and pleural effusion s/p Left VATS thoracotomy, drainage of pleuraleffusion, drainage of lung abscess, decortication of left lobe and flexible bronchoscopy on 09/13 Post op respiratory failure PMH: Anxiety, depression, hypothyroidism, gastric bypass, hypoglycemic unawareness Recommendations: Set goal TF rate to Replete at 60 ml/hr Provides ~ 1380 kcal, 85 gm protein/day, 1160 ml fluid/day NUTRITION ASSESSMENT Bronch completed yesterday and on 09/14, continues to have thick secretions so no SBT done yesterday.Pt has been NPO for past 3 days. Plan to start TF today via OG, G tube still clogged. Anthropometrics: Height: 154.9 cm (5' 1") Admission Wt: Weight: 67.2 kg (148 lb 2.4 oz) as of 09/10/2020 per bed scale Most Recent Wt: Weight: 70.1 kg (154 lb 8.7 oz) (09/15/20 0700) per bed scale BMI: Body mass index is 29.2 kg/m. IBW: 48 kg %IBW: 141% (based on admit weight) Usual Body Weight: 150 lbs but does fluctuate Unintentional Weight Loss: No recent weight loss, appears to be down 10 lbs in 1 year (6.2%-not significant) Estimated Needs: Adjusted with intubation 4814-3982 kcal/day (19-21 kcal/kg Using: Admission Weight) 80-100 gm protein (1.2-1.5 gm/kg) Using:Admission Weight Fluids per MD [place] Equation: 1364 kcal Estimated average intake over the last 2 days (propofol calories): 100 kcal and 0 gm protein, which meets: 5 % of estimated kcal needs and 0 % of estimated protein needs. Intake Records: Intake Prior to Admit: Less than 75% of estimated energy requirements for greater than or equal to 1month Patient reports that her appetite has been decreased over the past 3 weeks. No c/o of nausea/vomiting. Patient does have a G tube. Receives TF at only to help avoid hypoglycemia. G tube is currently clogged, was planning to have replaced on 09/10. Consumed small, frequent meals and snacks at home to help avoid hypoglycemia. Provide small, frequent meals and snacks per patient preference. Recommended to replace G tube and resume feedings when medically able. Current Intake: Pt has been NPO for past 3 days, remains intubated but TF was not started. Starting TF today. Had been on oral diet for 2-3 days prior to intubation. Overall < 75% of needs met in past 6 days of admission. Enteral Feeding: Replete at 20 ml/hour- goal per dietitian Expect to provide: ~460 kcal (35% of estimated needs), 30 gm protein / day (35% of estimated needs), 50 gm carbohydrate, and 385 mL free water Type of Feeding Tube / Location of Tip / Date Placed: OG tube placed on 09/13; PEG also present however is clogged Reason Enteral Nutrition Started: Mechanical Ventilation Physical Assessment: Edema: (per assessment rn at 0434 today) None GI Assessment: ? Abdominal exam: Normal Inspection with Present, Active bowel sounds, per assessment rn at 0434 today. ? Stool Frequency: 1 x on 09/12 Wounds/Pressure Points: (per assessment rn at 0434 today) ? Heel Left, Right, Blanchable Redness Functional Status: Intubated Nutrition Focused Physical Exam: Completed by RD on 09/14/20 Below the Eye (fat): Slightly Bulged Fat Pads (Within Defined Limits) Episcopalian (muscle): Slight depression (mild-moderate)(very mild) Clavicle (muscle): Bone not prominent (Within defined limits) Shoulder (muscle)/Deltoid muscle: Rounded curves at arm/shoulder/neck (Within defined limits) Ribs/Iliac Crest (fat): Ribs do not show, slight to no protrusion of iliac crest (Within Defined Limits) Triceps/Biceps (fat): Ample fat tissue obvious between folds of skin (Within defined limits) Hand/Interosseous (muscle): Flat to bulging muscle (Within defined limits) Thigh (muscle): Well-rounded, no bone prominence (Within defined limits) Calf (muscle): Well-developed bulb of muscle (Within defined limits) Nutritionally-Relevant Medications, Vitamins and Minerals: Fentanyl, Norepinephrine( 0.06 mcg/kg/min), Prilosec, Klonopin, Wellbutrin Nutritionally-Relevant Biochemical Data: (09/16/2020) Potassium: 3.2 L Albumin: 1.9 L GFR: >90 Triglycerides: 48 L Allergies/Food Intolerance: [place] is allergic to penicillin; adhesives; aleve [gnp naproxen sodium];flagyl [metronidazole]; ibuprofen; mastisol; and morphine. Culturally Amish Needs: NA INTERVENTIONS Evaluated current tube feeding regimen for tolerance and adequacy Adjusted tube feeding to better meet estimated needs EMR reviewed MONITORING/EVALUATION Monitor I&O, weight trends, nutrition-related labs and medications, clinical status, and planof care r/t need for nutrition intervention and provide as warranted Monitor tube feeding intake, tolerance and nutritional status with regular f/u assessments. Adjust tube feeding as needed Stable renal panel Nutrition Therapy will reassess every 1-4 days Mayi Dubois (Lin) MS, RD, LRD Pager # [phone] are Planning - Manoj Velarde RN - 09/16/2020 6:11 AM GLASS RIBBON MACHINE OPERATOR Problem: IMPAIRED GAS EXCHANGE Goal: RESPIRATORY STATUS Description: DEFINITION: Movement of air in and out of the lungs and exchange of carbon dioxide and oxygen at the alveolar level. 1=Severe deviation from normal range, 2=Substantial deviation from normal range, 3=Moderate deviation from normal range, 4=Mild deviation from normal range, 5=No deviationfrom normal range. Outcome: NOC Rating 3 Flowsheets (Taken 09/16/2020608) Initial Score: 2 Target Score: 4 Plan of care reviewed with: Patient Patient specific goal for the day: Maintain pulse oximetry >90% on PEEP of 8 Patient specific goal for the stay: Not requrie mechanical ventilation Achieve goal for stay: By discharge Patient Progress: Vent settings remain unchanged. Blood gas looks stable. Minimal secretions. Thick secretions with oral cares. Lung sounds diminished in lower lobes. Problem: RISK FOR INJURY Goal: SAFE HEALTH CARE ENVIRONMENT Description: DEFINITION: Physical and system arrangements to minimize factors that might cause physical harm or injury in the health care facility. 1 = Not adequate, 2 = Slightly adequate, 3 = Moderately adequate, 4 = Substantially adequate, 5 = Totally adequate. Outcome: NOC Rating 4 Flowsheets (Taken 09/16/2020608) Initial Score: 2 Target Score: 4 Plan of care reviewed with: Patient Patient specific goal for the day: Patient will remain free from injury and all lines and tubes willremain in place Patient specific goal for the stay: All lines and tubes removed, restraints removed. Achieve goal for stay: By discharge Patient Progress: Removed restraints at 2000 assessment and did not put them back on. Pt did not pull at lines or breathing tube. Pt not agitated. linical Team - Manoj Velarde RN - 09/15/2020 10:55 PM CSTShift Summary: [id number] No acute changes during shift. Replaced K. No output from chest tube. Neuro: Remains sedated using fentanyl. Follows commands in all extremities. RASS goal -1. Has order for restraints but have had bilateral MITT restraints off since 1999 assessment. No sign of breakdownor injury noted. Pt not agitated or pulling at lines. Cardiac: NSR/ST. 80-100s. Remains on small dose of levo. See MAR for titrations. Pulses palpable. ART line in place but is positional, going off cuff. Resp: Mechanically ventilated. PEEP 8. FiO2 50%. Lung sounds are clear/diminished. LLL diminished. CT remains in place, -20 suction. Minimal secretions. GI/: Borjas in place. Adequate urine output. Abd is soft. No BM. Bowel sounds active. BS stable. Skin: No new skin issues noted. BR to heels. Gtts: Fentanyl: 75 Levo: 0.03 LR: 75 Other: No family involvement. are Planning - Mango Rader RN - 09/15/2020 6:16 PM GLASS RIBBON MACHINE OPERATOR Problem: RISK FOR INJURY Goal: SAFE HEALTH CARE ENVIRONMENT Description: DEFINITION: Physical and system arrangements to minimize factors that might cause physical harm or injury in the health care facility. 1 = Not adequate, 2 = Slightly adequate, 3 = Moderately adequate, 4 = Substantially adequate, 5 = Totally adequate. Flowsheets (Taken 09/15/20201815) Initial Score: 2 Target Score: 4 Patient specific goal for the day: Patient will remain free from injury and all lines and tubes willremain in place Patient specific goal for the stay: All lines and tubes removed, restraints removed. Achieve goal for stay: Within 48 hours Patient Progress: Patient pulling at ETT, and lines, this AM, redirection attempted, patient forgetful at times, restraints placed for safety. No signs of injury noted. Problem: IMPAIRED GAS EXCHANGE Goal: RESPIRATORY STATUS Description: DEFINITION: Movement of air in and out of the lungs and exchange of carbon dioxide and oxygen at the alveolar level. 1=Severe deviation from normal range, 2=Substantial deviation from normal range, 3=Moderate deviation from normal range, 4=Mild deviation from normal range, 5=No deviationfrom normal range. Outcome: NOC Rating 3 Flowsheets (Taken 09/15/2020 181) Initial Score: 2 Target Score: 4 Plan of care reviewed with: Patient Patient specific goal for the day: Maintain pulse oximetry >90% on PEEP of 8 Patient specific goal for the stay: Not requrie mechanical ventilation Achieve goal for stay: Within 48 hours Patient Progress: PEEP increased to 8, and rate increased to 16. Bronchoscopy performed at bedside. Thick secretions noted with oral cares. linical Team - Mango Rader RN - 09/15/2020 5:07 PM CSTShift Summary: Patient intubated and sedated on fentanyl, propofol weaned off. Bronchoscopy performed at bedside, no complications noted. Norepinephrine infusing for MAP goal of 65. Patient following commands off of propofol. Borjas in place with adequate output. updated via phone by author and Dr. Montgomery. Peep increased to 8, follow up ABG obtained and Dr. Montgomery notified of results. Ventilator rate increasedas noted in orders. ase Mgmt - Mercedes Brantley RN - 09/15/2020 3:12 PM CSTCASE MANAGEMENT / SOCIAL SERVICE TRANSITION PLAN - PROGRESS NOTE PLAN: Will Continue to Follow for Support and Progression Towards Final Transition Plan BARRIERS TO TRANSITION: Awaiting Collateral Information Awaiting Therapy Recommendations Diagnostic Tests Pending Discharge Needs to be Determined COMMENTS: Patient remains intubated and sedated, PEEP 5, FiO2 50%. Bronchoscopy was repeated again today, mucus plugging noted on imaging. Two chest tubes in place to left chest. Medications include IVmaxipime, fentanyl, levophed, propofol, and vancomycin. No further questions at this time. PEOPLE INVOLVED WITH TRANSITION PLANNING: Family PATIENT / SUBSTITUTE DECISION MAKER GOAL UPON TRANSITION: First Choice: Home: Family/Friend Support ANTICIPATED NEEDS UPON TRANSITION: Acute Rehab Long-term Acute Care [facility] REFERRAL(S) MADE: No RESOURCE(S) PROVIDED: nothing needed at this time IS PATIENT'S ADMISSION ASSOCIATED WITH TIA, ISCHEMIC OR HEMORRHAGIC STROKE?: No ANTICIPATED MODE OF TRANSPORT UPON TRANSITION: [facility] Wheelchair (P:[phone]) ANTICIPATED MODE OF TRANSPORT TO AND FROM FOLLOW UP APPOINTMENTS: As arranged by accepting facility VERIFIED CORRECT PHARMACY IS ENTERED FOR DISCHARGE: No SIGNED: Mercedes Brantley forms analyst [facility] [phone] Pager [phone] OCN / Skin Team - Shante Clay RN - 09/15/2020 11:48 AM CSTWound Care Nurse Visit: Location of visit: Hospital Indication for visit: Concern for pressure injury under SCD to left leg. Assessment: Location of wound: Left leg Status: acute Wound type: bruise Pain: winced during assessment, intubated Area of concern looks to be a bruise that was compressed by SCD causing striated vertical lines downleft lower extremity. Not a pressure injury. Wound care will sign off. linical Team - Sally Burgos RN - 09/15/2020 3:27 AM CSTShift Summary Neuro: patient follows commands x4, PERRLA. Able to nod appropriately. Cardiac: NSR-ST. On Levo @ 0.05 for MAP goal >65. Pulmonary: LS clear. Moderate oral and tracheal secretions. PEEP 5 FiO2 50% O2sats >95%. Plans for SBT this AM with potential extubation to follow . GI/: borjas. UO 1300. No BM on shift. Does not currently have TF. Skin: bruised area to L tenorio with darkened areas. Gtt: Prop and fent off. Replaced K+, phosphorous, and Mg. Other: restraints (bilateral mitts) are Planning - Kathryn Chu RN - 09/14/2020 8:12 PM GLASS RIBBON MACHINE OPERATOR Problem: RISK FOR INJURY Goal: SAFE HEALTH CARE ENVIRONMENT Description: DEFINITION: Physical and system arrangements to minimize factors that might cause physical harm or injury in the health care facility. 1 = Not adequate, 2 = Slightly adequate, 3 = Moderately adequate, 4 = Substantially adequate, 5 = Totally adequate. Flowsheets (Taken 09/14/20202009) Patient specific goal for the day: Patient will remain free from injury and all lines and tubes willremain in place Patient specific goal for the stay: All lines and tubes removed, restraints removed. Achieve goal for stay: By discharge Patient Progress: Patient pulling at ETT, and lines, this AM, redirection attempted, patient forgetful at times, restraints placed for safety. linical Team - Kathryn Chu RN - 09/14/2020 8:06 PM CSTShift Summary: SBT for 30 mins, Bronched at bedside, sedated for bronch, slow to wake up, MD aware, unable to SBT again. Low grade fever noted T-max 100.1, Dr. Montgomery and Dr. Lee aware. Neuro: patient following commands in all extremities, PERRLA. Remains on slow does propofol and fent. Cardiac: NSR to ST. On Levo for MAP >65. Pulmonary: Lungs clear to rhonchi, bronch done at bedside, PEEP 5 FiO2 50% sats >90% GI/: Borjas in place, plan to remove tomorrow, No BM but active bowel sounds. No TF at time time. Skin: Continues with bruise area to L) tenorio, new darken areas noted to same leg, wound consult placed. Other: restraints placed this AM, patient noted to be pulling at tube when waking up, lan mits placed for safety. Patient and family aware. Family updated via phone, all questions answered and updated as able. Will update next shift. linical Team - Kathryn Chu RN - 09/14/2020 7:48 PM CSTI have read and validate the accuracy of the student nurse's documentation for Niles Shearer for 09/14/2020. ase Brenda - Mercedes Brantley RN - 09/14/2020 4:25 PM CSTCASE MANAGEMENT / SOCIAL SERVICE TRANSITION PLAN - PROGRESS NOTE PLAN: Will Continue to Follow for Support and Progression Towards Final Transition Plan BARRIERS TO TRANSITION: Awaiting Collateral Information Awaiting Therapy Recommendations Diagnostic Tests Pending Discharge Needs to be Determined COMMENTS: Patient intubated and sedated, PEEP 8, FiO2 50%. Bronchoscopy done today. Medications include IV maxipime, fentanyl, robinul, levophed, propofol and vancomycin. No further questions at this time. PEOPLE INVOLVED WITH TRANSITION PLANNING: Family PATIENT / SUBSTITUTE DECISION MAKER GOAL UPON TRANSITION: First Choice: Other: TBD ANTICIPATED NEEDS UPON TRANSITION: Other: TBD REFERRAL(S) MADE: No RESOURCE(S) PROVIDED: nothing needed at this time IS PATIENT'S ADMISSION ASSOCIATED WITH TIA, ISCHEMIC OR HEMORRHAGIC STROKE?: No ANTICIPATED MODE OF TRANSPORT UPON TRANSITION: TBD ANTICIPATED MODE OF TRANSPORT TO AND FROM FOLLOW UP APPOINTMENTS: Family Car VERIFIED CORRECT PHARMACY IS ENTERED FOR DISCHARGE: No SIGNED: Mercedes Brantley forms analyst [facility] [phone] Pager [phone] espiratory Therapy - Mohini Wilhelm, RAIL SIGNAL WORKER - 09/14/2020 1:52 PM GLASS RIBBON MACHINE OPERATOR Ventilator Patient continues on [place] ventilator on settings: Mode CMV, RR 12, Vt 500, PEEP +8, FiO2 50%. SpO2: 94 % Breath Sounds: Clear and Diminished after suction Secretions: Moderate, Hemoptysis, and Thick ABG Results: Lab Results Component Value Date PHART 7.48 (H) 09/14/2020 IIN2BTW 39 09/14/2020 PO2ART 85 09/14/2020 BASEEXART 5 (H) 09/14/2020 Patient continues to receive SVN with Perforomist therapy BID. Day 1 of SBT: patient tolerated 30" of CPAP. Trial stopped for bronchoscopy by Dr. Vasquez. Will follow. utrition Team - Mayi Dubois RD, LRD - 09/14/2020 10:04 AM CSTNutrition Therapy Follow Up - Nutrition Support Hospital Day: 3 days Active Problems: Pneumonia with lung abscess and pleural effusion s/p Left VATS thoracotomy, drainage of pleuraleffusion, drainage of lung abscess, decortication of left lobe and flexible bronchoscopy on 09/13 Post op respiratory failure PMH: Anxiety, depression, hypothyroidism, gastric bypass, hypoglycemic unawareness Recommendations: If unable to extubate, start enteral nutrition: With similar propofol rate (30 mcg/kg/min, providing ~315 kcal): Replete at 40 ml/hour goal rate Add Protein Powder 15 gm BID Expect ~ 1350 kcal & 85 gm protein/day Once able to extubate, advance diet as medically appropriate. NUTRITION ASSESSMENT Patient intubated post op VATS procedure. Remains NPO at this time. Pt has PEG tube but had been just eating orally prior to procedure. Noted G tube had been clogged. Currently has OG and PEG. Intake had been fair on 09/11 and 09/13 but still sub-optimal. Plan to try to SBT today, if unable to extubate consider starting TF. Anthropometrics: Height: 154.9 cm (5' 1") Admission Wt: Weight: 67.2 kg (148 lb 2.4 oz) as of 09/10/2020 per bed scale Most Recent Wt: Weight: 67.9 kg (149 lb 11.1 oz) (09/13/20 1300) per bed scale BMI: Body mass index is 28.28 kg/m. IBW: 48 kg %IBW: 141% (based on admit weight) Usual Body Weight: 150 lbs but does fluctuate. Unintentional Weight Loss: Estimated Needs: Adjusted with intubation 5392-9661 kcal/day (19-21 kcal/kg Using: Admission Weight) 80-100 gm protein (1.2-1.5 gm/kg) Using:Admission Weight Fluids per MD [place] Equation: 1335 kcal Estimated average intake on 09/10-09/12: 900 kcal and 30 gm protein, which meets: 65 % of estimated kcal needs and 35 % of estimated protein needs. 09/13 NPO Intake Records: Intake Prior to Admit: Less than 75% of estimated energy requirements for greater than or equal to 1month Patient reports that her appetite has been decreased over the past 3 weeks. No c/o of nausea/vomiting. Patient does have a G tube. Receives TF at HS only to help avoid hypoglycemia. G tube is currently clogged, was planning to have replaced on 09/10. Consumed small, frequent meals and snacks at home to help avoid hypoglycemia. Provide small, frequent meals and snacks per patient preference. Recommended to replace G tube and resume feedings when medically able. Current Intake: Pt had been on oral diet before procedure, however intake had been inadequate of < 75%. Currently NPO Type of Feeding Tube / Location of Tip / Date Placed: PEG tube placed on 11/25/2019 Reason Enteral Nutrition Started: Inability to take sufficient po Physical Assessment: Edema: (per assessment rn at 0 today) None GI Assessment: ? Abdominal exam: Normal inspection with Present, Active bowel sounds, per assessment rn at 399 today. ? Stool Frequency: 1 x on 09/12 Wounds/Pressure Points: (per assessment rn at 399 today) WDL Functional Status: Intubated and Sedated Nutrition Focused Physical Exam: Completed by RD on 09/14/2020 Below the Eye (fat): Slightly Bulged Fat Pads (Within Defined Limits) Episcopalian (muscle): Slight depression (mild-moderate)(very mild) Clavicle (muscle): Bone not prominent (Within defined limits) Shoulder (muscle)/Deltoid muscle: Rounded curves at arm/shoulder/neck (Within defined limits) Ribs/Iliac Crest (fat): Ribs do not show, slight to no protrusion of iliac crest (Within Defined Limits) Triceps/Biceps (fat): Ample fat tissue obvious between folds of skin (Within defined limits) Hand/Interosseous (muscle): Flat to bulging muscle (Within defined limits) Thigh (muscle): Well-rounded, no bone prominence (Within defined limits) Calf (muscle): Well-developed bulb of muscle (Within defined limits) Nutritionally-Relevant Medications, Vitamins and Minerals: Fentanyl, Flagyl, Levothyroxine (no hold noted), Klonopin, Norepinephrine (0.9 mcg/kg/min), Wellbutrin, LR, Nutritionally-Relevant Biochemical Data: (09/14/2020) Glucose: 175 H Potassium: 3.3 L Magnesium: 1.7 L Albumin: 2.2 L GFR: >90 Allergies/Food Intolerance: Niles is allergic to penicillin; adhesives; aleve [gnp naproxen sodium];flagyl [metronidazole]; ibuprofen; mastisol; and morphine. Culturally Amish Needs: no INTERVENTIONS Provided tube feeding recommendations Conducted [facility] EMR reviewed MONITORING/EVALUATION Monitor diet advancement Monitor for initiation of nutrition support Monitor I&O, weight trends, nutrition-related labs and medications, clinical status, and planof care r/t need for nutrition intervention and provide as warranted Stable renal panel Nutrition Therapy will reassess every 1-3 days Mayi Higginbothamurajian) MS, RD, LRD Pager # [phone] S RIBBON MACHINE OPERATOR Clinical Team - Anais Hassan RN - 09/14/2020 2:49 AM CSTNo acute events overnight. Pt started on levo for mild hypotension. Pt opening eyes to voice and following commands. PEEP 5, FiO2 50%. Lungs clear bilaterally. NSR, VSS. No BM. Adequate UO with borjas. No new skin issues to address. Will continue to monitor and update oncoming RN. linical Team - Estrellita Rueda RN - 09/13/2020 6:54 PM CSTPt admitted to room 542 at around 1200. Intubated, no gtts, VSS. 4 eyes on skin done with Arash Maldonado RN. No significant skin issues, L sided chest incision from procedure, old G tube in place, and bruise on L calf. Pt on propofol and fentanyl for RASS -1, pt follows commands and nods appropriately. NSR, BP WDL. Cont on vent, Peep 5, fio2 50%. CT in place, 180 ml sanginuous output. Adequate UO, no BM.Plan for SBT tomorrow. Will cont to monitor and report to oncoming nurse. S RIBBON MACHINE OPERATOR Case Mgmt - Carmen Lincoln RN - 09/13/2020 2:01 PM CSTCASE MANAGEMENT PROGRESS NOTE PLAN: Pt in procedure this morning during morning rounds with Dr. Snyder and noted to be in the ICU post-procedure. ICU CM to follow. SIGNED: Carmen Lincoln RN upplemental Progress Note - Tami Malik MD - 09/13/2020 1:30 PM CSTGeneral Surgery Resident Post Operative Check Subjective: Intubated and sedated in ICU Hemodynamically stable Chest tubes in place with serosang output and no air leak Borjas Objective: Blood pressure 107/76, pulse 84, temperature 98.5 F (36.9 C), resp. rate 16, height 154.9 cm (61"), weight 67.2 kg (148 lb 2.4 oz), last menstrual period 04/27/2003, SpO2 100 %, not currently . General: Intubated and sedated Lungs: Coarse lung sounds bilaterally. Chest tube with serosang output. No air leak. CMV, rate 12. TV 550, Fio2 100%, Peep +5. Cardiac: RRR UOP: 800 Chest tube: 180 CXR FINDINGS: Interval placement of enteric tube. The tip superimposed left upper quadrant likely withinthe stomach. Postsurgical changes of the left-sided chest. 2 apical coursing chest tubes are identified. Left lung airspace opacity/consolidation again identified. Surgical clips in the right left upper quadrant. Visualized right lower lung appears clear. ASSESSMENT/PLAN: Niles Shearer is a 55yr female who is s/p Left VATS thoracotomy, drainage of pleural effusion, drainage of lung abscess, decortication of left lobe and flexible bronchoscopy. Left intubated and sedated post-operatively to assist with lung expansion. - Keep intubated and sedated overnight - Will start weaning vent and sedation tomorrow - Chest tube to suction - Indio Malik MD General Surgery Resident 09/13/2020 S RIBBON MACHINE OPERATOR Respiratory Therapy - Mohini Wilhelm, DANTE - 09/13/2020 12:02 PM CSTPatient placed on a Vasquez ventilator at this time at: CMV, rate 12. TV 550, Fio2 100%, Peep +5. Bilateral BS. Will start SVN with Albuterol q 2 hour X 3, then q 4 hour, Will follow. linical Team - Marie Dyer RN - 09/13/2020 7:58 AM CSTDouble skin check done with KERI Aranda. Pt has G tube site. Pt has no skin issues. Will continue tomonitor. are Planning - Marie Dyer RN - 09/13/2020 2:10 AM GLASS RIBBON MACHINE OPERATOR Problem: ACUTE PAIN Goal: CLIENT SATISFACTION: PAIN MANAGEMENT Description: DEFINITION: Extent of positive perception of nursing care to relieve pain. 1=Not at all satisfied, 2=Somewhat satisfied, 3=Moderately satisfied, 4=Very satisfied, 5=Completely satisfied. Flowsheets (Taken 09/13/2020 020) Initial Score: 2 Target Score: 4 Plan of care reviewed with: Patient Patient specific goal for the day: Pt will inform nursing staff if having increase in pain Patient specific goal for the stay: Pain will be managed with PO medication Achieve goal for stay: By discharge Patient Progress: Pt c/o pain on left side rib cage and increases with coughing. Oxycodone given with cough syrup. VSS. Pt sleeping after pain medications. Will continue to monitor. S RIBBON MACHINE OPERATOR Operative Note - Daquan Lee MD - 09/13/2020 1:[address] [facility] PATIENT NAME: NILES SHEARER DATE OF SERVICE: 09/13/2020 ILIANA: [id number] PROCEDURE: Left thoracoscopy, left thoracotomy, drainage of pleural effusion, decortication left lower lobe, drainage of left upper lobe abscess and drainage of lobar fissure abscess. ATTENDING SURGEON: Daquan Lee MD. RESIDENT SURGEON: Pelon Mcclellan MD and Tami Malik MD. ANESTHESIA: General with double lumen Carlens tube. INDICATION FOR SURGERY: The patient is a 55-year-old lady with a 1-month history of pneumonia with a complicated and expanding lung abscess and pleural effusion, who was brought urgently to the operating room for drainage with signs of sepsis. PROCEDURE: The patient was brought to the operating room. She was intubated without difficulty with a double lumen Carlens tube and turned to the right lateral decubitus position with the left side up. The chest was prepped and draped in the standard sterile fashion. A 1-cm incision was then made in the 9th interspace and the chest entered. The lung was noted to be adhered to the chest wall laterally. A second incision was then made just below the tip of the scapula at the area where the lung was adhered to the chest wall. The chest was entered under direct vision. The area where the lung was free from the chest wall was mobilized. The purulent fluid in the pleural cavity was drained and sent for cultures. The fissure between the upper and lower lobe was identified and in an approximately a 4 cm area these were densely adhered, but on superior and inferior to that the fissure was easily developed and almost complete. The lung was first dissected from the chest wall using sharp and so nt dissection. This allowed mobilization of the lung completely once the upper lobe had been mobilized from the chest wall. There were purulent secretions and pockets of purulence in this area. Thenthe attention was turned to the fissure. Using mostly blunt dissection, the fissure was immobilizedand we did enter a purulent cavity in the left upper lobe. This was drained with the suction. The lingula was mobilized. An area of the left lower lobe was identified that was firm and indurated, and this was opened. Purulence was present here and this was drained. The left upper lobe lingula wascompletely mobilized from the heart, and then the fissure was noted to be free. The base of the lingula was firm and indurated, but this extended up at least mcc through the upper lobe. There wasno abscess here, however, and this was not resected. Once the lobe was completely mobilized and thefissure was completely mobilized, 1 liter of irrigation was used in the chest cavity. This was follo wed with another liter of Irrisept solution, which was used to irrigate the chest cavity. The upperlobe was decorticated at the base of the lingula, and then the lung allowed to expand. It did expand to touch the chest wall. At this point, we felt that the abscess cavity was drained. She certainly did have a persistent pneumonia and consolidation in the upper lobe. The decision was made to drain her. We placed two 28 straight drains running up to the apex, 1 posteriorly and 1 anteriorly. Shewas then closed anatomically and the endotracheal tube was exchanged for a #8 endotracheal tube. Flexible bronchoscopy was then performed with secretions from the left lower lobe irrigated for therapeutic lavage. Cultures were not sent as we had intraoperative cultures earlier. The patient was thenbrought intubated to the ICU. A central line was placed in the left subclavian space vein using a Se boboinger technique. Access for IVs was poor. Daquan Lee MD Receipt: [id number] Trans ID: [id number] GLASS RIBBON MACHINE OPERATOR CST linical Team - Lili Gomez RN - 09/12/2020 7:55 PM CSTPatient transferred to [facility] ([id number]) via EMS, leaving 7S at 1955. Patient was hospitalized for fever related to left lung nodule, transferring to [facility] for lung decortication. Current symptoms include SOB with exertion, strong non-productive cough and diffuse pain in the ribcage during coughing. Patient is on 3L Oxygen via nasal cannula for comfort due to coughing fits. Ambulates to bathroom without oxygen, saturations remain in the 90s. PRN antitussive given see MAR, coughing improved, pt saturations remain above 95% on RA, transferred without supplemental oxygen. Provided SBAR to [facility] charge nurse. Pt educated on EMS transfer process, Questions answered, patient verbalizes understanding. Vancomycin infusion started at 1700, IV infiltrated see flowsheets, Vancomycin paused at 1710, anesthesia placed new IV at 1845, vancomycin restarted at 1855, IV Vancomycin running at 200ml/hr during discharge. Belongings sent with patient. are Planning - Lili Gomez RN - 09/12/2020 7:44 PM GLASS RIBBON MACHINE OPERATOR Problem: IMPAIRED GAS EXCHANGE Goal: RESPIRATORY STATUS Description: DEFINITION: Movement of air in and out of the lungs and exchange of carbon dioxide and oxygen at the alveolar level. 1=Severe deviation from normal range, 2=Substantial deviation from normal range, 3=Moderate deviation from normal range, 4=Mild deviation from normal range, 5=No deviationfrom normal range. Flowsheets (Taken 09/12/2020 1941) Plan of care reviewed with: Patient Patient specific goal for the stay: Return to baseline respiratory status. Achieve goal for stay: By discharge Patient Progress: Pt currently on 3L NC, SOB with exertion. Strong cough resulting in emesis, PRNs given see MAR. Pt encouraged to use pillow to brace chest while coughing, pt reported that it helped. Will continue to monitor. S RIBBON MACHINE OPERATOR Respiratory Therapy - Telma Holland, RAIL SIGNAL WORKER - 09/12/2020 4:54 AM CSTPt called to see pt for a PRN d/t cough and increased O2 needs. Pt seen resting in bed on 2L NC, sats 86%, increased to 4L, sats 93%. BS clear on the right and fine crackles on the left. Pt given PRN DuoNeb SVN, BS remain unchanged after nebulizer, pt may need a lidocaine nebulizer to get some relief of her cough. RT to follow. are Planning - Chitra Nava RN - 09/12/2020 4:34 AM GLASS RIBBON MACHINE OPERATOR Problem: IMPAIRED GAS EXCHANGE Goal: RESPIRATORY STATUS Description: DEFINITION: Movement of air in and out of the lungs and exchange of carbon dioxide and oxygen at the alveolar level. 1=Severe deviation from normal range, 2=Substantial deviation from normal range, 3=Moderate deviation from normal range, 4=Mild deviation from normal range, 5=No deviationfrom normal range. Flowsheets (Taken 09/12/2020 0428) Plan of care reviewed with: Patient Patient specific goal for the day: Maintain 02 sat above 92%. Patient specific goal for the stay: Return to baseline respiratory status. Achieve goal for stay: By discharge Patient Progress: Pt currently on 2L NC, SOB, dodie MD for PRN breathing tx, will continue to monitor are Planning - Elizabeth Rg RN - 09/11/2020 8:22 PM CDT Problem: ACUTE PAIN Goal: CLIENT SATISFACTION: PAIN MANAGEMENT Description: DEFINITION: Extent of positive perception of nursing care to relieve pain. 1=Not at all satisfied, 2=Somewhat satisfied, 3=Moderately satisfied, 4=Very satisfied, 5=Completely satisfied. Outcome: NOC Rating 3 Flowsheets (Taken 09/11/20202019) Plan of care reviewed with: Patient Patient specific goal for the day: Pt will inform nursing staff if having increase in pain Patient specific goal for the stay: Pain will be managed with PO medication Achieve goal for stay: By discharge Patient Progress: Pt c/o pain on left side rib cage and increases with coughing. Tylenol given withno relief, oxy given and pt reported relief, see MAR. Pain rating 5-7/10. Encouraged to utilize a pillow for stability when coughing. Will continue to monitor. linical Team - Elizabeth Rg RN - 09/11/2020 4:50 PM CDT Upon Transfer to , skin assessment completed with Brii Adair RN Upon skin assessment including pressure points findings include: bruise to left calf, scab on left ear, and bilateral heels are blanchable redness. Plan/Intervention will continue to monitor skin and encourage activity to prevent skin breakdown are Planning - Iva Gastelum RD - 09/11/2020 3:30 PM CDT Problem: IMBALANCED NUTRITION: LESS THAN BODY REQUIREMENTS Goal: NUTRITIONAL STATUS: NUTRIENT INTAKE Description: DEFINITION: Nutrient intake to meet metabolic needs. 1=Not adequate, 2=Slightly adequate, 3=Moderately adequate, 4=Substantially adequate, 5=Totally adequate. Flowsheets (Taken 09/11/2020 1530) Initial Score: 2 Target Score: 4 Patient specific goal for the day: Patient to consume small, frequent meals and snacks throughout the day. No hypoglycemia. Patient specific goal for the stay: Patient to meet >75% of estimated needs. Achieve goal for stay: By discharge utrition Team - Iva Gastelum RD - 09/11/2020 2:09 PM CDT Nutrition Therapy Initial Assessment Hospital Day: 0 days Active Problems: ? Fever - ? lung abscess ? Acute encephalopathy PMH: anxiety, depression, hypothyroidism, gastric bypass, hypoglycemic unawareness Recommendations: 1) Continue to provide a Heart Healthy diet per MD order Encourage intake of small, frequent meals and snacks Scheduled snacks ordered between meals TID 2) Replace G tube. Replete TF formula (home TF formula not available at this facility). Resume feedings at 25 ml/hr for ~8 hrs at . 3) Monitor for s/s of hypoglycemia Malnutrition Summary Patient may be at risk of malnutrition but due to limitations (COVID restrictions) at this time willcontinue to monitor and follow the patients status to identify if malnutrition present as appropriate or as more data becomes available. NUTRITION ASSESSMENT Anthropometrics: Height: 154.9 cm (5' 1") Admission Weight: 67.2 kg (148 lb 2.4 oz) as of 09/10/2020 per bed scale Most Recent Weight: 67.2 kg (148 lb 2.4 oz) (09/10/20 1900) per bed scale BMI: Body mass index is 27.99 kg/m. IBW: 48 kg %IBW: 140% (based on admit weight) Usual Body Weight: 150 pounds but does fluctuate Unintentional Weight Loss: No significant wt change noted SALARY MANAGER Date WEIGHT WEIGHT IN KG 09/10/2020 148 lb 2.4 oz 67.2 kg 09/01/2020 150 lb 68.04 kg 08/18/2020 155 lb 70.308 kg 07/15/2020 158 lb 3.2 oz 71.759 kg Estimated Needs: 5613-2104 kcal/day ([place] [address] Jeor x 1.1-1.2 Using: Admission Weight) 65-80 gm protein (1-1.2 gm/kg Using:Admission Weight) Fluids per MD Intake Records: Intake Prior to Admit: Less than 75% of estimated energy requirements for greater than or equal to 1month Patient reports that her appetite has been decreased over the past 3 weeks. No c/o of nausea/vomiting. Patient does have a G tube. Receives TF at HS only to help avoid hypoglycemia. G tube is currently clogged, was planning to have replaced on 09/10. Consumed small, frequent meals and snacks at home to help avoid hypoglycemia. Provide small, frequent meals and snacks per patient preference. Recommended to replace G tube and resume feedings when medically able. Current Intake: Intake varies, 75% to bites. Current Diet: Heart Healthy, No caffeine G tube placed SALARY MANAGER, has had since 2018. Currently clogged. Physical Assessment: Edema: (per assessment rn at 1308 today) ? Generalized Edema None ? LLE Edema 1 ? RLE Edema 1 GI Assessment: ? Abdominal exam: Non-tender with Present bowel sounds, per assessment rn at 1308 today. ? Stool Frequency: Pt has not had a documented BM since admission, X 1 day Wounds/Pressure Points: (per assessment rn at 0935 today) WDL Functional Status: Weakness Nutrition Focused Physical Exam: NFPE not completed due to patient in SCU and Nutrition Therapy not visiting to limit exposure. Nutritionally-Relevant Medications, Vitamins and Minerals: Neurontin, levoquin, levothyroxine, zofran prn, protonix, NaCl IVF, KCL X1 Nutritionally-Relevant Biochemical Data: (09/11/2020) Potassium 2.5 L - supplemented Albumin 2.8 Allergies/Food Intolerance: Niles is allergic to penicillin; adhesives; aleve [gnp naproxen sodium];flagyl [metronidazole]; ibuprofen; mastisol; and morphine. INTERVENTIONS Encouraged adequate calories and optimal protein in small, frequent meals and snacks Will send snacks and supplements TID EMR reviewed MONITORING/EVALUATION Monitor ability to consume and tolerate adequate intake to approximate estimated needs with accomodation of preferences and tolerances until intake is sustained within desirable limits Monitor for initiation of nutrition support Monitor I&O, weight trends, nutrition-related labs and medications, clinical status, and planof care r/t need for nutrition intervention and provide as warranted Nutrition Therapy will reassess every 1-[address], LRD CDE Pager # [phone] Ext # [phone] linical Team - Elizabeth Rg RN - 09/11/2020 1:24 PM CDTPt transferred to S from . When this nurse arrived in pt room, she was alone, no nurse accompaniment. Oriented pt to room and call light. Verified allergies and placed allergy band. Pt stated she fell the day she was admitted, fall risk band placed along with bed alarm. Some mild confusion on the day and when she was admitted. Pt able to make needs known. Pt does report pain of 7/10 on her right side by her rib cage, increases with coughing. Offered Tylenol. Received report from KERI Lilly on 4S at 1130. Will give medication and continue to monitor. linical Team - Vijaya Jones RN - 09/11/2020 12:30 PM CDTReport given to KERI Johnson. Pt transported to with assessment analyst and carey RN via wheelchair. Personal belongings transferred with patient. Care Planning - Vijaya Jones RN - 09/11/2020 11:10 AM CDTPt currently on 2L 02 NC, 02 sat is 95%. Respirations even and unlabored. No s/s of acute respiratory distress. SOB with exertion. Pt able to deep breathe/cough independently. Pt COVID19 swab result isnegative, pt will be transferred to a different room/floor per MD order. [facility] to [facility]. are Planning - Adelina Reyes RN - 09/11/2020 2:27 AM CDTPatient A/Ox4, able to make needs know, no complain of pain or discomfort, vitals noted stable, Patient noted with cough in beginning of shift, deep breathing encourage, will continue to monitor. Supplemental Progress Note - Danielle Alonso APRN-CNP - 09/10/2020 9:30 PM CDTK 2.5 = 40 mEq KCL IV x1 replacement. Cough, nausea = Robitussin, Reglan. documented in this encounter Plan of Treatment Date Type Specialty Care Team Description 10/14/2020 Appointment Radiology Daquan Lee MD [address] [place] [address] [phone] 10/14/2020 Office Visit CARDIOLOGY 10/14/2020 Office Visit Internal Medicine Sanchez Juarez MD [address] [place] [address] [phone] 10/19/2020 Office Visit Infectious Diseases Justa Rios MD [address] [place] [address] [phone] 10/27/2020 Office Visit Behavioral Health Rosalia Paredes, REAL ESTATE ECONOMIST-WILDLIFE REFUGE SPECIALIST [address] [place], [place] [address] [phone] 10/27/2020 Office Visit Behavioral Health Manisha Gregory, Renee [address] [place], [place] [address] [phone] Name Type Priority Associated Date/Time Diagnoses CULTURE FUNGAL, OTHER MICROBIOLOGY REPORT Routine Empyema ([facility] ) 09/13/2020 10:21 AM GLASS RIBBON MACHINE OPERATOR CULTURE FUNGAL, OTHER MICROBIOLOGY REPORT Routine Empyema ([facility] ) 09/13/2020 10:46 AM GLASS RIBBON MACHINE OPERATOR TISSUE EXAM PATH Routine Empyema ([facility]) 09/13/2020 10: 49 AM GLASS RIBBON MACHINE OPERATOR STREPTOCOCCUS Lab Routine 09/27/2020 12: 14 PNEUMONIAE IGG PM GLASS RIBBON MACHINE OPERATOR ANTIBODY, 23 SEROTYPES Name Type Priority Associated Order Schedule Diagnoses CULTURE FUNGAL, OTHER MICROBIOLOGY REPORT Routine Empyema ([facility] ) Release Upon Ordering for 1 Occurrences starting 09/13/2020, 1 completed CULTURE FUNGAL, OTHER MICROBIOLOGY REPORT Routine Empyema ([facility] ) Release Upon Ordering for 1 Occurrences starting 09/13/2020, 1 completed TISSUE EXAM PATH Routine Empyema ([facility]) Release Upon Ordering for 1 Occurrences starting 09/13/2020, 1 completed STREPTOCOCCUS Lab Routine Once for 1 PNEUMONIAE IGG Occurrences ANTIBODY, 23 starting SEROTYPES 09/27/2020 unti l 09/27/2020 XRAY CHEST 1V - AP/PA Imaging Routine Abscess of lower Ex pected: Inspiration lobe of left lung 10/12/2020 with pneumonia (Approximate) , ([facility]) Expires: 10/29/2021 CT CHEST WITH Imaging Routine Abscess of lower Expected: CONTRAST lobe of left lung 11/11/2020 without pneumonia (Approxima te) ([facility]) Name Type Priority Associated Diagnoses Order S chedu CLINIC REFERRAL Referral Routine Abscess of lower lobe Ord ered: 09/28/2020 CARDIOTHORACIC of left lung with SURG/CARDIOVASC SURG ONE pneumonia ([facility]) CHART documented as of this encounter Implants Implanted Type Area Signing Agent Device Shelf Model / Identifier Expiration Serial / Lot Date Tightrope Mini Implt 1.1mm N [id number] Ea - [id number] Ortho Left : ARTHREX 03/11/2021 AR-[id number] / Implanted: Qty: 1 on 08/15/2016 by Ronnell Garcia MD at Other HAND / [id number] Description:Verified per Dr. Karyna Gilliam Mini Implt 1.1mm N [id number] Ea - [id number] Ortho Othe r Right: WRIST ARTHREX 01/09/2021 AR-[id number] / Implanted: Qty: 1 on 01/19/2017 by Ronnell Garcia MD at / [id number] Description:verified by Dr. Troncoso Stnt [employer] Soft 5fr 22cm N [id number] Bx1 - [id number] Urology Left: URETER COOK 08/23/2021 [id number] / Implanted: Qty: 1 on 06/04/2019 by Omari Lam MD at [facility] / [id number] Kt Lead Interstim 28cm N 3889-28 Ea1 - [id number] N/A: GRISEL K [employer] 11/28/2022 [id number] / Implanted: Qty: 1 on 04/09/2019 by Sergio Robertson MD at / [id number] Description:Verbally requested and ackno wledged by Dr. Pereira prior to opening. Neurostimulator Interstim Ii N 3058 Ea1 - [id number] N/A: BACK [employer] 12/09/2019 3058 / Implanted: Qty: 1 on 04/16/2019 by Sergio Robertson MD at [id number] / Description:VERBALLY ASKED FOR AND APPRO EFREN BY DR. PEREIRA BEFORE OPENED TO THE FIELD documented as of this encounter Procedures Procedure Name Priority Date/Time Associated Comments Diagnosis GLUCOSE BY METER, POCT Routine 09/28/2020 11:52 R esults for AM GLASS RIBBON MACHINE OPERATOR this procedure are in the results section. SARS-COV-2, INFLUENZA STAT 09/28/2020 10:33 Re sults for A+B, AND/OR RSV NUCLEIC AM GLASS RIBBON MACHINE OPERATOR this procedure ACID TESTING PANEL are in th e results section. GLUCOSE BY METER, POCT Routine 09/28/2020 9:34 R esults for AM GLASS RIBBON MACHINE OPERATOR this procedure are in the results section. HEMOGLOBIN Routine 09/28/2020 5:49 Results for AM GLASS RIBBON MACHINE OPERATOR this procedure are in the results section. GLUCOSE BY METER, POCT Routine 09/28/2020 4:40 R esults for AM GLASS RIBBON MACHINE OPERATOR this procedure are in the results section. GLUCOSE BY METER, POCT Routine 09/28/2020 1:02 R esults for AM GLASS RIBBON MACHINE OPERATOR this procedure are in the results section. GLUCOSE BY METER, POCT Routine 09/27/2020 8:55 R esults for PM GLASS RIBBON MACHINE OPERATOR this procedure are in the results section. GLUCOSE BY METER, POCT Routine 09/27/2020 5:19 R esults for PM GLASS RIBBON MACHINE OPERATOR this procedure are in the results section. ECHO ADULT COMPLETE Routine 09/27/2020 1:26 Resu lts for PM GLASS RIBBON MACHINE OPERATOR this procedure are in the results section. IMMUNODEFICIENCY PANEL Routine 09/27/2020 12:14 R esults for 1 PM GLASS RIBBON MACHINE OPERATOR this procedure are in the results section. IMMUNOGLOBULINS - IGA, Routine 09/27/2020 12:14 R esults for IGG, IGM PM GLASS RIBBON MACHINE OPERATOR this procedure are in the results section. GLUCOSE BY METER, POCT Routine 09/27/2020 11:42 R esults for AM GLASS RIBBON MACHINE OPERATOR this procedure are in the results section. XRAY CHEST PA AND Routine 09/27/2020 8:09 Result s for LATERAL AM GLASS RIBBON MACHINE OPERATOR this procedure are in the results section. HEMOGLOBIN Routine 09/27/2020 6:42 Results for AM GLASS RIBBON MACHINE OPERATOR this procedure are in the results section. GLUCOSE BY METER, POCT Routine 09/27/2020 5:12 R esults for AM GLASS RIBBON MACHINE OPERATOR this procedure are in the results section. GLUCOSE BY METER, POCT Routine 09/27/2020 1:15 R esults for AM GLASS RIBBON MACHINE OPERATOR this procedure are in the results section. GLUCOSE BY METER, POCT Routine 09/26/2020 9:49 R esults for PM GLASS RIBBON MACHINE OPERATOR this procedure are in the results section. GLUCOSE BY METER, POCT Routine 09/26/2020 5:00 R esults for PM GLASS RIBBON MACHINE OPERATOR this procedure are in the results section. GLUCOSE BY METER, POCT Routine 09/26/2020 11:05 R esults for AM GLASS RIBBON MACHINE OPERATOR this procedure are in the results section. HEMOGLOBIN Routine 09/26/2020 6:41 Results for AM GLASS RIBBON MACHINE OPERATOR this procedure are in the results section. GLUCOSE BY METER, POCT Routine 09/26/2020 4:22 R esults for AM GLASS RIBBON MACHINE OPERATOR this procedure are in the results section. GLUCOSE BY METER, POCT Routine 09/26/2020 3:19 R esults for AM GLASS RIBBON MACHINE OPERATOR this procedure are in the results section. GLUCOSE BY METER, POCT Routine 09/25/2020 9:08 R esults for PM GLASS RIBBON MACHINE OPERATOR this procedure are in the results section. GLUCOSE BY METER, POCT Routine 09/25/2020 5:00 R esults for PM GLASS RIBBON MACHINE OPERATOR this procedure are in the results section. GLUCOSE BY METER, POCT Routine 09/25/2020 12:46 R esults for PM GLASS RIBBON MACHINE OPERATOR this procedure are in the results section. LAB ONLY-COMPLETE BLOOD Routine 09/25/2020 8:29 Results for COUNT WITH DIFFERENTIAL AM GLASS RIBBON MACHINE OPERATOR this procedure are in the results section. LAB ONLY-COMPLETE BLOOD Routine 09/25/2020 8:29 Results for COUNT WITH DIFFERENTIAL AM GLASS RIBBON MACHINE OPERATOR this procedure are in the results section. C-REACTIVE PROTEIN Routine 09/25/2020 7:07 Resul ts for (INFLAMMATION) AM GLASS RIBBON MACHINE OPERATOR this procedur e are in the results section. GLUCOSE BY METER, POCT Routine 09/25/2020 3:29 R esults for AM GLASS RIBBON MACHINE OPERATOR this procedure are in the results section. GLUCOSE BY METER, POCT Routine 09/24/2020 9:54 R esults for PM GLASS RIBBON MACHINE OPERATOR this procedure are in the results section. XRAY CHEST PORTABLE Routine 09/24/2020 8:18 Resu lts for AM GLASS RIBBON MACHINE OPERATOR this procedure are in the results section. COMPLETE BLOOD COUNT Routine 09/24/2020 5:52 Res ults for WITHOUT DIFFERENTIAL AM GLASS RIBBON MACHINE OPERATOR this pr ocedure are in the results section. MAGNESIUM Routine 09/24/2020 5:52 Results for AM GLASS RIBBON MACHINE OPERATOR this procedure are in the results section. RENAL FUNCTION PANEL Routine 09/24/2020 5:52 Res ults for AM GLASS RIBBON MACHINE OPERATOR this procedure are in the results section. GLUCOSE BY METER, POCT Routine 09/24/2020 4:20 R esults for AM GLASS RIBBON MACHINE OPERATOR this procedure are in the results section. GLUCOSE BY METER, POCT Routine 09/23/2020 11:08 R esults for PM GLASS RIBBON MACHINE OPERATOR this procedure are in the results section. GLUCOSE BY METER, POCT Routine 09/23/2020 5:12 R esults for PM GLASS RIBBON MACHINE OPERATOR this procedure are in the results section. IR GI TUBE CHANGE Routine 09/23/2020 2:50 Result s for PM GLASS RIBBON MACHINE OPERATOR this procedure are in the results section. GLUCOSE BY METER, POCT Routine 09/23/2020 12:06 R esults for PM GLASS RIBBON MACHINE OPERATOR this procedure are in the results section. GLUCOSE BY METER, POCT Routine 09/23/2020 9:33 R esults for AM GLASS RIBBON MACHINE OPERATOR this procedure are in the results section. GLUCOSE BY METER, POCT Routine 09/23/2020 5:53 R esults for AM GLASS RIBBON MACHINE OPERATOR this procedure are in the results section. GLUCOSE BY METER, POCT Routine 09/23/2020 3:27 R esults for AM GLASS RIBBON MACHINE OPERATOR this procedure are in the results section. GLUCOSE BY METER, POCT Routine 09/23/2020 1:14 R esults for AM GLASS RIBBON MACHINE OPERATOR this procedure are in the results section. GLUCOSE BY METER, POCT Routine 09/22/2020 10:57 R esults for PM GLASS RIBBON MACHINE OPERATOR this procedure are in the results section. GLUCOSE BY METER, POCT Routine 09/22/2020 9:44 R esults for PM GLASS RIBBON MACHINE OPERATOR this procedure are in the results section. GLUCOSE BY METER, POCT Routine 09/22/2020 8:53 R esults for PM GLASS RIBBON MACHINE OPERATOR this procedure are in the results section. GLUCOSE BY METER, POCT Routine 09/22/2020 8:34 R esults for PM GLASS RIBBON MACHINE OPERATOR this procedure are in the results section. GLUCOSE BY METER, POCT Routine 09/22/2020 11:09 R esults for AM GLASS RIBBON MACHINE OPERATOR this procedure are in the results section. XRAY CHEST PORTABLE Routine 09/22/2020 7:50 Resu lts for AM GLASS RIBBON MACHINE OPERATOR this procedure are in the results section. GLUCOSE BY METER, POCT Routine 09/22/2020 5:38 R esults for AM GLASS RIBBON MACHINE OPERATOR this procedure are in the results section. GLUCOSE BY METER, POCT Routine 09/21/2020 12:48 R esults for PM GLASS RIBBON MACHINE OPERATOR this procedure are in the results section. CLOSTRIDIUM DIFFICILE Routine 09/21/2020 12:14 Re sults for BY NAAT (PCR/LAMP) PM GLASS RIBBON MACHINE OPERATOR this proc edure are in the results section. GLUCOSE BY METER, POCT Routine 09/21/2020 7:48 R esults for AM GLASS RIBBON MACHINE OPERATOR this procedure are in the results section. GLUCOSE BY METER, POCT Routine 09/21/2020 5:48 R esults for AM GLASS RIBBON MACHINE OPERATOR this procedure are in the results section. XRAY CHEST PORTABLE Routine 09/21/2020 5:32 Resu lts for AM GLASS RIBBON MACHINE OPERATOR this procedure are in the results section. COMPLETE BLOOD COUNT Routine 09/21/2020 4:55 Res ults for WITHOUT DIFFERENTIAL AM GLASS RIBBON MACHINE OPERATOR this pr ocedure are in the results section. GLUCOSE BY METER, POCT Routine 09/21/2020 4:43 R esults for AM GLASS RIBBON MACHINE OPERATOR this procedure are in the results section. GLUCOSE BY METER, POCT Routine 09/20/2020 9:30 R esults for PM GLASS RIBBON MACHINE OPERATOR this procedure are in the results section. GLUCOSE BY METER, POCT Routine 09/20/2020 8:47 R esults for PM GLASS RIBBON MACHINE OPERATOR this procedure are in the results section. IR GI TUBE CHANGE Routine 09/20/2020 5:29 Result s for PM GLASS RIBBON MACHINE OPERATOR this procedure are in the results section. GLUCOSE BY METER, POCT Routine 09/20/2020 4:57 R esults for PM GLASS RIBBON MACHINE OPERATOR this procedure are in the results section. CT CHEST WITHOUT LOLI 09/20/2020 1:04 Results for CONTRAST PM GLASS RIBBON MACHINE OPERATOR this procedure are in the results section. GLUCOSE BY METER, POCT Routine 09/20/2020 12:07 R esults for PM GLASS RIBBON MACHINE OPERATOR this procedure are in the results section. COMPLETE BLOOD COUNT Routine 09/20/2020 10:34 Res ults for WITHOUT DIFFERENTIAL AM GLASS RIBBON MACHINE OPERATOR this pr ocedure are in the results section. MAGNESIUM Routine 09/20/2020 10:34 Results for AM GLASS RIBBON MACHINE OPERATOR this procedure are in the results section. RENAL FUNCTION PANEL Routine 09/20/2020 10:34 Res ults for AM GLASS RIBBON MACHINE OPERATOR this procedure are in the results section. GLUCOSE BY METER, POCT Routine 09/20/2020 9:30 R esults for AM GLASS RIBBON MACHINE OPERATOR this procedure are in the results section. XRAY CHEST PORTABLE Routine 09/20/2020 5:41 Resu lts for AM GLASS RIBBON MACHINE OPERATOR this procedure are in the results section. GLUCOSE BY METER, POCT Routine 09/20/2020 5:11 R esults for AM GLASS RIBBON MACHINE OPERATOR this procedure are in the results section. BLOOD GASES ARTERIAL Routine 09/20/2020 4:47 Res ults for WITH LACTIC ACID AM GLASS RIBBON MACHINE OPERATOR this proced ure are in the results section. GLUCOSE BY METER, POCT Routine 09/20/2020 4:41 R esults for AM GLASS RIBBON MACHINE OPERATOR this procedure are in the results section. GLUCOSE BY METER, POCT Routine 09/20/2020 12:43 R esults for AM GLASS RIBBON MACHINE OPERATOR this procedure are in the results section. GLUCOSE BY METER, POCT Routine 09/19/2020 9:05 R esults for PM GLASS RIBBON MACHINE OPERATOR this procedure are in the results section. GLUCOSE BY METER, POCT Routine 09/19/2020 4:22 R esults for PM GLASS RIBBON MACHINE OPERATOR this procedure are in the results section. GLUCOSE BY METER, POCT Routine 09/19/2020 1:40 R esults for PM GLASS RIBBON MACHINE OPERATOR this procedure are in the results section. XRAY CHEST PORTABLE Routine 09/19/2020 11:40 Resu lts for AM GLASS RIBBON MACHINE OPERATOR this procedure are in the results section. GLUCOSE BY METER, POCT Routine 09/19/2020 8:03 R esults for AM GLASS RIBBON MACHINE OPERATOR this procedure are in the results section. GLUCOSE BY METER, POCT Routine 09/19/2020 4:22 R esults for AM GLASS RIBBON MACHINE OPERATOR this procedure are in the results section. BLOOD GASES ARTERIAL Routine 09/19/2020 4:16 Res ults for WITH LACTIC ACID AM GLASS RIBBON MACHINE OPERATOR this proced ure are in the results section. COMPLETE BLOOD COUNT Routine 09/19/2020 4:16 Res ults for WITHOUT DIFFERENTIAL AM GLASS RIBBON MACHINE OPERATOR this pr ocedure are in the results section. MAGNESIUM Routine 09/19/2020 4:16 Results for AM GLASS RIBBON MACHINE OPERATOR this procedure are in the results section. RENAL FUNCTION PANEL Routine 09/19/2020 4:16 Res ults for AM GLASS RIBBON MACHINE OPERATOR this procedure are in the results section. GLUCOSE BY METER, POCT Routine 09/19/2020 12:01 R esults for AM GLASS RIBBON MACHINE OPERATOR this procedure are in the results section. GLUCOSE BY METER, POCT Routine 09/18/2020 9:52 R esults for PM GLASS RIBBON MACHINE OPERATOR this procedure are in the results section. GLUCOSE BY METER, POCT Routine 09/18/2020 5:23 R esults for PM GLASS RIBBON MACHINE OPERATOR this procedure are in the results section. XRAY CHEST PORTABLE LOLI 09/18/2020 1:30 Resu lts for PM GLASS RIBBON MACHINE OPERATOR this procedure are in the results section. GLUCOSE BY METER, POCT Routine 09/18/2020 12:39 R esults for PM GLASS RIBBON MACHINE OPERATOR this procedure are in the results section. GLUCOSE BY METER, POCT Routine 09/18/2020 7:36 R esults for AM GLASS RIBBON MACHINE OPERATOR this procedure are in the results section. XRAY CHEST PORTABLE Routine 09/18/2020 5:11 Resu lts for AM GLASS RIBBON MACHINE OPERATOR this procedure are in the results section. GLUCOSE BY METER, POCT Routine 09/18/2020 4:05 R esults for AM GLASS RIBBON MACHINE OPERATOR this procedure are in the results section. BLOOD GASES ARTERIAL Routine 09/18/2020 4:00 Res ults for WITH LACTIC ACID AM GLASS RIBBON MACHINE OPERATOR this proced ure are in the results section. COMPLETE BLOOD COUNT Routine 09/18/2020 4:00 Res ults for WITHOUT DIFFERENTIAL AM GLASS RIBBON MACHINE OPERATOR this pr ocedure are in the results section. MAGNESIUM Routine 09/18/2020 4:00 Results for AM GLASS RIBBON MACHINE OPERATOR this procedure are in the results section. RENAL FUNCTION PANEL Routine 09/18/2020 4:00 Res ults for AM GLASS RIBBON MACHINE OPERATOR this procedure are in the results section. GLUCOSE BY METER, POCT Routine 09/18/2020 2:03 R esults for AM GLASS RIBBON MACHINE OPERATOR this procedure are in the results section. GLUCOSE BY METER, POCT Routine 09/17/2020 10:52 R esults for PM GLASS RIBBON MACHINE OPERATOR this procedure are in the results section. GLUCOSE BY METER, POCT Routine 09/17/2020 4:58 R esults for PM GLASS RIBBON MACHINE OPERATOR this procedure are in the results section. GLUCOSE BY METER, POCT Routine 09/17/2020 12:20 R esults for PM GLASS RIBBON MACHINE OPERATOR this procedure are in the results section. GLUCOSE BY METER, POCT Routine 09/17/2020 7:55 R esults for AM GLASS RIBBON MACHINE OPERATOR this procedure are in the results section. XRAY CHEST PORTABLE Routine 09/17/2020 5:19 Resu lts for AM GLASS RIBBON MACHINE OPERATOR this procedure are in the results section. BLOOD GASES ARTERIAL Routine 09/17/2020 4:19 Res ults for WITH LACTIC ACID AM GLASS RIBBON MACHINE OPERATOR this proced ure are in the results section. COMPLETE BLOOD COUNT Routine 09/17/2020 4:19 Res ults for WITHOUT DIFFERENTIAL AM GLASS RIBBON MACHINE OPERATOR this pr ocedure are in the results section. MAGNESIUM Routine 09/17/2020 4:19 Results for AM GLASS RIBBON MACHINE OPERATOR this procedure are in the results section. RENAL FUNCTION PANEL Routine 09/17/2020 4:19 Res ults for AM GLASS RIBBON MACHINE OPERATOR this procedure are in the results section. GLUCOSE BY METER, POCT Routine 09/17/2020 4:18 R esults for AM GLASS RIBBON MACHINE OPERATOR this procedure are in the results section. GLUCOSE BY METER, POCT Routine 09/17/2020 12:20 R esults for AM GLASS RIBBON MACHINE OPERATOR this procedure are in the results section. GLUCOSE BY METER, POCT Routine 09/16/2020 8:50 R esults for PM GLASS RIBBON MACHINE OPERATOR this procedure are in the results section. GLUCOSE BY METER, POCT Routine 09/16/2020 6:43 R esults for PM GLASS RIBBON MACHINE OPERATOR this procedure are in the results section. GLUCOSE BY METER, POCT Routine 09/16/2020 6:00 R esults for PM GLASS RIBBON MACHINE OPERATOR this procedure are in the results section. CT CHEST WITHOUT Routine 09/16/2020 3:59 Results for CONTRAST PM GLASS RIBBON MACHINE OPERATOR this procedure are in the results section. GLUCOSE BY METER, POCT Routine 09/16/2020 12:26 R esults for PM GLASS RIBBON MACHINE OPERATOR this procedure are in the results section. GLUCOSE BY METER, POCT Routine 09/16/2020 7:58 R esults for AM GLASS RIBBON MACHINE OPERATOR this procedure are in the results section. XRAY CHEST PORTABLE Routine 09/16/2020 5:46 Resu lts for AM GLASS RIBBON MACHINE OPERATOR this procedure are in the results section. BLOOD GASES ARTERIAL Routine 09/16/2020 4:40 Res ults for WITH LACTIC ACID AM GLASS RIBBON MACHINE OPERATOR this proced ure are in the results section. GLUCOSE BY METER, POCT Routine 09/16/2020 4:40 R esults for AM GLASS RIBBON MACHINE OPERATOR this procedure are in the results section. COMPLETE BLOOD COUNT Routine 09/16/2020 4:40 Res ults for WITHOUT DIFFERENTIAL AM GLASS RIBBON MACHINE OPERATOR this pr ocedure are in the results section. TRIGLYCERIDE Routine 09/16/2020 4:40 Results for AM GLASS RIBBON MACHINE OPERATOR this procedure are in the results section. MAGNESIUM Routine 09/16/2020 4:40 Results for AM GLASS RIBBON MACHINE OPERATOR this procedure are in the results section. RENAL FUNCTION PANEL Routine 09/16/2020 4:40 Res ults for AM GLASS RIBBON MACHINE OPERATOR this procedure are in the results section. GLUCOSE BY METER, POCT Routine 09/16/2020 2:03 R esults for AM GLASS RIBBON MACHINE OPERATOR this procedure are in the results section. GLUCOSE BY METER, POCT Routine 09/15/2020 8:36 R esults for PM GLASS RIBBON MACHINE OPERATOR this procedure are in the results section. GLUCOSE BY METER, POCT Routine 09/15/2020 4:28 R esults for PM GLASS RIBBON MACHINE OPERATOR this procedure are in the results section. MAGNESIUM Routine 09/15/2020 2:34 Results for PM GLASS RIBBON MACHINE OPERATOR this procedure are in the results section. RENAL FUNCTION PANEL Routine 09/15/2020 2:34 Res ults for PM GLASS RIBBON MACHINE OPERATOR this procedure are in the results section. BLOOD GASES ARTERIAL Timed Routine 09/15/2020 12:58 Re sults for WITH LACTIC ACID PM GLASS RIBBON MACHINE OPERATOR this proced ure are in the results section. CULTURE BACTERIAL, Routine 09/15/2020 12:58 Resul ts for RESPIRATORY WITH GRAM PM GLASS RIBBON MACHINE OPERATOR this p rocedure STAIN are in the results section. XRAY CHEST PORTABLE LOLI 09/15/2020 12:24 Resu lts for PM GLASS RIBBON MACHINE OPERATOR this procedure are in the results section. GLUCOSE BY METER, POCT Routine 09/15/2020 12:12 R esults for PM GLASS RIBBON MACHINE OPERATOR this procedure are in the results section. CT CHEST WITHOUT LOLI 09/15/2020 8:43 Results for CONTRAST AM GLASS RIBBON MACHINE OPERATOR this procedure are in the results section. CHLORIDE, URINE Routine 09/15/2020 6:12 Results for AM GLASS RIBBON MACHINE OPERATOR this procedure are in the results section. VANCOMYCIN TROUGH Timed Routine 09/15/2020 6:04 Resul ts for AM GLASS RIBBON MACHINE OPERATOR this procedure are in the results section. XRAY CHEST PORTABLE Routine 09/15/2020 5:40 Resu lts for AM GL[employer] RIB[employer]ON MACHINE OPERATOR this procedure are in the results section. BLOOD GASES ARTERIAL Routine 09/15/2020 3:53 Res ults for WITH LACTIC ACID AM GLASS RIBBON MACHINE OPERATOR this proced ure are in the results section. COMPLETE BLOOD COUNT Routine 09/15/2020 3:53 Res ults for WITHOUT DIFFERENTIAL AM GLASS RIBBON MACHINE OPERATOR this pr ocedure are in the results section. MAGNESIUM Routine 09/15/2020 3:53 Results for AM [employer] RIB[employer]ON MACHINE OPERATOR this procedure are in the results section. RENAL FUNCTION PANEL Routine 09/15/2020 3:53 Res ults for AM GLASS RIBBON MACHINE OPERATOR this procedure are in the results section. XRAY CHEST PORTABLE LOLI 09/14/2020 10:21 Resu lts for AM GLASS RIBBON MACHINE OPERATOR this procedure are in the results section. XRAY CHEST PORTABLE Routine 09/14/2020 5:34 Resu lts for AM GLASS RIBBON MACHINE OPERATOR this procedure are in the results section. BLOOD GASES ARTERIAL Routine 09/14/2020 4:02 Res ults for WITH LACTIC ACID AM GLASS RIBBON MACHINE OPERATOR this proced ure are in the results section. COMPLETE BLOOD COUNT Routine 09/14/2020 4:02 Res ults for WITHOUT DIFFERENTIAL AM GLASS RIBBON MACHINE OPERATOR this pr ocedure are in the results section. MAGNESIUM Routine 09/14/2020 4:02 Results for AM GLASS RIBBON MACHINE OPERATOR this procedure are in the results section. RENAL FUNCTION PANEL Routine 09/14/2020 4:02 Res ults for AM GLASS RIBBON MACHINE OPERATOR this procedure are in the results section. XRAY CHEST PORTABLE Routine 09/13/2020 2:28 Resu lts for PM GL[employer] RIB[employer]ON MACHINE OPERATOR this procedure are in the results section. BLOOD GASES ARTERIAL Routine 09/13/2020 1:01 Res ults for WITH LACTIC ACID PM GLASS RIBBON MACHINE OPERATOR this proced ure are in the results section. XRAY CHEST PORTABLE Routine 09/13/2020 12:18 Resu lts for PM GLASS RIBBON MACHINE OPERATOR this procedure are in the results section. CULTURE BACTERIAL, Routine 09/13/2020 10:46 Empyema (HCC) Resu lts for OTHER WITH GRAM STAIN AM GLASS RIBBON MACHINE OPERATOR this p rocedure are in the results section. CULTURE BACTERIAL, Routine 09/13/2020 10:46 Empyema (HCC) Resu lts for ANAEROBE AM GLASS RIBBON MACHINE OPERATOR this procedure are in the results section. CULTURE BACTERIAL, Routine 09/13/2020 10:21 Empyema (HCC) Resu lts for OTHER WITH GRAM STAIN AM GLASS RIBBON MACHINE OPERATOR this p rocedure are in the results section. CULTURE BACTERIAL, Routine 09/13/2020 10:21 Empyema (HCC) Resu lts for ANAEROBE AM GLASS RIBBON MACHINE OPERATOR this procedure are in the results section. THORACOSCOPY 09/13/2020 7:46 Empyema (HCC) AM GLASS RIBBON MACHINE OPERATOR LAB ONLY-COMPLETE BLOOD Routine 09/13/2020 5:50 Results for COUNT WITH DIFFERENTIAL AM GLASS RIBBON MACHINE OPERATOR this procedure are in the results section. VANCOMYCIN TROUGH Timed Routine 09/13/2020 5:50 Resul ts for AM GLASS RIBBON MACHINE OPERATOR this procedure are in the results section. RENAL FUNCTION PANEL Routine 09/13/2020 5:50 Res ults for AM GLASS RIBBON MACHINE OPERATOR this procedure are in the results section. LAB ONLY-COMPLETE BLOOD Routine 09/13/2020 5:50 Results for COUNT WITH DIFFERENTIAL AM GLASS RIBBON MACHINE OPERATOR this procedure are in the results section. TYPE AND SCREEN STAT 09/13/2020 5:47 Results for AM GLASS RIBBON MACHINE OPERATOR this procedure are in the results section. GLUCOSE BY METER, POCT Routine 09/13/2020 4:14 R esults for AM GLASS RIBBON MACHINE OPERATOR this procedure are in the results section. MRSA NASAL SCREEN, UZIEL Routine 09/12/2020 12:29 R esults for PM GLASS RIB[employer]ON MACHINE OPERATOR this procedure are in the results section. HISTOPLASMA ANTIGEN, Routine 09/12/2020 11:58 Res ults for URINE AM GLASS RIBBON MACHINE OPERATOR this procedure are in the results section. STREP PNEUMONIAE DIRECT Routine 09/12/2020 11:57 Results for ANTIGEN, URINE AM GLASS RIBBON MACHINE OPERATOR this procedur e are in the results section. BLASTOMYCES Routine 09/12/2020 11:56 Results for QUANTITATIVE ANTIGEN, AM GLASS RIBBON MACHINE OPERATOR this p rocedure URINE are in the results section. CREATININE Routine 09/12/2020 6:14 Results for AM GLASS RIBBON MACHINE OPERATOR this procedure are in the results section. LAB ONLY-COMPLETE BLOOD Routine 09/11/2020 2:49 Results for COUNT WITH DIFFERENTIAL PM CDT this procedure are in the results section. IRON AND TIBC Routine 09/11/2020 2:49 Results fo r PM CDT this procedure are in the results section. RETIC COUNT Routine 09/11/2020 2:49 Results for PM CDT this procedure are in the results section. ESR Routine 09/11/2020 2:49 Results for PM CDT this procedure are in the results section. C-REACTIVE PROTEIN Routine 09/11/2020 2:49 Resul ts for (INFLAMMATION) PM CDT this procedur e are in the results section. VITAMIN B12 Routine 09/11/2020 2:49 Results for PM CDT this procedure are in the results section. FERRITIN Routine 09/11/2020 2:49 Results for PM CDT this procedure are in the results section. LACTIC ACID Routine 09/11/2020 2:49 Results for PM CDT this procedure are in the results section. COMPREHENSIVE METABOLIC Routine 09/11/2020 2:49 Results for PANEL PM CDT this procedure are in the results section. LAB ONLY-COMPLETE BLOOD Routine 09/11/2020 2:49 Results for COUNT WITH DIFFERENTIAL PM CDT this procedure are in the results section. CT CHEST WITH CONTRAST Routine 09/11/2020 10:28 R esults for AM CDT this procedure are in the results section. CT HEAD WITHOUT Routine 09/11/2020 10:27 Results for CONTRAST AM CDT this procedure are in the results section. EKG Routine 09/11/2020 6:25 Results for AM CDT this procedure are in the results section. SARS-COV-2 RNA, STAT 09/11/2020 3:44 Results for QUALITATIVE REAL-TIME AM CDT this p rocedure RT-PCR are in the results section. XRAY CHEST PORTABLE Routine 09/10/2020 8:10 Resu lts for PM CDT this procedure are in the results section. LAB ONLY-MANUAL Routine 09/10/2020 8:00 Results for DIFFERENTIAL PM CDT this procedure are in the results section. LAB ONLY-COMPLETE BLOOD Routine 09/10/2020 8:00 Results for COUNT WITH DIFFERENTIAL PM CDT this procedure are in the results section. PROCALCITONIN Routine 09/10/2020 8:00 Results fo r PM CDT this procedure are in the results section. CULTURE, BLOOD LOLI 09/10/2020 8:00 Results f or PM CDT this procedure are in the results section. CULTURE, BLOOD LOLI 09/10/2020 8:00 Results f or PM CDT this procedure are in the results section. COMPREHENSIVE METABOLIC Routine 09/10/2020 8:00 Results for PANEL PM CDT this procedure are in the results section. LAB ONLY-COMPLETE BLOOD Routine 09/10/2020 8:00 Results for COUNT WITH DIFFERENTIAL PM CDT this procedure are in the results section. documented in this encounter Results GLUCOSE BY METER, POCT (09/28/2020 11:52 AM GLASS RIBBON MACHINE OPERATOR) Pathologist Sig lawanda Glucose POC 92 70 - 99 mg/dL [facility] POINT OF CARE TESTING Specimen Blood - Blood specimen (specimen) Performing Organization Address City/State/Zipcode Phone Number POINT OF [address] [place] [address] CARE TESTING SARS-COV-2, INFLUENZA A+B, AND/OR RSV NUCLEIC ACID TESTING PANEL (09/28/2020 10:33 AM GLASS RIBBON MACHINE OPERATOR) Pathologist Sig lawanda SARS-CoV-2 Not Detected Not Detected [address] Specimen Respiratory - Entire nasopharynx (body s tructure) Narrative Performed At Please read entire report. Results for Influenza A and B or RSV [address] may also be available depending on which viruses your provider selected for testing. Your Covid-19 test is negative: 1)Avoiding close contact is s till recommended. 2)Cover your coughs and snee zes. 3)Wash your hands often with soap and wate r for at least 20 seconds or use an alcohol-based western felt hat blocker con taining over 60% alcohol. Avoid touching your fa ce. 4)Avoid sharing personal household items, including dishes, cups, utensils, towels, clothing, or bedding. These items should be cleaned thoroughly with soap and water after use. Clean all "high touch" surfaces in your home d aily. 5) Monitor your symptoms. Contact your provider if you are feeling worse. If you have shortness of breath or diff iculty breathing, call 911. This assay is for in vitro diagnostic use under FDA Em ergency Use Authorization only. Optimal performance of this test requires appropriate specimen collection, storage, and transport to [facility] test site. Detection of SARS-CoV-2 RNA may be affected by sample collection methods, patient factors (eg, presence of symptoms), a nd/or stage of infection. False-negative results may arise from degradation of v iral RNA during shipping/storage. Results should be interpreted by a trained professiona l in conjunction with the patient s history and clinical signs and symptoms, and epidemi ological risk factors. Negative (Not Detected) results do not preclude infect ion with the SARS-CoV-2 virus and should not be the sole basis of patient treatment/management or public health decision. Follow up testing should be performed according to the current CDC recom mendations. This test was performed by polymerase chain reaction ( PCR) on the GeneXpert instrument. Performing Organization Address [facility] Phone Number [address] [address] GLUCOSE BY METER, POCT (09/28/2020 9:34 AM GLASS RIBBON MACHINE OPERATOR) Pathologist Sig nature Glucose POC 74 70 - 99 mg/dL [facility] POINT OF CARE TESTING Specimen Blood - Blood specimen (specimen) Performing Organization [facility] Phone Number POINT OF [address] [place] [phone] CARE TESTING HEMOGLOBIN (09/28/2020 5:49 AM GLASS RIBBON MACHINE OPERATOR) Pathologist Sig nature Hemoglobin 8.1 (L) 11.5 - 15.8 g/dL [address] Specimen Blood - Blood specimen (specimen) Performing Organization [facility] Number [address] [address] GLUCOSE BY METER, POCT (09/28/2020 4:40 AM GLASS RIBBON MACHINE OPERATOR) Pathologist Sig nature Glucose POC 87 70 - 99 mg/dL [facility] POINT OF CARE TESTING Specimen Blood - Blood specimen (specimen) Performing Organization Address [facility] Phone Number POINT OF [address] [place] [phone] CARE TESTING GLUCOSE BY METER, POCT (09/28/2020 1:02 AM GLASS RIBBON MACHINE OPERATOR) Pathologist Sig nature Glucose POC 114 (H) 70 - 99 mg/dL [facility] POINT OF CARE TESTING Specimen Blood - Blood specimen (specimen) Performing Organization Address [facility] Phone Number [facility] [address] [place] [phone] CARE TESTING GLUCOSE BY METER, POCT (09/27/2020 8:55 PM GLASS RIBBON MACHINE OPERATOR) Pathologist Sig nature Glucose POC 91 70 - 99 mg/dL [facility] POINT OF CARE TESTING Specimen Blood - Blood specimen (specimen) Performing Organization Address City/[facility]/Zipcode Phone Number POINT OF [address] [place] [address] CARE TESTING GLUCOSE BY METER, POCT (09/27/2020 5:19 PM GLASS RIBBON MACHINE OPERATOR) Pathologist Sig nature Glucose POC 87 70 - 99 mg/dL [facility] POINT OF CARE TESTING Specimen Blood - Blood specimen (specimen) Performing Organization Address [facility] Phone Number POINT OF [address], [place] [address] CARE TESTING ECHO ADULT COMPLETE (09/27/2020 1:26 PM GLASS RIBBON MACHINE OPERATOR) Specimen Narrative Performed At This result has an attachment that is no t available. [facility] Patient: NILES SHEARER MR#: [id number] Exam Date: 09/27/2020 Transthoracic Echocardiogram [facility] [address], [place] [address] BP: 114/54 mmHg HR: 101 bpm : 1965 Exam Location: Bedside Height: 61.00 "(154.9 cm) Age: 55 year(s) Patient Room: [facility] Weight: 138 lbs.(62.60 kg) Gender: Female Patient Status: Inpatient BSA: 1.61 m2 Charging Board Operator: ARLIN CHOW RDCS Reading Physician: ROSY HAJI MD Ordering Physician: MELISSA HUERTA MD Referring Physician: JENSEN GONZALEZ Procedure Indication(s): Pansystoli c murmur Examination: TTE Complete 2D(m-mode), Complete Spectral Doppler, Color Doppler Exam Comments Unable to perform subcostal imaging due to drain and bandaging Conclusions Left Ventricle: Normal left ventricular size. Normal lef t ventricular systolic function. The ejection fraction is visually estimated to be 65 %. There are no left ventricular regional wall motion abn ormalities. Aortic Valve: No aortic stenosis. Mitral Valve: Mild mitral regurgitation. Tricuspid Valve: Trivial tricuspid regurgitation. Comparison Study Comparison Study: No previous echo was available for c omparison Findings Left Ventricle: Normal left ventricular size. Normal lef t ventricular wall thickness. Normal left ventricular systolic function. The ejection fraction is visually estimated to be 65 %. There are no left ventricular regional wall motion abnormalities. Normal left ventricular diastolic function. Left Atrium: Normal left atrial size. Aortic Valve: The aortic valve is tricuspid. Normal ao rtic cuspal mobility. No significant aortic regurgitation. No aortic stenosis. Aorta: The sinus of valsalva is normal in size measuring 28.0 mm. The ascending aorta is normal in size measuring 26.0 mm. Mitral Valve: Mild mitral leaflet thickening. Mild baltazar ral regurgitation. No mitral stenosis. IAS: No gross evidence of shunt flow seen; ho wever the possibility of a PFO cannot be completely ruled out. Right Ventricle: Normal right ventricular size. Normal ri ght ventricular systolic function. Normal right ventricular wall thickness. Pulmonary Artery: The tricuspid jet envelope definition is inadequate for estimation of RV systolic pressure. Pulmonary Vein: Normal pulmonary venous flow. Right Atrium: Normal right atrial size by visual assessment. Tricuspid Valve: Normal tricuspid valve structure. Trivial tricuspid re gurgitation. Pulmonic Valve: Normal pulmonary valve structure. Trivia l pulmonary regurgitation. No pulmonary stenosis. Pericardium: No significant pericardial effusion. Measurements Left Ventricle Aortic Valve Label Value Normal Value Label Value Normal Value LVDd, 2D 41.7 mm LVOT Vmax 119 cm/s LVDs, 2D 28.4 mm AV Vmax 146 cm/s IVSd, 2D 7.6 mm LVOTd 19 mm LVPWd, 2D 8.5 mm LVOT VTI 22.5 cm FS, 2D 31.89 % LVOT PGmax 6 mmHg LVEDV, 2D 77 ml AV Vmean 116 cm/s LVESV, 2D 31 ml AV VTI 26.2 cm Cardiac Output 6.46 L/min AV PGmax 9 mmHg Cardiac Index 4.01 AV PGmean 6 mmHg L/min/m-sq JERE (Vmax) 2.3 cm-sq Left Atrium AV Vmax, Caliper 146 cm/s Label Value Normal Value Mitral Valve LADs Long. 42 mm Label Value Normal Value LA Volume Index 18.9 ml/m-sq MV E Vmax 95 cm/s Aorta MV A Vmax 102 cm/s Label Value Normal Value MV E/A 0.93 Ao Asc 26 mm MV E/E' lateral 10.3 Ao Sinus, 2D 28 mm MV E/E' septal 12.3 Great Vessels MV Dec Time 142 ms Label Value Normal Value MV E' septal 7.7 cm/s PVein S 87 cm/s MV PHT 0.04 s PVein D 63 cm/s MVA PHT 5.2 cm-sq S/D Ratio 1.4 MV E' lateral 9.3 cm/s Heart Rate Tricuspid Valve Label Value Normal Value Label Value Normal Value Heart Rate 101 bpm RA Pressure 3 mmHg Pulmonic Valve Label Value Jessica l Value PV Vmax 122 cm/s PV PGmax 6 mmHg Electronically signed by ROSY HAJI MD on 020 at 03:13 PM (No Signature Object) Procedure Note [employer] Results No Pull Forward - 09/27/2020 3:15 PM GLASS RIBBON MACHINE OPERATOR Patient: NILES SHEARER MR#: [id number] Exam Date: 09/27/2020 Transthoracic Echocardiogram [facility] [address] [place] [address] BP: 114/54 mmHg HR: 101 bpm : 1965 Exa m Location: Bedside Height: 61.00 "(154.9 cm) Age: 55 year(s) Pat ient Room: 663 Weight: 138 lbs.(62.60 kg) Gender: Female Pat ient Status: Inpatient BSA: 1.61 m2 Charging Board Operator: ARLIN MCGEE, [facility] Reading Physician: ROSY RAM MD Ordering Physician: MELISSA HUERTA MD Referring Physician: JENSEN GONZALEZ Procedure Indication(s): Pansys tolic murmur Examination: TTE Co mplete 2D(m-mode), Complete Spectral Doppler, Color Doppler Exam Comments Unable to perform subcostal imaging due to drain and bandaging Conclusions Left Ventricle: Normal left ventricular size. Normal lef t ventricular systolic function. The ejection fraction is visually estimated to be 65 %. There are no left ventricular regional w all motion abnormalities. Aortic Valve: No aortic stenosis. Mitral Valve: Mild mitral regurgitation. Tricuspid Valve: Trivial tricuspid regurgitation. Comparison Study Comparison Study: No previous echo was a vailable for comparison Findings Left Ventricle: Normal left ventricular size. Normal lef t ventricular wall thickness. Normal left ventricular systolic function. The ejection fraction is visually estimated to be 65 %. There are no left ventricular regional wall motion abnormalities. Normal left ventricular diastolic function. Left Atrium: Normal left atrial size. Aortic Valve: The aortic valve is tricuspid. Normal ao rtic cuspal mobility. No significant aortic regurgitation. No aortic stenosis. Aorta: The sinus of valsalva is normal in size measuring 28.0 mm. The ascending aorta is normal in size measuring 26.0 mm. Mitral Valve: Mild mitral leaflet thickening. Mild baltazar ral regurgitation. No mitral stenosis. IAS: No gross evidence of shunt flow seen; ho wever the possibility of a PFO cannot be completely ruled out. Right Ventricle: Normal right ventricular size. Normal ri ght ventricular systolic function. Normal right ventricular wall thickness. Pulmonary Artery: The tricuspid jet envelope definition is inadequate for estimation of RV systolic pressure. Pulmonary Vein: Normal pulmonary venous flow. Right Atrium: Normal right atrial size by visual asses sment. Tricuspid Valve: Normal tricuspid valve structure. Trivia l tricuspid regurgitation. Pulmonic Valve: Normal pulmonary valve structure. Trivia l pulmonary regurgitation. No pulmonary stenosis. Pericardium: No significant pericardial effusion. Measurements Left Ventricle Aortic Valve Label Value Norm al Value Label Value Normal Value LVDd, 2D 41.7 mm LVOT Vmax 119 cm/s LVDs, 2D 28.4 mm AV Vmax 146 cm/s IVSd, 2D 7.6 mm LVOTd 19 mm LVPWd, 2D 8.5 mm LVOT VTI 22.5 cm FS, 2D 31.89 % LVOT PGmax 6 mmHg LVEDV, 2D 77 ml AV Vmean 116 cm/s LVESV, 2D 31 ml AV VTI 26.2 cm Cardiac Output 6.46 L/min AV PGmax 9 mmHg Cardiac Index 4.01 AV PGmean 6 mmHg L/min/m-sq JERE (Vmax) 2.3 cm-sq Left Atrium AV Vmax, Caliper 146 cm/s Label Value Norm al Value Mitral Valve LADs Long. 42 mm Label Value Normal Value LA Volume Index 18.9 ml/m-sq MV E Vmax 95 cm/s Aorta MV A Vmax 102 cm/s Label Value Norm al Value MV E/A 0.93 Ao Asc 26 mm MV E/E' lateral 10.3 Ao Sinus, 2D 28 mm MV E/E' septal 12.3 Great Vessels MV Dec Time 142 ms Label Value Norm al Value MV E' septal 7.7 cm/s PVein S 87 cm/s MV PHT 0.04 s PVein D 63 cm/s MVA PHT 5.2 cm-sq S/D Ratio 1.4 MV E' latera l 9.3 cm/s Heart Rate Tricuspid Valve Label Value Norm al Value Label Value Normal Value Heart Rate 101 bpm RA Pressure 3 mmHg Pulmonic Valve Label Value Norm al Value PV Vmax 122 cm/s PV PGmax 6 mmHg (No Signature Object) Performing Organization Address [facility] Phone Number [facility], [place] IMMUNOGLOBULINS - IGA, IGG, IGM (09/27/2020 12:14 PM GLASS RIBBON MACHINE OPERATOR) Pathologist [facility] IgA 193 70 - 400 mg/dL [facility] IgG 895 700-1,600 mg/dL [facility] IgM 48 40 - 230 mg/dL [facility] Specimen Blood - Blood specimen (specimen) Performing Organization Address [facility] Phone Number [facility] [address] [place] [address] IMMUNODEFICIENCY PANEL 1 (09/27/2020 12:14 PM GLASS RIBBON MACHINE OPERATOR) Pathologist [facility] % T (CD3) 83 59 - 89 % [facility] % B (CD19) 6 (L) 7 - 27 % [facility] % [place] (CD4) 64 30 - 66 % [facility] % Suppressor (CD8) 18 10 - 44 % [facility] % NK (CD16,CD56) 11 4 - 25 % [facility] T Absolute 1,540 450-2,990 /uL [facility] B Absolute 108 107 - 698 /uL [facility] [place] Absolute 1,186 400-2,156 /uL [facility] Suppressor Absolute 330 125 - 825 /uL [facility] NK Absolute 198 95 - 640 /uL [facility] H/S Ratio 3.6 >=1.[address] [facility] Specimen Blood - Blood specimen (specimen) Performing Organization Address [facility] Phone Number [facility] [address] [place] [phone] GLUCOSE BY METER, POCT (09/27/2020 11:42 AM GLASS RIBBON MACHINE OPERATOR) Pathologist Sig nature Glucose POC 76 70 - 99 mg/dL [facility] POINT OF CARE TESTING Specimen Blood - Blood specimen (specimen) Performing Organization Address City/State/Zipcode Phone Number POINT OF [address] [place] [address] CARE TESTING XRAY CHEST PA AND LATERAL (09/27/2020 8:09 AM GLASS RIBBON MACHINE OPERATOR) Specimen Narrative Performed At [facility] Patient Name: INLES SHEARER Date of : 1965 Procedure: XRAY CHEST PA AND LATERAL Date of Service: 09/27/2020 EXAM: XRAY CHEST PA AND LATERAL INDICATION: L lung abscess COMPARISON(S): 09/24/2020 FINDINGS: Compared to the prior exam, lungs have mildly increase d in expansion and aeration with persistent marked consolidation in the l eft midlung with moderate sized loculated left pleural effusion. Mild l inear atelectasis/scarring in the right lower lung. No pneum othorax. Cardiomediastinal silhouette is obscured. No pulmonary vascular congestion. Right upper extremity PICC line terminates in the superior vena cava. Similar appearance of mikaela tripp fracture likely at T12. Finalized by: Max Mooney MD on 09/27 11:52 AM GLASS RIBBON MACHINE OPERATOR Patient/Procedure Information: MRN/ILIANA: [id number] Order Number: [id number] Accession Number: [id number] Ordering Provider: DAQUAN LEE Authorizing Provider: DAQUAN ELE Procedure Note Interface, Radiantres - 09/27/2020 11:55 AM GLASS RIBBON MACHINE OPERATOR Patient Name: NILES SHEARER Date of : 1965 Procedure: XRAY CHEST PA AND LATERAL Date of Service: 09/27/2020 EXAM: XRAY CHEST PA AND LATERAL INDICATION: L lung abscess COMPARISON(S): 09/24/2020 FINDINGS: Compared to the prior exam, lungs have m ildly increased in expansion and aeration with persistent marked consolidation in the left midlung with moderate sized loculated left pleural effusion. Mild linear atelectasis/scarring in the right lower lung. No pneumothorax. Cardiomediastinal silhouette is obscured. No pulmonary vascular congestion. Right upper extremity PICC line terminates in the superior vena cava. Similar appearance of mikaela tripp fracture likely at T12. Finalized by: Max Mooney MD on 09/27 11:52 AM GLASS RIBBON MACHINE OPERATOR Patient/Procedure Information: MRN/ILIANA: [id number] Order Number: [id number] Accession Number: [id number] Ordering Provider: DAQUAN LEE Authorizing Provider: DAQUAN LEE Performing Organization Address [facility] Phone Number [facility] HEMOGLOBIN (09/27/2020 6:42 AM GLASS RIBBON MACHINE OPERATOR) Pathologist Sig nature Hemoglobin 7.5 (L) 11.5 - 15.8 g/dL [address] Specimen Blood - Blood specimen (specimen) Performing Organization Address [facility] Phone Number [address] [place] [address] GLUCOSE BY METER, POCT (09/27/2020 5:12 AM GLASS RIBBON MACHINE OPERATOR) Pathologist Sig nature Glucose POC 91 70 - 99 mg/dL [facility] POINT OF CARE TESTING Specimen Blood - Blood specimen (specimen) Performing Organization Address [facility] Phone Number POINT OF [address] [place] [address], [place] [address] CARE TESTING GLUCOSE BY METER, POCT (09/27/2020 1:15 AM GLASS RIBBON MACHINE OPERATOR) Pathologist Sig nature Glucose POC 92 70 - 99 mg/dL [facility] POINT OF CARE TESTING Specimen Blood - Blood specimen (specimen) Performing Organization Address [facility] Phone Number POINT OF [address] [place] [address], [place] [address] CARE TESTING GLUCOSE BY METER, POCT (09/26/2020 9:49 PM GLASS RIBBON MACHINE OPERATOR) Pathologist Sig nature Glucose POC 92 70 - 99 mg/dL [facility] POINT OF CARE TESTING Specimen Blood - Blood specimen (specimen) Performing Organization Address [facility] Phone Number POINT OF [address] [place] [address], [place] [address] CARE TESTING GLUCOSE BY METER, POCT (09/26/2020 5:00 PM GLASS RIBBON MACHINE OPERATOR) Pathologist Sig nature Glucose POC 82 70 - 99 mg/dL [facility] POINT OF CARE TESTING Specimen Blood - Blood specimen (specimen) Performing Organization Address [facility] Phone Number POINT OF [address] [place] [address], [place] [address] CARE TESTING GLUCOSE BY METER, POCT (09/26/2020 11:05 AM GLASS RIBBON MACHINE OPERATOR) Pathologist Sig nature Glucose POC 111 (H) 70 - 99 mg/dL [facility] POINT OF CARE TESTING Specimen Blood - Blood specimen (specimen) Performing Organization Address [facility] Phone Number POINT OF [address] [place] [address], [place] [address] CARE TESTING HEMOGLOBIN (09/26/2020 6:41 AM GLASS RIBBON MACHINE OPERATOR) Pathologist Sig nature Hemoglobin 7.7 (L) 11.5 - 15.8 g/dL [place] [address] [facility] Specimen Blood - Blood specimen (specimen) Performing Organization Address [facility] Phone Number [address] [address] GLUCOSE BY METER, POCT (09/26/2020 4:22 AM GLASS RIBBON MACHINE OPERATOR) Pathologist Sig nature Glucose POC 92 70 - 99 mg/dL [facility] POINT OF CARE TESTING Specimen Blood - Blood specimen (specimen) Performing Organization Address [facility] Phone Number POINT OF [address] [place] [address], [place] [address] CARE TESTING GLUCOSE BY METER, POCT (09/26/2020 3:19 AM GLASS RIBBON MACHINE OPERATOR) Pathologist Sig nature Glucose POC 93 70 - 99 mg/dL [facility] POINT OF CARE TESTING Specimen Blood - Blood specimen (specimen) Performing Organization Address [facility] Phone Number POINT OF [address] [place] [address], [place] [address] CARE TESTING GLUCOSE BY METER, POCT (09/25/2020 9:08 PM GLASS RIBBON MACHINE OPERATOR) Pathologist Sig nature Glucose POC 81 70 - 99 mg/dL [facility] POINT OF CARE TESTING Specimen Blood - Blood specimen (specimen) Performing Organization Address [facility] Phone Number POINT OF [address] [place] [address], [place] [address] CARE TESTING GLUCOSE BY METER, POCT (09/25/2020 5:00 PM GLASS RIBBON MACHINE OPERATOR) Pathologist Sig [facility] Glucose POC 77 70 - 99 mg/dL [facility] POINT OF CARE TESTING Specimen Blood - Blood specimen (specimen) Performing Organization Address City/[facility] Phone Number POINT OF [address] [place] [address] CARE TESTING GLUCOSE BY METER, POCT (09/25/2020 12:46 PM GLASS RIBBON MACHINE OPERATOR) Pathologist Sig [facility] Glucose POC 76 70 - 99 mg/dL [facility] POINT OF CARE TESTING Specimen Blood - Blood specimen (specimen) Performing Organization Address [facility] Phone Number [facility] [address] [place] [address] CARE TESTING LAB ONLY-COMPLETE BLOOD COUNT WITH DIFFERENTIAL (09/25/2020 8:29 AM GLASS RIBBON MACHINE OPERATOR) Pathologist Sig [facility] WBC 10.7 4.0 - 11.0 K/uL [address] RBC 2.76 (L) 3.80 - 5.[address] M/uL Hemoglobin 7.1 (L) 11.5 - 15.[address] g/dL Hematocrit 23.1 (L) 35.0 - 45.0 % [address] MCV 83.7 80.0 - 98.[address] MCH 25.7 25.5 - 34.[address] MCHC 30.7 (L) 31.5 - 36.[address] g/dL RDW-CV 15.3 11.5 - 15.5 % [address] RDW-SD 46.5 35.5 - 50.[address] Platelet Count 727 (H) 140 - 400 K/uL [address] MPV 10.0 8.5 - 12.[address] Seg Neut Absolute 7.9 1.8 - 8.0 K/uL [address] Lymphocytes Absolute 1.3 0.8 - 4.1 K/uL [place] [address] [facility] Monocytes Absolute 1.1 (H) 0.0 - 1.0 K/uL [place] [address] [facility] Eosinophils Absolute 0.1 0.0 - 0.7 K/uL [place] [address] [facility] Basophil Absolute 0.1 0.0 - 0.2 K/uL [place] [address] [facility] Immature Granulocyte 0.23 (H) 0.00 - 0.06 [place] [address] [facility] Absolute K/uL Neutrophils Abs. 7,900 /uL [address] (Segs and Bands) Neutrophils Percent 74.0 % [address] Lymphocytes Percent 11.7 % [address] Monocytes Percent 10.5 % [address] Immature Granulocyte 2.1 % [address] Percent Eosinophils Percent 0.8 % [address] Basophil Percent 0.9 % [address] Nucleated RBC 0 /[address] Specimen Blood - Blood specimen (specimen) Performing Organization Address [facility] Phone Number [address] [place] [address] C-REACTIVE PROTEIN (INFLAMMATION) (09/25/2020 7:07 AM GLASS RIBBON MACHINE OPERATOR) Pathologist Sig nature CRP 147.6 (H) 0.0 - 8.0 mg/L [address] Specimen Blood - Blood specimen (specimen) Performing Organization Address [facility] Phone Number [place] [address] [place] [address], [place] [address] GLUCOSE BY METER, POCT (09/25/2020 3:29 AM GLASS RIBBON MACHINE OPERATOR) Pathologist Sig nature Glucose POC 97 70 - 99 mg/dL [facility] POINT OF CARE TESTING Specimen Blood - Blood specimen (specimen) Performing Organization Address [facility] Phone Number POINT OF [address] [place] [address] CARE TESTING GLUCOSE BY METER, POCT (09/24/2020 9:54 PM GLASS RIBBON MACHINE OPERATOR) Pathologist Sig nature Glucose POC 79 70 - 99 mg/dL [facility] POINT OF CARE TESTING Specimen Blood - Blood specimen (specimen) Performing Organization Address [facility] Phone Number POINT OF [address] [place] [address] CARE TESTING XRAY CHEST PORTABLE - (09/24/2020 8:18 AM GLASS RIBBON MACHINE OPERATOR)Only the most recent of16 results within the time period is included. Specimen Narrative Performed At [facility] Patient Name: NILES SHEARER Date of : 1965 Procedure: XRAY CHEST PORTABLE Date of Service: 09/24/2020 EXAM: XRAY CHEST PORTABLE INDICATION: follow up COMPARISON(S): 09/22/2020 FINDINGS/IMPRESSION: Stable positioning of the right upper extremity PICC. There is dense consolidation in the left hemithorax with volume loss and mediastinal shift to the left. Aeration is slightly improved. Prev iously noted locule of gas in the left paramedian apex is not seen. Improved aeration in the right lung. No new airspace disea se or pneumothorax. Finalized by: Avinash Mcclendon MD on 2019 11:25 AM GLASS RIBBON MACHINE OPERATOR Patient/Procedure Information: MRN/ILIANA: [id number] Order Number: [id number] Accession Number: [id number] Ordering Provider: JENSEN GONZALEZ Authorizing Provider: JENSEN GONZALEZ Procedure Note Interface, Radiantres - 09/24/2020 11:27 AM GLASS RIBBON MACHINE OPERATOR Patient Name: NILES SHEARER Date of : 1965 Procedure: XRAY CHEST PORTABLE Date of Service: 09/24/2020 EXAM: XRAY CHEST PORTABLE INDICATION: follow up COMPARISON(S): 09/22/2020 FINDINGS/IMPRESSION: Stable positioning of the right upper ex tremity PICC. There is dense consolidation in the left hemithorax with volume loss and mediastinal shift to the left. Aeration is slightly improved. Previously noted locule of gas in the left paramedian apex is no t seen. Improved aeration in the right lung. No new airspace disease or pneumothorax. Finalized by: Avinash Mcclendon MD on 2019 11:25 AM GLASS RIBBON MACHINE OPERATOR Patient/Procedure Information: MRN/ILIANA: [id number] Order Number: [id number] Accession Number: [id number] Ordering Provider: JENSEN GONZALEZ Authorizing Provider: JENSEN GONZALEZ Performing Organization Address City/State/Zipcode Phone Number [facility] MAGNESIUM (09/24/2020 5:52 AM GLASS RIBBON MACHINE OPERATOR) [facility] Magnesium 2.1 1.8 - 2.4 mg/dL [address] Specimen Blood - Blood specimen (specimen) Performing Organization Address [facility] Phone Number [address] [place] [address] RENAL FUNCTION PANEL (09/24/2020 5:52 AM GLASS RIBBON MACHINE OPERATOR) [facility] Glucose 107 (H) 70 - 100 mg/dL [address] BUN 3 (L) 6 - 22 mg/dL [address] Creatinine 0.60 0.60 - 1.[address] mg/dL BUN/Creatinine Ratio 5.0 (L) 10.0 - 25.[address] Sodium 144 135 - 145 meq/L [address] Potassium 3.3 (L) 3.5 - 5.3 meq/L [address] Chloride 101 99 - 110 meq/L [address] CO2 31 (H) 20 - 29 meq/L [address] Anion Gap with K 15 6 - 20 meq/L [address] Calcium 8.5 8.5 - 10.5 mg/dL [address] Phosphorus 3.3 2.5 - 4.5 mg/dL [address] Albumin 2.5 (L) 3.5 - 5.0 g/dL [address] Corrected Calcium 9.7 8.5 - 10.5 mg/dL [address] Age [address] eGFR Non- >90 >=[address] [place] mL/min/1.73m2 eGFR >90 >=[address] mL/min/1.73m2 Specimen Blood - Blood specimen (specimen) Performing Organization Address [facility] Phone Number [address] [place] [address] COMPLETE BLOOD COUNT WITHOUT DIFFERENTIAL (09/24/2020 5:52 AM GLASS RIBBON MACHINE OPERATOR) Pathologist Sig nature WBC 15.7 (H) 4.0 - 11.0 K/uL [address] RBC 3.22 (L) 3.80 - 5.30 M/uL [address] Hemoglobin 8.3 (L) 11.5 - 15.8 g/dL [address] Hematocrit 26.4 (L) 35.0 - 45.0 % [address] MCV 82.0 80.0 - 98.[address] MCH 25.8 25.5 - 34.[address] MCHC 31.4 (L) 31.5 - 36.5 g/dL [address] RDW-CV 15.1 11.5 - 15.5 % [address] RDW-SD 45.2 35.5 - 50.[address] Platelet Count 794 (H) 140 - 400 K/uL [address] MPV 10.2 8.5 - 12.[address] Specimen Blood - Blood specimen (specimen) Performing Organization Address [facility] Phone Number [address] [place] [address] [place] [address] GLUCOSE BY METER, POCT (09/24/2020 4:20 AM GLASS RIBBON MACHINE OPERATOR) Pathologist Sig nature Glucose POC 96 70 - 99 mg/dL [facility] POINT OF CARE TESTING Specimen Blood - Blood specimen (specimen) Performing Organization Address [facility] Phone Number POINT OF [address] [place] [address] CARE TESTING GLUCOSE BY METER, POCT (09/23/2020 11:08 PM GLASS RIBBON MACHINE OPERATOR) Pathologist Sig nature Glucose POC 90 70 - 99 mg/dL [facility] POINT OF CARE TESTING Specimen Blood - Blood specimen (specimen) Performing Organization Address [facility] Phone Number POINT OF [address] [place] [address] CARE TESTING GLUCOSE BY METER, POCT (09/23/2020 5:12 PM GLASS RIBBON MACHINE OPERATOR) Pathologist Sig nature Glucose POC 86 70 - 99 mg/dL [facility] POINT OF CARE TESTING Specimen Blood - Blood specimen (specimen) Performing Organization Address [facility] Phone Number POINT OF [address] [place] [address], [place] [address] CARE TESTING IR GI TUBE CHANGE (09/23/2020 2:50 PM GLASS RIBBON MACHINE OPERATOR)Only the most recent of2 results within the time period is included. Specimen Narrative Performed At [facility] Patient Name: NILES SHEARER Date of : 1965 Procedure: IR GI TUBE CHANGE Date of Service: 09/23/2020 EXAM: FLUOROSCOPICALLY GUIDED GASTROSTOMY TUBE REPLA CEMENT WITH TRACT DILATION INDICATION: Displaced gastrostomy tube, tract closed. TECHNIQUE: Consent was obtained. Patient was place d in the supine position on the interventional table. Skin surrounding the exit site of the previous gastrostomy tube was prepped and draped i n usual sterile fashion. Lidocaine jelly placed at the site. A Kumpe c atheter was manipulated through the tract into the stomach. Contra st injection confirmed placement. Guidewire was placed. Tract was d ilated to 18 Iranian over the guidewire. Subsequently, a new 16 Fren ch by 3.5 cm AMT gastrostomy button was placed over the guidewire into the stomach. The balloon inflated with 6 mL of water. Contrast injectio n confirmed placement. Fluoroscopic image obtained. The tube was t hen flushed with water. FINDINGS: Final fluoroscopic image demonstrates the tip of the catheter within the stomach. IMPRESSION: 1. Successful fluoroscopically guided gastrostomy tu be replacement with tract dilation. A 16 Fr x 3.5 cm AM T gastrostomy button was placed. Finalized by: Malcolm Martínez MD on 2019 3:10 PM GLASS RIBBON MACHINE OPERATOR Patient/Procedure Information: MRN/ILIANA: [id number] Order Number: [id number] Accession Number: [id number] Ordering Provider: JENSEN GONZALEZ Authorizing Provider: JENSEN GONZALEZ Procedure Note Interface, Radiantres - 09/23/2020 3:12 PM GLASS RIBBON MACHINE OPERATOR Patient Name: NILES SHEARER Date of : 1965 Procedure: IR GI TUBE CHANGE Date of Service: 09/23/2020 EXAM: FLUOROSCOPICALLY GUIDED GASTROSTO MY TUBE REPLACEMENT WITH TRACT DILATION INDICATION: Displaced gastrostomy tube, tract closed. TECHNIQUE: Consent was obtained. Patie nt was placed in the supine position on the interventional table. Skin surrounding the exit site of the previous gastrostomy tube was prepped and draped in usual sterile fashion. Lidocaine jelly placed at the s ite. A Kumpe catheter was manipulated through the tract into the stomach. Contrast injection confirmed placement. Guidewire was placed. Tract was dilated to 18 Iranian over the guidewire. Subsequently, a new 16 Iranian by 3.5 cm AMT gastrostomy button was placed over the guidewire into the stomach. The balloon inflated with 6 mL of water. Contrast injection confirmed placement. Fluoroscopic image obtained. The tube was then flushed with water. FINDINGS: Final fluoroscopic image demo nstrates the tip of the catheter within the stomach. IMPRESSION: 1. Successful fluoroscopically guided g astrostomy tube replacement with tract dilation. A 16 Fr x 3.5 cm AMT gastrostomy button was placed. Finalized by: Malcolm Martínez MD on 2019 3:10 PM GLASS RIBBON MACHINE OPERATOR Patient/Procedure Information: MRN/ILIANA: [id number] Order Number: [id number] Accession Number: [id number] Ordering Provider: JENSEN GONZALEZ Authorizing Provider: JENSEN GONZALEZ Performing Organization Address [facility] Phone Number [id number] GLUCOSE BY METER, POCT (09/23/2020 12:06 PM GLASS RIBBON MACHINE OPERATOR) Pathologist Sig nature Glucose POC 77 70 - 99 mg/dL [facility] POINT OF CARE TESTING Specimen Blood - Blood specimen (specimen) Performing Organization Address [facility] Phone Number [facility] [address] [place] [address], [place] [address] CARE TESTING GLUCOSE BY METER, POCT (09/23/2020 9:33 AM GLASS RIBBON MACHINE OPERATOR) Pathologist Sig nature Glucose POC 90 70 - 99 mg/dL [facility] POINT OF CARE TESTING Specimen Blood - Blood specimen (specimen) Performing Organization Address [facility] Phone Number [facility] [address] [place] [address], [place] [address] CARE TESTING GLUCOSE BY METER, POCT (09/23/2020 5:53 AM GLASS RIBBON MACHINE OPERATOR) Pathologist Sig nature Glucose POC 94 70 - 99 mg/dL [facility] POINT OF CARE TESTING Specimen Blood - Blood specimen (specimen) Performing Organization Address [facility] Phone Number [facility] [address] [place] [address], [place] [address] CARE TESTING GLUCOSE BY METER, POCT (09/23/2020 3:27 AM GLASS RIBBON MACHINE OPERATOR) Pathologist Sig nature Glucose POC 82 70 - 99 mg/dL [facility] POINT OF CARE TESTING Specimen Blood - Blood specimen (specimen) Performing Organization Address [facility] Phone Number POINT OF [address] [place] [address], [place] [address] CARE TESTING GLUCOSE BY METER, POCT (09/23/2020 1:14 AM GLASS RIBBON MACHINE OPERATOR) Pathologist Sig nature Glucose POC 88 70 - 99 mg/dL [facility] POINT OF CARE TESTING Specimen Blood - Blood specimen (specimen) Performing Organization Address [facility] Cent[facility]ode Phone Number POINT OF [address] [place] [address], [place] [address] CARE TESTING GLUCOSE BY METER, POCT (09/22/2020 10:57 PM GLASS RIBBON MACHINE OPERATOR) Pathologist Sig nature Glucose POC 99 70 - 99 mg/dL [facility] POINT OF CARE TESTING Specimen Blood - Blood specimen (specimen) Performing Organization Address [facility] Centercode Phone Number POINT OF [address] [place] [address], [place] [address] CARE TESTING GLUCOSE BY METER, POCT (09/22/2020 9:44 PM GLASS RIBBON MACHINE OPERATOR) Pathologist Sig nature Glucose POC 96 70 - 99 mg/dL [facility] POINT OF CARE TESTING Specimen Blood - Blood specimen (specimen) Performing Organization Address [facility] Phone Number POINT OF [address] [place] [address], [place] [address] CARE TESTING GLUCOSE BY METER, POCT (09/22/2020 8:53 PM GLASS RIBBON MACHINE OPERATOR) Pathologist Sig nature Glucose POC 119 (H) 70 - 99 mg/dL [facility] POINT OF CARE TESTING Specimen Blood - Blood specimen (specimen) Performing Organization Address [facility] Centercode Phone Number POINT OF [address] [place] [address], [place] [address] CARE TESTING GLUCOSE BY METER, POCT (09/22/2020 8:34 PM GLASS RIBBON MACHINE OPERATOR) Pathologist Sig nature Glucose POC 56 (LL) 70 - 99 mg/dL [facility] POINT OF CARE TESTING Specimen Blood - Blood specimen (specimen) Performing Organization Address City/[facility]/Zipcode Phone Number POINT OF [address] [place] [address] CARE TESTING GLUCOSE BY METER, POCT (09/22/2020 11:09 AM GLASS RIBBON MACHINE OPERATOR) Pathologist Sig nature Glucose POC 107 (H) 70 - 99 mg/dL [facility] POINT OF CARE TESTING Specimen Blood - Blood specimen (specimen) Performing Organization Address City/[facility] Centercode Phone Number POINT OF [address] [place] [address] CARE TESTING GLUCOSE BY METER, POCT (09/22/2020 5:38 AM GLASS RIBBON MACHINE OPERATOR) Pathologist Sig nature Glucose POC 101 (H) 70 - 99 mg/dL [facility] POINT OF CARE TESTING Specimen Blood - Blood specimen (specimen) Performing Organization Address [facility] Centercode Phone Number POINT OF [address] [place] [address] CARE TESTING GLUCOSE BY METER, POCT (09/21/2020 12:48 PM GLASS RIBBON MACHINE OPERATOR) Pathologist Sig nature Glucose POC 78 70 - 99 mg/dL [facility] POINT OF CARE TESTING Specimen Blood - Blood specimen (specimen) Performing Organization Address [facility] Centercode Phone Number POINT OF [address] [place] [address] CARE TESTING CLOSTRIDIUM DIFFICILE BY NAAT (PCR/LAMP) (09/21/2020 12:14 PM GLASS RIBBON MACHINE OPERATOR) C difficile Toxin B Not Detected Not Detected [facility] Specimen Feces - Stool specimen (specimen) Narrative Performed At This test was performed by polymerase chain reaction ( PCR) [facility] on the GeneXpert instrument. Performing Organization Address [facility]/Zipcode Phone Number [facility] [address] [place] [address] GLUCOSE BY METER, POCT (09/21/2020 7:48 AM GLASS RIBBON MACHINE OPERATOR) Pathologist Sig nature Glucose POC 93 70 - 99 mg/dL [facility] POINT OF CARE TESTING Specimen Blood - Blood specimen (specimen) Performing Organization Address City/[facility]/Zipcode Phone Number POINT OF [address] [place] [address] CARE TESTING GLUCOSE BY METER, POCT (09/21/2020 5:48 AM GLASS RIBBON MACHINE OPERATOR) Pathologist Sig [place] Glucose POC 92 70 - 99 mg/dL [facility] POINT OF CARE TESTING Specimen Blood - Blood specimen (specimen) Performing Organization Address [facility] Centercode Phone Number POINT OF [address] [place] [address] CARE TESTING COMPLETE BLOOD COUNT WITHOUT DIFFERENTIAL (09/21/2020 4:55 AM GLASS RIBBON MACHINE OPERATOR) Pathologist Sig [facility] WBC 10.6 4.0 - 11.0 K/uL [address] RBC 2.96 (L) 3.80 - 5.30 M/uL [address] Hemoglobin 7.8 (L) 11.5 - 15.8 g/dL [address] Hematocrit 25.5 (L) 35.0 - 45.0 % [address] MCV 86.1 80.0 - 98.[address] MCH 26.4 25.5 - 34.[address] MCHC 30.6 (L) 31.5 - 36.5 g/dL [address] RDW-CV 14.6 11.5 - 15.5 % [address] RDW-SD 46.1 35.5 - 50.[address] Platelet Count 597 (H) 140 - 400 K/uL [address] MPV 10.3 8.5 - 12.[address] Specimen Blood - Blood specimen (specimen) Performing Organization Address City/[facility] Centercode Phone Number [place] [address] [place] [address], [place] [address] GLUCOSE BY METER, POCT (09/21/2020 4:43 AM GLASS RIBBON MACHINE OPERATOR) Pathologist Sig [place] Glucose POC 70 70 - 99 mg/dL [facility] POINT OF CARE TESTING Specimen Blood - Blood specimen (specimen) Performing Organization Address [facility] Centercode Phone Number POINT OF [address] [place] [address] CARE TESTING GLUCOSE BY METER, POCT (09/20/2020 9:30 PM GLASS RIBBON MACHINE OPERATOR) Pathologist Sig nature Glucose POC 120 (H) 70 - 99 mg/dL [facility] POINT OF CARE TESTING Specimen Blood - Blood specimen (specimen) Performing Organization Address [facility]/Zipcode Phone Number POINT OF [address] [place] [address] CARE TESTING GLUCOSE BY METER, POCT (09/20/2020 8:47 PM GLASS RIBBON MACHINE OPERATOR) Pathologist Sig nature Glucose POC 67 (L) 70 - 99 mg/dL [facility] POINT OF CARE TESTING Specimen Blood - Blood specimen (specimen) Performing Organization Address [facility] Centercode Phone Number POINT OF [address] [place] [address] CARE TESTING GLUCOSE BY METER, POCT (09/20/2020 4:57 PM GLASS RIBBON MACHINE OPERATOR) Pathologist Sig nature Glucose POC 74 70 - 99 mg/dL [facility] POINT OF CARE TESTING Specimen Blood - Blood specimen (specimen) Performing Organization Address [facility] Centercode Phone Number POINT OF [address] [place] [address] CHEST WITHOUT CONTRAST (09/20/2020 1:04 PM GLASS RIBBON MACHINE OPERATOR)Only the most recent of3 resultswithin the time period is included. Specimen Narrative Performed At [facility] Patient Name: NILES SHEARER Date of : 1965 Procedure: CT CHEST WITHOUT CONTRAST Date of Service: 09/20/2020 EXAM: CT CHEST WITHOUT CONTRAST INDICATION: Female, 55 years patient, Pneumonia, eff usion or abscess suspected, xray done COMPARISON(S): CT chest, 09/16/2020 TECHNIQUE: Thin axial CT imaging was performed through the chest, without contrast. Sagittal and coronal r eformats were reconstructed. FINDINGS: Lungs/Pleura: The right lung is well expanded. Nor mal pulmonary parenchyma. No suspicious pulmonary nodules. The airways are patent. Fluid attenuation in the right minor fissure similar to previous. Irregular left pleural collection with maxim al depth 1.7 cm, adjacent consolidation with dense air bronchograms ext ending to the apex. Previous indwelling chest tube no longer visible . Extraluminal air in the anterior left upper lung and in the anterior me dial apex. Minimal aerated lung noted in the posterior lower lung, medial and posterior upper lung. Slightly less consolidation in the central lung with air bronchograms when compared with previous imaging. Vessels: Aorta: No aneurysmal dilatation. There is mil d atherosclerosis of the aorta. Pulmonary artery has a normal caliber an d SVC has a normal appearance. Left approach central venous catheter terminates in the SVC. Heart: Small pericardial effusion. Normal heart size. There is no coronary artery calcification. Mediastinum/ Yvrose: Multiple sub-cm lymph nodes are not ed, likely reactive. Stable slight mediastinal left garcía shift. Thoracic inlet: Normal. Bones/vertebra/soft tissues: Normal osseous structures . There is no acute fracture.. Normal chest wall. Upper abdomen: Prior cholecystectomy. Postsurgical chalino nges from previous Derrick fundoplication and gastric bypass . IMPRESSION: 1. Persistent extraluminal air in the left upper lung concerning for pulmonary abscess, with slight interval improvement in the consolidation visible in the left midlung. Residual complex left ple ural effusion consistent with empyema. 2. Minimal simple fluid in the right minor fissure, sm all pericardial effusion, similar to previous. Finalized by: Abigail Rizzo MD on 2019 1:37 PM GLASS RIBBON MACHINE OPERATOR Patient/Procedure Information: MRN/ILIANA: [id number] Order Number: [id number] Accession Number: [id number] Ordering Provider: DAQUAN LEE Authorizing Provider: DAQUAN LEE Procedure Note Interface, [facility] - 09/20/2020 1:39 PM GLASS RIBBON MACHINE OPERATOR Patient Name: NILES SHEARER Date of : 1965 Procedure: CT CHEST WITHOUT CONTRAST Date of Service: 09/20/2020 EXAM: CT CHEST WITHOUT CONTRAST INDICATION: Female, 55 years patient, P neumonia, effusion or abscess suspected, xray done COMPARISON(S): CT chest, 09/16/2020 TECHNIQUE: Thin axial CT imaging was per formed through the chest, without contrast. Sagittal and coronal reformats were reconstructed. FINDINGS: Lungs/Pleura: The right lung is well ex panded. Normal pulmonary parenchyma. No suspicious pulmonary nodules. The airways are patent. Fluid attenuation in the right minor fissure similar to previous. Irregular left pleural collection with m aximal depth 1.7 cm, adjacent consolidation with dense air bronchograms extending to the apex. Previous indwelling chest tube no longer visible. Extraluminal air in the anterior left upper lung and in the anterior medi al apex. Minimal aerated lung noted in the posterior lower lung, medial and posterior upper lung. Slightly less consolidation in the central lung with air bronchograms when compared with previous imaging. Vessels: Aorta: No aneurysmal dilatation . There is mild atherosclerosis of the aorta. Pulmonary artery has a normal caliber and SVC has a normal appearance. Left approach central venous catheter terminates in the SVC. Heart: Small pericardial effusion. Jessica l heart size. There is no coronary artery calcification. Mediastinum/ Yvrose: Multiple sub-cm lymph nodes are noted, likely reactive. Stable slight mediastinal leftward shift. Thoracic inlet: Normal. Bones/vertebra/soft tissues: Normal osse ous structures. There is no acute fracture.. Normal chest wall. Upper abdomen: Prior cholecystectomy. Po stsurgical changes from previous Derrick fundoplication and gastric bypass. IMPRESSION: 1. Persistent extraluminal air in the le ft upper lung concerning for pulmonary abscess, with slight interval improvement in the consolidation visible in the left midlung. Residual complex left pleural effusion consistent with empyema. 2. Minimal simple fluid in the right min or fissure, small pericardial effusion, similar to previous. Finalized by: Abigail Rizzo MD on 2019 1:37 PM GLASS RIBBON MACHINE OPERATOR Patient/Procedure Information: MRN/ILIANA: [id number] Order Number: [id number] Accession Number: [id number] Ordering Provider: DAQUAN LEE Authorizing Provider: DAQUAN LEE Performing Organization Address City/[facility]/Zipcode Phone Number [id number] GLUCOSE BY METER, POCT (09/20/2020 12:07 PM GLASS RIBBON MACHINE OPERATOR) Pathologist Sig [place] Glucose POC 92 70 - 99 mg/dL [facility] POINT OF CARE TESTING Specimen Blood - Blood specimen (specimen) Performing Organization Address City/[facility]/Zipcode Phone Number POINT OF [address] [place] [address] CARE TESTING MAGNESIUM (09/20/2020 10:34 AM GLASS RIBBON MACHINE OPERATOR) Pathologist Sig [place] Magnesium 1.8 1.8 - 2.4 mg/dL [address] Specimen Blood - Blood specimen (specimen) Performing Organization Address [facility] Phone Number [address] [place] [address] RENAL FUNCTION PANEL (09/20/2020 10:34 AM GLASS RIBBON MACHINE OPERATOR) Pathologist Sig nature Glucose 145 (H) 70 - 100 mg/dL [address] BUN 6 6 - 22 mg/dL [address] Creatinine 0.58 (L) 0.60 - 1.[address] mg/dL BUN/Creatinine Ratio 10.3 10.0 - 25.[address] Sodium 138 135 - 145 meq/L [address] Potassium 3.5 3.5 - 5.3 meq/L [address] Chloride 100 99 - 110 meq/L [address] CO2 27 20 - 29 meq/L [address] Anion Gap with K 15 6 - 20 meq/L [address] Calcium 8.3 (L) 8.5 - 10.[address] mg/dL Phosphorus 2.3 (L) 2.5 - 4.5 mg/dL [address] Albumin 2.4 (L) 3.5 - 5.0 g/dL [address] Corrected Calcium 9.6 8.5 - 10.[address] mg/dL Age [address] eGFR Non- >90 >=[address] [place] mL/min/1.73m2 eGFR >90 >=[address] mL/min/1.73m2 Specimen Blood - Blood specimen (specimen) Performing Organization Address [facility] Centercomd Phone Number [address] [place] [address], [place] [address] COMPLETE BLOOD COUNT WITHOUT DIFFERENTIAL (09/20/2020 10:34 AM GLASS RIBBON MACHINE OPERATOR) Pathologist Sig nature WBC 14.5 (H) 4.0 - 11.0 K/uL [address] RBC 3.01 (L) 3.80 - 5.30 M/uL [address] Hemoglobin 7.9 (L) 11.5 - 15.8 g/dL [address] Hematocrit 26.3 (L) 35.0 - 45.0 % [address] MCV 87.4 80.0 - 98.[address] MCH 26.2 25.5 - 34.[address] MCHC 30.0 (L) 31.5 - 36.5 g/dL [address] RDW-CV 14.7 11.5 - 15.5 % [address] RDW-SD 47.6 35.5 - 50.[address] Platelet Count 576 (H) 140 - 400 K/uL [address] MPV 10.6 8.5 - 12.[address] Specimen Blood - Blood specimen (specimen) Performing Organization Address [facility] Centercomd Phone Number [address] [place] [address] GLUCOSE BY METER, POCT (09/20/2020 9:30 AM GLASS RIBBON MACHINE OPERATOR) Pathologist Sig nature Glucose POC 73 70 - 99 mg/dL [facility] POINT OF CARE TESTING Specimen Blood - Blood specimen (specimen) Performing Organization Address [facility] Centercomd Phone Number POINT OF [address] [place] [address] CARE TESTING GLUCOSE BY METER, POCT (09/20/2020 5:11 AM GLASS RIBBON MACHINE OPERATOR) Pathologist Sig nature Glucose POC 154 (H) 70 - 99 mg/dL [facility] POINT OF CARE TESTING Specimen Blood - Blood specimen (specimen) Performing Organization Address [facility] Centercomd Phone Number POINT OF [address] [place] [address] CARE TESTING BLOOD GASES ARTERIAL WITH LACTIC ACID (09/20/2020 4:47 AM GLASS RIBBON MACHINE OPERATOR) pH Arterial 7.45 7.35 - 7.45 - RESPIRATORY [facility] pCO2 Arterial 47 (H) 35 - [address] [facility] RESPIRATORY [facility] pO2 Arterial 63 (L) 80 - 100 [facility] RESPIRATORY THERAPY Base Excess Arterial 8 (H) -2 - 2 meq/L [facility] RESPIRATORY [facility] HCO3 (Bicarb) 32 (H) 20 - 29 [facility] mmol/L [facility] O2 Sat % Arterial 92 (L) 95 - 98 % [facility] Carbon Monoxide 1.2 0.0 - 3.0 % [facility] Methemoglobin 0.5 0.0 - 3.0 % [facility] p50 24.28 (L) 25.00 - [facility] 29.00 mmHg [facility] Allens Test Positive [facility] Collection Site Rt radial [facility] Arterial [facility] O2 Source Nasal [facility] CannulaComment: [place] [address] lpm RESPIRATORY THERAPY Lactic Acid 0.4 (L) 0.5 - 2.2 [facility] mmol/L [facility] Specimen Blood - Arterial blood specimen (specime n) Performing Organization Address City/[facility] Centercode Phone Number - [address] [place] [address], [place] [address] RESPIRATORY THERAPY GLUCOSE BY METER, POCT (09/20/2020 4:41 AM GLASS RIBBON MACHINE OPERATOR) Pathologist Sig nature Glucose POC 62 (L) 70 - 99 mg/dL [facility] POINT OF CARE TESTING Specimen Blood - Blood specimen (specimen) Performing Organization Address [facility] Centercode Phone Number POINT OF [address] [place] [address], [place] [address] CARE TESTING GLUCOSE BY METER, POCT (09/20/2020 12:43 AM GLASS RIBBON MACHINE OPERATOR) Pathologist Sig nature Glucose POC 81 70 - 99 mg/dL [facility] POINT OF CARE TESTING Specimen Blood - Blood specimen (specimen) Performing Organization Address [facility] Centercode Phone Number POINT OF [address] [place] [address], [place] [address] CARE TESTING GLUCOSE BY METER, POCT (09/19/2020 9:05 PM GLASS RIBBON MACHINE OPERATOR) Pathologist Sig nature Glucose POC 75 70 - 99 mg/dL [facility] POINT OF CARE TESTING Specimen Blood - Blood specimen (specimen) Performing Organization Address [facility] Centercode Phone Number POINT OF [address] [place] [address], [place] [address] CARE TESTING GLUCOSE BY METER, POCT (09/19/2020 4:22 PM GLASS RIBBON MACHINE OPERATOR) Pathologist Sig nature Glucose POC 113 (H) 70 - 99 mg/dL [facility] POINT OF CARE TESTING Specimen Blood - Blood specimen (specimen) Performing Organization Address [facility] Centercode Phone Number POINT OF [address] [place] [address] CARE TESTING GLUCOSE BY METER, POCT (09/19/2020 1:40 PM GLASS RIBBON MACHINE OPERATOR) Pathologist Sig nature Glucose POC 113 (H) 70 - 99 mg/dL [facility] POINT OF CARE TESTING Specimen Blood - Blood specimen (specimen) Performing Organization Address [facility] Centercode Phone Number [facility] [address] [place] [address] CARE TESTING GLUCOSE BY METER, POCT (09/19/2020 8:03 AM GLASS RIBBON MACHINE OPERATOR) Pathologist Sig nature Glucose POC 134 (H) 70 - 99 mg/dL [facility] POINT OF CARE TESTING Specimen Blood - Blood specimen (specimen) Performing Organization Address [facility] Centercode Phone Number POINT OF [address] [place] [address] CARE TESTING GLUCOSE BY METER, POCT (09/19/2020 4:22 AM GLASS RIBBON MACHINE OPERATOR) Pathologist Sig nature Glucose POC 130 (H) 70 - 99 mg/dL [facility] POINT OF CARE TESTING Specimen Blood - Blood specimen (specimen) Performing Organization Address [facility] Phone Number [facility] [address] [place] [address] CARE TESTING BLOOD GASES ARTERIAL WITH LACTIC ACID (09/19/2020 4:16 AM GLASS RIBBON MACHINE OPERATOR) pH Arterial 7.41 7.35 - 7.45 - RESPIRATORY THERAPY pCO2 Arterial 52 (H) 35 - [address] [facility] RESPIRATORY THERAPY pO2 Arterial 83 80 - 100 [facility] mmHg [facility] RESPIRATORY [facility] Base Excess Arterial 8 (H) -2 - 2 meq/L [facility] RESPIRATORY [facility] HCO3 (Bicarb) 33 (H) 20 - 29 [facility] mmol/L [facility] RESPIRATORY THERAPY O2 Sat % Arterial 96 95 - 98 % [facility] Carbon Monoxide 0.8 0.0 - 3.0 % [facility] Methemoglobin 0.3 0.0 - 3.0 % [facility] p50 24.45 (L) 25.00 - [facility] 29.00 mmHg [facility] Allens Test Not Done-Drawn [facility] From Line [facility] Collection Site Arterial Line [facility] Arterial [facility] O2 Source VentilatorCommen [facility] t: 16, 400, +8, [facility] Lactic Acid 0.4 (L) 0.5 - 2.2 [facility] mmol/L [facility] Specimen Blood - Arterial blood specimen (specime n) Performing Organization Address [facility] Centercode Phone Number - [address] [place] [address], [place] [address] RESPIRATORY THERAPY MAGNESIUM (09/19/2020 4:16 AM GLASS RIBBON MACHINE OPERATOR) Pathologist Sig nature Magnesium 2.0 1.8 - 2.4 mg/dL [place] [address] [facility] Specimen Blood - Blood specimen (specimen) Performing Organization Address [facility] Centercom[facility] Phone Number [address] [place] [address] RENAL FUNCTION PANEL (09/19/2020 4:16 AM GLASS RIBBON MACHINE OPERATOR) Pathologist Sig nature Glucose 135 (H) 70 - 100 mg/dL [address] BUN 11 6 - 22 mg/dL [address] Creatinine 0.48 (L) 0.60 - 1.[address] mg/dL BUN/Creatinine Ratio 22.9 10.0 - 25.[address] Sodium 144 135 - 145 meq/L [place] [address] [facility] Potassium 3.8 3.5 - 5.3 meq/L [place] [address] [facility] Chloride 105 99 - 110 meq/L [place] [address] [facility] CO2 30 (H) 20 - 29 meq/L [address] Anion Gap with K 13 6 - 20 meq/L [place] [address] [facility] Calcium 8.2 (L) 8.5 - 10.5 [place] [address] [facility] mg/dL Phosphorus 2.8 2.5 - 4.5 mg/dL [address] Albumin 2.2 (L) 3.5 - 5.0 g/dL [address] Corrected Calcium 9.6 8.5 - 10.[address] mg/dL Age [address] eGFR Non- >90 >=[address] [place] mL/min/1.73m2 eGFR >90 >=[address] mL/min/1.73m2 Specimen Blood - Blood specimen (specimen) Performing Organization Address [facility] Phone Number [address] [place] [address], [place] [address] COMPLETE BLOOD COUNT WITHOUT DIFFERENTIAL (09/19/2020 4:16 AM GLASS RIBBON MACHINE OPERATOR) Pathologist Sig nature WBC 13.9 (H) 4.0 - 11.0 K/uL [address] RBC 2.66 (L) 3.80 - 5.30 M/uL [address] Hemoglobin 7.1 (L) 11.5 - 15.8 g/dL [address] Hematocrit 23.3 (L) 35.0 - 45.0 % [address] MCV 87.6 80.0 - 98.[address] MCH 26.7 25.5 - 34.[address] MCHC 30.5 (L) 31.5 - 36.5 g/dL [address] RDW-CV 14.4 11.5 - 15.5 % [address] RDW-SD 46.0 35.5 - 50.[address] Platelet Count 435 (H) 140 - 400 K/uL [address] MPV 10.1 8.5 - 12.[address] Specimen Blood - Blood specimen (specimen) Performing Organization Address [facility] Phone Number [address] [place] [address], [place] [address] GLUCOSE BY METER, POCT (09/19/2020 12:01 AM GLASS RIBBON MACHINE OPERATOR) Pathologist Sig nature Glucose POC 130 (H) 70 - 99 mg/dL [facility] POINT OF CARE TESTING Specimen Blood - Blood specimen (specimen) Performing Organization Address City/[facility] Cent[facility]ode Phone Number POINT OF [address] [place] [address], [place] [address] CARE TESTING GLUCOSE BY METER, POCT (09/18/2020 9:52 PM GLASS RIBBON MACHINE OPERATOR) Pathologist Sig nature Glucose POC 115 (H) 70 - 99 mg/dL [facility] POINT OF CARE TESTING Specimen Blood - Blood specimen (specimen) Performing Organization Address City/[facility] Centercode Phone Number POINT OF [address] [place] [address], [place] [address] CARE TESTING GLUCOSE BY METER, POCT (09/18/2020 5:23 PM GLASS RIBBON MACHINE OPERATOR) Pathologist Sig nature Glucose POC 90 70 - 99 mg/dL [facility] POINT OF CARE TESTING Specimen Blood - Blood specimen (specimen) Performing Organization Address [facility] Centercode Phone Number POINT OF [address] [place] [address], [place] [address] CARE TESTING GLUCOSE BY METER, POCT (09/18/2020 12:39 PM GLASS RIBBON MACHINE OPERATOR) Pathologist Sig nature Glucose POC 108 (H) 70 - 99 mg/dL [facility] POINT OF CARE TESTING Specimen Blood - Blood specimen (specimen) Performing Organization Address [facility] Centercode Phone Number POINT OF [address] [place] [address] CARE TESTING GLUCOSE BY METER, POCT (09/18/2020 7:36 AM GLASS RIBBON MACHINE OPERATOR) Pathologist Sig nature Glucose POC 110 (H) 70 - 99 mg/dL [facility] POINT OF CARE TESTING Specimen Blood - Blood specimen (specimen) Performing Organization Address [facility] Centercode Phone Number POINT OF [address] [place] [address], [place] [address] CARE TESTING GLUCOSE BY METER, POCT (09/18/2020 4:05 AM GLASS RIBBON MACHINE OPERATOR) Pathologist Sig nature Glucose POC 110 (H) 70 - 99 mg/dL [facility] POINT OF CARE TESTING Specimen Blood - Blood specimen (specimen) Performing Organization Address City/[facility] Centercode Phone Number POINT OF [address] [place] [address] CARE TESTING BLOOD GASES ARTERIAL WITH LACTIC ACID (09/18/2020 4:00 AM GLASS RIBBON MACHINE OPERATOR) pH Arterial 7.56 (H) 7.35 - 7.45 [facility] pCO2 Arterial 33 (L) 35 - 45 mmHg [facility] pO2 Arterial 72 (L) 80 - 100 [facility] mmHg [facility] Base Excess Arterial 6 (H) -2 - 2 meq/L [facility] HCO3 (Bicarb) 29 20 - 29 [facility] mmol/L [facility] O2 Sat % Arterial 95 95 - 98 % [facility] Carbon Monoxide 1.4 0.0 - 3.0 % [facility] Methemoglobin 0.2 0.0 - 3.0 % [facility] p50 19.71 (L) 25.00 - [facility] 29.00 mmHg [facility] Allens Test Not Done-Drawn [facility] From Line [facility] Collection Site Arterial Line [facility] Arterial [facility] O2 Source VentilatorCommen [facility] t: 16, 400, +8, [facility] - 40% RESPIRATORY [facility] Lactic Acid 0.8 0.5 - 2.2 [facility] mmol/L [facility] Specimen Blood - Arterial blood specimen (specime n) Performing Organization Address [facility] Centercode Phone Number - [address] [place] [address] RESPIRATORY THERAPY MAGNESIUM (09/18/2020 4:00 AM GLASS RIBBON MACHINE OPERATOR) Pathologist Sig nature Magnesium 1.8 1.8 - 2.4 mg/dL [address] Specimen Blood - Blood specimen (specimen) Performing Organization Address [facility]/Zipcode Phone Number [address] [address] RENAL FUNCTION PANEL (09/18/2020 4:00 AM GLASS RIBBON MACHINE OPERATOR) Pathologist Sig nature Glucose 113 (H) 70 - 100 mg/dL [address] BUN 10 6 - 22 mg/dL [address] Creatinine 0.54 (L) 0.60 - 1.[address] mg/dL BUN/Creatinine Ratio 18.5 10.0 - 25.[address] Sodium 141 135 - 145 meq/L [address] Potassium 3.2 (L) 3.5 - 5.3 meq/L [address] Chloride 103 99 - 110 meq/L [address] CO2 27 20 - 29 meq/L [address] Anion Gap with K 14 6 - 20 meq/L [address] Calcium 7.9 (L) 8.5 - 10.[address] mg/dL Phosphorus 2.3 (L) 2.5 - 4.5 mg/dL [address] Albumin 2.1 (L) 3.5 - 5.0 g/dL [address] Corrected Calcium 9.4 8.5 - 10.[address] mg/dL Age [address] eGFR Non- >90 >=[address] [place] mL/min/1.73m2 eGFR >90 >=[address] mL/min/1.73m2 Specimen Blood - Blood specimen (specimen) Performing Organization Address City/State/Zipcode Phone Number [address] [place] [address] COMPLETE BLOOD COUNT WITHOUT DIFFERENTIAL (09/18/2020 4:00 AM GLASS RIBBON MACHINE OPERATOR) [facility] WBC 17.4 (H) 4.0 - 11.0 K/uL [address] RBC 3.02 (L) 3.80 - 5.30 M/uL [address] Hemoglobin 8.0 (L) 11.5 - 15.8 g/dL [address] Hematocrit 24.9 (L) 35.0 - 45.0 % [address] MCV 82.5 80.0 - 98.[address] MCH 26.5 25.5 - 34.[address] MCHC 32.1 31.5 - 36.5 g/dL [address] RDW-CV 14.3 11.5 - 15.5 % [address] RDW-SD 42.6 35.5 - 50.0 fl [facility] Platelet Count 535 (H) 140 - 400 K/uL [address] MPV 9.9 8.5 - 12.[address] Specimen Blood - Blood specimen (specimen) Performing Organization Address [facility] Phone Number [address] [place] [address], [place] [address] GLUCOSE BY METER, POCT (09/18/2020 2:03 AM GLASS RIBBON MACHINE OPERATOR) Pathologist Sig nature Glucose POC 125 (H) 70 - 99 mg/dL [facility] POINT OF CARE TESTING Specimen Blood - Blood specimen (specimen) Performing Organization Address [facility] Centercomd Phone Number POINT OF [address] [place] [address] CARE TESTING GLUCOSE BY METER, POCT (09/17/2020 10:52 PM GLASS RIBBON MACHINE OPERATOR) Pathologist Sig nature Glucose POC 136 (H) 70 - 99 mg/dL [facility] POINT OF CARE TESTING Specimen Blood - Blood specimen (specimen) Performing Organization Address [facility] Phone Number POINT OF [address] [place] [address], [place] [address] CARE TESTING GLUCOSE BY METER, POCT (09/17/2020 4:58 PM GLASS RIBBON MACHINE OPERATOR) Pathologist Sig nature Glucose POC 106 (H) 70 - 99 mg/dL [facility] POINT OF CARE TESTING Specimen Blood - Blood specimen (specimen) Performing Organization Address [facility] Phone Number POINT OF [address] [place] [address] [place] [address] CARE TESTING GLUCOSE BY METER, POCT (09/17/2020 12:20 PM GLASS RIBBON MACHINE OPERATOR) Pathologist Sig nature Glucose POC 121 (H) 70 - 99 mg/dL [facility] POINT OF CARE TESTING Specimen Blood - Blood specimen (specimen) Performing Organization Address [facility] Phone Number POINT OF [address] [place] [address] CARE TESTING GLUCOSE BY METER, POCT (09/17/2020 7:55 AM GLASS RIBBON MACHINE OPERATOR) Pathologist Sig nature Glucose POC 114 (H) 70 - 99 mg/dL [facility] POINT OF CARE TESTING Specimen Blood - Blood specimen (specimen) Performing Organization Address [facility]/Zipcode Phone Number POINT OF [address] [place] [address] CARE TESTING BLOOD GASES ARTERIAL WITH LACTIC ACID (09/17/2020 4:19 AM GLASS RIBBON MACHINE OPERATOR) pH Arterial 7.44 7.35 - 7.45 [facility] pCO2 Arterial 39 35 - 45 mmHg [facility] pO2 Arterial 108 (H) 80 - 100 [facility] mmHg [facility] Base Excess Arterial 2 -2 - 2 meq/L [facility] HCO3 (Bicarb) 27 20 - 29 [facility] mmol/L [facility] O2 Sat % Arterial 97 95 - 98 % [facility] Carbon Monoxide 0.7 0.0 - 3.0 % [facility] Methemoglobin 0.5 0.0 - 3.0 % [facility] p50 25.36 25.00 - [facility] 29.00 mmHg [facility] Allens Test Not Done-Drawn [facility] From Line [facility] Collection Site Arterial Line [facility] Arterial [facility] O2 Source VentilatorCommen [facility] t: CMV, R 16, Vt [facility] - 400, +8, 45% RESPIRATORY THERAPY Lactic Acid 0.6 0.5 - 2.2 [facility] mmol/L [facility] Specimen Blood - Arterial blood specimen (specime n) Performing Organization Address [facility]/Zipcode Phone Number - [address] [place] [address] [place] [address] RESPIRATORY THERAPY MAGNESIUM (09/17/2020 4:19 AM GLASS RIBBON MACHINE OPERATOR) Pathologist Sig nature Magnesium 1.7 (L) 1.8 - 2.4 mg/dL [place] [address] [facility] Specimen Blood - Blood specimen (specimen) Performing Organization Address [facility]/Zipcode Phone Number [place] [address] [facility] [address] [place] [address] RENAL FUNCTION PANEL (09/17/2020 4:19 AM GLASS RIBBON MACHINE OPERATOR) Pathologist Sig nature Glucose 98 70 - 100 mg/dL [address] BUN 9 6 - 22 mg/dL [address] Creatinine 0.51 (L) 0.60 - 1.[address] mg/dL BUN/Creatinine Ratio 17.6 10.0 - 25.[address] Sodium 140 135 - 145 meq/L [address] Potassium 3.9 3.5 - 5.3 meq/L [address] Chloride 106 99 - 110 meq/L [address] CO2 23 20 - 29 meq/L [address] Anion Gap with K 15 6 - 20 meq/L [address] Calcium 7.8 (L) 8.5 - 10.[address] mg/dL Phosphorus 2.6 2.5 - 4.5 mg/dL [address] Albumin 1.9 (L) 3.5 - 5.0 g/dL [address] Corrected Calcium 9.5 8.5 - 10.[address] mg/dL Age [address] eGFR Non- >90 >=[address] [place] mL/min/1.73m2 eGFR >90 >=[address] mL/min/1.73m2 Specimen Blood - Blood specimen (specimen) Performing Organization Address City/State/Zipcode Phone Number [address], [place] [address] COMPLETE BLOOD COUNT WITHOUT DIFFERENTIAL (09/17/2020 4:19 AM GLASS RIBBON MACHINE OPERATOR) Pathologist Sig nature WBC 20.5 (H) 4.0 - 11.0 K/uL [address] RBC 2.93 (L) 3.80 - 5.30 M/uL [address] Hemoglobin 7.8 (L) 11.5 - 15.8 g/dL [address] Hematocrit 24.7 (L) 35.0 - 45.0 % [address] MCV 84.3 80.0 - 98.[address] MCH 26.6 25.5 - 34.[address] MCHC 31.6 31.5 - 36.5 g/dL [address] RDW-CV 14.2 11.5 - 15.5 % [address] RDW-SD 43.7 35.5 - 50.[address] Platelet Count 491 (H) 140 - 400 K/uL [address] MPV 10.1 8.5 - 12.[address] Specimen Blood - Blood specimen (specimen) Performing Organization Address [facility] Centercomd Phone Number [address] [place] [address] GLUCOSE BY METER, POCT (09/17/2020 4:18 AM GLASS RIBBON MACHINE OPERATOR) Pathologist Sig nature Glucose POC 93 70 - 99 mg/dL [facility] POINT OF CARE TESTING Specimen Blood - Blood specimen (specimen) Performing Organization Address [facility] Phone Number POINT OF [address] [place] [address] CARE TESTING GLUCOSE BY METER, POCT (09/17/2020 12:20 AM GLASS RIBBON MACHINE OPERATOR) Pathologist Sig nature Glucose POC 119 (H) 70 - 99 mg/dL [facility] POINT OF CARE TESTING Specimen Blood - Blood specimen (specimen) Performing Organization Address [facility] Phone Number POINT OF [address] [place] [address] CARE TESTING GLUCOSE BY METER, POCT (09/16/2020 8:50 PM GLASS RIBBON MACHINE OPERATOR) Pathologist Sig nature Glucose POC 84 70 - 99 mg/dL [facility] POINT OF CARE TESTING Specimen Blood - Blood specimen (specimen) Performing Organization Address [facility] Centercode Phone Number POINT OF [address] [place] [address] CARE TESTING GLUCOSE BY METER, POCT (09/16/2020 6:43 PM GLASS RIBBON MACHINE OPERATOR) Pathologist Sig nature Glucose POC 82 70 - 99 mg/dL [facility] POINT OF CARE TESTING Specimen Blood - Blood specimen (specimen) Performing Organization Address [facility] Centercode Phone Number POINT OF [address] [place] [address], [place] [address] CARE TESTING GLUCOSE BY METER, POCT (09/16/2020 6:00 PM GLASS RIBBON MACHINE OPERATOR) Pathologist Sig nature Glucose POC 76 70 - 99 mg/dL [facility] POINT OF CARE TESTING Specimen Blood - Blood specimen (specimen) Performing Organization Address [facility] Centercode Phone Number POINT OF [address] [place] [address], [place] [address] CARE TESTING GLUCOSE BY METER, POCT (09/16/2020 12:26 PM GLASS RIBBON MACHINE OPERATOR) Pathologist Sig nature Glucose POC 78 70 - 99 mg/dL [facility] POINT OF CARE TESTING Specimen Blood - Blood specimen (specimen) Performing Organization Address [facility] Centercode Phone Number POINT OF [address] [place] [address], [place] [address] CARE TESTING GLUCOSE BY METER, POCT (09/16/2020 7:58 AM GLASS RIBBON MACHINE OPERATOR) Pathologist Sig nature Glucose POC 82 70 - 99 mg/dL [facility] POINT OF CARE TESTING Specimen Blood - Blood specimen (specimen) Performing Organization Address [facility] Centercode Phone Number POINT OF [address] [place] [address], [place] [address] CARE TESTING GLUCOSE BY METER, POCT (09/16/2020 4:40 AM GLASS RIBBON MACHINE OPERATOR) Pathologist Sig nature Glucose POC 93 70 - 99 mg/dL [facility] POINT OF CARE TESTING Specimen Blood - Blood specimen (specimen) Performing Organization Address [facility] Centercode Phone Number [facility] [address] [place] [address], [place] [address] CARE TESTING BLOOD GASES ARTERIAL WITH LACTIC ACID (09/16/2020 4:40 AM GLASS RIBBON MACHINE OPERATOR) pH Arterial 7.47 (H) 7.35 - 7.45 - RESPIRATORY [facility] pCO2 Arterial 39 35 - [address] [facility] RESPIRATORY [facility] pO2 Arterial 86 80 - 100 [facility] mmHg [facility] RESPIRATORY [facility] Base Excess Arterial 5 (H) -2 - 2 meq/L [facility] RESPIRATORY [facility] HCO3 (Bicarb) 29 20 - 29 [facility] mmol/L [facility] O2 Sat % Arterial 96 95 - 98 % [facility] RESPIRATORY [facility] Carbon Monoxide 0.7 0.0 - 3.0 % [facility] RESPIRATORY [facility] Methemoglobin 0.7 0.0 - 3.0 % [facility] RESPIRATORY [facility] p50 24.56 (L) 25.00 - [facility] 29.00 mmHg [facility] Allens Test Not Done-Drawn [facility] From Line [facility] Collection Site Arterial Line [facility] Arterial [facility] O2 Source Ventilator [facility] Lactic Acid 0.7 0.5 - 2.2 [facility] mmol/L [facility] Specimen Blood - Arterial blood specimen (specime n) Narrative Performed At CMV: Rate 16, Vt 400, PEEP 8, FiO2 50% [facility] RESPIRATO RY THERAPY Performing Organization Address [facility] Phone Number - [address] [place] [address] RESPIRATORY THERAPY MAGNESIUM (09/16/2020 4:40 AM GLASS RIBBON MACHINE OPERATOR) Pathologist Sig nature Magnesium 1.9 1.8 - 2.4 mg/dL [place] [address] [facility] Specimen Blood - Blood specimen (specimen) Performing Organization Address [facility] Centercomd Phone Number [address] [address] RENAL FUNCTION PANEL (09/16/2020 4:40 AM GLASS RIBBON MACHINE OPERATOR) Pathologist Sig nature Glucose 95 70 - 100 mg/dL [address] BUN 8 6 - 22 mg/dL [place] [address] [facility] Creatinine 0.54 (L) 0.60 - 1.[address] mg/dL BUN/Creatinine Ratio 14.8 10.0 - 25.0 [place] [address] [facility] Sodium 140 135 - 145 meq/L [address] Potassium 3.2 (L) 3.5 - 5.3 meq/L [address] Chloride 105 99 - 110 meq/L [place] [address] [facility] CO2 25 20 - 29 meq/L [address] Anion Gap with K 13 6 - 20 meq/L [address] Calcium 7.3 (L) 8.5 - 10.5 [place] [address] [facility] mg/dL Phosphorus 3.1 2.5 - 4.5 mg/dL [place] [address] [facility] Albumin 1.9 (L) 3.5 - 5.0 g/dL [address] Corrected Calcium 9.0 8.5 - 10.[address] mg/dL Age [address] eGFR Non- >90 >=[address] [place] mL/min/1.73m2 eGFR >90 >=[address] mL/min/1.73m2 Specimen Blood - Blood specimen (specimen) Performing Organization Address [facility] Phone Number [address] [place] [address], [place] [address] COMPLETE BLOOD COUNT WITHOUT DIFFERENTIAL (09/16/2020 4:40 AM GLASS RIBBON MACHINE OPERATOR) Pathologist Sig [place] WBC 20.2 (H) 4.0 - 11.0 K/uL [address] RBC 2.99 (L) 3.80 - 5.30 M/uL [address] Hemoglobin 7.9 (L) 11.5 - 15.8 g/dL [address] Hematocrit 24.9 (L) 35.0 - 45.0 % [address] MCV 83.3 80.0 - 98.[address] MCH 26.4 25.5 - 34.[address] MCHC 31.7 31.5 - 36.5 g/dL [address] RDW-CV 14.0 11.5 - 15.5 % [address] RDW-SD 42.6 35.5 - 50.[address] Platelet Count 442 (H) 140 - 400 K/uL [address] MPV 9.5 8.5 - 12.[address] Specimen Blood - Blood specimen (specimen) Performing Organization Address [facility] Phone Number [address] [place] [address], [place] [address] TRIGLYCERIDE (09/16/2020 4:40 AM GLASS RIBBON MACHINE OPERATOR) Pathologist Sig [place] Triglyceride 48 (L) 50 - 150 mg/dL [address] Specimen Blood - Blood specimen (specimen) Performing Organization Address [facility] Phone Number [address] [place] [address], [place] [address] GLUCOSE BY METER, POCT (09/16/2020 2:03 AM GLASS RIBBON MACHINE OPERATOR) Pathologist Sig nature Glucose POC 100 (H) 70 - 99 mg/dL [facility] POINT OF CARE TESTING Specimen Blood - Blood specimen (specimen) Performing Organization Address [facility] Centercode Phone Number POINT OF [address] [place] [address], [place] [address] CARE TESTING GLUCOSE BY METER, POCT (09/15/2020 8:36 PM GLASS RIBBON MACHINE OPERATOR) Pathologist Sig nature Glucose POC 112 (H) 70 - 99 mg/dL [facility] POINT OF CARE TESTING Specimen Blood - Blood specimen (specimen) Performing Organization Address [facility] Phone Number POINT OF [address] [place] [address], [place] [address] CARE TESTING GLUCOSE BY METER, POCT (09/15/2020 4:28 PM GLASS RIBBON MACHINE OPERATOR) Pathologist Sig nature Glucose POC 105 (H) 70 - 99 mg/dL [facility] POINT OF CARE TESTING Specimen Blood - Blood specimen (specimen) Performing Organization Address [facility] Phone Number POINT OF [address] [place] [address], [place] [address] CARE TESTING MAGNESIUM (09/15/2020 2:34 PM GLASS RIBBON MACHINE OPERATOR) Pathologist Sig nature Magnesium 1.8 1.8 - 2.4 mg/dL [address] Specimen Blood - Blood specimen (specimen) Performing Organization Address [facility] Phone Number [address] [place] [address] RENAL FUNCTION PANEL (09/15/2020 2:34 PM GLASS RIBBON MACHINE OPERATOR) Pathologist Sig nature Glucose 103 (H) 70 - 100 mg/dL [place] [address] [facility] BUN 7 6 - 22 mg/dL [place] [address] [facility] Creatinine 0.55 (L) 0.60 - 1.[address] mg/dL BUN/Creatinine Ratio 12.7 10.0 - 25.[address] Sodium 143 135 - 145 meq/L [address] Potassium 3.8 3.5 - 5.3 meq/L [address] Chloride 109 99 - 110 meq/L [address] CO2 26 20 - 29 meq/L [address] Anion Gap with K 12 6 - 20 meq/L [address] Calcium 7.6 (L) 8.5 - 10.[address] mg/dL Phosphorus 2.0 (L) 2.5 - 4.5 mg/dL [address] Albumin 2.0 (L) 3.5 - 5.0 g/dL [address] Corrected Calcium 9.2 8.5 - 10.[address] mg/dL Age [address] eGFR Non- >90 >=[address] [place] mL/min/1.73m2 eGFR >90 >=[address] mL/min/1.73m2 Specimen Blood - Blood specimen (specimen) Performing Organization Address [facility] Phone Number [address] [place] [address] CULTURE BACTERIAL, RESPIRATORY WITH GRAM STAIN (09/15/2020 12:58 PM GLASS RIBBON MACHINE OPERATOR) Culture Result Rare Yeast, not [facility] Cryptococcus (!) [facility] Gram Stain Many (>25/LPF) WBC's [facility] Gram Stain No epithelial cells [facility] Gram Stain No organisms seen [facility] Specimen Respiratory - Bronchoalveolar lavage flu id sample (specimen) Narrative Performed At No MRSA or Pseudomonas aeruginosa isolat ed [facility] No normal too Performing Organization Address [facility] Phone Number [facility] [address] [place], [place] [id number] [phone] BLOOD GASES ARTERIAL WITH LACTIC ACID (09/15/2020 12:58 PM GLASS RIBBON MACHINE OPERATOR) pH Arterial 7.40 7.35 - 7.45 - [facility]ATORY [facility]ERAP[facility] pCO2 Arterial 47 (H) 35 - 45 mmHg - RESP[facility]ATORY [facility]ERAPY pO2 Arterial 93 80 - 100 [facility] mmHg [facility] RESPIRATORY [facility] Base Excess Arterial 4 (H) -2 - 2 meq/L - RESPIRATORY [facility] HCO3 (Bicarb) 29 20 - 29 [facility] mmol/L [facility] RESPIRATORY [facility] O2 Sat % Arterial 96 95 - 98 % [facility] Carbon Monoxide 0.7 0.0 - 3.0 % [facility] Methemoglobin 0.5 0.0 - 3.0 % [facility] p50 26.62 25.00 - [facility] 29.00 mmHg [facility] Allens Test Not Done-Drawn [facility] From Line [facility] Collection Site Arterial Line [facility] Arterial [facility] O2 Source Ventilator [facility] Lactic Acid 0.5 0.5 - 2.2 [facility] mmol/L [facility] Specimen Blood - Arterial blood specimen (specime n) Narrative Performed At CMV: Rate 12, Vt 400, PEEP 8, FiO2 50% [facility] Performing Organization Address [facility] Centercode Phone Number - [facility] [address] [place] [address] RESPIRATORY THERAPY GLUCOSE BY METER, POCT (09/15/2020 12:12 PM [employer] MACHINE OPERATOR) Pathologist Sig [facility] Glucose POC 92 70 - 99 mg/dL [facility] O POINT OF CARE TESTING Specimen Blood - Blood specimen (specimen) Performing Organization Address [facility] Phone Number POINT OF [address] [place] [address], [place] [address] CARE TESTING CHLORIDE, URINE (09/15/2020 6:12 AM [employer] MACHINE OPERATOR) Pathologist Sig [facility] Chloride Urine 138 No Reference Range [facility] mEq/L [facility] Specimen Urine - Urine specimen (specimen) Performing Organization Address [facility] Centercode Phone Number [facility] [address] [address] VANCOMYCIN TROUGH (09/15/2020 6:04 AM [employer] MACHINE OPERATOR) Pathologist Sig nature Vancomycin Trough 16.6 10.0 - 20.0 ug/mL [place] [address] CLINI C Specimen Blood - Blood specimen (specimen) Performing Organization Address [facility] Centercode Phone Number [place] [address] CLINIC [address] [place] [address], [place] [address] BLOOD GASES ARTERIAL WITH LACTIC ACID (09/15/2020 3:53 AM [employer] MACHINE OPERATOR) pH Arterial 7.54 (H) 7.35 - 7.45 [facility] pCO2 Arterial 35 35 - 45 mmHg [facility] pO2 Arterial 91 80 - 100 [facility] mmHg [facility] Base Excess Arterial 7 (H) -2 - 2 meq/L [facility] HCO3 (Bicarb) 30 (H) 20 - 29 [facility] mmol/L [facility] O2 Sat % Arterial 97 95 - 98 % [facility] Carbon Monoxide 0.8 0.0 - 3.0 % [facility] Methemoglobin 0.4 0.0 - 3.0 % [facility] p50 22.86 (L) 25.00 - [facility] 29.00 mmHg [facility] Allens Test Not Done-Drawn [facility] From Line [facility] Collection Site Arterial Line [facility] Arterial [facility] O2 Source Ventilator [facility] Lactic Acid 0.6 0.5 - 2.2 [facility] mmol/L [facility] Specimen Blood - Arterial blood specimen (specime n) Narrative Performed At CMV: Rate 12, Vt 500, PEEP +5, FiO2 50% [facility] Performing Organization Address [facility] Centercode Phone Number - [phone] [address] [place] [address] RESPIRATORY THERAPY MAGNESIUM (09/15/2020 3:53 AM [employer] MACHINE OPERATOR) Pathologist Sig nature Magnesium 1.8 1.8 - 2.4 mg/dL [place] [address] CLINIC Specimen Blood - Blood specimen (specimen) Performing Organization Address [facility] Centercode Phone Number [address] [place] [address] RENAL FUNCTION PANEL (09/15/2020 3:53 AM [employer] MACHINE OPERATOR) Pathologist Sig nature Glucose 100 70 - 100 mg/dL [address] BUN 7 6 - 22 mg/dL [place] [address] CLINIC Creatinine 0.60 0.60 - 1.[address] mg/dL BUN/Creatinine Ratio 11.7 10.0 - 25.[address] Sodium 142 135 - 145 meq/L [address] Potassium 3.0 (L) 3.5 - 5.3 meq/L [address] Chloride 106 99 - 110 meq/L [address] CO2 26 20 - 29 meq/L [address] Anion Gap with K 13 6 - 20 meq/L [address] Calcium 7.3 (L) 8.5 - 10.5 mg/dL [address] Phosphorus 1.7 (L) 2.5 - 4.5 mg/dL [address] Albumin 1.9 (L) 3.5 - 5.0 g/dL [address] Corrected Calcium 9.0 8.5 - 10.5 mg/dL [address] Age [address] eGFR Non- >90 >=[address] [place] mL/min/1.73m2 eGFR >90 >=[address] mL/min/1.73m2 Specimen Blood - Blood specimen (specimen) Performing Organization Address City/State/Zipcode Phone Number [address] [address] COMPLETE BLOOD COUNT WITHOUT DIFFERENTIAL (09/15/2020 3:53 AM GLASS RIB[employer] MACHINE OPERATOR) [facility] nature WBC 20.2 (H) 4.0 - 11.0 K/uL [address] RBC 2.84 (L) 3.80 - 5.30 M/uL [address] Hemoglobin 7.7 (L) 11.5 - 15.8 g/dL [address] Hematocrit 24.1 (L) 35.0 - 45.0 % [address] MCV 84.9 80.0 - 98.[address] MCH 27.1 25.5 - 34.[address] MCHC 32.0 31.5 - 36.5 g/dL [address] RDW-CV 13.9 11.5 - 15.5 % [address] RDW-SD 43.3 35.5 - 50.[address] Platelet Count 508 (H) 140 - 400 K/uL [address] MPV 9.7 8.5 - 12.[address] Specimen Blood - Blood specimen (specimen) Performing Organization Address [facility] Centercomd Phone Number [address] [place] [address] BLOOD GASES ARTERIAL WITH LACTIC ACID (09/14/2020 4:02 AM [employer] MACHINE OPERATOR) pH Arterial 7.48 (H) 7.35 - 7.[address] [facility] RESPIRATORY [facility] pCO2 Arterial 39 35 - 45 mmHg [facility] pO2 Arterial 85 80 - 100 [facility] mmHg [facility] Base Excess Arterial 5 (H) -2 - 2 meq/L [facility] HCO3 (Bicarb) 29 20 - 29 [facility] mmol/L [facility] O2 Sat % Arterial 96 95 - 98 % [facility] Carbon Monoxide 0.8 0.0 - 3.0 % [facility] Methemoglobin 0.5 0.0 - 3.0 % [facility] p50 24.41 (L) 25.00 - [facility] 29.00 mmHg [facility] Allens Test Not Done-Drawn [facility] From Line [facility] Collection Site Arterial Line [facility] Arterial [facility] O2 Source VentilatorCommen [facility] t: APVcmv 12 vt [facility] - 500 peep 5 50% RESPIRATORY THERAPY Lactic Acid 0.8 0.5 - 2.2 [facility] mmol/L [facility] Specimen Blood - Arterial blood specimen (specime n) Performing Organization Address [facility] Centercode Phone Number - [address] [place] [address], [place] [address] RESPIRATORY THERAPY MAGNESIUM (09/14/2020 4:02 AM GLASS [employer] MACHINE OPERATOR) Pathologist Sig nature Magnesium 1.7 (L) 1.8 - 2.4 mg/dL [address] Specimen Blood - Blood specimen (specimen) Performing Organization Address [facility] Centercode Phone Number [address] [place] [address], [place] [address] RENAL FUNCTION PANEL (09/14/2020 4:02 AM GLASS RIBB[employer] MACHINE OPERATOR) Pathologist Sig [facility] Glucose 175 (H) 70 - 100 mg/dL [address] BUN 6 6 - 22 mg/dL [address] Creatinine 0.64 0.60 - 1.[address] mg/dL BUN/Creatinine Ratio 9.4 (L) 10.0 - 25.[address] Sodium 141 135 - 145 meq/L [address] Potassium 3.3 (L) 3.5 - 5.3 meq/L [address] Chloride 106 99 - 110 meq/L [address] CO2 26 20 - 29 meq/L [address] Anion Gap with K 12 6 - 20 meq/L [address] Calcium 7.8 (L) 8.5 - 10.5 mg/dL [address] Phosphorus 2.9 2.5 - 4.5 mg/dL [address] Albumin 2.2 (L) 3.5 - 5.0 g/dL [address] Corrected Calcium 9.2 8.5 - 10.5 mg/dL [address] Age [address] eGFR Non- >90 >=[address] [place] mL/min/1.73m2 eGFR >90 >=[address] mL/min/1.73m2 Specimen Blood - Blood specimen (specimen) Performing Organization Address City/State/Zipcode Phone Number [address] [place] [address] COMPLETE BLOOD COUNT WITHOUT DIFFERENTIAL (09/14/2020 4:02 AM [facility]) Pathologist Sig nature WBC 20.2 (H) 4.0 - 11.0 K/uL [address] RBC 3.23 (L) 3.80 - 5.30 M/uL [address] Hemoglobin 8.7 (L) 11.5 - 15.8 g/dL [address] Hematocrit 26.7 (L) 35.0 - 45.0 % [address] MCV 82.7 80.0 - 98.[address] MCH 26.9 25.5 - 34.[address] MCHC 32.6 31.5 - 36.5 g/dL [address] RDW-CV 13.6 11.5 - 15.5 % [address] RDW-SD 41.5 35.5 - 50.[address] Platelet Count 557 (H) 140 - 400 K/uL [address] MPV 9.8 8.5 - 12.[address] Specimen Blood - Blood specimen (specimen) Performing Organization Address [facility] Phone Number [address] [place] [address] BLOOD GASES ARTERIAL WITH LACTIC ACID (09/13/2020 1:01 PM GLASS RIB[employer] MACHINE OPERATOR) pH Arterial 7.50 (H) 7.35 - 7.45 [facility] pCO2 Arterial 32 (L) 35 - 45 mmHg [facility] pO2 Arterial 92 80 - 100 [facility] mmHg [facility] Base Excess Arterial 2 -2 - 2 meq/L [facility] HCO3 (Bicarb) 25 20 - 29 [facility] mmol/L [facility] O2 Sat % Arterial 97 95 - 98 % [facility] Carbon Monoxide 0.7 0.0 - 3.0 % [facility] Methemoglobin 0.5 0.0 - 3.0 % [facility] p50 23.66 (L) 25.00 - [facility] 29.00 mmHg [facility] Allens Test Not Done-Drawn [facility] From Line [facility] Collection Site Arterial Line [facility] O2 Source Ventilator [facility] Lactic Acid 0.6 0.5 - 2.2 [facility] mmol/L [facility] Specimen Blood - Arterial blood specimen (specime n) Narrative Performed At CMV: Rate 12, Vt 550, PEEP 5, FiO2 50% [facility] RESPIRATORY [facility] Performing Organization Address [facility] Centercode Phone Number - [phone] [place] [address] RESPIRATORY THERAPY CULTURE BACTERIAL, OTHER WITH GRAM STAIN (09/13/2020 10:46 AM GLASS [employer]IB[employer] MACHINE OPERATOR)Only the most recent of2 resultswithin the time period is included. Culture Result Moderate Streptococcus intermedius (!) [facility] Comment: CLINIC This organism belongs to the Streptococcus anginosus g roup. See previous culture for susceptibility report. - 20FC [id number] Gram Stain Many (>25/LPF) WBC's [facility] Gram Stain Many (>25/LPF) RBC's [facility] Gram Stain No epithelial cells [facility] Gram Stain Few (1 to 5/OIF) Gram [facility] positive cocci in pairs CLINIC and chains Specimen Tissue - Pleural fluid specimen (specime n) Narrative Performed At Left Upper Lobe Pleural [facility] Performing Organization Address [facility] Centercomd Phone Number [address] [address] [phone] CULTURE BACTERIAL, ANAEROBE (09/13/2020 10:46 AM GLASS RIB[employer] MACHINE OPERATOR)Only the most recent of2 resultswithin the time period is included. Pathologist Sig nature Culture Result No anaerobic growth [facility] at 5 days CLINIC Specimen Tissue - Pleural fluid specimen (specime n) Narrative Performed At [facility] Upper Lobe [facility]ural [place] Performing Organization Address City/[facility]/Zipcode Phone Number [address] [address] [phone] LAB ONLY-COMPLETE BLOOD COUNT WITH DIFFERENTIAL (09/13/2020 5:50 AM GLASS [employer]IB[employer] MACHINE OPERATOR) Pathologist Sig nature WBC 11.6 (H) 4.0 - 11.0 K/uL [address] RBC 3.36 (L) 3.80 - 5.[address] M/uL Hemoglobin 9.1 (L) 11.5 - 15.[address] g/dL Hematocrit 29.1 (L) 35.0 - 45.0 % [address] MCV 86.6 80.0 - 98.[address] MCH 27.1 25.5 - 34.[address] MCHC 31.3 (L) 31.5 - 36.[address] g/dL RDW-CV 13.4 11.5 - 15.5 % [address] RDW-SD 42.5 35.5 - 50.[address] Platelet Count 470 (H) 140 - 400 K/uL [address] MPV 9.8 8.5 - 12.[address] Seg Neut Absolute 9.2 (H) 1.8 - 8.0 K/uL [address] Lymphocytes Absolute 1.3 0.8 - 4.1 K/uL [place] [address] CLINI [facility] Monocytes Absolute 0.9 0.0 - 1.0 K/uL [address] Eosinophils Absolute 0.1 0.0 - 0.7 K/uL [place] [address] CLINI C Basophil Absolute 0.1 0.0 - 0.2 K/uL [address] Immature Granulocyte 0.14 (H) 0.00 - 0.[address] Absolute K/uL Neutrophils Abs. 9,200 /uL [address] (Segs and Bands) Neutrophils Percent 79.1 % [address] Lymphocytes Percent 10.8 % [address] Monocytes Percent 7.8 % [address] Immature Granulocyte 1.2 % [address] Percent Eosinophils Percent 0.6 % [address] Basophil Percent 0.5 % [address] Nucleated RBC 0 /[address] Specimen Blood - Blood specimen (specimen) Performing Organization Address City/State/Zipcode Phone Number [address] [place] [address] RENAL FUNCTION PANEL (09/13/2020 5:50 AM GLASS RIBBON MACHINE OPERATOR) Pathologist [facility] Glucose 98 70 - 100 mg/dL [address] BUN 5 (L) 6 - 22 mg/dL [address] Creatinine 0.59 (L) 0.60 - 1.[address] mg/dL BUN/Creatinine Ratio 8.5 (L) 10.0 - 25.[address] Sodium 142 135 - 145 meq/L [address] Potassium 2.9 (L) 3.5 - 5.3 meq/L [address] Chloride 105 99 - 110 meq/L [address] CO2 28 20 - 29 meq/L [address] Anion Gap with K 12 6 - 20 meq/L [address] Calcium 7.8 (L) 8.5 - 10.[address] mg/dL Phosphorus 2.5 2.5 - 4.5 mg/dL [address] Albumin 2.2 (L) 3.5 - 5.0 g/dL [address] Corrected Calcium 9.2 8.5 - 10.[address] mg/dL Age [address] eGFR Non- >90 >=[address] [place] mL/min/1.73m2 eGFR >90 >=[address] mL/min/1.73m2 Specimen Blood - Blood specimen (specimen) Performing Organization Address [facility] Phone Number [address] [address] VANCOMYCIN TROUGH (09/13/2020 5:50 AM GLASS RIBBON MACHINE OPERATOR) Pathologist Sig nature Vancomycin Trough 12.2 10.0 - 20.0 ug/mL [place] [address] CLINI C Specimen Blood - Blood specimen (specimen) Performing Organization Address [facility] Number [address] [place] [address] TYPE AND SCREEN (09/13/2020 5:47 AM GLASS RIBBON MACHINE OPERATOR) Pathologist Sig nature ABO Type A [address] BLOOD BANK Rh Type Positive [address] BLOOD BANK Antibody Screen Negative [address] Comment: BLOOD BANK Allogenic Red Cells Available 09/13/20 Expiration Date 09/16/2020 23:[address] BLOOD BANK Specimen Blood - Blood specimen (specimen) Performing Organization Address [facility] Phone Number [address] BLOOD BANK [address] [place] [address], [place] [address] GLUCOSE BY METER, POCT (09/13/2020 4:14 AM GLASS RIBBON MACHINE OPERATOR) Pathologist Sig nature Glucose POC 85 70 - 99 mg/dL [facility] O POINT OF CARE TESTING Specimen Blood - Blood specimen (specimen) Performing Organization Address City/[facility]/Zipcode Phone Number [facility] OF [address] [place], [place] [address] CARE TESTING MRSA NASAL SCREEN, UZIEL (09/12/2020 12:29 PM GLASS RIBBON MACHINE OPERATOR) MRSA by NAD, Nasal Not Detected Not Detected [facility] Specimen Swab - Specimen from nasal sinus (specim en) Narrative Performed At MRSA DNA not detected. [facility] This test was performed by polymerase chain reaction ( PCR) on the GeneXpert instrument. Performing Organization Address [facility] Centercode Phone Number [facility] [address] [place] [phone] HISTOPLASMA ANTIGEN, URINE (09/12/2020 11:58 AM GLASS RIBBON MACHINE OPERATOR) Histoplasma Ag Negative Negative [facility] Result Comment: LABORATORIES No Histoplasma antigen detected. Repeat testing on a n ew sample if clinically indicated. This test was performed using the IMMY Histoplasma capsulatum galactomannan EIA. Histoplasma Ag 0.00 ng/mL [facility] Value Comment: LABORATORIES REFERENCE VALUE ------ 0.00 - 0.10 = Negative 0.11 - 1.10 = Indeterminate >=1.11 = Positive ADDITIONAL INFORMATION ------ This test was developed and its performance characteri stics determined by [facility] in a manner consistent with CLIA requirements. This test has not been cleared or approved by the U.S. Food and Drug Administration. Test Performed by: [facility] [address] [place] [address] [place] [employer] Instructor: Manuel Del Angel M.D. Ph.D.; CLIA# [id number] Specimen Urine - Urine specimen (specimen) Performing Organization Address City/[facility]/Zipcode Phone Number [facility] [address] [place] [address] STREP PNEUMONIAE DIRECT ANTIGEN, URINE (09/12/2020 11:57 AM GLASS RIBBON MACHINE OPERATOR) Strep pneumoniae Presumptive Presumptive [place] Urine Antigen NegativeComment: Negative [facility] Presumptive negative for Streptococcus pneumoniae antigen in urine, suggesting no current or recent pneumococcal infection. Infection due to Streptococcus pneumoniae cannot be ruled out since the antigen present in the urine may be below the detection limit of the test. Specimen Urine - Urine specimen (specimen) Performing Organization Address [facility] Centercomd Phone Number [facility] [address] [place] [address] BLASTOMYCES QUANTITATIVE ANTIGEN, URINE (09/12/2020 11:56 AM GLASS RIBBON MACHINE OPERATOR) Result: None Detected ng/mL [facility] Interpretation Negative [facility] Comment: LABORATORIES ADDITIONAL INFORMATION ------ Reference interval: None Detected Results reported as ng/mL in 0.2 - 14.7 ng/mL range Results above the limit of detection but below 0.2 ng/ mL are reported as 'Positive, Below the Limit of Quantificati on' Results above 14.7 ng/mL are reported as 'Positive, Ab ove the Limit of Quantification' This test was developed and its performance characteri stics determined by [facility]. It has not been cleared or approved by the FDA; however, FDA clearance or approval is not currently required for clinical use. T he results are not intended to be used as the sole means for clinical diagnosis or patient management decisions. 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) Pathologist Sig [place] Creatinine 0.62 0.60 - 1.10 [facility] mg/dL CLINIC Age 55 Years [facility] eGFR Non- >90 >=60 [facility] [place] mL/min/1.73m2 CLINIC eGFR >90 >=60 [facility] mL/min/1.73m2 CLINIC Specimen Blood - Blood specimen (specimen) Performing Organization Address [facility] Centercode Phone Number [facility] [address] [place] [address] LAB ONLY-COMPLETE BLOOD COUNT WITH DIFFERENTIAL (09/11/2020 2:49 PM CDT) Pathologist Sig nature WBC 13.4 (H) 4.0 - 11.0 K/uL [facility] RBC 3.41 (L) 3.80 - 5.30 [facility] M/uL CLINIC Hemoglobin 9.6 (L) 11.5 - 15.8 [facility] g/dL [facility] Hematocrit 29.7 (L) 35.0 - 45.0 % [facility] MCV 87.1 80.0 - 98.0 fL [facility] MCH 28.2 25.5 - 34.0 pg [facility] MCHC 32.3 31.5 - 36.5 [facility] g/dL [facility] RDW-CV 13.5 11.5 - 15.5 % [facility] RDW-SD 43.3 35.5 - 50.0 fl [facility] Platelet Count 508 (H) 140 - 400 K/uL [facility] MPV 9.7 8.5 - 12.0 fL [facility] Seg Neut Absolute 10.5 (H) 1.8 - 8.0 K/uL [facility] Lymphocytes Absolute 1.4 0.8 - 4.1 K/uL [facility] Monocytes Absolute 1.3 (H) 0.0 - 1.0 K/uL [facility] Eosinophils Absolute 0.0 0.0 - 0.7 K/uL [facility] Basophil Absolute 0.0 0.0 - 0.2 K/uL [facility] Immature Granulocyte 0.19 (H) 0.00 - 0.06 [facility] Absolute K/uL CLINIC Neutrophils Abs. 10,500 /uL [facility] (Segs and Bands) [facility] Neutrophils Percent 78.1 % [facility] Lymphocytes Percent 10.6 % [facility] Monocytes Percent 9.5 % [facility] Immature Granulocyte 1.4 % [facility] Percent CLINIC Eosinophils Percent 0.2 % [facility] Basophil Percent 0.2 % [facility] Nucleated RBC 0 /100 WBC's [facility] Specimen Blood - Blood specimen (specimen) Performing Organization Address [facility] Centercode Phone Number [address] [address] LACTIC ACID (09/11/2020 2:49 PM CDT) Pathologist Sig [facility] Lactic Acid 0.6 0.5 - 2.2 mmol/L [facility] Specimen Blood - Blood specimen (specimen) Performing Organization Address [facility] Phone Number [address] [address] RETIC COUNT (09/11/2020 2:49 PM CDT) Reticulocyte Percent 2.1 (H) 0.5 - 1.8 % [facility] Reticulocyte Absolute 0.07 0.02 - 0.[address] [facility] CLINIC Immature Retic 18.3 (H) 3.0 - 16.0 % [facility] Retic Hemoglobin 21.0 (L) 29.0 - 38.0 pg [facility] Specimen Blood - Blood specimen (specimen) Performing Organization Address [facility] Phone Number [address] [address] VITAMIN B12 (09/11/2020 2:49 PM CDT) Pathologist Sig [facility] Vitamin B12 >2000 (H) 200-1,000 pg/mL [facility] Specimen Blood - Blood specimen (specimen) Performing Organization Address [facility] Phone Number [address] [address] IRON AND TIBC (09/11/2020 2:49 PM CDT) Pathologist Sig nature Iron Total 9 (L) 50 - 170 ug/dL [facility] TIBC 151 (L) 250 - 400 ug/dL [facility] Iron Saturation 6 (L) 20 - 50 % Sat [facility] Specimen Blood - Blood specimen (specimen) Performing Organization Address [facility] Phone Number [address] [address] FERRITIN (09/11/2020 2:49 PM CDT) Pathologist Sig [facility] Ferritin 398 (H) 5 - 200 ng/mL [facility] Specimen Blood - Blood specimen (specimen) Performing Organization Address [facility] Phone Number [address] [address] ESR (09/11/2020 2:49 PM CDT) Pathologist Sig [facility] ESR 120 (H) 0 - 29 mm/Hr [facility] Specimen Blood - Blood specimen (specimen) Narrative Performed At This result was obtained with an ESR instrument that i s not [facility] based on the standard Westergren method. The sensitivi ty and specificity of this method for various disease states may be different from the standard Westergren m ethod. Performing Organization Address [facility] Phone Number [address] [address] [phone] C-REACTIVE PROTEIN (INFLAMMATION) (09/11/2020 2:49 PM CDT) Pathologist [facility] CRP 232.2 (H) 0.0 - 8.0 mg/L [facility] Specimen Blood - Blood specimen (specimen) Performing Organization Address [facility] Phone Number [address] [address] COMPREHENSIVE METABOLIC PANEL (09/11/2020 2:49 PM CDT) Pathologist [facility] Glucose 83 70 - 100 mg/dL [facility] BUN 5 (L) 6 - 22 mg/dL [facility] Creatinine 0.64 0.60 - 1.10 [facility] mg/dL [facility] BUN/Creatinine Ratio 7.8 (L) 10.0 - 25.0 [facility] Sodium 141 135 - 145 meq/L [facility] Potassium 3.2 (L) 3.5 - 5.3 meq/L [facility] Chloride 101 99 - 110 meq/L [facility] CO2 31 (H) 20 - 29 meq/L [facility] Anion Gap with K 12 6 - 20 meq/L [facility] Calcium 8.2 (L) 8.5 - 10.5 [facility] mg/dL [facility] Protein Total 5.8 (L) 6.0 - 8.2 g/dL [facility] Albumin 2.6 (L) 3.5 - 5.0 g/dL [facility] Alkaline Phosphatase 113 30 - 150 U/L [facility] AST - SGOT 13 0 - 35 U/L [facility] ALT - SGPT 9 0 - 55 U/L [facility] Bilirubin Total 0.3 0.2 - 1.2 mg/dL [facility] Corrected Calcium 9.3 8.5 - 10.5 [facility] mg/dL [facility] Age 55 Years [facility] eGFR Non- >90 >=60 [facility] [place] mL/min/1.73m2 [facility] eGFR >90 >=60 [facility] mL/min/1.73m2 [facility] Specimen Blood - Blood specimen (specimen) Performing Organization Address City/State/Zipcode Phone Number [facility] [address] [place] [address] CT CHEST WITH CONTRAST (09/11/2020 10:28 AM CDT) Specimen Narrative Performed At [facility] Patient Name: NILES SHEARER Date of : 1965 Procedure: CT CHEST WITH CONTRAST Date of Service: 09/11/2020 EXAM: CT CHEST WITH CONTRAST INDICATION:lung mass, pneumonia COMPARISON(S): 08/18/2020 TECHNIQUE: Axial CT imaging was performed through the chest following IV contrast. Sagittal and coronal reformats were performed. FINDINGS: Again noted is appearance of a mass in the left lung. This is significantly increased in size as compared with the e arlier study. In noted is decreased density seen centrally. This also s treaky increased markings within the adjacent lung parenchyma seen on e arlier study though this is also more extensive. Mediastinal adenop athy is again noted is well. IMPRESSION: Mediastinal adenopathy is again noted. Mass in the lef t lung is increased in size and is again noted. Decreased densit y centrally. This significant increase in size. Wonder if this may repre sent a growing abscess with adjacent pneumonitis rather than malignan cy. Dr. Bach was paged with results at 1200 hours. Finalized by: Antoine Aguilar MD on 12:02 PM CDT Patient/Procedure Information: [facility] MRN/ILIANA: [id number] Order Number: [id number] Accession Number: [id number] Ordering Provider: SON BACH Authorizing Provider: SON BACH Procedure Note Interface, Radiantres - 09/11/2020 12:04 PM CDT Patient Name: NILES SHEARER Date of : 1965 Procedure: CT CHEST WITH CONTRAST Date of Service: 09/11/2020 EXAM: CT CHEST WITH CONTRAST INDICATION:lung mass, pneumonia COMPARISON(S): 08/18/2020 TECHNIQUE: Axial CT imaging was performe d through the chest following IV contrast. Sagittal and coronal reformats were performed. FINDINGS: Again noted is appearance of a mass in t he left lung. This is significantly increased in size as compared with the earlier study. In noted is decreased density seen centrally. This also streaky increased markings within the adjacent lung parenc hyma seen on earlier study though this is also more extensive. Mediastinal adenopathy is again noted is well. IMPRESSION: Mediastinal adenopathy is again noted. M ass in the left lung is increased in size and is again noted. Decreased density centrally. This significant increase in size. Wonder if this may represent a growing abscess with adjacent pneumonitis rather than maligna ncy. Dr. Bach was paged with results at 1200 hours. Finalized by: Antoine Aguilar MD on 12:02 PM CDT Patient/Procedure Information: [facility] MRN/ILIANA: [id number] Order Number: [id number] Accession Number: [id number] Ordering Provider: SON BACH Authorizing Provider: SON BACH Performing Organization Address City/State/Zipcode Phone Number [id number] CT HEAD WITHOUT CONTRAST (09/11/2020 10:27 AM CDT) Specimen Narrative Performed At [facility] Patient Name: NILES SHEARER Date of : 1965 Procedure: CT HEAD WITHOUT CONTRAST Date of Service: 09/11/2020 EXAM: CT HEAD WITHOUT CONTRAST INDICATION: confusion TECHNIQUE: CT of the brain performed wit hout IV contrast. COMPARISON(S): None Available FINDINGS: There is streak artifact from hardware in the area of the temporomandibular joints seen bilaterally. Overall, ve ntricles and sulci appear to have normal size and configuration for the p atient's stated age. I do not have some mass effect or midline shift. There is good sanchez-white matter differentiation. I do not see eviden ce of acute focal ischemia or acute intracranial hemorrhag e. IMPRESSION: No evidence of acute intracranial abnorm alities. Finalized by: Antoine Aguilar MD on 11:46 AM CDT Patient/Procedure Information: [facility] MRN/ILIANA: [id number] Order Number: [id number] Accession Number: [id number] Ordering Provider: SON BACH Authorizing Provider: SON BACH Procedure Note Interface, Radiantres - 09/11/2020 11:48 AM CDT Patient Name: NILES SHEARER Date of : 1965 Procedure: CT HEAD WITHOUT CONTRAST Date of Service: 09/11/2020 EXAM: CT HEAD WITHOUT CONTRAST INDICATION: confusion TECHNIQUE: CT of the brain performed wit hout IV contrast. COMPARISON(S): None Available FINDINGS: There is streak artifact from hardware i n the area of the temporomandibular joints seen bilaterally. Overall, ventricles and sulci appear to have normal size and configuration for the patient's stated age. I do not have some mass effect or midlin e shift. There is good sanchez-white matter differentiation. I do not see evidence of acute focal ischemia or acute intracranial hemorrhage. IMPRESSION: No evidence of acute intracranial abnorm alities. Finalized by: Antoine Aguilar MD on 11:46 AM CDT Patient/Procedure Information: [facility] MRN/ILIANA: [id number] Order Number: [id number] Accession Number: [id number] Ordering Provider: SON BACH Authorizing Provider: SON BACH Performing Organization Address City/State/Zipcode Phone Number [id number] EKG (09/11/2020 6:25 AM CDT) Pathologist Sig nature EKG [employer] Normal sinus rhythm T wave abnormality, consider inferior ischemia Prolonged QT interval or tu fusion, consider myocardial disease, electrolyte imbalance, or drug effects Abnormal ECG Ventricular Rate: 100 BPM Atrial Rate: 100 BPM P-R Interval: 138 ms QRS Duration: 100 ms Q-T Interval: 450 ms QTc Calculation(Bazett): 580 ms Calculated P [place]: 52 degrees Calculated R [place]: 51 degrees Calculated T [place]: 23 degrees Specimen Narrative Performed At This result has an attachment that is no t available. Performing Organization Address City/State/Zipcode Phone Number LAUREL GALEANO SARS-COV-2 RNA, QUALITATIVE REAL-TIME RT-PCR (09/11/2020 3:44 AM CDT) Pathologist [facility] SARS CoV RNA, RT Not Detected Not Detected [facility] Specimen Respiratory - Entire nasopharynx (body s tructure) Narrative Performed At This test was performed by polymerase chain reaction ( PCR) [facility] on the Glocal instrument. This assay is for in vitro diagnostic use under FDA Emergency Use Authorization only. Optimal performance of this test requires appropriate specimen collection, storage, and transport to the [facility] site. Detection of SARS-CoV-2 RNA may be affected by sample collection methods, patient factors (eg, presence of symptoms), and/or stage of infection. False-negative results may arise from degradation of v iral RNA during shipping/storage. Results should be interpreted by a trained professiona l in conjunction with the patient s history and clinical signs and symptoms, and epidemiological risk factors. Negative (Not Detected) results do not preclude infect ion with the SARS-CoV-2 virus and should not be the sole b asis of patient treatment/management or public health decis ion. Follow up testing should be performed according to the current CDC recommendations. Performing Organization Address City/[facility]/Zipcode Phone Number [facility] [address] [place] [address] LAB ONLY-MANUAL DIFFERENTIAL (09/10/2020 8:00 PM CDT) Neutrophils Abs. 14,529 /uL [facility] (Segs and Bands) [facility] Seg Neut Absolute 14.5 (H) 1.8 - 8.0 K/uL [facility] Lymphocytes Absolute 1.2 0.8 - 4.1 K/uL [facility] Monocytes Absolute 1.0 0.0 - 1.0 K/uL [facility] Neutrophils Percent 87.0 % [facility] Lymphocytes Percent 7.0 % [facility] Monocytes Percent 6.0 % [facility] Platelet Estimate Increased [facility] Platelet Morphology Normal [facility] Nucleated RBC's 1 /100 WBC's [facility] RBC Morphology Normal [facility] Specimen Blood - Blood specimen (specimen) Performing Organization Address City/[facility] Phone Number [address] [address] [phone] LAB ONLY-COMPLETE BLOOD COUNT WITH DIFFERENTIAL (09/10/2020 8:00 PM CDT) Pathologist Sig nature WBC 16.7 (H) 4.0 - 11.0 K/uL [facility] RBC 3.41 (L) 3.80 - 5.30 M/uL [facility] Hemoglobin 9.4 (L) 11.5 - 15.8 g/dL [facility] Hematocrit 28.6 (L) 35.0 - 45.0 % [facility] MCV 83.9 80.0 - 98.0 fL [facility] MCH 27.6 25.5 - 34.0 pg [facility] MCHC 32.9 31.5 - 36.5 g/dL [facility] RDW-CV 13.5 11.5 - 15.5 % [facility] RDW-SD 41.2 35.5 - 50.0 fl [facility] Platelet Count 547 (H) 140 - 400 K/uL [facility] MPV 9.9 8.5 - 12.0 fL [facility] Specimen Blood - Blood specimen (specimen) Narrative Performed At A previously reported component Auto NRBCs is no longe r [facility] reported. Performing Organization Address [facility] Phone Number [address] [address] CULTURE, BLOOD (09/10/2020 8:00 PM CDT)Only the most recent of2 resultswithin the time period is included. Pathologist Sig nature Culture Result No growth at 5 [facility] Specimen Blood - Blood specimen (specimen) Narrative Performed At [facility] Peripheral draw Performing Organization Address [facility] Phone Number [address] [address] [phone] PROCALCITONIN (09/10/2020 8:00 PM CDT) Pathologist Sig nature Procalcitonin 0.08 (H) <0.07 ng/mL [facility] Specimen Blood - Blood specimen (specimen) Narrative Performed At Suspected Lower Respiratory Tract Infect ion: [facility] 0.1-0.25: Low risk for bacterial infection; Antibiotic s discouraged. > 0.25: Increased likelihood for bacterial infection; Antibiotics encouraged. Suspected Sepsis: 0.1-0.5: Low likelihood for sepsis; Anti biotics discouraged. > 0.5: Increased Likelihood for sepsis; Antibiotics encouraged. > 2.0: High risk of sepsis/septic shock; Antibiotics s trongly encouraged. Decisions on antibiotic use should not be based solely on procalcitonin levels. If antibiotics are administered, repeat procalcitonin testing should be performed every 2-3 da ys to consider early antibiotic cessation. PCT is a dynamic biomarker and most useful when trends are analyzed ove r time in accompaniment with other clinical data. Performing Organization Address City/State/Zipcode Phone Number [address] [address] COMPREHENSIVE METABOLIC PANEL (09/10/2020 8:00 PM CDT) Pathologist [facility] Glucose 85 70 - 100 mg/dL [facility] BUN 7 6 - 22 mg/dL [facility] Creatinine 0.79 0.60 - 1.10 [facility] mg/dL [facility] BUN/Creatinine Ratio 8.9 (L) 10.0 - 25.0 [facility] Sodium 136 135 - 145 meq/L [facility] Potassium 2.5 (LL) 3.5 - 5.3 meq/L [facility] Chloride 95 (L) 99 - 110 meq/L [facility] CO2 29 20 - 29 meq/L [facility] Anion Gap with K 15 6 - 20 meq/L [facility] Calcium 8.5 8.5 - 10.5 [facility] mg/dL [facility] Protein Total 6.2 6.0 - 8.2 g/dL [facility] Albumin 2.8 (L) 3.5 - 5.0 g/dL [facility] Alkaline Phosphatase 122 30 - 150 U/L [facility] AST - SGOT 17 0 - 35 U/L [facility] ALT - SGPT 9 0 - 55 U/L [facility] Bilirubin Total 0.3 0.2 - 1.2 mg/dL [facility] Corrected Calcium 9.5 8.5 - 10.5 [facility] mg/dL [facility] Age 55 Years [facility] eGFR Non- 76 >=60 [facility] [place] mL/min/1.73m2 [facility] eGFR >90 >=60 [facility] mL/min/1.73m2 [facility] Specimen Blood - Blood specimen (specimen) Performing Organization Address City/State/Zipcode Phone Number [facility] [address] [place] [address] documented in this encounter Visit Diagnoses Diagnosis Abscess of lower lobe of left lung with pneumonia (HCC) - Primary Empyema (HCC) Empyema without mention of fistula Generalized anxiety disorder Anxiety disorder, unspecified type Iron deficiency anemia, unspecified iron deficiency anemia type Abscess of lower lobe of left lung witho ut pneumonia (HCC) Asthma Unspecified asthma Hypothyroidism Unspecified hypothyroidism Peripheral neuropathy Unspecified hereditary and idiopathic pe ripheral neuropathy Pneumonia Pneumonia, organism unspecified History of general anesthesia documented in this encounter Discharge Diagnoses Not on filedocumented in this encounter Administered Medications Medication Order MAR Action Action Date Dose Rate Site acetaminophen (TYLENOL) tablet Given 09/27/2020 8:40 PM [employer] 650 mg 650 mg 650 mg, Oral, Every four hours prn, Starting Leah 09/23/20 at 1410, Until Discontinued, mild pain, fever, Total dose of acetaminophen from all acetaminophen containing products should not exceed 4 grams (4000 mg) per day., Given 09/27/2020 2:40 AM [employer] 650 mg Given 09/25/2020 10:00 PM [employer] 650 mg albuterol-ipratropium (DUO-NEB) 2.5-0.5 mg/3 Given 0 8:06 AM [employer] 3 mL mL inhalation solution 3 mL 3 mL, Nebulization, Every six hours prn, Starting 09/12/20 at 0416, Until Discontinued, bronchospasm, 3 mL Given 09/12/2020 4:48 AM [employer] 3 mL baclofen (LIORESAL) tablet 10 mg Given 09/28/2020 12:57 PM [employer] 10 mg 10 mg, Oral, Four times a day, First dose (after last modification) on Sun09/21/20 at 1700, Until Discontinued Given 09/28/2020 9:12 AM [employer] 10 mg Given 09/27/2020 8:39 PM [employer] 10 mg buPROPion (WELLBUTRIN SR) SR tablet (12 hr) Given 09/12 12:57 PM [employer] 100 mg 100 mg 100 mg, Oral, Daily (Noon), First dose on Sun09/22/20 at 1200, Until Discontinued, Tablet should not be crushed or chewed., Given 09/27/2020 1:15 PM [employer] 100 mg Given 09/26/2020 12:30 PM [employer] 100 mg buPROPion (WELLBUTRIN SR) SR tablet (12 hr) Given 09/12 9:12 AM [employer] 200 mg 200 mg 200 mg, Oral, DAILY, First dose on Sun09/22/20 at 0900, Until Discontinued, Tablet should not be crushed or chewed., Given 09/27/2020 10:11 AM [employer] 200 mg Given 09/26/2020 9:55 AM [employer] 200 mg busPIRone (BUSPAR) tablet 15 mg Given 09/28/2020 9:12 AM [employer] 15 mg 15 mg, Oral, Two times a day, First dose (after last modification) on Sun09/21/20 at 2100, Until Discontinued Given 09/27/2020 8:39 PM [employer] 15 mg Given 09/27/2020 10:12 AM [employer] 15 mg cefTRIAXone (ROCEPHIN) 2000 mg/20 mL IV Given 09/27/2020 4:17 P M [employer] 2,000 mg syringe in sterile water 2,000 mg, IV, Every twenty four hours, First dose on Sun09/15/20 at 1700, Until Discontinued, 20 mL, Administer over 5 minutes., Given 09/26/2020 5:09 PM [employer] 2,000 mg Given 09/25/2020 4:49 PM [employer] 2,000 mg clonazePAM (klonoPIN) tablet 0.5 mg Given 09/28/2020 9:12 AM [employer] 0.5 mg 0.5 mg, Oral, Three times a day, First dose (after last modification) on Sun09/21/20 at 2100, Until Discontinued Given 09/27/2020 8:39 PM [employer] 0.5 mg Given 09/27/2020 4:17 PM [employer] 0.5 mg codeine-guaiFENesin oral solution (10 mg -100 mg/ 5 mL) 5 mL 5 mL, Oral, Every four hours prn, Starting Sun 0 at 1631, Until Discontinued, cough, 5 mL dextrose 50% IV solution 25-50 mL Given 09/20/2020 8:49 PM [employer] 25 mL 25-50 mL, IV, PRN per parameter, Starting Sun09/15/20 at 1002, Until Discontinued, low blood glucose, other (Specify), Per parameters, 50 mL, If blood glucose is less than 70 mg/dL: give 25 mL of 50% Dextrose IV, check blood glucose in 15 minutes If 15 minute blood glucose is less than 70 mg/dL give 50 mL of 50% Dextrose IV, CALL PHYSICIAN If 15 minute blood glucose is greater than 70 mg/dL: Check blood glucose in 1 hour If 1 hour blood glucose is less than 70 mg/dL: Give 50 ml of 50% Dextrose IV, CALL PHYSICIAN If 1 hour blood glucose is 70 - 160 mg/dL: No insulin, check blood glucose in 2 hours and follow protocol If 1 hour blood glucose is greater than 160 mg/dL: Follow protocol, Given 09/20/2020 4:47 AM [employer] 50 mL diphenhydrAMINE (BENADRYL) capsule 25 mg 25 mg, Oral, Every six hours prn, Starting Sun 0 at 1633, Until Discontinued, itching, rash enoxaparin (LOVENOX) subcutaneous injection Given 09/28/2020 9:12 AM [employer] 40 mg solution 40 mg 40 mg, Subcutaneous, Daily, First dose on Sun09/14/20 at 0900, Until Discontinued, Post - Op, To avoid the loss of drug when using the 30 mg and 40 mg prefilled syringes, do not expel the air bubble from the syringe before the injection. For ADULT patients: Administration should be alternated between the left and right anterolateral and left and right posterolateral abdominal wall. The whole length of the needle should be introduced into a skin fold held between the thumb and forefinger; the skin fold should be held throughout the injection. To minimize bruising, do not rub the injection site after completion of the injection. For PEDIATRIC patients: Administration should be alternated between appropriate sites for patient age/weight (infants/small children = upper thigh; older children/adolescents = left and right anterolateral and left and right posterolateral abdominal wall). During administration to infants/smaller children sometimes the whole length of the needle is not "introduced" during the injection. Administer injection into a skin fold held between the thumb and forefinger; the skin fold should be held throughout the injection. To minimize bruising, do not rub the injection site after completion of the injection., Given 09/27/2020 10:12 AM [employer] 40 mg Given 09/26/2020 9:55 AM [employer] 40 mg gabapentin (NEURONTIN) capsule 300 mg Given 09/28/2020 9:12 AM [employer] 300 mg 300 mg, Oral, Three times a day, First dose on Sun09/21/20 at 2100, Until Discontinued Given 09/27/2020 8:40 PM [employer] 300 mg Given 09/27/2020 4:17 PM [employer] 300 mg guaiFENesin (ROBITUSSIN) oral solution ( 100 mg/5 mL) 10 mL 10 mL, Oral, Every four hours prn, Starting Sun at 1631, Until Discontinued, cough, 10 mL haloperidol lactate (HALDOL) injection s olution 1 mg 1 mg, IV, Every six hours prn, Starting Sun09/22/20 at 1156, Until Discontinued, agitation, 0.2 mL, Do not further dilute with 0.9% sodium chloride. If preference is to further dilute for IV administrati on: first draw up patient-specific dose, then dilute to 10ml with dextrose 5% water. Ok to flu sh with 0.9% Sodium Chloride., hEParin 100 units/ mL injection for Given 09/23/2020 8:50 AM CS T 300 Units heplock FLUSH 300 Units (3 mL), IV, Daily, First dose on Sun09/20/20 at 0940, Until Discontinued, 3 mL, LUMEN #1 - Flush CVC or [place] with 10 mL sodium chloride 0.9% followed by 300 units (100 units/mL) heparin daily and after each use., Given 09/22/2020 8:50 AM [employer]PER[employer] 300 Units Given 09/21/2020 9:28 AM [employer]PERATOR 300 Units hEParin 100 units/ mL injection for Given 09/23/2020 10:41 AM CS T 300 Units heplock FLUSH 300 Units (3 mL), IV, PRN per parameter, Starting Sun09/20/20 at 0936, Until Discontinued, other (Specify), line maintanence, 3 mL, LUMEN #1 - Flush CVC or [place] with 10 mL sodium chloride 0.9% followed by 300 units (100 units/mL) heparin after each use., hEParin 100 units/ mL injection for Given 09/21/2020 9:27 AM CS T 300 Units heplock FLUSH 300 Units (3 mL), IV, Daily, First dose on Sun09/20/20 at 0940, Until Discontinued, 3 mL, LUMEN #2 - Flush CVC OR [place] with 10 mL sodium chloride 0.9% followed by 300 units (100 units/mL) heparin daily and after each use., Given 09/20/2020 10:07 AM [employer]PERATOR 300 Units hEParin 100 units/ mL injection for hepl ock FLUSH 300 Units (3 mL), IV, PRN per parameter, Starting 09/20/20 at 0936, Until Discontinued, other (Specify), line maintanence, 3 mL, LUMEN #2 - Flush CVC OR [place] with 10 mL sodium chloride 0.9% followed by 30 0 units (100 units/mL) heparin after each use., hEParin 100 units/ mL injection for Given 09/28/2020 9:14 AM CS T 300 Units heplock FLUSH 300 Units (3 mL), IV, Daily, First dose on 09/20/20 at 0940, Until Discontinued, 3 mL, LUMEN #3 - Flush CVC OR [place] with 10 mL sodium chloride 0.9% followed by 300 units (100 units/mL) heparin daily and after each use., Given 09/27/2020 10:20 AM [employer]PERATOR 300 Units Given 09/26/2020 9:33 AM [employer]PERATOR 300 Units hEParin 100 units/ mL injection for Given 09/26/2020 6:02 AM CS T 300 Units heplock FLUSH 300 Units (3 mL), IV, PRN per parameter, Starting Sun09/20/20 at 0936, Until Discontinued, other (Specify), line maintanence, 3 mL, LUMEN #3 - Flush CVC OR [place] with 10 mL sodium chloride 0.9% followed by 300 units (100 units/mL) heparin after each use., Given 09/25/2020 6:59 AM [employer] OPERATOR 300 Units Given 09/22/2020 6:30 PM [employer]PERATOR 300 Units hEParin 100 units/ mL injection for Given 09/28/2020 6:24 AM CS T 300 Units heplock FLUSH 300 Units (3 mL), IV, Two times a day and prn, First dose on Sun09/21/20 at 1700, Until Discontinued, 3 mL, Flush PICC lumen with 10 mL sodium chloride 0.9% followed by heparin 300 units (100 units/mL) twice daily at [id number] and after each use, Given 09/27/2020 4:17 PM [employer] 300 Units Given 09/27/2020 10:29 AM [employer]PERATOR 300 Units levothyroxine tablet 50 mcg Given 09/28/2020 6:25 AM [employer]PERATOR 50 mcg 50 mcg, Oral, DAILY, First dose (after last modification) on Sun09/22/20 at 0700, Until Discontinued Given 09/27/2020 6:12 AM [employer]PERATOR 50 mcg Given 09/26/2020 5:55 AM GLASS [employer] MACHINE [employer]PERATOR 50 mcg melatonin tablet 6 mg Given 09/27/2020 8:39 PM GLASS [employer] MACHINE OPERATOR 6 mg 6 mg, Oral, Bedtime, First dose on Sun09/22/20 at 2100, Until Discontinued Given 09/26/2020 8:30 PM GLASS [employer] MACHINE OPERATOR 6 mg Given 09/25/2020 8:25 PM GLASS [employer] MACHINE OPERATOR 6 mg montelukast (SINGULAIR) tablet 10 mg Given 09/27/2020 8:39 PM GLASS [employer] MACHINE OPERATOR 10 mg 10 mg, Oral, Bedtime, First dose (after last modification) on Sun09/21/20 at 2100, Until Discontinued Given 09/26/2020 8:29 PM GLASS [employer] MACHINE OPERATOR 10 mg Given 09/25/2020 8:19 PM GLASS [employer] MACHINE OPERATOR 10 mg nortriptyline (PAMELOR) capsule 10 mg Given 09/27/2020 8:44 PM GLASS [employer] MACHINE OPERATOR 10 mg 10 mg, Oral, Bedtime, First dose (after last modification) on Sun09/21/20 at 2100, Until Discontinued, For total dose of 75mg +10mg = 85 mg, Given 09/26/2020 8:30 PM GLASS [employer] MACHINE OPERATOR 10 mg Given 09/25/2020 8:19 PM GLASS [employer] MACHINE OPERATOR 10 mg nortriptyline (PAMELOR) capsule 75 mg Given 09/27/2020 8:43 PM GLASS [employer] MACHINE OPERATOR 75 mg 75 mg, Oral, Bedtime, First dose (after last modification) on Sun09/21/20 at 2100, Until Discontinued Given 09/26/2020 8:30 PM GLASS [employer] MACHINE OPERATOR 75 mg Given 09/25/2020 8:18 PM GLASS [employer] MACHINE OPERATOR 75 mg ondansetron (ZOFRAN) injection solution 4 mg Given 09/27/2020 10:29 AM GLASS [employer] MACHINE OPERATOR 4 mg 4 mg, IV, Every four hours prn, Starting Sun09/13/20 at 1200, Until Discontinued, nausea, vomiting, 2 mL, Post - Op, If preference is to further dilute for IV administration: First draw up patient-specific dose, then dilute to 10 mL with 0.9% sodium chloride., Given 09/26/2020 9:28 AM GLASS [employer] MACHINE OPERATOR 4 mg Given 09/23/2020 10:41 AM GLASS [employer] MACHINE OPERATOR 4 mg oxyCODONE (OXY-IR) tablet 5 mg Given 09/27/2020 9:55 PM GLASS [employer] MACHINE OPERATOR 5 mg 5 mg, Oral, Every six hours prn, Starting Sun09/22/20 at 1200, Until Discontinued, moderate pain, severe pain Given 09/23/2020 10:52 AM GLASS [employer] MACHINE OPERATOR 5 mg sodium chloride 0.9% prefilled 10 mL syringe Given 09/2020 8:50 AM GLASS [employer] MACHINE OPERATOR 10 mL (Materials Management Item) 10 mL 10 mL, IV, Daily, First dose on Sun09/20/20 at 0940, Until Discontinued, 10 mL, LUMEN #1 - Flush CVC or [place] with 10 mL sodium chloride 0.9% followed by 300 units (100 units/mL) heparin daily and after each use., Given 09/21/2020 9:28 AM GLASS [employer] MACHINE OPERATOR 10 mL Given 09/20/2020 10:07 AM GLASS [employer] MACHINE OPERATOR 10 mL sodium chloride 0.9% prefilled 10 mL syringe Given 10/2020 10:42 AM GLASS [employer] MACHINE OPERATOR 10 mL (Materials Management Item) 10 mL 10 mL, IV, PRN per parameter, Starting Sun09/20/20 at 0936, Until Discontinued, other (Specify), line maintanence, 10 mL, LUMEN #1 - Flush CVC or [place] with 10 mL sodium chloride 0.9% followed by 300 units (100 units/mL) heparin after each use., sodium chloride 0.9% prefilled 10 mL syringe Given 08/2020 9:27 AM GLASS [employer] MACHINE OPERATOR 10 mL (Materials Management Item) 10 mL 10 mL, IV, Daily, First dose on Sun09/20/20 at 0940, Until Discontinued, 10 mL, LUMEN #2 - Flush CVC OR [place] with 10 mL sodium chloride 0.9% followed by 300 units (100 units/mL) heparin daily and after each use., Given 09/20/2020 10:07 AM GLASS [employer] MACHINE OPERATOR 10 mL sodium chloride 0.9% prefilled 10 mL syr wilbert (Materials Management Item) 10 mL 10 mL, IV, PRN per parameter, Starting 09/20/20 at 0936, Until Discontinued, other (Specify), line maintanence, 10 mL , LUMEN #2 - Flush CVC OR [place] with 10 mL sodium chloride 0.9% followed by 300 units (100 uni ts/mL) heparin after each use., sodium chloride 0.9% prefilled 10 mL syringe Given 11:22 AM GLASS [employer] MACHINE OPERATOR 10 mL (Materials Management Item) 10 mL 10 mL, IV, Daily, First dose on Sun09/20/20 at 0940, Until Discontinued, 10 mL, LUMEN #3 - Flush CVC OR [place] with 10 mL sodium chloride 0.9% followed by 300 units (100 units/mL) heparin daily and after each use., Given 09/27/2020 10:20 AM GLASS [employer] MACHINE OPERATOR 10 mL Given 09/26/2020 9:33 AM GLASS [employer] MACHINE OPERATOR 10 mL sodium chloride 0.9% prefilled 10 mL syringe Given 10/2020 10:43 AM GLASS [employer] MACHINE OPERATOR 10 mL (Materials Management Item) 10 mL 10 mL, IV, PRN per parameter, Starting 09/20/20 at 0936, Until Discontinued, other (Specify), line maintanence, 10 mL, LUMEN #3 - Flush CVC OR [place] with 10 mL sodium chloride 0.9% followed by 300 units (100 units/mL) heparin after each use., sodium chloride 0.9% prefilled 10 mL syringe Given 6:24 AM GLASS [employer] MACHINE OPERATOR 10 mL (Materials Management Item) 10 mL 10 mL, IV, Two times a day and prn, First dose on Sun09/21/20 at 1700, Until Discontinued, 10 mL, Flush PICC lumen with 10 mL sodium chloride 0.9% followed by heparin 300 units (100 units/mL) twice daily at [id number] and after each use, Given 09/27/2020 4:17 PM GLASS [employer] MACHINE OPERATOR 10 mL Given 09/27/2020 6:11 AM GLASS [employer] MACHINE OPERATOR 10 mL sodium chloride 7% (hypertonic saline) i nhalation solution 4 mL 4 mL, Nebulization, Every four hours prn, Starting 09/20/20 at 0920, Until Discontinued, congestion, Standard Neb a nd PPE Guidelines. Do not mix in the same nebulizer cup with any other medications., Medication Order MAR Action Action Date Dose Rate Site acetaminophen (TYLENOL) tablet Given 09/18/2020 6:57 AM GLASS [employer] MACHINE OPERATOR 1,0 00 mg 1,000 mg 1,000 mg, Feeding tube, Every eight hours, First dose on Sun09/14/20 at 2200, Until Discontinued, Total dose of acetaminophen from all acetaminophen containing products should not exceed 4 grams (4000 mg) per day., Given 09/17/2020 10:53 PM GLASS [employer] MACHINE OPERATOR 1,000 mg Given 09/17/2020 2:19 PM GLASS [employer] MACHINE OPERATOR 1,000 mg acetaminophen (TYLENOL) tablet 1,000 mg Given 09/19/2020 5:51 AM GLASS [employer] MACHINE OPERATOR 1,000 mg 1,000 mg, Feeding tube, Every eight hours, First dose (after last modification) on Sun09/18/20 at 1400, Until Discontinued, Total dose of acetaminophen from all acetaminophen containing products should not exceed 4 grams (4000 mg) per day., Given 09/18/2020 9:48 PM GLASS [employer] MACHINE OPERATOR 1,000 mg Given 09/18/2020 2:53 PM GLASS [employer] MACHINE OPERATOR 1,000 mg acetaminophen (TYLENOL) tablet 1,000 mg Given 09/21/2020 1:02 PM GLASS [employer] MACHINE OPERATOR 1,000 mg 1,000 mg, Oral, Every eight hours, First dose (after last modification) on Sun09/19/20 at 1400, Until Discontinued, Total dose of acetaminophen from all acetaminophen containing products should not exceed 4 grams (4000 mg) per day., Given 09/21/2020 5:46 AM GLASS [employer] MACHINE OPERATOR 1,000 mg Given 09/20/2020 9:30 PM GLASS [employer] MACHINE OPERATOR 1,000 mg acetaminophen (TYLENOL) tablet 1,000 mg Given 09/23/2020 2:00 PM GLASS [employer] MACHINE OPERATOR 1,000 mg 1,000 mg, Oral, Every eight hours, First dose (after last modification) on Sun09/21/20 at 2200, Until Discontinued, Total dose of acetaminophen from all acetaminophen containing products should not exceed 4 grams (4000 mg) per day., Given 09/23/2020 5:45 AM GLASS [employer] MACHINE OPERATOR 1,000 mg Given 09/22/2020 8:21 PM GLASS [employer] MACHINE OPERATOR 1,000 mg acetaminophen (TYLENOL) tablet 650 mg Given 09/12/2020 8:51 PM GLASS [employer] MACHINE OPERATOR 650 mg 650 mg, Oral, Every four hours prn, Starting Sun09/10/20 at 1921, Until Sun09/13/20 at 1200, mild pain, fever, pain scale 3 or less, Pain stratification is defined as follows for either analog scale (0-10) or critical care pain observation tool (CPOT, 0-8). a. No pain (0) b. Mild pain level (1-3) c. Moderate pain level (4-6) d. Severe pain level (greater than or equal to 7) Adult patients: Total dose of acetaminophen from all acetaminophen containing products should not exceed 4 grams (4,000 mg) per day. Pediatric Patients 0 - 3 months: Maximum of 60 mg/kg/24 hours of acetaminophen. Pediatric Patients older than 3 months: Maximum of 75 mg/kg/24 hours of acetaminophen (Never exceeding 4 grams/day)., Given 09/11/2020 1:56 PM CDT 650 mg Given 09/11/2020 6:43 AM CDT 650 mg albuterol (PROVENTIL) (2.5 mg/3mL) 0.083% Given 09/13/2020 4:32 PM GLASS [employer] MACHINE OPERATOR 2.5 mg inhalation soln 2.5 mg 2.5 mg, Nebulization, Every two hours, 3 doses, First dose on Sun09/13/20 at 1205, Last dose on Sun09/13/20 at 1600, 3 mL, Post - Op, o 2.5 mg every two hours x 3 doses upon arrival to ICU, then 2.5 mg every 4 hours x 3 doses. Administer six total doses until complete, or until 0800 POD #1. o 2.5 mg every two hours PRN for entire admission., Given 09/13/2020 1:48 PM GLASS [employer] MACHINE OPERATOR 2.5 mg Given 09/13/2020 12:56 PM GLASS [employer] MACHINE OPERATOR 2.5 mg albuterol (PROVENTIL) (2.5 mg/3mL) 0.083% Given 09/14/2020 4:08 AM GLASS [employer] MACHINE OPERATOR 2.5 mg inhalation soln 2.5 mg 2.5 mg, Nebulization, Every four hours, 3 doses, First dose on Sun09/13/20 at 2000, Last dose on Sun09/14/20 at 0400, 3 mL, Post - Op, o 2.5 mg every two hours x 3 doses upon arrival to ICU, then 2.5 mg every 4 hours x 3 doses. Administer six total doses until complete, or until 0800 POD #1. o 2.5 mg every two hours PRN for entire admission., Given 09/14/2020 12:04 AM GLASS [employer] MACHINE OPERATOR 2.5 mg Given 09/13/2020 8:06 PM GLASS [employer] MACHINE OPERATOR 2.5 mg baclofen (LIORESAL) tablet 10 mg Given 09/12/2020 8:51 PM GLASS [employer] MACHINE OPERATOR 10 mg 10 mg, Oral, Four times a day, First dose on Sun09/10/20 at 2100, Until Discontinued Given 09/12/2020 5:20 PM GLASS [employer] MACHINE OPERATOR 10 mg Given 09/12/2020 1:27 PM GLASS [employer] MACHINE OPERATOR 10 mg baclofen (LIORESAL) tablet 10 mg Given 09/19/2020 8:04 AM GLASS [employer] MACHINE OPERATOR 10 mg 10 mg, Feeding tube, Four times a day, First dose (after last modification) on 09/13/20 at 1305, Until Discontinued Given 09/18/2020 9:49 PM GLASS [employer] MACHINE OPERATOR 10 mg Given 09/18/2020 5:12 PM GLASS [employer] MACHINE OPERATOR 10 mg baclofen (LIORESAL) tablet 10 mg Given 09/21/2020 1:02 PM GLASS [employer] MACHINE OPERATOR 10 mg 10 mg, Oral, Four times a day, First dose (after last modification) on 09/19/20 at 1700, Until Discontinued Given 09/21/2020 9:26 AM GLASS [employer] MACHINE OPERATOR 10 mg Given 09/20/2020 8:08 PM GLASS [employer] MACHINE OPERATOR 10 mg buPROPion (WELLBUTRIN SR) SR tablet (12 hr) Given 09/12 1:02 PM GLASS [employer] MACHINE OPERATOR 100 mg 100 mg 100 mg, Oral, Daily (Noon), First dose on 09/19/20 at 1335, Until Discontinued, Tablet should not be crushed or chewed., Given 09/20/2020 12:07 PM GLASS [employer] MACHINE OPERATOR 100 mg Given 09/19/2020 1:43 PM GLASS [employer] MACHINE OPERATOR 100 mg buPROPion (WELLBUTRIN SR) SR tablet (12 hr) Given 11/2019 8:51 AM GLASS R[employer] MACHINE OPERATOR 200 mg 200 mg 200 mg, Oral, Daily, First dose on 09/11/20 at 0900, Until Discontinued, Tablet should not be crushed or chewed., Given 09/11/2020 10:52 AM CDT 200 mg buPROPion (WELLBUTRIN SR) SR tablet (12 hr) Given 09/12 9:27 AM GLASS [employer] MACHINE OPERATOR 200 mg 200 mg 200 mg, Oral, Every morning, First dose on Sun09/20/20 at 0900, Until Discontinued, Tablet should not be crushed or chewed., Given 09/20/2020 9:22 AM GLASS R[employer] MACHINE OPERATOR 200 mg buPROPion (WELLBUTRIN) tablet 100 mg Given 09/19/2020 9:16 AM GLASS [employer] MACHINE OPERATOR 100 mg 100 mg, Feeding tube, Two times a day, First dose on Sun09/13/20 at 2100, Until Discontinued Given 09/18/2020 9:49 PM GLASS [employer] MACHINE OPERATOR 100 mg Given 09/18/2020 7:57 AM GLASS [employer] MACHINE OPERATOR 100 mg busPIRone (BUSPAR) tablet 15 mg Given 09/12/2020 8:51 PM GLASS [employer] MACHINE OPERATOR 15 mg 15 mg, Oral, Two times a day, First dose on Sun09/10/20 at 2100, Until Discontinued Given 09/12/2020 8:51 AM GLASS [employer] MACHINE OPERATOR 15 mg Given 09/11/2020 9:15 PM CDT 15 mg busPIRone (BUSPAR) tablet 15 mg Given 09/19/2020 8:04 AM GLASS [employer] MACHINE OPERATOR 15 mg 15 mg, Feeding tube, Two times a day, First dose (after last modification) on Sun09/13/20 at 2100, Until Discontinued Given 09/18/2020 9:49 PM GLASS [employer] MACHINE OPERATOR 15 mg Given 09/18/2020 7:57 AM GLASS [employer] MACHINE OPERATOR 15 mg busPIRone (BUSPAR) tablet 15 mg Given 09/21/2020 9:26 AM GLASS [employer] MACHINE OPERATOR 15 mg 15 mg, Oral, Two times a day, First dose (after last modification) on 09/19/20 at 2100, Until Discontinued Given 09/20/2020 8:08 PM GLASS [employer] MACHINE OPERATOR 15 mg Given 09/20/2020 9:22 AM GLASS [employer] MACHINE OPERATOR 15 mg cefepime (MAXIPIME) 2000 mg/20 mL in Given 09/13/2020 3:[address] 2,000 mg sterile water IV syringe 2,000 mg, IV, Every twelve hours, First dose on 09/12/20 at 1345, Until Discontinued, 20 mL, Administer over 5 minutes., Given 09/12/2020 1:51 PM GLASS [employer] MACHINE OPERATOR 2,000 mg cefepime (MAXIPIME) 2000 mg/20 mL in Given 09/15/2020 12:[address] 2,000 mg sterile water IV syringe 2,000 mg, IV, Every eight hours, First dose (after last modification) on Sun09/13/20 at 1300, Until Discontinued, 20 mL, Administer over 5 minutes., Given 09/15/2020 5:07 AM GLASS [employer] MACHINE OPERATOR 2,000 mg Given 09/14/2020 8:55 PM GLASS [employer] MACHINE OPERATOR 2,000 mg chlorhexidine (PERIDEX) 0.12 % solution 15 mL Given 09/18/2020 12:05 AM GLASS [employer] MACHINE OPERATOR 15 mL 15 mL, Mouth/Throat, Two times a day, First dose on Sun09/15/20 at 0005, Until Discontinued, 473 mL, Use when mechanically ventilated; swab and suction; discontinue when extubated., Given 09/17/2020 12:04 PM GLASS [employer] MACHINE OPERATOR 15 mL Given 09/17/2020 12:09 AM GLASS [employer] MACHINE OPERATOR 15 mL clonazePAM (klonoPIN) tablet 0.5 mg Given 09/12/2020 8:51 PM GLASS [employer] MACHINE OPERATOR 0.5 mg 0.5 mg, Oral, Three times a day, First dose on Sun09/10/20 at 2100, Until Discontinued Given 09/12/2020 2:50 PM GLASS [employer] MACHINE OPERATOR 0.5 mg Given 09/12/2020 8:51 AM GLASS [employer] MACHINE OPERATOR 0.5 mg clonazePAM (klonoPIN) tablet 0.5 mg Given 09/19/2020 8:04 AM GLASS [employer] MACHINE OPERATOR 0.5 mg 0.5 mg, Feeding tube, Three times a day, First dose (after last modification) on Sun09/13/20 at 1500, Until Discontinued Given 09/18/2020 9:49 PM GLASS [employer] MACHINE OPERATOR 0.5 mg Given 09/18/2020 2:53 PM GLASS [employer] MACHINE OPERATOR 0.5 mg clonazePAM (klonoPIN) tablet 0.5 mg Given 09/21/2020 9:26 AM GLASS [employer] MACHINE OPERATOR 0.5 mg 0.5 mg, Oral, Three times a day, First dose (after last modification) on Sun09/19/20 at 1500, Until Discontinued Given 09/20/2020 8:08 PM GLASS [employer] MACHINE OPERATOR 0.5 mg Given 09/20/2020 2:07 PM GLASS [employer] MACHINE OPERATOR 0.5 mg clonazePAM (klonoPIN) tablet 0.5 mg Given 09/21/2020 3:32 PM GLASS [employer] MACHINE OPERATOR 0.5 mg 0.5 mg, Feeding tube, Three times a day, First dose (after last modification) on Sun09/21/20 at 1500, Until Discontinued [id number] oral solution (10 mg-100 Given 0 1:44 PM GLASS [employer] MACHINE OPERATOR 5 mL mg/ 5 mL) 5 mL 5 mL, Oral, Every four hours prn, Starting 09/12/20 at 1321, Until 09/13/20 at 1301, cough, 5 mL dexmedetomidine (PRECEDEX) 4 New Bag 09/16/2020 12:11 PM GLASS [employer] MACHINE OPERATOR 0 .2 mcg/kg/hr 3.5 mL/hr mcg/mL NS 100 mL IV solution (Premix) 0-1.5 mcg/kg/hr 70.1 kg (0-26.2875 mL/hr, rounded to 0-26.3 mL/hr), IV, at 0-26.3 mL/hr, Titrate, Starting Leah 09/16/20 at 1230, Until 09/18/20 at 1006, 100 mL, Initiate infusion at 0.2 mcg/kg/hr. Increase by 0.1 mcg/kg/hr increments every 15 minutes until patient has achieved a RASS score -1. If the RASS score is <-1 on current infusion rate, decrease infusion by 0.1 mcg/kg/hr every 15 minutes to acheive a RASS score of -1 on lowest effective rate. Document titrations in One Chart (MAR or I&O Flowsheet medication group). , fentaNYL 20mcg/ml (2000mcg/100 Restarted 09/17/2020 2:07 PM 25 mcg/hr 1.3 mL/hr ml) 0.9% sodium chloride IV GLASS R[employer] MACHINE OPERATOR infusion 0-200 mcg/hr (0-10 mL/hr), IV, at 0-10 mL/hr, Titrate, Starting 09/13/20 at 1310, Until 09/18/20 at 1006, 100 mL, If more than one infusion is ordered to target RASS, use both infusions in tandem to achieve RASS goal. Initiate infusion at 50 mcg/hr. Increase infusion rate by 25 mcg/hr every 15 minutes until patient is comfortable and has achieved a RASS score of -1. If the RASS score is less than or AT GOAL on current infusion rate and pain is controlled, decrease/wean infusion by 25 mcg/hr every 4 hours to acheive a RASS score of -1. Document titrations in One Chart (MAR or I&O Flowsheet medication group). Patient must be intubated while on this infusion. Call prescriber to attain weaning/discontinuation orders if the patient is not intubated., New Bag 09/16/2020 8:58 PM GLASS [employer] MACHINE OPERATOR 50 mcg/hr 2.5 mL/hr Rate Change 09/16/2020 12:32 PM GLASS [employer] MACHINE OPERATOR 50 mcg/hr 2.5 mL/hr fentanyl IV BOLUS taken from INFUSION Given 09/17/2020 2:08 PM GLASS [employer] MACHINE OPERATOR 50 mcg *ADULT* 50 mcg, IV, Every fifteen minutes prn, Starting 09/13/20 at 1207, Until 09/18/20 at 1006, other (Specify), see admin instructions, If not to sedation goal, use this fentanyl bolus first (dose per this order). If after 5 minutes goal not achieved, then titrate fentanyl infusion per the infusion order., Given 09/16/2020 11:12 AM GLASS [employer] MACHINE OPERATOR 50 mcg Given 09/15/2020 11:55 AM GLASS [employer] MACHINE OPERATOR 50 mcg formoterol (PERFOROMIST) 20 MCG/2ML Given 09/15/2020 7:48 AM CS T 20 mcg inhalation solution 20 mcg 20 mcg, Nebulization, Two times a day, 3 doses, First dose on Sun09/14/20 at 0800, Last dose on Sun09/15/20 at 0800, 2 mL, Post - Op Given 09/14/2020 8:30 PM GLASS [employer] MACHINE OPERATOR 20 mcg Given 09/14/2020 8:37 AM GLASS [employer] MACHINE OPERATOR 20 mcg furosemide (LASIX) injection solution 40 mg Given 09/17/2020 12:04 PM GLASS [employer] MACHINE OPERATOR 40 mg 40 mg, IV, One time, 1 dose, Sun09/17/20 at 1255, 4 mL, If preference is to further dilute for IV administration: First draw up patient-specific dose, then dilute to 10 mL with 0.9% sodium chloride. Administer SLOW IV push., gabapentin (NEURONTIN) capsule 300 mg Given 09/12/2020 8:51 PM GLASS [employer] MACHINE OPERATOR 300 mg 300 mg, Oral, Three times a day, First dose on Sun09/10/20 at 2100, Until Discontinued Given 09/12/2020 2:50 PM GLASS [employer] MACHINE OPERATOR 300 mg Given 09/12/2020 8:51 AM GL[employer] MACHINE OPERATOR 300 mg gabapentin (NEURONTIN) capsule 300 mg Given 09/21/2020 9:26 AM GLASS [employer] MACHINE OPERATOR 300 mg 300 mg, Oral, Three times a day, First dose on Sun09/19/20 at 1500, Until Discontinued Given 09/20/2020 8:08 PM GLASS [employer] MACHINE OPERATOR 300 mg Given 09/20/2020 2:07 PM GLASS [employer] MACHINE OPERATOR 300 mg gabapentin (NEURONTIN) oral solution (250 Given 09/19/2020 8:04 AM GL[employer] MACHINE OPERATOR 300 mg mg/5 mL) 300 mg 300 mg, Feeding tube, Three times a day, First dose (after last modification) on 09/13/20 at 1500, Until Discontinued, 6 mL, Refrigerate. Refrigeration preferred but stable for 7 days at room temp., Given 09/18/2020 9:48 PM GL[employer] MACHINE OPERATOR 300 mg Given 09/18/2020 2:53 PM GL[employer] MACHINE OPERATOR 300 mg glycopyrrolate (ROBINUL) 1 mg/5 mL Given 09/15/2020 8:08 AM GLASS [employer] MACHINE OPERATOR 100 mcg injection solution (syringe) 100 mcg 100 mcg (0.1 mg), IV, Three times a day, First dose on Sun09/14/20 at 1005, Until Discontinued, 0.5 mL Given 09/14/2020 8:54 PM GL[employer] MACHINE OPERATOR 100 mcg Given 09/14/2020 4:35 PM GLASS [employer] MACHINE OPERATOR 100 mcg guaiFENesin (ROBITUSSIN) oral solution (100 Given 09/13/2020 4:10 AM GLASS [employer] MACHINE OPERATOR 10 mL mg/5 mL) 10 mL 10 mL, Oral, Every four hours prn, Starting Sun09/10/20 at 2259, Until 09/13/20 at 1301, cough, 10 mL Given 09/12/2020 9:49 PM GL[employer] MACHINE OPERATOR 10 mL Given 09/12/2020 5:24 PM GLASS [employer] MACHINE OPERATOR 10 mL heparin (porcine) injection solution Given 09/12/2020 8:[address] 5,000 Units 5,000 Units 5,000 Units, Subcutaneous, Every eight hours, First dose on Sun09/12/20 at 1400, Until Discontinued, 1 mL Given 09/12/2020 1:27 PM [employer] MACHINE OPERATOR 5,000 Units iohexol (OMNIPAQUE) 350 mg/mL solution 1 0 mL Given 09/23/2020 2:52 PM GLASS [employer] MACHINE OPERATOR 10 mL 10 mL, Injection, Now imaging, 1 dose, Starting Leah 09/23/20 at 1452, Until Leah 09/23/20 at 1452, 50 mL iohexol (OMNIPAQUE) 350 mg/mL solution 1 00 mL Given 09/11/2020 10:28 AM CDT 85 mL 100 mL, IV, Now imaging, 1 dose, Starting 09/11/20 at 1028, Until Sun09/11/20 at 1028, 100 mL iron sucrose (VENOFER) 400 mg in Given 09/27/2020 1:15 PM GL[employer] MACHINE OPERATOR 4 00 mg 90 mL/hr sodium chloride 0.9% 250 mL 400 mg, IV, at 90 mL/hr, One time, 1 dose, Sun09/27/20 at 1300, 270 mL, Venofer 400mg- Total Volume 300 mL Infuse over at least 3 hours. Observe patient for 30 minutes after infusion is completed for hypotension or hypersensitivity reaction. ., iron sucrose (VENOFER) 400 mg in Given 09/28/2020 11:03 AM GL[employer] MACHINE OPERATOR 4 00 mg 90 mL/hr sodium chloride 0.9% 250 mL 400 mg, IV, at 90 mL/hr, One time, 1 dose, Sun09/28/20 at 1030, 270 mL, Venofer 400mg- Total Volume 300 mL Infuse over at least 3 hours. Observe patient for 30 minutes after infusion is completed for hypotension or hypersensitivity reaction. ., lactated ringers IV solution New Bag 09/16/2020 9:09 PM [employer] MACHINE OPERATOR 75 mL/hr IV, at 75 mL/hr, Continuous, Starting Sun09/13/20 at 1300, Until Sun09/17/20 at 1151, 1,000 mL New Bag 09/16/2020 2:10 AM GL[employer] MACHINE OPERATOR 75 mL/hr Rate Change 09/15/2020 10:31 AM [employer] MACHINE OPERATOR 75 mL/hr levoFLOXacin (LEVAQUIN) IV premix in D-5% Given 09/11/2020 10:37 PM CDT 750 mg 750 mg 750 mg, IV, Every twenty four hours, First dose on Sun09/10/20 at 2300, Until Discontinued, 150 mL Given 09/10/2020 11:28 PM CDT 750 mg levothyroxine tablet 50 mcg Given 09/13/2020 6:43 AM [employer] MACHINE OPERATOR 50 mcg 50 mcg, Oral, DAILY, First dose on Sun09/11/20 at 0700, Until Discontinued Given 09/12/2020 6:57 AM [employer] MACHINE OPERATOR 50 mcg Given 09/11/2020 10:51 AM CDT 50 mcg levothyroxine tablet 50 mcg Given 09/19/2020 6:17 AM [employer] MACHINE OPERATOR 50 mcg 50 mcg, Feeding tube, DAILY, First dose (after last modification) on Sun09/14/20 at 0700, Until Discontinued Given 09/18/2020 6:57 AM [employer] MACHINE OPERATOR 50 mcg Given 09/17/2020 6:16 AM GL[employer] MACHINE OPERATOR 50 mcg levothyroxine tablet 50 mcg Given 09/21/2020 7:53 AM GL[employer] MACHINE OPERATOR 50 mcg 50 mcg, Oral, DAILY, First dose (after last modification) on Sun09/20/20 at 0700, Until Discontinued Given 09/20/2020 6:01 AM [employer] MACHINE OPERATOR 50 mcg magnesium sulfate 2 g/50 mL premixed IV Given 09/14/2020 5:39 A M GLASS [employer] MACHINE OPERATOR 2 g solution 2 g, IV, Now, 1 dose, Tu09/14/20 at 0535, 50 mL magnesium sulfate 2 g/50 mL premixed IV Given 09/15/2020 5:55 A M [employer] MACHINE OPERATOR 2 g solution 2 g, IV, Now, 1 dose, Sun09/15/20 at 0515, 50 mL magnesium sulfate 2 g/50 mL premixed IV Given 09/17/2020 5:22 A M [employer] MACHINE OPERATOR 2 g solution 2 g, IV, Now, 1 dose, Sun09/17/20 at 0500, 50 mL magnesium sulfate 2 g/50 mL premixed IV Given 09/18/2020 6:56 A M [employer] MACHINE OPERATOR 2 g solution 2 g, IV, Now, 1 dose, 09/18/20 at 0450, 50 mL magnesium sulfate 2 gm/50 mL IV solution 2 g Given 09/15/2020 4:15 PM [employer] MACHINE OPERATOR 2 g 2 g, IV, One time, 1 dose, Sun09/15/20 at 1610, 50 mL metroNIDAZOLE (FLAGYL) tablet 500 mg Given 09/12/2020 8:51 PM GL[employer] MACHINE OPERATOR 500 mg 500 mg, Oral, Three times a day, First dose on Sun09/12/20 at 1500, Until Discontinued Given 09/12/2020 2:50 PM [employer] MACHINE OPERATOR 500 mg metroNIDAZOLE (FLAGYL) tablet 500 mg Given 09/13/2020 2:45 PM GL[employer] MACHINE OPERATOR 500 mg 500 mg, Feeding tube, Three times a day, First dose (after last modification) on Sun09/13/20 at 1500, Until Discontinued metroNIDAZOLE (FLAGYL) tablet 500 mg Given 09/15/2020 2:46 PM [employer] MACHINE OPERATOR 500 mg 500 mg, Feeding tube, Every eight hours, First dose (after last modification) on Sun09/13/20 at 2200, Until Discontinued Given 09/15/2020 6:01 AM GL[employer] MACHINE OPERATOR 500 mg Given 09/14/2020 11:22 PM GLASS RIB[employer]ON MACHINE OPERATOR 500 mg midazolam (VERSED) 2 mg/2 mL injection s olution 1 dose, Starting Sun09/14/20 at 0933, Un til Sun09/14/20 at 0934, A HAGERCANDACE: cabinet override, midazolam (VERSED) injection solution 0- 6 mg Given 09/14/2020 9:34 AM GLASS RIBBON MACHINE OPERATOR 4 mg 0-6 mg, IV, One time, 1 dose, 09/14/20 at 1035, 6 mL midazolam (VERSED) injection solution 0- 6 mg Given 09/16/2020 11:14 AM GL[employer] RIB[employer]ON MACHINE OPERATOR 2 mg 0-6 mg, IV, One time, 1 dose, Leah 09/16/20 at 1005, 6 mL, HOLD for procedure, Given 09/16/2020 11:10 AM GLASS RIBBON MACHINE OPERATOR 2 mg midazolam (VERSED) injection solution 5 mg Given 09/15/2020 11:55 AM GL[employer] RIB[employer]ON MACHINE OPERATOR 5 mg 5 mg, IV, One time, 1 dose, [facility] 09/15/20 at 1040, 5 mL, For bronchoscopy, montelukast (SINGULAIR) tablet 10 mg Given 09/12/2020 8:51 PM GLASS RIB[employer]ON MACHINE OPERATOR 10 mg 10 mg, Oral, Bedtime, First dose on Sun09/10/20 at 2100, Until Discontinued Given 09/11/2020 9:15 PM CDT 10 mg Given 09/10/2020 10:33 PM CDT 10 mg montelukast (SINGULAIR) tablet 10 mg Given 09/17/2020 8:20 PM GLASS RIBBON MACHINE OPERATOR 10 mg 10 mg, Feeding tube, Bedtime, First dose (after last modification) on 09/13/20 at 2100, Until Discontinued Given 09/16/2020 8:59 PM GLASS RIBBON MACHINE OPERATOR 10 mg Given 09/15/2020 7:50 PM GL[employer] RIBBON MACHINE OPERATOR 10 mg montelukast (SINGULAIR) tablet 10 mg Given 09/18/2020 9:49 PM GLASS RIBBON MACHINE OPERATOR 10 mg 10 mg, Feeding tube, Bedtime, First dose (after last modification) on 09/18/20 at 2100, Until Discontinued montelukast (SINGULAIR) tablet 10 mg Given 09/20/2020 8:08 PM GL[employer] RIB[employer]ON MACHINE OPERATOR 10 mg 10 mg, Oral, Bedtime, First dose (after last modification) on 09/19/20 at 2100, Until Discontinued Given 09/19/2020 8:53 PM GLASS RIBBON MACHINE OPERATOR 10 mg NORepinephrine (LEVOPHED) Rate Change 09/18/2020 10:54 AM 0.02 mcg /kg/min 2.5 mL/hr 8 mg in sodium chloride GLASS RIBBON MACHINE OPERATOR 0.9% 250 mL (conc: 32 mcg/mL) 0-1 mcg/kg/min 67.2 kg (0-126 mL/hr), IV, at 0-126 mL/hr, Titrate, Starting Sun09/13/20 at 1335, Until Sun09/20/20 at 1543, 250 mL, Initiate the infusion at 0.03-0.1 mcg/kg/minute. Increase or decrease the infusion by 0.01 to 0.02 mcg/kg/min every minute to keep MAP between 60-65 mmHg . When discontinuing or weaning, decrease dose gradually by 0.01 - 0.02 mcg/kg/minute every 5 minutes as tolerated to prevent severe hypotension. Document titrations in One Chart (MAR or I&O Flowsheet medication group). Central line preferred if available. Acceptable to give peripherally for urgent need and one-time administration. Pursue a central line for continuous use greater than 24 hours. [facility] Evaluate for transfer to critical care if dose exceeds 0.1 mcg/kg/min., Rate Change 09/18/2020 7:31 AM GLASS RIBBON MACHINE OPERATOR 0.04 mcg/kg/min 5 mL/hr New Bag 09/18/2020 1:58 AM GLASS RIBBON MACHINE OPERATOR 0.07 mcg/kg/min 8.8 mL/hr nortriptyline (PAMELOR) capsule 10 mg Given 09/12/2020 8:51 PM GLASS RIB[employer]ON MACHINE OPERATOR 10 mg 10 mg, Oral, Bedtime, First dose on Sun09/10/20 at 2100, Until Discontinued, For total dose of 75mg +10mg = 85 mg, Given 09/11/2020 9:15 PM CDT 10 mg Given 09/10/2020 10:32 PM CDT 10 mg nortriptyline (PAMELOR) capsule 10 mg Given 09/17/2020 8:21 PM GLASS RIBBON MACHINE OPERATOR 10 mg 10 mg, Feeding tube, Bedtime, First dose (after last modification) on Sun09/13/20 at 2100, Until Discontinued, For total dose of 75mg +10mg = 85 mg, Given 09/16/2020 9:08 PM GLASS RIBBON MACHINE OPERATOR 10 mg Given 09/15/2020 7:50 PM GLASS RIB[employer]ON MACHINE OPERATOR 10 mg nortriptyline (PAMELOR) capsule 10 mg Given 09/18/2020 9:49 PM GLASS RIBBON MACHINE OPERATOR 10 mg 10 mg, Feeding tube, Bedtime, First dose (after last modification) on 09/18/20 at 2100, Until Discontinued, For total dose of 75mg +10mg = 85 mg, nortriptyline (PAMELOR) capsule 10 mg Given 09/20/2020 8:09 PM GLASS RIBBON MACHINE OPERATOR 10 mg 10 mg, Oral, Bedtime, First dose (after last modification) on Sun09/19/20 at 2100, Until Discontinued, For total dose of 75mg +10mg = 85 mg, Given 09/19/2020 8:54 PM GLASS RIBBON MACHINE OPERATOR 10 mg nortriptyline (PAMELOR) capsule 75 mg Given 09/12/2020 8:51 PM GLASS RIBBON MACHINE OPERATOR 75 mg 75 mg, Oral, Bedtime, First dose on Sun09/10/20 at 2100, Until Discontinued Given 09/11/2020 9:15 PM CDT 75 mg Given 09/10/2020 10:37 PM CDT 75 mg nortriptyline (PAMELOR) capsule 75 mg Given 09/17/2020 8:21 PM GLASS RIBBON MACHINE OPERATOR 75 mg 75 mg, Feeding tube, Bedtime, First dose (after last modification) on Sun09/13/20 at 2100, Until Discontinued Given 09/16/2020 8:59 PM GLASS RIBBON MACHINE OPERATOR 75 mg Given 09/15/2020 7:49 PM GLASS RIB[employer]ON MACHINE OPERATOR 75 mg nortriptyline (PAMELOR) capsule 75 mg Given 09/20/2020 8:09 PM GLASS RIBBON MACHINE OPERATOR 75 mg 75 mg, Feeding tube, Bedtime, First dose (after last modification) on 09/18/20 at 2100, Until Discontinued Given 09/19/2020 8:54 PM GLASS RIBBON MACHINE OPERATOR 75 mg Given 09/18/2020 9:49 PM GLASS RIBBON MACHINE OPERATOR 75 mg omeprazole (priLOSEC) capsule 20 mg Given 09/21/2020 7:53 AM GLASS RIBBON MACHINE OPERATOR 20 mg 20 mg, Oral, DAILY, First dose on Sun09/20/20 at 0700, Until Discontinued, Swallow cap whole. Do not crush, chew or open., Given 09/20/2020 6:01 AM GLASS RIBBON MACHINE OPERATOR 20 mg omeprazole (priLOSEC) oral suspension (2 Given 09/18/2020 6:58 AM GLASS RIBBON MACHINE OPERATOR 20 mg mg/mL) 20 mg 20 mg, Feeding tube, DAILY, First dose on Sun09/14/20 at 0700, Until Discontinued, 10 mL, If administering via NG or feeding tube, flush with an appropriate volume of water before and after the dose (for ADULT patients: 15 mL), Given 09/17/2020 6:16 AM GLASS RIBBON MACHINE OPERATOR 20 mg Given 09/16/2020 5:46 AM GLASS RIBBON MACHINE OPERATOR 20 mg omeprazole (priLOSEC) oral suspension (2 Given 09/19/2020 6:17 AM GLASS RIBBON MACHINE OPERATOR 20 mg mg/mL) 20 mg 20 mg, Feeding tube, DAILY, First dose on 09/19/20 at 0700, Until Discontinued, 10 mL, If administering via NG or feeding tube, flush with an appropriate volume of water before and after the dose (for ADULT patients: 15 mL), ondansetron (ZOFRAN) injection solution 4 mg Given 09/13/2020 11:00 AM GL[employer] RIB[employer]ON MACHINE OPERATOR 4 mg 4 mg, IV, Every four hours prn, Starting 09/10/20 at 2300, Until 09/13/20 at 1208, nausea, vomiting, 2 mL, If preference is to further dilute for IV administration: First draw up patient-specific dose, then dilute to 10 mL with 0.9% sodium chloride., Given 09/11/2020 9:15 PM CDT 4 mg Given 09/10/2020 11:58 PM CDT 4 mg oxyCODONE (OXY-IR) tablet 5 mg Given 09/13/2020 3:27 AM GLASS RIBBON MACHINE OPERATOR 5 mg 5 mg, Oral, Every six hours prn, Starting 09/11/20 at 1348, Until 09/13/20 at 1200, moderate pain, severe pain Given 09/12/2020 9:04 PM GLASS RIBBON MACHINE OPERATOR 5 mg Given 09/12/2020 6:38 AM GLASS RIBBON MACHINE OPERATOR 5 mg oxyCODONE (OXY-IR) tablet 5-10 mg Given 09/21/2020 9:53 PM GLASS RIBBON MACHINE OPERATOR 5 mg 5-10 mg, Oral, Every four hours prn, Starting 09/21/20 at 1631, Until 09/22/20 at 1156, 5 for moderate, 10 for severe pain pantoprazole (PROTONIX) enteric coated tablet Given 6:43 AM GLASS RIBBON MACHINE OPERATOR 40 mg 40 mg 40 mg, Oral, DAILY, First dose on 09/11/20 at 0700, Until Discontinued, Tablet should be swallowed whole and not be divided, crushed or chewed., Given 09/12/2020 6:38 AM GLASS RIBBON MACHINE OPERATOR 40 mg Given 09/11/2020 10:52 AM CDT 40 mg polyethylene glycol (MIRALAX) packet 1 Given 09/18/2020 7:57 AM GLASS RIBBON MACHINE OPERATOR 1 packet packet 1 packet, Feeding tube, Daily, First dose (after last modification) on Leah 09/16/20 at 1225, Until Discontinued, Dissolve in 8 ounces of water, juice, soda, coffee, tea., Given 09/17/2020 7:57 AM GLASS RIBBON MACHINE OPERATOR 1 packet Given 09/16/2020 12:30 PM GLASS RIBBON MACHINE OPERATOR 1 packet potassium & sodium phosphates (PHOS-NaK) Given 020 6:56 AM GLASS RIBBON MACHINE OPERATOR 2 packets 280-160-250 MG packet 2 packet 2 packet, Gastrostomy tube, Now, 1 dose, 09/18/20 at 0450, Mix as directed, potassium chloride (K-BHARATI) packet 40 mEq Given 09/14/2020 5:39 AM GLASS RIBBON MACHINE OPERATOR 40 mEq 40 mEq, Feeding tube, Now, 1 dose, 09/14/20 at 0535, Dilute the potassium chloride packet for oral solution with at least 4 ounces (120mL) of water prior to administration., potassium chloride (K-BHARATI) packet 40 mEq Given 09/15/2020 9:11 AM GLASS RIBBON MACHINE OPERATOR 40 mEq 40 mEq, Feeding tube, Every four hours, 2 doses, First dose on Sun09/15/20 at 0515, Last dose on Sun09/15/20 at 0915, Dilute the potassium chloride packet for oral solution with at least 4 ounces (120mL) of water prior to administration., Given 09/15/2020 6:01 AM GLASS RIBBON MACHINE OPERATOR 40 mEq potassium chloride (K-BHARATI) packet 40 mEq Given 09/16/2020 7:51 AM GLASS RIBBON MACHINE OPERATOR 40 mEq 40 mEq, Feeding tube, Every four hours, 2 doses, First dose on Leah 09/16/20 at 0515, Last dose on Sun09/16/20 at 0915, Dilute the potassium chloride packet for oral solution with at least 4 ounces (120mL) of water prior to administration., Given 09/16/2020 5:46 AM GLASS RIBBON MACHINE OPERATOR 40 mEq potassium chloride (K-BHARATI) packet 40 mEq Given 09/18/2020 7:57 AM GLASS RIBBON MACHINE OPERATOR 40 mEq 40 mEq, Feeding tube, Every four hours, 2 doses, First dose on 09/18/20 at 0450, Last dose on 09/18/20 at 0850, Dilute the potassium chloride packet for oral solution with at least 4 ounces (120mL) of water prior to administration., Given 09/18/2020 6:57 AM GLASS RIBBON MACHINE OPERATOR 40 mEq potassium chloride (KLOR-CON M20) CR tablet Given 08/14 5:35 PM CDT 40 mEq 40 mEq 40 mEq, Oral, One time, 1 dose, 09/11/20 at 1630, Tablet may be broken in half, but should not be crushed or chewed. Tablet may be dissolved in 4 oz of water., potassium chloride 40 mEq, lidocaine Given 09/10/2020 11:28 PM CDT 40 mEq 125 mL/hr 20 mg in dextrose 5% 500 mL 40 mEq, IV, at 125 mL/hr, One time, 1 dose, 09/10/20 at 2300, 500 mL, Compatible with levofloxacin Infuse at 10 mEq per hour. May increase to 20 mEq per hour if patient is on telemetry., propofol (DIPRIVAN) 10 mg/mL IV emulsion Given 09/16/2020 11:15 AM GLASS RIBBON MACHINE OPERATOR 20 mg (bolus) 20 mg, IV, Bolus, 1 dose, Leah 09/16/20 at 1220, 20 mL, Nursing only able to administer if patient is intubated or in process of intubation., propofol (DIPRIVAN) 1000 Rate Change 09/15/2020 12:04 PM 10 mcg/kg/mi n 4 mL/hr mg/100 mL IV emulsion GLASS RIBBON MACHINE OPERATOR 0-50 mcg/kg/min 67.2 kg (0-20.16 mL/hr, rounded to 0-20.2 mL/hr), IV, at 0-20.2 mL/hr, Titrate, Starting 09/13/20 at 1310, Until Leah 09/16/20 at 1128, 100 mL, If more than one infusion is ordered to target RASS, use both infusions in tandem to achieve RASS goal. Initiate the infusion at 20 mcg/kg/min Titrate the infusion by 5-10 mcg/kg/min every 3 minutes as needed If RASS score is less than or AT GOAL on current infusion rate, decrease/wean infusion by 5-10 mcg/kg/min at least every 4 hours to lowest effective dose. After spontaneous breathing trial, restart sedation at half the rate previously required Propofol titration goal: RASS 0 to - 1 : Suggested level of sedation to facilitate mechanical ventilation Infusion, tubing and cap (needleless connector) should be changed every 12 hours Chart both the rate of infusion and the dose mcg/kg/min, Rate Change 09/15/2020 11:55 AM GLASS RIBBON MACHINE OPERATOR 40 mcg/kg/min 16.1 mL/hr New Bag/Tubing 09/15/2020 10:33 AM GLASS RIBBON MACHINE OPERATOR 10 mcg/kg/min 4 mL/hr propofol (DIPRIVAN) 200 mg/20 mL IV emul tripp 1 dose, Starting Leah 09/16/20 at 1107, Un til Leah 09/16/20 at 1115, BehmCaleb: cabinet override, senna-docusate sodium Given 09/18/2020 7:57 AM GLASS RIBBON MACHINE OPERATOR 2 tablets (SENOKOT-S;PERICOLACE) tablet 2 tablet 2 tablet, Feeding tube, Two times a day, First dose (after last modification) on Leah 09/16/20 at 1225, Until Discontinued Given 09/17/2020 8:20 PM GLASS RIBBON MACHINE OPERATOR 2 tablets Given 09/17/2020 7:57 AM GLASS RIBBON MACHINE OPERATOR 2 tablets sodium chloride 0.9% (bolus) IV Given 09/11/2020 2:12 PM CD T 1,000 mL 999 mL/hr solution 1,000 mL 1,000 mL, IV, at 999 mL/hr, Bolus, 1 dose, 09/11/20 at 1450, 1,000 mL sodium chloride 0.9% flush (adult) 10 mL Given 09/17/2020 8:21 PM GLASS RIBBON MACHINE OPERATOR 10 mL 10 mL, IV, Two times a day and prn, First dose on Sun09/10/20 at 2100, Until Discontinued, 10 mL, Flush IV line as scheduled and as often as necessary before and after meds., Given 09/17/2020 8:05 AM GLASS RIBBON MACHINE OPERATOR 10 mL Given 09/16/2020 8:59 PM GLASS RIBBON MACHINE OPERATOR 10 mL sodium chloride 0.9% IV solution New Bag 09/12/2020 9:06 PM GLASS RIBBON MACHINE OPERATOR 50 mL/hr IV, at 50 mL/hr, Continuous, Starting 09/11/20 at 1450, Until 09/13/20 at 1200, 1,000 mL Rate Change 09/12/2020 5:47 PM GLASS RIBBON MACHINE OPERATOR 50 mL/hr New Bag 09/12/2020 2:03 PM GLASS RIBBON MACHINE OPERATOR 100 mL/hr sodium chloride 3 % (hypertonic saline) Given 09/19/2020 9:35 A M GLASS RIBBON MACHINE OPERATOR 4 mL inhalation solution 3 mL 3 mL, Nebulization, Three times a day, First dose on Sun09/15/20 at 1500, Until Discontinued, 4 mL, Standard Neb and PPE Guidelines. Do not mix in the same nebulizer cup with any other medications., Given 09/18/2020 9:23 PM GLASS RIBBON MACHINE OPERATOR 3 mL Given 09/18/2020 12:39 PM GLASS RIBBON MACHINE OPERATOR 3 mL sodium chloride 7% (hypertonic saline) Given 09/19/2020 4:28 PM GLASS RIBBON MACHINE OPERATOR 4 mL inhalation solution 4 mL 4 mL, Nebulization, Four times a day, First dose on Sun09/19/20 at 1200, Until Discontinued, Standard Neb and PPE Guidelines. Do not mix in the same nebulizer cup with any other medications., Given 09/19/2020 12:30 PM GLASS RIBBON MACHINE OPERATOR 4 mL sodium phosphates 15 mmol in dextrose 5% Given 09/15/2020 5:56 AM GLASS RIBBON MACHINE OPERATOR 15 mmol 250 mL 15 mmol, IV, Now, 1 dose, Sun09/15/20 at 0515, 250 mL, Run at a rate of 5 mmol/hr. If needing to free up line may run at 7.5 mmol/hr or 10 mmol/hr., sodium phosphates 45 mmol in dextrose 5% Given 09/15/2020 3:36 PM GLASS RIBBON MACHINE OPERATOR 45 mmol 500 mL 45 mmol, IV, One time, 1 dose, Sun09/15/20 at 1610, 500 mL vancomycin (VANCOCIN) 1,250 mg in sodium Given 09/15/2020 7 :30 AM GLASS RIBBON MACHINE OPERATOR 1,250 mg chloride 0.9% 250 mL (Locked) 1,250 mg, IV, Every twelve hours, First dose (after last modification) on 09/13/20 at 1800, Until Discontinued, 250 mL, Vanco Dose 1250 mg- Total Volume: 293 mL @ 195 mL/hr x 1.5 hours, Given 09/14/2020 7:34 PM GLASS RIBBON MACHINE OPERATOR 1,250 mg Given 09/14/2020 5:23 AM GLASS RIBBON MACHINE OPERATOR 1,250 mg vancomycin in dextrose 200 mL IV piggyback Given 09/13 7:57 AM GLASS RIBBON MACHINE OPERATOR 1,000 mg (premix) 1,000 mg 1,000 mg, IV, Every twelve hours, First dose on 09/11/20 at 1800, Until Discontinued, 200 mL Given 09/12/2020 5:50 PM GLASS RIBBON MACHINE OPERATOR 1,000 mg Given 09/12/2020 6:38 AM GLASS RIBBON MACHINE OPERATOR 1,000 mg documented in this encounter
[2020-09-29] MEDS: cefTRIAXone 2 GM Vial IV SCH (16:22)
[2020-09-29] MEDS: Sodium Chloride 0.9% 10 ML Syringe FLUSH SCH (16:45)
[2020-09-29] MEDS: Heparin Sodium 100 Units/ML 3 ML Syringe IVPUSH SCH (16:47)
[2020-09-29] MEDS: Melatonin 3 MG Tab PO SCH (20:13)
[2020-09-29] MEDS: Nortriptyline 10 MG Cap PO SCH (20:13)
[2020-09-29] MEDS: Nortriptyline 25 MG Cap PO SCH (20:13)
[2020-09-29] MEDS: Montelukast 10 MG Tab PO SCH (20:13)
[2020-09-29] MEDS: Acetaminophen/HYDROcodone 325-5 MG Tab PO PRN (21:17)
[2020-09-30] MEDS: ClonazePAM 0.5 MG Tab PO SCH ×4 (05:04→20:12)
[2020-09-30] MEDS: Heparin Sodium 5,000 Units/ML Vial SUBCUT SCH ×3 (05:04→20:10)
[2020-09-30] MEDS: Pantoprazole 40 MG Tab.CR PO SCH ×2 (06:13→17:37)
[2020-09-30] MEDS: Levothyroxine 50 MCG Tab PO SCH (06:13)
[2020-09-30] MEDS: buPROPion 100 MG Tab.SR PO SCH ×2 (10:16→13:24)
[2020-09-30] MEDS: busPIRone 15 MG Tab PO SCH ×2 (10:16→20:12)
[2020-09-30] MEDS: Cyanocobalamin (Vitamin B12) 250 MCG Tab PO SCH (10:16)
[2020-09-30] MEDS: Calcium Carbonate/Vitamin D3 1250 MG-200 Unit Tab PO SCH ×2 (10:17→17:37)
[2020-09-30] MEDS: Multivitamins with Iron/Calcium/Folic Acid/Minerals Tab PO SCH (10:17)
[2020-09-30] MEDS: Baclofen 10 MG Tab PO SCH ×4 (10:17→20:10)
[2020-09-30] MEDS: Potassium Chloride 10 MEQ Tab.ER PO SCH ×2 (10:17→17:37)
[2020-09-30] MEDS: Ferrous Sulfate 325 MG Tab PO SCH (10:17)
[2020-09-30] MEDS: Gabapentin 300 MG Cap PO SCH ×3 (10:18→20:13)
[2020-09-30] MEDS: Heparin Sodium 100 Units/ML 3 ML Syringe IVPUSH SCH (17:37)
[2020-09-30] MEDS: Sodium Chloride 0.9% 10 ML Syringe FLUSH SCH (17:38)
[2020-09-30] MEDS: cefTRIAXone 2 GM Vial IV SCH (17:38)
[2020-09-30] MEDS: Melatonin 3 MG Tab PO SCH (20:10)
[2020-09-30] MEDS: Nortriptyline 25 MG Cap PO SCH (20:13)
[2020-09-30] MEDS: Nortriptyline 10 MG Cap PO SCH (20:13)
[2020-09-30] MEDS: Montelukast 10 MG Tab PO SCH (20:13)
[2020-09-30] MEDS: Acetaminophen/HYDROcodone 325-5 MG Tab PO PRN (20:18)
[2020-09-30] MEDS: Codeine/guaiFENesin 10-100 MG/5 ML Syrup 5 ML Cup PO PRN (20:18)
[2020-10-01] MEDS: Heparin Sodium 5,000 Units/ML Vial SUBCUT SCH ×3 (04:44→20:08)
[2020-10-01] MEDS: Levothyroxine 50 MCG Tab PO SCH (06:09)
[2020-10-01] MEDS: ClonazePAM 0.5 MG Tab PO SCH ×4 (06:09→20:08)
[2020-10-01] MEDS: Pantoprazole 40 MG Tab.CR PO SCH ×2 (06:10→17:12)
[2020-10-01 07:25] LABS: CHLORIDE,CL 103 mmol/L (98-107); SODIUM,NA 141 mmol/L (136-145)
[2020-10-01 07:27] LABS: ANION GAP 9.1 mmol/L (10-20)
[2020-10-01] MEDS: buPROPion 100 MG Tab.SR PO SCH ×2 (09:00→14:00)
[2020-10-01] MEDS: Multivitamins with Iron/Calcium/Folic Acid/Minerals Tab PO SCH (09:05)
[2020-10-01] MEDS: Baclofen 10 MG Tab PO SCH ×4 (09:05→20:07)
[2020-10-01] MEDS: Ferrous Sulfate 325 MG Tab PO SCH (09:05)
[2020-10-01] MEDS: Gabapentin 300 MG Cap PO SCH ×3 (09:05→20:07)
[2020-10-01] MEDS: Cyanocobalamin (Vitamin B12) 250 MCG Tab PO SCH (09:05)
[2020-10-01] MEDS: busPIRone 15 MG Tab PO SCH ×2 (09:05→20:07)
[2020-10-01] MEDS: Calcium Carbonate/Vitamin D3 1250 MG-200 Unit Tab PO SCH ×2 (09:05→17:11)
--- NOTE | 2020-10-01 09:14 | PN ---
Progress Note for NILES SHEARER Date: 10/01/2020 Room #: VM.202 SUBJECTIVE: The patient is getting a little bit stronger, moving around better. It was noted yesterday she did need resumption of oxygen as her sats had dropped down to 89%. She is still having some left chest sided pain, but it is getting much better. The patient was placed on heparin for DVT prophylaxis. The patient's tube feeding formula apparently is not available that she is normally on, so this was substituted. Speech therapy has not available yet at our facility as new provider has not yet started. OBJECTIVE: Vital Signs: Her temperature is 36.6, pulse 88, blood pressure is 116/82, respiratory rate 14, and saturations are 94% on 2 L and they are up to 97 this morning. General: The patient is somewhat quiet, not very talkative. Heart: Regular rate and rhythm. Lungs: Have diminished breath sounds on the left base, but right is clear. Abdomen: Soft. Extremities: No edema. LABORATORY DATA: Shows that her hemoglobin is stable at 7.7, white blood cell count 7.9, platelets have improved to 635, 64 segs, 19 lymps. Sodium is 141, potassium improved to 3.1 from 2.4, creatinine 0.8, GFR greater than 60, glucose 95, and calcium 8.3. IMPRESSION: 1. Empyema. 2. Deconditioning. 3. Hypoxemia related to empyema. 4. Hypokalemia. 5. Dysphagia. 6. Chronic anxiety disorder. 7. Chronic depression. PLAN: We will repeat chest x-ray today. We will increase her oral potassium to 3 times a day. We will continue the heparin. The patient due to her gastric bypass has been noted to had a Venofer infusion in the past. We will check her stored iron studies on Sunday. She may need repeat iron infusion. Plan is for her to be discontinued with physical therapy as of 10/06, so we will need to work on discharge plans with the patient as she still needs her IV antibiotics until October 24 if she will come as an outpatient to get this versus stay self-pay swing bed versus if home health can administer this. GM10/01/2020 08:23:49 MODL: 10/01/2020 09:05:16 /[id number]
[2020-10-01] MEDS: Acetaminophen/HYDROcodone 325-5 MG Tab PO PRN ×2 (09:15→20:12)
--- NOTE | 2020-10-01 09:16 | CR ---
[id number] RAD/RAD Chest PA or AP 1V EXAM: RAD Chest PA or AP 1V INDICATION: PNEUMONIA FOLLOWUP, HYPOXIC. COMPARISON: None. DISCUSSION: Cardiomediastinal silhouette is stable in size and contour. Elevation left hemidiaphragm. Near complete opacification of the left hemithorax. The right lung is clear. No mediastinal shift. No pneumothorax IMPRESSION: Near complete opacification left hemithorax. This could be related to atelectasis. Underlying consolidation and/or pleural effusion is not excluded. Follow-up imaging is recommended to ensure resolution. Manpreet Luna DO 10/01/20 0914 Thank you for allowing us to participate in the care of your patient.
[2020-10-01] MEDS: Potassium Chloride 10 MEQ Tab.ER PO SCH ×3 (09:17→20:07)
--- NOTE | 2020-10-01 12:16 | CR ---
[id number] RAD/RAD Chest PA And Lateral EXAM: RAD Chest PA And Lateral INDICATION: PNEUMONIA FOLLOWUP, HYPOXIA. COMPARISON: Earlier today and September 27. DISCUSSION: Right PICC remains in place. Tip projects over expected location of the SVC, given leftward shift of the mediastinal structures. Opacification throughout the left lung, similar to appearance compared to examinations from earlier today and September 27, 2020. Volume loss on the left as well as traction bronchiectasis are consistent with at least some component of chronic scarring. However, underlying pneumonia and/or effusion is possible. Acute nondisplaced left sixth rib fracture. No visible pneumothorax. Right lung remains clear. IMPRESSION: Persistent opacification throughout the left lung, unchanged from prior examinations. Acute nondisplaced left sixth rib fracture. Jesus Og MD 10/01/20 0967 Thank you for allowing us to participate in the care of your patient.
[2020-10-01] MEDS: Albuterol HFA 18 Gm Inhaler INH SCH ×3 (14:01→20:06)
[2020-10-01] MEDS: Codeine/guaiFENesin 10-100 MG/5 ML Syrup 5 ML Cup PO PRN ×2 (14:54→20:14)
[2020-10-01] MEDS: Sodium Chloride 0.9% 10 ML Syringe FLUSH SCH (17:10)
[2020-10-01] MEDS: cefTRIAXone 2 GM Vial IV SCH (17:10)
[2020-10-01] MEDS: Heparin Sodium 100 Units/ML 3 ML Syringe IVPUSH SCH (17:13)
[2020-10-01] MEDS: Nortriptyline 25 MG Cap PO SCH (20:06)
[2020-10-01] MEDS: Melatonin 3 MG Tab PO SCH (20:07)
[2020-10-01] MEDS: Montelukast 10 MG Tab PO SCH (20:07)
[2020-10-01] MEDS: Nortriptyline 10 MG Cap PO SCH (20:07)
[2020-10-01] MEDS: ESTROGENS CONJUGATED SCH (20:08)
[2020-10-02] MEDS: Heparin Sodium 5,000 Units/ML Vial SUBCUT SCH ×3 (04:44→22:05)
[2020-10-02] MEDS: Levothyroxine 50 MCG Tab PO SCH (06:37)
[2020-10-02] MEDS: Pantoprazole 40 MG Tab.CR PO SCH ×2 (06:37→17:51)
[2020-10-02] MEDS: ClonazePAM 0.5 MG Tab PO SCH ×4 (06:37→19:43)
[2020-10-02] MEDS: Albuterol HFA 18 Gm Inhaler INH SCH ×4 (08:29→19:43)
[2020-10-02] MEDS: busPIRone 15 MG Tab PO SCH ×2 (08:30→19:43)
[2020-10-02] MEDS: Potassium Chloride 10 MEQ Tab.ER PO SCH ×3 (08:30→19:47)
[2020-10-02] MEDS: Cyanocobalamin (Vitamin B12) 250 MCG Tab PO SCH (08:30)
[2020-10-02] MEDS: buPROPion 100 MG Tab.SR PO SCH ×2 (08:30→11:21)
[2020-10-02] MEDS: Multivitamins with Iron/Calcium/Folic Acid/Minerals Tab PO SCH (08:30)
[2020-10-02] MEDS: Gabapentin 300 MG Cap PO SCH ×3 (08:30→19:43)
[2020-10-02] MEDS: Baclofen 10 MG Tab PO SCH ×4 (08:30→19:43)
[2020-10-02] MEDS: Calcium Carbonate/Vitamin D3 1250 MG-200 Unit Tab PO SCH ×2 (08:30→17:51)
[2020-10-02] MEDS: Ferrous Sulfate 325 MG Tab PO SCH (08:31)
[2020-10-02] MEDS: Codeine/guaiFENesin 10-100 MG/5 ML Syrup 5 ML Cup PO PRN ×2 (08:36→19:40)
[2020-10-02] MEDS: Sodium Chloride 0.9% 10 ML Syringe FLUSH SCH (17:52)
[2020-10-02] MEDS: Heparin Sodium 100 Units/ML 3 ML Syringe IVPUSH SCH (17:52)
[2020-10-02] MEDS: cefTRIAXone 2 GM Vial IV SCH (17:53)
[2020-10-02] MEDS: Nortriptyline 10 MG Cap PO SCH (19:43)
[2020-10-02] MEDS: Nortriptyline 25 MG Cap PO SCH (19:43)
[2020-10-02] MEDS: Acetaminophen/HYDROcodone 325-5 MG Tab PO PRN (19:44)
[2020-10-02] MEDS: Melatonin 3 MG Tab PO SCH (19:44)
[2020-10-02] MEDS: Montelukast 10 MG Tab PO SCH (19:44)
[2020-10-02] MEDS ORDERED: Heparin Sodium 5,000 Units/ML Vial SUBCUT ONE (20:00)
[2020-10-03] MEDS: Acetaminophen/HYDROcodone 325-5 MG Tab PO PRN ×3 (02:31→20:50)
[2020-10-03] MEDS: Heparin Sodium 5,000 Units/ML Vial SUBCUT SCH ×3 (06:16→21:03)
[2020-10-03] MEDS: Pantoprazole 40 MG Tab.CR PO SCH ×2 (06:16→18:26)
[2020-10-03] MEDS: ClonazePAM 0.5 MG Tab PO SCH ×4 (06:16→20:52)
[2020-10-03] MEDS: Levothyroxine 50 MCG Tab PO SCH (06:17)
[2020-10-03] MEDS: Calcium Carbonate/Vitamin D3 1250 MG-200 Unit Tab PO SCH ×2 (08:53→18:26)
[2020-10-03] MEDS: buPROPion 100 MG Tab.SR PO SCH ×2 (08:53→12:16)
[2020-10-03] MEDS: Multivitamins with Iron/Calcium/Folic Acid/Minerals Tab PO SCH (08:53)
[2020-10-03] MEDS: Potassium Chloride 10 MEQ Tab.ER PO SCH ×3 (08:53→20:49)
[2020-10-03] MEDS: Baclofen 10 MG Tab PO SCH ×4 (08:53→20:50)
[2020-10-03] MEDS: Gabapentin 300 MG Cap PO SCH ×3 (08:53→20:52)
[2020-10-03] MEDS: Cyanocobalamin (Vitamin B12) 250 MCG Tab PO SCH (08:53)
[2020-10-03] MEDS: Ferrous Sulfate 325 MG Tab PO SCH (08:53)
[2020-10-03] MEDS: busPIRone 15 MG Tab PO SCH ×2 (08:53→20:52)
[2020-10-03] MEDS: Sodium Chloride 0.9% 10 ML Syringe IV PRN (08:54)
[2020-10-03] MEDS: Heparin Sodium 100 Units/ML 3 ML Syringe IVPUSH PRN (08:56)
[2020-10-03] MEDS: Albuterol HFA 18 Gm Inhaler INH SCH ×4 (08:58→21:04)
[2020-10-03] MEDS: Codeine/guaiFENesin 10-100 MG/5 ML Syrup 5 ML Cup PO PRN ×2 (12:19→20:52)
[2020-10-03] MEDS: Sodium Chloride 0.9% 10 ML Syringe FLUSH SCH (15:16)
[2020-10-03] MEDS: Heparin Sodium 100 Units/ML 3 ML Syringe IVPUSH SCH (15:16)
[2020-10-03] MEDS: cefTRIAXone 2 GM Vial IV SCH (15:17)
[2020-10-03] MEDS: Melatonin 3 MG Tab PO SCH (20:49)
[2020-10-03] MEDS: Nortriptyline 25 MG Cap PO SCH (20:49)
[2020-10-03] MEDS: Nortriptyline 10 MG Cap PO SCH (20:52)
[2020-10-03] MEDS: Montelukast 10 MG Tab PO SCH (20:52)
[2020-10-04] MEDS: Heparin Sodium 5,000 Units/ML Vial SUBCUT SCH ×3 (06:32→21:06)
[2020-10-04] MEDS: Pantoprazole 40 MG Tab.CR PO SCH ×2 (06:34→16:32)
[2020-10-04] MEDS: ClonazePAM 0.5 MG Tab PO SCH ×4 (06:34→20:24)
[2020-10-04] MEDS: Levothyroxine 50 MCG Tab PO SCH (06:34)
[2020-10-04 07:02] LABS: CHLORIDE,CL 102 mmol/L (98-107); SODIUM,NA 139 mmol/L (136-145)
[2020-10-04 07:06] LABS: ANION GAP 11.4 mmol/L (10-20)
[2020-10-04] MEDS: Albuterol HFA 18 Gm Inhaler INH SCH ×4 (09:24→20:26)
[2020-10-04] MEDS: Ferrous Sulfate 325 MG Tab PO SCH (09:25)
[2020-10-04] MEDS: Cyanocobalamin (Vitamin B12) 250 MCG Tab PO SCH (09:25)
[2020-10-04] MEDS: buPROPion 100 MG Tab.SR PO SCH ×2 (09:25→12:59)
[2020-10-04] MEDS: busPIRone 15 MG Tab PO SCH ×2 (09:25→20:23)
[2020-10-04] MEDS: Gabapentin 300 MG Cap PO SCH ×3 (09:25→20:24)
[2020-10-04] MEDS: Multivitamins with Iron/Calcium/Folic Acid/Minerals Tab PO SCH (09:26)
[2020-10-04] MEDS: Potassium Chloride 10 MEQ Tab.ER PO SCH ×4 (09:26→20:24)
[2020-10-04] MEDS: Baclofen 10 MG Tab PO SCH ×4 (09:27→20:24)
[2020-10-04] MEDS: Calcium Carbonate/Vitamin D3 1250 MG-200 Unit Tab PO SCH ×2 (09:27→18:39)
[2020-10-04] MEDS: Acetaminophen/HYDROcodone 325-5 MG Tab PO PRN ×2 (10:49→20:39)
[2020-10-04] MEDS: Codeine/guaiFENesin 10-100 MG/5 ML Syrup 5 ML Cup PO PRN ×2 (10:49→20:39)
[2020-10-04] MEDS: cefTRIAXone 2 GM Vial IV SCH (16:33)
[2020-10-04] MEDS: Sodium Chloride 0.9% 10 ML Syringe FLUSH SCH (16:34)
[2020-10-04] MEDS: Heparin Sodium 100 Units/ML 3 ML Syringe IVPUSH SCH (16:34)
[2020-10-04] MEDS: Nortriptyline 10 MG Cap PO SCH (20:24)
[2020-10-04] MEDS: Melatonin 3 MG Tab PO SCH (20:24)
[2020-10-04] MEDS: Montelukast 10 MG Tab PO SCH (20:25)
[2020-10-04] MEDS: Nortriptyline 25 MG Cap PO SCH (20:26)
[2020-10-04] MEDS: ESTROGENS CONJUGATED SCH (20:31)
[2020-10-05] MEDS: Heparin Sodium 5,000 Units/ML Vial SUBCUT SCH ×3 (06:06→21:26)
[2020-10-05] MEDS: Levothyroxine 50 MCG Tab PO SCH (06:07)
[2020-10-05] MEDS: Pantoprazole 40 MG Tab.CR PO SCH ×2 (06:07→17:28)
[2020-10-05] MEDS: ClonazePAM 0.5 MG Tab PO SCH ×4 (06:07→19:51)
[2020-10-05] MEDS: Albuterol HFA 18 Gm Inhaler INH SCH ×4 (10:15→19:52)
[2020-10-05] MEDS: Cyanocobalamin (Vitamin B12) 250 MCG Tab PO SCH (10:15)
[2020-10-05] MEDS: Ferrous Sulfate 325 MG Tab PO SCH (10:15)
[2020-10-05] MEDS: Gabapentin 300 MG Cap PO SCH ×3 (10:16→19:51)
[2020-10-05] MEDS: Calcium Carbonate/Vitamin D3 1250 MG-200 Unit Tab PO SCH ×2 (10:16→17:28)
[2020-10-05] MEDS: Potassium Chloride 10 MEQ Tab.ER PO SCH ×2 (10:16→19:51)
[2020-10-05] MEDS: Multivitamins with Iron/Calcium/Folic Acid/Minerals Tab PO SCH (10:16)
[2020-10-05] MEDS: buPROPion 100 MG Tab.SR PO SCH ×2 (10:16→12:01)
[2020-10-05] MEDS: Baclofen 10 MG Tab PO SCH ×4 (10:16→19:50)
[2020-10-05] MEDS: busPIRone 15 MG Tab PO SCH ×2 (10:16→19:51)
[2020-10-05] MEDS: Codeine/guaiFENesin 10-100 MG/5 ML Syrup 5 ML Cup PO PRN ×2 (10:22→19:51)
[2020-10-05] MEDS: Acetaminophen/HYDROcodone 325-5 MG Tab PO PRN ×2 (10:22→19:50)
[2020-10-05] MEDS: cefTRIAXone 2 GM Vial IV SCH (17:27)
[2020-10-05] MEDS: Sodium Chloride 0.9% 10 ML Syringe FLUSH SCH (17:27)
[2020-10-05] MEDS: Heparin Sodium 100 Units/ML 3 ML Syringe IVPUSH SCH (17:29)
[2020-10-05] MEDS: Nortriptyline 10 MG Cap PO SCH (19:50)
[2020-10-05] MEDS: Montelukast 10 MG Tab PO SCH (19:51)
[2020-10-05] MEDS: Melatonin 3 MG Tab PO SCH (19:51)
[2020-10-05] MEDS: Nortriptyline 25 MG Cap PO SCH (19:51)
[2020-10-06] MEDS: Sodium Chloride 0.9% 10 ML Syringe IV PRN (06:25)
[2020-10-06] MEDS: Heparin Sodium 100 Units/ML 3 ML Syringe IVPUSH PRN (06:25)
[2020-10-06] MEDS: ClonazePAM 0.5 MG Tab PO SCH ×2 (06:25→12:26)
[2020-10-06] MEDS: Pantoprazole 40 MG Tab.CR PO SCH (06:25)
[2020-10-06] MEDS: Heparin Sodium 5,000 Units/ML Vial SUBCUT SCH (06:25)
[2020-10-06] MEDS: Levothyroxine 50 MCG Tab PO SCH (06:25)
[2020-10-06] MEDS: Albuterol HFA 18 Gm Inhaler INH SCH ×2 (08:36→12:35)
[2020-10-06] MEDS: buPROPion 100 MG Tab.SR PO SCH ×2 (08:37→12:26)
[2020-10-06] MEDS: Baclofen 10 MG Tab PO SCH ×2 (08:38→12:26)
[2020-10-06] MEDS: Calcium Carbonate/Vitamin D3 1250 MG-200 Unit Tab PO SCH (08:38)
[2020-10-06] MEDS: Cyanocobalamin (Vitamin B12) 250 MCG Tab PO SCH (08:38)
[2020-10-06] MEDS: Multivitamins with Iron/Calcium/Folic Acid/Minerals Tab PO SCH (08:38)
[2020-10-06] MEDS: Gabapentin 300 MG Cap PO SCH ×2 (08:38→12:26)
[2020-10-06] MEDS: Ferrous Sulfate 325 MG Tab PO SCH (08:38)
[2020-10-06] MEDS: busPIRone 15 MG Tab PO SCH (08:38)
[2020-10-06] MEDS: Potassium Chloride 10 MEQ Tab.ER PO SCH (08:39)
[2020-10-06] MEDS: Codeine/guaiFENesin 10-100 MG/5 ML Syrup 5 ML Cup PO PRN (09:31)
[2020-10-06] MEDS: Acetaminophen/HYDROcodone 325-5 MG Tab PO PRN (09:31)
--- NOTE | 2020-10-06 10:00 | PN ---
Progress Note for NILES SHEARER Date: 10/05/2020 Room #: VM.202 SUBJECTIVE: The patient is getting stronger. She still complains of left-sided rib pain. She is not having a fever. She has gotten much better with walking around. Discharge plans are to have her go home tomorrow. She has been without oxygen, was able to ambulate around without oxygen today. OBJECTIVE: Vital Signs: The patient's temperature is 36.5, pulse 97, blood pressure 94/60, respiratory rate 18, saturations are 100% on room air. General: The patient is alert, lying in bed, does have some soreness with moving around. Heart: Regular rate and rhythm. Lungs: Clear to auscultation with no crackles or wheezes, however, somewhat diminished on the left side. Abdomen: Soft. Lower Extremities: No edema. LABORATORY DATA: Done yesterday showed her hemoglobin improved to 8.8, white blood cell count 6.4, platelets 591, improved. Sodium is 139, potassium 4.4, creatinine 0.9, GFR greater than 60, glucose 88. Calcium was normal. Magnesium 2.1. Iron is 29, TIBC 213, percent saturation 13.6. Ferritin is 661. AST 14, ALT 15, alk phos 145, CRP 6.5, albumin 2.2. IMPRESSION: 1. Empyema. 2. Community-acquired pneumonia. 3. Hypoxemia, improving. 4. Left rib pain, possible rib fracture. 5. Anemia, improving. 6. Dysphagia. 7. Malnutrition. 8. Chronic anxiety disorder. PLAN: A [id number] examination was held today on 10/05/2020 for patient for need for home health. The patient is weak and cannot walk further than 20 feet. She would depend on others for rides. She is on tube feedings. She needs physical therapy for strengthening in home environment as well as OT for ADLs. The patient will be monitored by Dr. Brian Longoria from [place] for her home health progress. We will have her follow up to see him in 2 weeks' time for re- evaluation. The patient also needs her oxygen levels monitored at home. She does not appear to require home oxygen right now, but that may main change as well. The patient will be set up for discharge tomorrow and to determine if she can have home IV antibiotics versus if she has to come as an outpatient to receive them until 10/23 or 10/24. GM10/05/2020 08:29:57 MODL: 10/05/2020 09:06:09 /[id number]
[2020-10-06] MEDS: cefTRIAXone 2 GM Vial IV SCH (12:28)
--- NOTE | 2020-10-06 14:29 | DISCH ---
PRIMARY DIAGNOSES: 1. Empyema of Streptococcus intermedius. 2. Community-acquired pneumonia. 3. Deconditioning and weakness due to above. 4. Hypoxemia due to above. 5. Anemia, multifactorial and chronic. 6. Chronic anxiety disorder. 7. Chronic depression. 8. Hypothyroidism. 9. Dysphagia, chronic. 10.History of gastric bypass surgery. 11.Hypokalemia. 12.Left 6th rib fracture. SUMMARY OF ADMIT HISTORY AND PHYSICAL: The patient is a 55-year-old female who had been hospitalized at [facility] since 09/10/2020 with a left lung mass, work up ended up being an empyema. She had a left VATS procedure done and she had problems with hypoxemia afterwards, needed intubation, had some delirium from the ICU. Hemoglobin at discharge was 7.8. The patient is on chronic tube feedings for chronic dysphagia order that she has. The patient has received IV Venofer for iron deficiency in the past. The patient did have a 2D echo in [place] prior to discharge, which showed some mild mitral regurgitation. The patient had a planned course of IV Rocephin to be given until 10/24/2020, 2 g daily. She was need to be followed up by CT Surgery and needed chest x-ray in 2 weeks as well as repeat CT in 6 weeks' time. The patient had a PICC line placed as well. SUMMARY OF SWING BED COURSE: When the patient was admitted here, her first lab work done on 09/29/2020 showed a hemoglobin of 7.5, white blood cell count 8.5, platelets 711. Sodium 142, potassium 2.4, creatinine 0.8, GFR greater than 60, glucose 98, calcium 8.6 with corrected calcium of 10.44, AST 11, ALT 128, CRP 12.0, albumin 1.7. The patient received physical therapy while on swing bed as well as OT. Speech was not able to see patient until 10/04/2020. The patient did receive oral potassium replacement while she was here. She was placed on heparin for DVT prophylaxis. Her hemoglobin had improved to 8.8 by 10/06/2020. Her potassium had improved by 10/01/2020 up to 3.1. Oral potassium had been increased by 10/04/2020, it was up to 4.4. She was reduced to 2 potassium pills daily of 20 mEq. Her CRP was monitored and did improve to 6.5 by 10/04/2020. Alkaline phosphatase was at 145 by 10/04/2020. Her albumin had improved to 2.2 by 10/04/2020. Her magnesium was 2.1 on 10/04/2020. Iron level was 29, TIBC 213, percent saturation 13.6, ferritin was 663. The patient did work with Respiratory Therapy with incentive spirometry and did have some neb treatments. The patient did have a chest x-ray done on 10/01/2020, which showed PICC line in place. Opacification of left lung similar to x-ray done on 09/27/2020. Volume loss on the left as well as traction bronchiectasis consistent with at least some component of chronic scarring. However, underlying pneumonia is still possible. Acute displaced left 6th rib fracture was also noted. The patient did require oral narcotics because of chest wall pain that she was having. The patient had progressed with therapy and was felt to be able to be discharged home by 10/06/2020. She was treated with heparin for DVT prophylaxis due to her anemia and ability to reverse quickly if needed while she was on swing bed. She was not felt to need at discharge. DISCHARGE MEDICATIONS: 1. Rocephin 2 g IV daily, to be ended on 10/24/2020 as an outpatient. 2. Multivitamin 1 pill daily. 3. Singulair 10 mg 1 pill at bedtime. 4. Levothyroxine 50 mcg 1 pill daily. 5. Glucagon 1 mg IM p.r.n. 6. Premarin 0.625 mg, 1 g vaginally every 3 days. 7. Vitamin B12 500 mcg 1 pill daily. 8. Clonazepam 1 mg 1 pill twice a day. 9. Protonix 40 mg 1 pill twice a day. 10.Nortriptyline 10 mg at bedtime. 11.Clonazepam 0.5 mg b.i.d. 12.Calcium with vitamin D 1 tablet b.i.d. 13.Artificial Tears 1 drop daily p.r.n. 14.Baclofen 10 mg 4 times a day. 15.Nortriptyline 25 mg capsule, she takes 75 mg at bedtime. 16.Gabapentin 300 mg 1 pill 3 times a day. 17.Alprazolam 1 mg p.r.n. daily. 18.Clonidine 0.1 mg, she takes 4 pills at bedtime p.r.n. 19.BuSpar 15 mg b.i.d. 20.Wellbutrin sustained release 200 mg in the morning and 100 mg at noon. 21.Saline flush 10 mL q.24 hours. 22.Senna Plus 1 tablet twice a day. 23.Melatonin 6 mg at bedtime. 24.Heparin 300 units IV q.24 hours per PICC line. 25.Ferrous sulfate 325 1 pill daily. 26.Imitrex 25 mg 1 to 2 hours p.r.n. 27.Clonidine 0.1 mg 2 pills daily p.r.n. 28.Glucose 4 g tablets 1 dose 3 daily p.r.n. 29.Potassium chloride 20 mEq 1 pill twice a day. 30.Acetaminophen/hydrocodone 325/5 1 tablet every 6 hours p.r.n. 31.Albuterol 2 puffs 4 times a day. The patient should use incentive spirometry q.2 hours while awake. The patient has her feeding tube per prior routine. A [id number] exam was held with the patient on 10/05/2020 and documented in need of home health services; please refer to that note. The patient will be followed up with Dr. Lucho Longoria in [place] in 2 weeks' time for followup and he was made aware of the patient's discharge. Also, she will need to keep her followup appointments with Infectious Disease and CV Surgery as previously set up. The patient's code level status at the time of discharge is full code. Over 30 minutes in te was spent preparing discharge. GM10/06/2020 08:16:47 MODL: 10/06/2020 10:44:07 /[id number] MICHAEL
== END 2020-10-06 13:40 | disposition home health service (06) | DRG 177 ==
LOC: VM.MS 09-28 14:14
PROVIDERS: ADMIT Family Medicine; ATTEND Family Medicine
DX: J86.9 Pyothorax without fistula (principal); J18.9 Pneumonia, unspecified organism; S22.32XA Fracture of one rib, left side, initial encounter for closed fracture; E46 Unspecified protein-calorie malnutrition; B95.4 Other streptococcus as the cause of diseases classified elsewhere; R53.1 Weakness; D64.9 Anemia, unspecified; F41.9 Anxiety disorder, unspecified; F32.9 Major depressive disorder, single episode, unspecified; E03.9 Hypothyroidism, unspecified; R13.10 Dysphagia, unspecified; E87.6 Hypokalemia; I34.0 Nonrheumatic mitral (valve) insufficiency; K21.9 Gastro-esophageal reflux disease without esophagitis; Z98.84 Bariatric surgery status; Z90.710 Acquired absence of both cervix and uterus; Z90.49 Acquired absence of other specified parts of digestive tract; Z79.899 Other long term (current) drug therapy; Z68.24 Body mass index [BMI] 24.0-24.9, adult; X58.XXXA Exposure to other specified factors, initial encounter
CPT/HCPCS: 36415; 71045; 71046; 80048; 80053; 82728; 82962; 83540; 83550; 83735; 85025; 85027; 86140; 94760; 97110-GO; 97110-GP; 97116-GP; 97161-GP; 97165-GO; A9270-GY; J0696; J1642; J1644

== ENCOUNTER 2022-10-26 00:05 | Emergency (ER) | payer MEDICARE ==
[2022-10-26 00:39] LABS: ANION GAP 13.2 mmol/L (5-15); CHLORIDE,CL 102 mmol/L (98-107); ESTIMATED GFR 76 mL/min (>=60); SODIUM,NA 138 mmol/L (136-145)
[2022-10-26] MEDS ORDERED: Sucralfate 1 GM Tab PO ONE (00:42)
== END 2022-10-26 01:00 | disposition home or self-care (01) ==
LOC: VM.ED 00:05
DX: K92.2 Gastrointestinal hemorrhage, unspecified (principal); Z91.048 Other nonmedicinal substance allergy status; Z88.6 Allergy status to analgesic agent; Z88.0 Allergy status to penicillin; Z88.8 Allergy status to other drugs, medicaments and biological substances; Z79.899 Other long term (current) drug therapy; Z90.49 Acquired absence of other specified parts of digestive tract; Z90.710 Acquired absence of both cervix and uterus
CPT/HCPCS: 36415; 80048; 85025; 99284; A9270

== ENCOUNTER 2024-11-28 09:30 | Emergency (ER) | payer MEDICARE ==
[2024-11-28] MEDS ORDERED: Sodium Chloride 0.9% 10 ML Syringe FLUSH PRN (09:41)
[2024-11-28 09:58] LABS: BASOPHILS ABSOLUTE AUTO 0.1 x10^3/uL (0.0-0.2); BASOPHILS PERCENT AUTO 1.5 % (0.2-1.2); EOSINOPHILS ABSOLUTE AUTO 0.1 x10^3/uL (0.0-0.5); EOSINOPHILS PERCENT AUTO 1.5 % (0.0-4.0); HEMATOCRIT 37.2 % (33.0-47.0); HEMOGLOBIN 12.4 g/dL (12.0-16.0); LYMPHOCYTES ABSOLUTE AUTO 1.8 x10^3/uL (1.0-4.8); LYMPHOCYTES PERCENT AUTO 37.5 % (25.0-50.0); MEAN CORPUSCULAR HEMOGLOBIN 28.6 pg (26.0-32.0); MEAN CORPUSCULAR HGB CONC 33.3 g/dL (32.0-36.0); MEAN CORPUSCULAR VOLUME 85.9 fL (78.0-93.0); MONOCYTES ABSOLUTE AUTO 0.5 x10^3/uL (0.0-0.8); MONOCYTES PERCENT AUTO 11.5 % (2.0-11.0); NEUTROPHILS ABSOLUTE AUTO 2.3 x10^3/uL (1.8-7.7); PLATELET COUNT,PLT 260 x10^3/uL (130-400); RED BLOOD CELL COUNT 4.33 x10^6/uL (4.00-5.50); WHITE BLOOD CELL COUNT,WBC 4.7 x10^3/uL (4.0-10.0)
[2024-11-28] MEDS: Ondansetron 4 MG/2 ML SDV IVPUSH ONE (10:10)
[2024-11-28 10:13] LABS: ALANINE AMINOTRANSFERASE,ALT 52 U/L (14-59); ALBUMIN 3.6 g/dL (3.4-5.0); ALKALINE PHOSPHATASE 123 U/L (46-116); ASPARTATE AMNIOTRANSFERASE,AST 32 U/L (15-37); BILIRUBIN TOTAL 0.3 mg/dL (0.2-1.0); BLOOD UREA NITROGEN,BUN 22 mg/dL (7-18); CALCIUM 9.2 mg/dL (8.5-10.1); CARBON DIOXIDE,CO2 31 mmol/L (21-32); CHLORIDE,CL 102 mmol/L (98-107); CREATININE 1.1 mg/dL (0.55-1.02); GLUCOSE RANDOM 84 mg/dL (70-99); PROTEIN TOTAL,TP 7.2 g/dL (6.4-8.2); SODIUM,NA 140 mmol/L (136-145)
[2024-11-28 10:19] LABS: C-REACTIVE PROTEIN < 0.50 mg/dL (<=0.50); ESTIMATED GFR 59 mL/min (>=60)
[2024-11-28 10:21] LABS: LACTIC ACID 0.6 mmol/L (0.4-2.0)
[2024-11-28] MEDS: Lactated Ringers 1,000 ML IV ONE (10:42)
[2024-11-28] MEDS: HYDROmorphone 1 MG/ML Syringe IVPUSH ONE (11:10)
[2024-11-28] MEDS: Iopamidol 612 MG/ML 100 ML Bottle IVPUSH ONE (11:34)
[2024-11-28 12:30] LABS: FECAL OCCULT BLOOD INTERP NEGATIVE (NEGATIVE)
[2024-11-28 12:55] LABS: APPEARANCE,URINE CLEAR (CLEAR); BILIRUBIN,URINE NEGATIVE (NEGATIVE); COLOR,URINE YELLOW (YELLOW); GLUCOSE,URINE NEGATIVE (NEGATIVE); KETONES,URINE NEGATIVE (NEGATIVE); LEUKOCYTE ESTERASE,URINE TRACE (NEGATIVE); NITRITE,URINE NEGATIVE (NEGATIVE); OCCULT BLOOD,URINE TRACE-INTACT (NEGATIVE); PH,URINE 5.5 (5.0-8.0); PROTEIN,URINE NEGATIVE (NEGATIVE); UROBILINOGEN,URINE 0.2 EU/dL (0.2)
[2024-11-28 13:05] LABS: RBC,URINE 0-5 /HPF (NOT SEEN)
[2024-11-28 13:06] LABS: BACTERIA,URINE NOT SEEN /HPF (NOT SEEN); MUCUS,URINE NOT SEEN /LPF (NOT SEEN); SQUAMOUS EPITHELIAL CELLS,UR FEW /HPF (NOT SEEN); WBC,URINE 0-5 /HPF (NOT SEEN)
[2024-11-28] MEDS: HYDROmorphone 0.5 MG/0.5 ML Syringe IVPUSH ONE (13:12)
== END 2024-11-28 13:27 ==
LOC: VM.ED 09:30
DX: E86.0 Dehydration (principal); R10.13 Epigastric pain; J45.909 Unspecified asthma, uncomplicated; K21.9 Gastro-esophageal reflux disease without esophagitis; E03.9 Hypothyroidism, unspecified; Z90.49 Acquired absence of other specified parts of digestive tract; Z98.84 Bariatric surgery status; Z90.710 Acquired absence of both cervix and uterus; Z88.0 Allergy status to penicillin; Z88.5 Allergy status to narcotic agent; Z88.6 Allergy status to analgesic agent; Z88.8 Allergy status to other drugs, medicaments and biological substances; Z91.048 Other nonmedicinal substance allergy status; Z79.51 Long term (current) use of inhaled steroids; Z79.890 Hormone replacement therapy; Z79.899 Other long term (current) drug therapy
CPT/HCPCS: 74177; 80053; 81001; 82271; 82947; 83605; 85025; 86140; 87086; 96361; 96374; 96375; 96376; 99284; 99285-25; G0328; J1171; J2405; J7120; Q9967